=== PATIENT | male | born 1950 | race Hispanic/Latino ===

== ENCOUNTER 2018-06-27 09:03 | Emergency (ER) | payer MEDICARE ==
[~2018-06-27 09:03] MED LIST: AMLO10TA6 PO; ASPI-1005 PO; BUDE10.2 IH; BUSP15TA3 PO; GABA-531 PO; LISI-613 PO; SERT100T12 PO; ZOLP10TA6 PO
[2018-06-27] MEDS ORDERED: LISINOPRIL 5 MG TABLET ONE (09:33)
[2018-06-27] MEDS ORDERED: IPRATROPIUM/ALBUTEROL SULFATE 3 ML SOLUTION IH ONE (09:42)
[2018-06-27] MEDS ORDERED: ACETAMINOPHEN 325 MG TAB ONE (09:58)
== END 2018-06-27 11:41 | disposition home or self-care (01) ==
LOC: EDH 09:03
DX: J40 Bronchitis, not specified as acute or chronic (principal); R07.89 Other chest pain; I10 Essential (primary) hypertension; Z72.0 Tobacco use
CPT/HCPCS: 71045; 93005; 94640

== ENCOUNTER → 2018-09-14 | Outpatient (CLI) | payer MEDICARE ==
[~2018-09-14] MED LIST changes: -AMLO10TA6 PO; +AMLO10TA7 PO
[2018-09-14 13:25] VITALS: BP 162/76
== END | disposition home or self-care (01) ==
LOC: WHH 08:50
PROVIDERS: ATTEND Podiatrist Foot & Ankle Surgery
DX: I70.243 Atherosclerosis of native arteries of left leg with ulceration of ankle (principal); L97.321 Non-pressure chronic ulcer of left ankle limited to breakdown of skin; I70.245 Atherosclerosis of native arteries of left leg with ulceration of other part of foot; L97.521 Non-pressure chronic ulcer of other part of left foot limited to breakdown of skin; I10 Essential (primary) hypertension; I25.10 Atherosclerotic heart disease of native coronary artery without angina pectoris; J44.9 Chronic obstructive pulmonary disease, unspecified; I87.8 Other specified disorders of veins; F41.9 Anxiety disorder, unspecified; F17.200 Nicotine dependence, unspecified, uncomplicated
CPT/HCPCS: A4450; G0463

== ENCOUNTER 2018-09-27 02:27 | Emergency (ER) | payer MEDICARE ==
[2018-09-27 03:18] LABS: CREATININE 0.5 mg/dL (0.5-1.5); POTASSIUM 3.9 mmol/L (3.5-5.1)
[2018-09-27] MEDS ORDERED: CEFTRIAXONE SODIUM 2 GM VIAL IVP ONE (03:21)
[2018-09-27 03:22] LABS: ALBUMIN 3.5 g/dL (3.5-5.0); BILIRUBIN,TOTAL 0.4 mg/dL (0.2-1.0); TOTAL PROTEIN, SERUM 7.1 g/dL (6.0-8.3)
[2018-09-27 03:23] LABS: BASOPHILS % (AUTO) 0.9 % (0.0-5.0); EOSINOPHILS % (AUTO) 5.8 % (0.0-8.0); HEMATOCRIT 44.6 % (42-54); LYMPHOCYTES % (AUTO) 17.9 % (21.0-51.0); MEAN CORPUSCULAR HEMOGLOBIN 33.8 pg (27.0-33.0); MEAN CORPUSCULAR HGB CONC 34.1 g/dL (32.0-36.0); MEAN CORPUSCULAR VOLUME 99.2 fL (79-99); MONOCYTES % (AUTO) 11.9 % (3.0-13.0); NEUTROPHILS % (AUTO) 63.5 % (40.0-77.0); PLATELET COUNT (AUTO) 220 K/uL (130-400); RED BLOOD CELL COUNT(AUTO) 4.49 MIL/uL (4.50-6.20); RED CELL DISTRIBUTION WIDTH 13.6 % (11.0-15.5); WHITE BLOOD COUNT (AUTO) 5.7 K/uL (4.8-10.8)
== END 2018-09-27 06:24 | disposition home or self-care (01) ==
LOC: EDH 02:27
DX: L03.116 Cellulitis of left lower limb (principal); L03.115 Cellulitis of right lower limb; I10 Essential (primary) hypertension; Z98.890 Other specified postprocedural states; Z72.0 Tobacco use
CPT/HCPCS: 36415; 80053; 82550; 85025; 87040 ×2; 93005; 93970; 96374; 99284; J0696

== ENCOUNTER → 2018-09-28 | Outpatient (CLI) | payer MEDICARE ==
[2018-09-28 13:27] VITALS: BP 151/93
== END | disposition home or self-care (01) ==
LOC: WHH 09:00
PROVIDERS: ATTEND Podiatrist Foot & Ankle Surgery
DX: I70.243 Atherosclerosis of native arteries of left leg with ulceration of ankle (principal); I70.245 Atherosclerosis of native arteries of left leg with ulceration of other part of foot; L97.521 Non-pressure chronic ulcer of other part of left foot limited to breakdown of skin; L97.321 Non-pressure chronic ulcer of left ankle limited to breakdown of skin; I10 Essential (primary) hypertension; I25.10 Atherosclerotic heart disease of native coronary artery without angina pectoris; J44.9 Chronic obstructive pulmonary disease, unspecified; F41.9 Anxiety disorder, unspecified; F17.200 Nicotine dependence, unspecified, uncomplicated; I87.8 Other specified disorders of veins
CPT/HCPCS: G0463

== ENCOUNTER → 2018-10-12 | Outpatient (CLI) | payer MEDICARE ==
[2018-10-12 12:51] VITALS: BP 160/70
== END | disposition home or self-care (01) ==
LOC: WHH 09:30
PROVIDERS: ATTEND Podiatrist Foot & Ankle Surgery
DX: I70.243 Atherosclerosis of native arteries of left leg with ulceration of ankle (principal); L97.321 Non-pressure chronic ulcer of left ankle limited to breakdown of skin; I70.245 Atherosclerosis of native arteries of left leg with ulceration of other part of foot; L97.521 Non-pressure chronic ulcer of other part of left foot limited to breakdown of skin; I10 Essential (primary) hypertension; I87.8 Other specified disorders of veins; I25.10 Atherosclerotic heart disease of native coronary artery without angina pectoris; J44.9 Chronic obstructive pulmonary disease, unspecified; F41.9 Anxiety disorder, unspecified; F17.200 Nicotine dependence, unspecified, uncomplicated; Z98.890 Other specified postprocedural states
CPT/HCPCS: G0463

== ENCOUNTER → 2018-10-26 | Outpatient (CLI) | payer MEDICARE ==
[2018-10-26 14:05] VITALS: BP 176/82
== END | disposition home or self-care (01) ==
LOC: WHH 08:45
PROVIDERS: ATTEND Podiatrist Foot & Ankle Surgery
DX: I70.243 Atherosclerosis of native arteries of left leg with ulceration of ankle (principal); L97.321 Non-pressure chronic ulcer of left ankle limited to breakdown of skin; I70.245 Atherosclerosis of native arteries of left leg with ulceration of other part of foot; L97.521 Non-pressure chronic ulcer of other part of left foot limited to breakdown of skin; I10 Essential (primary) hypertension; I25.10 Atherosclerotic heart disease of native coronary artery without angina pectoris; I87.8 Other specified disorders of veins; I42.9 Cardiomyopathy, unspecified; J44.9 Chronic obstructive pulmonary disease, unspecified; M79.89 Other specified soft tissue disorders; F17.200 Nicotine dependence, unspecified, uncomplicated; F41.9 Anxiety disorder, unspecified
CPT/HCPCS: G0463

== ENCOUNTER → 2018-11-09 | Outpatient (CLI) | payer MEDICARE ==
[2018-11-09 14:19] VITALS: BP 146/75
== END | disposition home or self-care (01) ==
LOC: WHH 09:30
PROVIDERS: ATTEND Podiatrist Foot & Ankle Surgery
DX: I70.243 Atherosclerosis of native arteries of left leg with ulceration of ankle (principal); L97.321 Non-pressure chronic ulcer of left ankle limited to breakdown of skin; I70.245 Atherosclerosis of native arteries of left leg with ulceration of other part of foot; L97.521 Non-pressure chronic ulcer of other part of left foot limited to breakdown of skin; I25.10 Atherosclerotic heart disease of native coronary artery without angina pectoris; I10 Essential (primary) hypertension; I87.8 Other specified disorders of veins; J44.9 Chronic obstructive pulmonary disease, unspecified; M79.89 Other specified soft tissue disorders; Z98.890 Other specified postprocedural states; F17.200 Nicotine dependence, unspecified, uncomplicated
CPT/HCPCS: G0463

== ENCOUNTER → 2018-11-23 | Outpatient (CLI) | payer MEDICARE ==
[2018-11-23 14:26] VITALS: BP 160/86
== END | disposition home or self-care (01) ==
LOC: WHH 09:00
PROVIDERS: ATTEND Podiatrist Foot & Ankle Surgery
DX: I70.245 Atherosclerosis of native arteries of left leg with ulceration of other part of foot (principal); L97.521 Non-pressure chronic ulcer of other part of left foot limited to breakdown of skin; J44.9 Chronic obstructive pulmonary disease, unspecified; I10 Essential (primary) hypertension; I25.10 Atherosclerotic heart disease of native coronary artery without angina pectoris; I87.8 Other specified disorders of veins; I42.9 Cardiomyopathy, unspecified; F17.200 Nicotine dependence, unspecified, uncomplicated; F41.9 Anxiety disorder, unspecified; M79.89 Other specified soft tissue disorders
CPT/HCPCS: G0463

== ENCOUNTER 2018-12-02 19:15 | Emergency (ER) | payer MEDICARE ==
[2018-12-02 19:54] LABS: BASOPHILS % (AUTO) 0.2 % (0.0-5.0); EOSINOPHILS % (AUTO) 0.1 % (0.0-8.0); HEMATOCRIT 42.9 % (42-54); LYMPHOCYTES % (AUTO) 2.5 % (21.0-51.0); MEAN CORPUSCULAR HEMOGLOBIN 34.7 pg (27.0-33.0); MEAN CORPUSCULAR HGB CONC 35.2 g/dL (32.0-36.0); MEAN CORPUSCULAR VOLUME 98.4 fL (79-99); MONOCYTES % (AUTO) 5.1 % (3.0-13.0); NEUTROPHILS % (AUTO) 92.1 % (40.0-77.0); PLATELET COUNT (AUTO) 161 K/uL (130-400); RED BLOOD CELL COUNT(AUTO) 4.36 MIL/uL (4.50-6.20); RED CELL DISTRIBUTION WIDTH 13.4 % (11.0-15.5); WHITE BLOOD COUNT (AUTO) 15.1 K/uL (4.8-10.8)
[2018-12-02 20:14] LABS: CREATININE 0.6 mg/dL (0.5-1.5); POTASSIUM 4.6 mmol/L (3.5-5.1)
[2018-12-02 20:16] LABS: INR 1.02 (0.85-1.15); PARTIAL THROMBOPLASTIN TIME 29.1 SEC (26.3-35.5); PROTHROMBIN TIME 10.7 SEC (9.6-11.6)
[2018-12-02 20:17] LABS: ALBUMIN 3.5 g/dL (3.5-5.0); BILIRUBIN,TOTAL 0.9 mg/dL (0.2-1.0); TOTAL PROTEIN, SERUM 7.2 g/dL (6.0-8.3)
== END 2018-12-02 22:36 | disposition home or self-care (01) ==
LOC: EDH 19:15
DX: K91.840 Postprocedural hemorrhage of a digestive system organ or structure following a digestive system procedure (principal); J44.9 Chronic obstructive pulmonary disease, unspecified; I10 Essential (primary) hypertension; Z86.73 Personal history of transient ischemic attack (TIA), and cerebral infarction without residual deficits; Z98.890 Other specified postprocedural states; Z72.0 Tobacco use
CPT/HCPCS: 36415; 80053; 85025; 85610; 85730

== ENCOUNTER → 2018-12-07 | Outpatient (CLI) | payer MEDICARE ==
[2018-12-07 13:39] VITALS: BP 144/70
== END | disposition home or self-care (01) ==
LOC: WHH 09:30
PROVIDERS: ATTEND Podiatrist Foot & Ankle Surgery
DX: I70.245 Atherosclerosis of native arteries of left leg with ulceration of other part of foot (principal); L97.521 Non-pressure chronic ulcer of other part of left foot limited to breakdown of skin; J44.9 Chronic obstructive pulmonary disease, unspecified; I10 Essential (primary) hypertension; I25.10 Atherosclerotic heart disease of native coronary artery without angina pectoris; I87.8 Other specified disorders of veins; I42.9 Cardiomyopathy, unspecified; F17.200 Nicotine dependence, unspecified, uncomplicated; M79.89 Other specified soft tissue disorders; F41.9 Anxiety disorder, unspecified
CPT/HCPCS: G0463

== ENCOUNTER → 2018-12-21 | Outpatient (CLI) | payer MEDICARE ==
[~2018-12-21] MED LIST changes: +LIDOCAINE HCL 2% JELLY 5 ML TP ONE
[2018-12-21 13:42] VITALS: BP 124/79
== END | disposition home or self-care (01) ==
LOC: WHH 08:55
PROVIDERS: ATTEND Podiatrist Foot & Ankle Surgery
DX: I70.245 Atherosclerosis of native arteries of left leg with ulceration of other part of foot (principal); L97.521 Non-pressure chronic ulcer of other part of left foot limited to breakdown of skin; J44.9 Chronic obstructive pulmonary disease, unspecified; I10 Essential (primary) hypertension; I25.10 Atherosclerotic heart disease of native coronary artery without angina pectoris; I87.8 Other specified disorders of veins; I42.9 Cardiomyopathy, unspecified; F17.200 Nicotine dependence, unspecified, uncomplicated; M79.89 Other specified soft tissue disorders; F41.9 Anxiety disorder, unspecified
CPT/HCPCS: A6209; G0463

== ENCOUNTER → 2019-01-04 | Outpatient (CLI) | payer MEDICARE ==
[~2019-01-04] MED LIST changes: -LIDOCAINE HCL 2% JELLY 5 ML TP ONE
[2019-01-04 14:20] VITALS: BP 150/78
== END | disposition home or self-care (01) ==
LOC: WHH 10:00
PROVIDERS: ATTEND Podiatrist Foot & Ankle Surgery
DX: I70.245 Atherosclerosis of native arteries of left leg with ulceration of other part of foot (principal); L97.521 Non-pressure chronic ulcer of other part of left foot limited to breakdown of skin; B35.1 Tinea unguium; I10 Essential (primary) hypertension; I25.10 Atherosclerotic heart disease of native coronary artery without angina pectoris; I87.8 Other specified disorders of veins; I42.9 Cardiomyopathy, unspecified; J44.9 Chronic obstructive pulmonary disease, unspecified; F17.200 Nicotine dependence, unspecified, uncomplicated; F41.9 Anxiety disorder, unspecified; M79.89 Other specified soft tissue disorders; Z86.73 Personal history of transient ischemic attack (TIA), and cerebral infarction without residual deficits
CPT/HCPCS: 11720; 11721

== ENCOUNTER 2019-01-18 08:00 | Outpatient (CLI) | payer MEDICARE ==
[2019-01-18 12:27] VITALS: BP 117/71
== END 2019-01-18 15:14 | disposition home or self-care (01) ==
LOC: WHH 08:00
PROVIDERS: ATTEND Podiatrist Foot & Ankle Surgery
DX: I70.245 Atherosclerosis of native arteries of left leg with ulceration of other part of foot (principal); L97.528 Non-pressure chronic ulcer of other part of left foot with other specified severity; B35.1 Tinea unguium; I10 Essential (primary) hypertension; I25.10 Atherosclerotic heart disease of native coronary artery without angina pectoris; I87.8 Other specified disorders of veins; I42.9 Cardiomyopathy, unspecified; M79.89 Other specified soft tissue disorders; J44.9 Chronic obstructive pulmonary disease, unspecified; F17.200 Nicotine dependence, unspecified, uncomplicated; F41.9 Anxiety disorder, unspecified; Z86.73 Personal history of transient ischemic attack (TIA), and cerebral infarction without residual deficits
CPT/HCPCS: G0463

== ENCOUNTER → 2019-07-25 | Outpatient (CLI) | payer MEDICARE ==
[~2019-07-25] MED LIST changes: -AMLO10TA7 PO; +ATOR40TA71 PO; -BUDE10.2 IH; +CLOP75TA14 PO; +CYAN-35 PO; +FURO20TA4 PO; -LISI-613 PO; +LOSA25TA41 PO; +METO25 PO; -ZOLP10TA6 PO
== END | disposition home or self-care (01) ==
LOC: SHCH 12:46
PROVIDERS: ATTEND Internal Medicine Cardiovascular Disease
DX: I70.202 Unspecified atherosclerosis of native arteries of extremities, left leg (principal); I77.9 Disorder of arteries and arterioles, unspecified
CPT/HCPCS: 93925

== ENCOUNTER → 2019-08-07 | Outpatient (CLI) | payer MEDICARE ==
[~2019-08-07] MED LIST changes: +BUDE10.2 IH
== END | disposition home or self-care (01) ==
LOC: RAH 14:51
PROVIDERS: ATTEND Internal Medicine Cardiovascular Disease
DX: I70.203 Unspecified atherosclerosis of native arteries of extremities, bilateral legs (principal)
CPT/HCPCS: 93925

== ENCOUNTER → 2019-11-15 | Outpatient (CLI) | payer MEDICARE ==
[~2019-11-15] MED LIST changes: +ALBU90AE IH; +FOLI1TAB85 PO; +FURO40TA5 PO; +TAMS-1 PO
== END | disposition home or self-care (01) ==
LOC: SHCH 09:12
PROVIDERS: ATTEND Internal Medicine Cardiovascular Disease
DX: I87.2 Venous insufficiency (chronic) (peripheral) (principal)
CPT/HCPCS: 93970

== ENCOUNTER → 2019-11-27 | Outpatient (CLI) | payer MEDICARE ==
[~2019-11-27] MED LIST changes: -ALBU90AE IH; -FOLI1TAB85 PO; -FURO40TA5 PO; -TAMS-1 PO
== END | disposition home or self-care (01) ==
LOC: RAH 09:53
PROVIDERS: ATTEND Internal Medicine Cardiovascular Disease
DX: I73.9 Peripheral vascular disease, unspecified (principal); M71.21 Synovial cyst of popliteal space [Baker], right knee
CPT/HCPCS: 93970

== ENCOUNTER 2019-12-06 05:43 | Day surgery (SDC) | payer MEDICARE ==
[~2019-12-06] VITALS: Ht 170.2 cm; Wt 67.6 kg
[~2019-12-06 05:43] MED LIST changes: +ALBU90AE IH; -BUDE10.2 IH; +FOLI1TAB85 PO; -FURO20TA4 PO; +FURO40TA5 PO; -LOSA25TA41 PO; +TAMS-1 PO
[2019-12-06] MEDS ORDERED: SODIUM CHLORIDE 0.9% 1000ML 1,000 ML IV ONE (06:28)
[2019-12-06 06:30] VITALS: BP 171/74
--- NOTE | 2019-12-06 06:30 | NUR ---
PREOP PT ARRIVED VIA W/C. PT VERY FRAIL LOOKING AND SOB WITH WHEEZING WITH MINIMAL EXERTION. PT HAS BRUISING TO TRUNK AND ARMS. PT HAS DRESSING KERLIX TO BILAT FEET. WITH YELLOWISH DRAINAGE NOTED. PT HAS ULCERS TO RT FOOT AND LOWER LEG AND ULCERS TO LEFT FOOT. WILL WAIT FOR LABS AND CXR TO CALL AND REPORT PT CONDITION TO .
[2019-12-06 06:32] LABS: BASOPHILS % (AUTO) 1.2 % (0.0-5.0); EOSINOPHILS % (AUTO) 15.7 % (0.0-8.0); HEMATOCRIT 34.1 % (42-54); LYMPHOCYTES % (AUTO) 13.8 % (21.0-51.0); MEAN CORPUSCULAR HEMOGLOBIN 28.5 pg (27.0-33.0); MEAN CORPUSCULAR HGB CONC 33.4 g/dL (32.0-36.0); MEAN CORPUSCULAR VOLUME 85.3 fL (79-99); MONOCYTES % (AUTO) 13.6 % (3.0-13.0); NEUTROPHILS % (AUTO) 55.4 % (40.0-77.0); PLATELET COUNT (AUTO) 324 K/uL (130-400); RED CELL DISTRIBUTION WIDTH 15.8 % (11.0-15.5); WHITE BLOOD COUNT (AUTO) 7.4 K/uL (4.8-10.8)
[2019-12-06 06:40] LABS: CREATININE 0.7 mg/dL (0.5-1.5); POTASSIUM 4.8 mmol/L (3.5-5.1)
[2019-12-06 06:41] LABS: APPEARANCE,URINE CLEAR (CLEAR); BILIRUBIN,URINE NEGATIVE (NEGATIVE); COLOR,URINE YELLOW (YELLOW); GLUCOSE, URINE (UA) NEGATIVE (NEGATIVE); KETONES,URINE NEGATIVE (NEGATIVE); LEUKOCYTE ESTERASE ,URINE NEGATIVE (NEGATIVE); NITRATE,URINE NEGATIVE (NEGATIVE); OCCULT BLOOD,URINE NEGATIVE (NEGATIVE); PH,URINE 5.5 (5.0-8.0); PROTEIN,URINE NEGATIVE (NEGATIVE); UROBILINOGEN,URINE 0.2 mg/dL (0.2-1.0)
[2019-12-06 06:44] LABS: INR 0.99 (0.85-1.15); PARTIAL THROMBOPLASTIN TIME 33.1 SEC (26.3-35.5); PROTHROMBIN TIME 10.7 SEC (9.6-11.6)
[2019-12-06] MEDS ORDERED: NITROGLYCERIN 2 MG/VIAL VIAL IV ONE (07:18)
[2019-12-06] MEDS ORDERED: HEPARIN SODIUM 1000UNIT/ML 10ML VIAL ONE (07:18)
[2019-12-06] MEDS ORDERED: IODIXANOL 320 MG/ML 100 ML VIAL ONE (07:18)
[2019-12-06] MEDS ORDERED: MIDAZOLAM HCL 1 MG/ML 2ML VIAL ONE (07:19)
[2019-12-06] MEDS ORDERED: LIDOCAINE HCL 2% 20ML ONE (07:19)
[2019-12-06] MEDS ORDERED: FENTANYL CITRATE PF 50 MCG/1 ML 2ML VIAL ONE (07:19)
--- NOTE | 2019-12-06 07:20 | NUR ---
REPORT MAKEDA HERE FOR PT FOR ABDOMINAL AORTOGRAM. CALLED DR LOWE AND REPORTED ON PT STATUS AND LABS. MD WILL BE OVER TO ASSESS PT.
--- NOTE | 2019-12-06 07:50 | NUR ---
MD DR LOWE HERE TO SEE PT. LUNGS ASSESSED AND NEW ORDRS GIVEN. WILL ADM MDI ONCE AVAILABLE. PT SOB WITH WHEEZING WITH MINIMAL EXCERTION.
[2019-12-06] MEDS ORDERED: ALBUTEROL SULFATE/IPRATROPIUM 103/18 MCG/PUFF 14.7 GM INHR IH SCH (08:00)
[2019-12-06] MEDS: ALBUTEROL INHALER 90MCG/INH IH SCH ×2 (08:36→09:32)
[2019-12-06 09:22] VITALS: BP 138/72
--- NOTE | 2019-12-06 09:22 | NUR ---
MD DR LOWE IN TO SEE PT AND LISTENED TO LUNGS. RECEIVED NEW ORDERS TO ADM 2 MORE PUFFS OF INHALER. PT LOOK A LITTLE BETTER BUT STILL SOB AND WHEEZING WITH MINIMAL
[2019-12-06] MEDS ORDERED: ALBUTEROL INHALER 90MCG/INH IH SCH (09:57)
--- NOTE | 2019-12-06 10:42 | NUR ---
MD DR LOWE BACK TO SEE PT. PROCEDURE CANCELLED DUE TO PT WILL NOT BE ABLE TO LAY FLAT FOR HOURS. PT TO FOLLOW UP WITH PCP AND DR LOWE FOR REEVALUATION.
[2019-12-06 11:45] VITALS: BP 149/65
--- NOTE | 2019-12-06 11:45 | NUR ---
DISCHARGE INSTRUCTIONS GIVEN TO DAUGHTER CHANDRIKA HORAN AND UNDERSTANDING VOICED. PT TAKEN OUT VIA W/C WITH MINIMAL EXERTION NOTED AT THIS TIME.
== END 2019-12-06 11:45 | disposition home or self-care (01) ==
LOC: DAH 05:43 → CLH 05:43
PROVIDERS: ATTEND Internal Medicine Cardiovascular Disease
DX: I70.25 Atherosclerosis of native arteries of other extremities with ulceration (principal); I25.10 Atherosclerotic heart disease of native coronary artery without angina pectoris; I10 Essential (primary) hypertension; E78.5 Hyperlipidemia, unspecified; F17.210 Nicotine dependence, cigarettes, uncomplicated; Z79.82 Long term (current) use of aspirin; Z79.899 Other long term (current) drug therapy; Z79.01 Long term (current) use of anticoagulants; Z83.3 Family history of diabetes mellitus; Z82.49 Family history of ischemic heart disease and other diseases of the circulatory system; Z53.8 Procedure and treatment not carried out for other reasons
CPT/HCPCS: 36415; 71045; 80048; 81003; 85025; 85610; 85730; 93005; A4215; A4216; A4221; A4222; A4223 ×3; A4606; A4663; J1644; J7030 ×2; J2250; J3010; J3490; Q9967

== ENCOUNTER 2019-12-13 23:16 | Inpatient (IN) | payer MEDICARE ==
[~2019-12-13] VITALS: Ht 172.7 cm; Wt 76.2 kg
[2019-12-13] MEDS ORDERED: IPRATROPIUM/ALBUTEROL SULFATE 3 ML SOLUTION IH ONE (23:27)
[2019-12-13 23:53] LABS: BASOPHILS % (AUTO) 1.1 % (0.0-5.0); EOSINOPHILS % (AUTO) 7.6 % (0.0-8.0); LYMPHOCYTES % (AUTO) 9.8 % (21.0-51.0); MEAN CORPUSCULAR HEMOGLOBIN 28.3 pg (27.0-33.0); MEAN CORPUSCULAR HGB CONC 34.8 g/dL (32.0-36.0); MEAN CORPUSCULAR VOLUME 81.4 fL (79-99); MONOCYTES % (AUTO) 11.4 % (3.0-13.0); NEUTROPHILS % (AUTO) 69.7 % (40.0-77.0); PLATELET COUNT (AUTO) 366 K/uL (130-400); RED BLOOD CELL COUNT(AUTO) 3.81 MIL/uL (4.50-6.20); RED CELL DISTRIBUTION WIDTH 14.9 % (11.0-15.5); WHITE BLOOD COUNT (AUTO) 8.4 K/uL (4.8-10.8)
[2019-12-13 23:56] LABS: ABG BASE EXCESS 1.3 mmol/L (-2.0-3.0); ABG HCO3 23.9 mmol/L (21.0-28.0); ABG OXYGEN SATURATION 99.5 % (95.0-99.0); ABG PCO2 32 mmHg (35-48)
[2019-12-13] MEDS ORDERED: CLINDAMYCIN 900 MG/D5% WATER 50 ML IV ONE (23:57)
[2019-12-13] MEDS ORDERED: METHYLPREDNISOLONE SOD SUCC 125MG/2ML VIAL ONE (23:58)
[2019-12-14] MEDS ORDERED: ALBUTEROL SULFATE 0.083% 2.5 MG/3 ML INH IH ONE (00:02)
[2019-12-14 00:12] LABS: B-TYPE NATRIURETIC PEPTIDE 94 pg/mL (0-100)
[2019-12-14 00:15] LABS: ALANINE AMINOTRANSFERASE 39 U/L (12-78); ASPARTATE AMINOTRANSFERASE 79 U/L (10-37); BILIRUBIN,TOTAL 0.5 mg/dL (0.2-1.0); CARBON DIOXIDE 26 mmol/L (21-32); CREATININE 0.6 mg/dL (0.5-1.5); GLOMERULAR FILTR. RATE CALC 142 mL/min (>60); GLUCOSE,RANDOM 101 mg/dL (70-105); MYOGLOBIN 188 ng/mL (10-92); POTASSIUM 3.7 mmol/L (3.5-5.1); SODIUM SERUM 125 mmol/L (136-145); TOTAL PROTEIN, SERUM 6.7 g/dL (6.0-8.3); TROPONIN I < 0.04 ng/mL (0.00-0.06); UREA NITROGEN, BLOOD 3 mg/dL (7-18)
[2019-12-14 00:17] LABS: ALCOHOL, BLOOD < 3 mg/dL (0-10); CHLORIDE 88 mmol/L (101-111); CREATINE KINASE, TOTAL 659 U/L (21-232)
[2019-12-14 00:21] LABS: APPEARANCE,URINE Clear (CLEAR); BILIRUBIN,URINE Negative (NEGATIVE); COLOR,URINE Yellow (YELLOW); GLUCOSE, URINE (UA) Negative (NEGATIVE); KETONES,URINE Trace mg/dL (NEGATIVE); LEUKOCYTE ESTERASE ,URINE Negative (NEGATIVE); NITRATE,URINE Negative (NEGATIVE); OCCULT BLOOD,URINE Negative (NEGATIVE); PROTEIN,URINE Negative (NEGATIVE)
[2019-12-14 00:30] LABS: INR 1.01 (0.85-1.15); PROTHROMBIN TIME 10.9 SEC (9.6-11.6)
[2019-12-14] MEDS ORDERED: IOHEXOL 350 MG/ML 100ML INFUS..BTL IV ONE (01:06)
[2019-12-14] MEDS ORDERED: LEVOFLOXACIN 500 MG/D5W 100 ML 100 ML IV SCH (05:00)
[2019-12-14] MEDS ORDERED: LEVOFLOXACIN 500 MG/D5W 100 ML 100 ML ONE (05:34)
[2019-12-14] MEDS ORDERED: MAGNESIUM 2GM PREMIX 50ML 50 ML IV ONE (05:34)
[2019-12-14] MEDS ORDERED: IPRATROPIUM/ALBUTEROL SULFATE 3 ML SOLUTION IH ONE ×2 (06:52→15:40)
[2019-12-14] MEDS: IPRATROPIUM/ALBUTEROL SULFATE 3 ML SOLUTION IH PRN ×4 (06:55→23:21)
--- NOTE | 2019-12-14 06:57 | NUR ---
Pt exhibits upper airway wheezing upon exhalation. Addendum: 12/14/19 at 0658 by JASMIN ROUSSEAU Amended: Links added.
[2019-12-14] MEDS ORDERED: HYDROMORPHONE 1 MG/1 ML AMP ONE (08:49)
[2019-12-14] MEDS ORDERED: ENOXAPARIN SODIUM 40 MG/0.4 ML SYRINGE SQ SCH (09:30)
[2019-12-14] MEDS: LEVOFLOXACIN 500 MG/D5W 100 ML 100 ML IV SCH (09:30)
[2019-12-14] MEDS ORDERED: SODIUM CHLORIDE 0.9% 1000ML 1,000 ML IV SCH (09:30)
--- NOTE | 2019-12-14 12:55 | NUR ---
CHART REVIEWED., CALL TO FAMILY DAUGHTER CHANDRIKA HORAN, INITIAL ASSESSMENT DONE, LIVES WITH SPOUSE, HAS ELECTRIC SCOOTER, , [place], PROVIDER SERVICES BY DAUGHTER CHANDRIKA WHO DOES NOT KNOW HOW MANY HOURS TOTAL BETWEEN PT AND MOTHER [facility] PATIENT HAS HAD RECENT DECLINE IN MOBILITY- AND LOTS OF PAIN . FELL RECENTLY, [facility] HAS [facility] COMING TO ASSESS HIS LEG WOUNDS FREQUENTLY- 3 X WK, AND DAUGHTER APPLIES MEDIHONEY ON DAYS WHEN HH DOES NOT COME. [facility] HAD PATIENT AT DR. CHAU YESTERDAY WHO TOLD PT AND FAMILY THAT THE WOUNDS 'WOULD NOT IMPROVE UNTIL THE BALOON WAS DONE AND THE CIRCULATION IS BETTER" , APPT NEXT WITH DR. LOWE FOR POSSIBLE ANGIOPLASTY. CALL TO ER TO PASS THIS INFO ON TO TRISTAN GRAYSON TO ASK DR. GARCIA IF CONSULT FOR CARDIO NEEDED ON THIS ADMIT Addendum: 12/14/19 at 1314 by JAMILA PARNELL RN Amended: Links added.
--- NOTE | 2019-12-14 16:25 | NUR ---
[facility] CONSULT PATIENT ASSESSED REQUESTED: [facility] RECOMMENDATIONS SUBMITTED; REPORT GIVEN TO PATIENT'S NURSE JOSE. Addendum: 12/14/19 at 1627 by ERIC LOOMIS LVN LVN W Amended: Links added.
[2019-12-14] MEDS: SODIUM CHLORIDE 0.9% 1000ML 1,000 ML IV SCH (19:56)
[2019-12-14 20:00] VITALS: BP 142/57
[2019-12-14] MEDS: HYDROMORPHONE HCL 0.5 MG/0.5 ML ML IVP PRN (23:04)
[2019-12-15] VITALS (7 sets, daily range): BP systolic 117–148; BP diastolic 56–89
[2019-12-15 06:07] LABS: HEMATOCRIT 27.9 % (42-54); MEAN CORPUSCULAR HEMOGLOBIN 27.7 pg (27.0-33.0); MEAN CORPUSCULAR HGB CONC 33.7 g/dL (32.0-36.0); MEAN CORPUSCULAR VOLUME 82.3 fL (79-99); PLATELET COUNT (AUTO) 351 K/uL (130-400); RED BLOOD CELL COUNT(AUTO) 3.39 MIL/uL (4.50-6.20); RED CELL DISTRIBUTION WIDTH 15.5 % (11.0-15.5); WHITE BLOOD COUNT (AUTO) 8.1 K/uL (4.8-10.8)
[2019-12-15 06:24] LABS: CREATININE 0.6 mg/dL (0.5-1.5); POTASSIUM 3.4 mmol/L (3.5-5.1)
[2019-12-15] MEDS: IPRATROPIUM/ALBUTEROL SULFATE 3 ML SOLUTION IH PRN ×3 (06:26→23:36)
[2019-12-15 06:46] LABS: % IRON SATURATION 7.1 % (30-44)
[2019-12-15 07:22] LABS: LYMPHOCYTES % (MANUAL) 20 % (22-44); MAN.DIFF COMMENT-IMPRESSION MANUAL DIFFERENTIAL; MONOCYTES % (MANUAL) 4 % (2-9); PLATELET MORPHOLOGY COMMENT ADEQUATE; SEGMENTED NEUTROPHILS % 76 % (40-70)
[2019-12-15] MEDS ORDERED: COMPOUND IV MISC 1 EACH IVSOLN MISC PRN (08:30)
[2019-12-15] MEDS: LEVOFLOXACIN 500 MG/D5W 100 ML 100 ML IV SCH (08:51)
[2019-12-15] MEDS: ENOXAPARIN SODIUM 40 MG/0.4 ML SYRINGE SQ SCH (08:51)
[2019-12-15] MEDS: POTASSIUM CHLORIDE 20 MEQ ERTAB PO SCH ×2 (08:52→20:13)
[2019-12-15] MEDS: IRON SUCROSE COMPLEX 100 MG in SODIUM CHLORIDE 0.9% 50 ML IV SCH (09:02)
[2019-12-15] MEDS: SODIUM CHLORIDE 0.9% 1000ML 1,000 ML IV SCH ×2 (10:55→22:19)
[2019-12-15] MEDS: HYDROMORPHONE HCL 0.5 MG/0.5 ML ML IVP PRN ×2 (11:23→22:53)
--- NOTE | 2019-12-15 12:00 | NUR ---
PAIN PT IS SCREAMING AND MOANING OF PAIN TO THE RIGHT LEG. MED WILL BE GIVEN FOR PAIN
[2019-12-15] MEDS: ASPIRIN 81MG TAB.CHEW PO SCH (14:56)
[2019-12-15] MEDS: ATORVASTATIN CALCIUM 40 MG TABLET PO SCH (14:57)
[2019-12-15] MEDS: LOSARTAN 50 MG TABLET PO SCH (14:57)
[2019-12-15] MEDS: CLOPIDOGREL BISULFATE 75 MG TAB PO SCH (14:57)
[2019-12-15] MEDS: METOPROLOL TARTRATE 25 MG TAB PO SCH ×2 (14:58→22:18)
--- NOTE | 2019-12-15 15:32 | NUR ---
RD NOTIFICATION - BLE SWELLING RD unable to assess nutrition needs d/t Pt Height or Weight not provided. Pt admitted with Cellulitis. NPO at time of screen. RLE 2+ non-pitting edema, as per EMR. R-Leg ulcer. Recommend record Pt height and weight Recommend Nehemiah BID for wound healing support Recommend 500mg Ascorbic acid, 200mg ZnSO4 Recommend Heart Healthy Diet Order with 1500mL fluid restriction, as medically feasible. RD to continue to monitor. Please notify RD as additional nutrition concerns arise. Thank you. Addendum: 12/15/19 at [address] Amended: Links added.
[2019-12-15 16:59] LABS: ALBUMIN 2.5 g/dL (3.5-5.0); BILIRUBIN,DIRECT 0.1 mg/dL (0.0-0.3); BILIRUBIN,TOTAL 0.2 mg/dL (0.2-1.0); THYROID STIMULATING HORMONE 3.13 uIU/mL (0.36-3.74); TOTAL PROTEIN, SERUM 5.8 g/dL (6.0-8.3); URIC ACID 3.4 mg/dL (2.6-7.2)
[2019-12-16 04:00] VITALS: BP 148/53
[2019-12-16 05:13] LABS: BASOPHILS % (AUTO) 1.2 % (0.0-5.0); EOSINOPHILS % (AUTO) 4.5 % (0.0-8.0); HEMATOCRIT 28.1 % (42-54); LYMPHOCYTES % (AUTO) 14.7 % (21.0-51.0); MEAN CORPUSCULAR HGB CONC 33.5 g/dL (32.0-36.0); MEAN CORPUSCULAR VOLUME 83.6 fL (79-99); MONOCYTES % (AUTO) 12.7 % (3.0-13.0); NEUTROPHILS % (AUTO) 66.4 % (40.0-77.0); PLATELET COUNT (AUTO) 368 K/uL (130-400); RED BLOOD CELL COUNT(AUTO) 3.36 MIL/uL (4.50-6.20); RED CELL DISTRIBUTION WIDTH 15.7 % (11.0-15.5); WHITE BLOOD COUNT (AUTO) 6.6 K/uL (4.8-10.8)
[2019-12-16 05:28] LABS: CREATININE 0.6 mg/dL (0.5-1.5); PHOSPHORUS 2.8 mg/dL (2.5-4.9); POTASSIUM 3.7 mmol/L (3.5-5.1)
[2019-12-16] MEDS: SODIUM CHLORIDE 0.9% 1000ML 1,000 ML IV SCH ×3 (06:08→19:40)
[2019-12-16] MEDS: HYDROMORPHONE HCL 0.5 MG/0.5 ML ML IVP PRN ×3 (06:29→23:34)
[2019-12-16] MEDS: IPRATROPIUM/ALBUTEROL SULFATE 3 ML SOLUTION IH PRN (07:04)
[2019-12-16 07:41] VITALS: BP 138/63
--- NOTE | 2019-12-16 08:10 | NUR ---
IV PT CONFUSED THIS MORNING SITTING AT THE SIDE OF THE BED AND PULLED OUT IV FROM RT. WRIST AREA. WHO IS IN THE ROOM WAS ASLEEP AND UNAWARE THAT HE TRIED TO GET UP TO GO TO THE RESTROOM.
--- NOTE | 2019-12-16 08:30 | NUR ---
IV NEW IV PLACED TO THE RT. UPPER ARM 20 GA, PT IN BED WITH A BED ALARM, RESTING IN BED, WILL CONTINUE TO MONITOR.
[2019-12-16] MEDS: LEVOFLOXACIN 500 MG/D5W 100 ML 100 ML IV SCH (08:38)
[2019-12-16] MEDS: ENOXAPARIN SODIUM 40 MG/0.4 ML SYRINGE SQ SCH (08:39)
[2019-12-16] MEDS: ATORVASTATIN CALCIUM 40 MG TABLET PO SCH (08:39)
[2019-12-16] MEDS: ASPIRIN 81MG TAB.CHEW PO SCH (08:40)
[2019-12-16] MEDS: CLOPIDOGREL BISULFATE 75 MG TAB PO SCH (08:40)
[2019-12-16] MEDS: LOSARTAN 50 MG TABLET PO SCH (08:41)
[2019-12-16] MEDS: METOPROLOL TARTRATE 25 MG TAB PO SCH ×2 (08:41→20:05)
[2019-12-16] MEDS: IRON SUCROSE COMPLEX 100 MG in SODIUM CHLORIDE 0.9% 50 ML IV SCH (09:00)
--- NOTE | 2019-12-16 11:22 | NUR ---
PT. C/O THAT ITS HOT AND TAKING OFF HIS GOWN. TEMP IN ROOM LOWERED TO MAKE HIM MORE COMFORTABLE, WILL CONTINUE TO MONITOR.
[2019-12-16 11:28] VITALS: BP 122/62
[2019-12-16] MEDS ORDERED: IPRATROPIUM/ALBUTEROL SULFATE 3 ML SOLUTION IH PRN (12:00)
[2019-12-16 16:42] VITALS: BP 160/82
[2019-12-16] MEDS: POTASSIUM CHLORIDE 20 MEQ ERTAB PO SCH (19:39)
[2019-12-16 19:56] VITALS: BP 126/52
[2019-12-16 23:32] VITALS: BP 153/69
--- NOTE | 2019-12-17 03:00 | NUR ---
PAIN C/O PAIN LEVEL 7 BLE EXTREMITIES,NO PAIN ALLOWED TO BE GIVEN AT THIS TIME, DR. GARCIA CALLED WITH ORDERS, DILAUDID 0.5 MG IVP X1 NOW EXTRA DOSE
[2019-12-17] MEDS ORDERED: HYDROMORPHONE HCL 0.5 MG/0.5 ML ML IVP ONE (03:15)
[2019-12-17 04:00] VITALS: BP 163/80
[2019-12-17 05:14] LABS: BASOPHILS % (AUTO) 1.3 % (0.0-5.0); HEMATOCRIT 29.5 % (42-54); MEAN CORPUSCULAR HEMOGLOBIN 28.1 pg (27.0-33.0); MEAN CORPUSCULAR HGB CONC 33.2 g/dL (32.0-36.0); MEAN CORPUSCULAR VOLUME 84.5 fL (79-99); MONOCYTES % (AUTO) 11.5 % (3.0-13.0); NEUTROPHILS % (AUTO) 67.8 % (40.0-77.0); PLATELET COUNT (AUTO) 405 K/uL (130-400); RED BLOOD CELL COUNT(AUTO) 3.49 MIL/uL (4.50-6.20); RED CELL DISTRIBUTION WIDTH 15.8 % (11.0-15.5); WHITE BLOOD COUNT (AUTO) 6.9 K/uL (4.8-10.8)
[2019-12-17 05:24] LABS: CREATININE 0.6 mg/dL (0.5-1.5)
[2019-12-17] MEDS: IPRATROPIUM/ALBUTEROL SULFATE 3 ML SOLUTION IH SCH ×5 (06:17→21:50)
[2019-12-17] MEDS: HYDROMORPHONE HCL 0.5 MG/0.5 ML ML IVP PRN (06:41)
[2019-12-17 07:48] VITALS: BP 152/67
[2019-12-17] MEDS: ENOXAPARIN SODIUM 40 MG/0.4 ML SYRINGE SQ SCH (08:26)
[2019-12-17] MEDS: ASPIRIN 81MG TAB.CHEW PO SCH (08:27)
[2019-12-17] MEDS: CLOPIDOGREL BISULFATE 75 MG TAB PO SCH (08:27)
[2019-12-17] MEDS: LOSARTAN 50 MG TABLET PO SCH (08:28)
[2019-12-17] MEDS: ATORVASTATIN CALCIUM 40 MG TABLET PO SCH (08:28)
[2019-12-17] MEDS: METOPROLOL TARTRATE 25 MG TAB PO SCH ×2 (08:28→20:01)
[2019-12-17] MEDS: FUROSEMIDE 10 MG/ML 2ML VIAL IV SCH (08:29)
[2019-12-17] MEDS: LEVOFLOXACIN 500 MG/D5W 100 ML 100 ML IV SCH (08:29)
[2019-12-17] MEDS: IRON SUCROSE COMPLEX 100 MG in SODIUM CHLORIDE 0.9% 50 ML IV SCH (08:30)
[2019-12-17 11:25] VITALS: BP 124/58
[2019-12-17] MEDS ORDERED: HYDROMORPHONE HCL 0.5 MG/0.5 ML ML IVP PRN (13:00)
--- NOTE | 2019-12-17 13:01 | NUR ---
PAIN DR. GARCIA CHANGED PAIN FROM Q6HR TO Q4HRS. CASS
[2019-12-17] MEDS ORDERED: HYDROMORPHONE HCL 0.5 MG/0.5 ML ML ONE (13:04)
[2019-12-17 16:15] VITALS: BP 125/59
[2019-12-17 20:00] VITALS: BP 140/64
[2019-12-17] MEDS: HYDROMORPHONE HCL 2 MG/ML VIAL IVP PRN (23:01)
[2019-12-17 23:37] VITALS: BP 157/70
[2019-12-18] MEDS: HYDROMORPHONE HCL 2 MG/ML VIAL IVP PRN ×3 (01:58→11:33)
[2019-12-18] MEDS: IPRATROPIUM/ALBUTEROL SULFATE 3 ML SOLUTION IH SCH ×6 (02:39→22:32)
[2019-12-18 04:00] VITALS: BP 162/88
[2019-12-18 05:27] LABS: BASOPHILS % (AUTO) 1.1 % (0.0-5.0); EOSINOPHILS % (AUTO) 9.9 % (0.0-8.0); LYMPHOCYTES % (AUTO) 9.2 % (21.0-51.0); MEAN CORPUSCULAR HEMOGLOBIN 28.3 pg (27.0-33.0); MEAN CORPUSCULAR HGB CONC 33.1 g/dL (32.0-36.0); MEAN CORPUSCULAR VOLUME 85.5 fL (79-99); MONOCYTES % (AUTO) 11.9 % (3.0-13.0); NEUTROPHILS % (AUTO) 67.6 % (40.0-77.0); PLATELET COUNT (AUTO) 360 K/uL (130-400); RED BLOOD CELL COUNT(AUTO) 3.04 MIL/uL (4.50-6.20); RED CELL DISTRIBUTION WIDTH 15.9 % (11.0-15.5); WHITE BLOOD COUNT (AUTO) 7.1 K/uL (4.8-10.8)
[2019-12-18 05:40] LABS: CREATININE 0.6 mg/dL (0.5-1.5); POTASSIUM 3.6 mmol/L (3.5-5.1)
[2019-12-18 07:30] VITALS: BP 121/72
[2019-12-18] MEDS: POTASSIUM CHLORIDE 20 MEQ ERTAB PO SCH (08:15)
[2019-12-18 08:21] LABS: PARTIAL THROMBOPLASTIN TIME 33.5 SEC (26.3-35.5); PROTHROMBIN TIME 10.8 SEC (9.6-11.6)
[2019-12-18] MEDS: LOSARTAN 50 MG TABLET PO SCH (10:51)
[2019-12-18] MEDS: FUROSEMIDE 10 MG/ML 2ML VIAL IV SCH (10:51)
[2019-12-18] MEDS: CLOPIDOGREL BISULFATE 75 MG TAB PO SCH (10:52)
[2019-12-18] MEDS: ATORVASTATIN CALCIUM 40 MG TABLET PO SCH (10:52)
[2019-12-18] MEDS: METOPROLOL TARTRATE 25 MG TAB PO SCH ×2 (10:52→21:12)
[2019-12-18] MEDS: IRON SUCROSE COMPLEX 100 MG in SODIUM CHLORIDE 0.9% 50 ML IV SCH (10:53)
[2019-12-18] MEDS: ASPIRIN 81MG TAB.CHEW PO SCH (10:53)
[2019-12-18] MEDS: LEVOFLOXACIN 500 MG/D5W 100 ML 100 ML IV SCH (10:53)
[2019-12-18 11:00] VITALS: BP 134/78
[2019-12-18] MEDS: ENOXAPARIN SODIUM 40 MG/0.4 ML SYRINGE SQ SCH (11:09)
[2019-12-18 16:00] VITALS: BP 103/41
--- NOTE | 2019-12-18 16:00 | NUR ---
CM NOTE/DCP MEET WITH PATIENT AND IN ROOM, INFORMED OF REFERRAL FOR SNF. PER , INTERESTED IN [facility] BUT WANTS TO DISCUSS WITH FAMILY BEFORE MAKE DECISION. CM TO FOLLOW UP.
[2019-12-18 20:32] VITALS: BP 154/58
[2019-12-18] MEDS: SODIUM CHLORIDE 0.9% 1000ML 1,000 ML IV SCH (21:13)
[2019-12-18] MEDS: HYDROMORPHONE HCL 0.5 MG/0.5 ML ML IVP PRN (22:23)
[2019-12-19] VITALS (11 sets, daily range): BP systolic 124–154; BP diastolic 50–76
[2019-12-19] MEDS: IPRATROPIUM/ALBUTEROL SULFATE 3 ML SOLUTION IH SCH ×6 (01:14→22:30)
[2019-12-19] MEDS: HYDROMORPHONE HCL 0.5 MG/0.5 ML ML IVP PRN ×4 (02:29→20:12)
[2019-12-19] MEDS: SODIUM CHLORIDE 0.9% 1000ML 1,000 ML IV SCH ×3 (03:24→23:10)
[2019-12-19 04:39] LABS: BASOPHILS % (AUTO) 0.8 % (0.0-5.0); HEMATOCRIT 25.7 % (42-54); LYMPHOCYTES % (AUTO) 12.6 % (21.0-51.0); MEAN CORPUSCULAR HEMOGLOBIN 27.3 pg (27.0-33.0); MEAN CORPUSCULAR HGB CONC 32.7 g/dL (32.0-36.0); MEAN CORPUSCULAR VOLUME 83.4 fL (79-99); MONOCYTES % (AUTO) 12.7 % (3.0-13.0); NEUTROPHILS % (AUTO) 63.5 % (40.0-77.0); PLATELET COUNT (AUTO) 361 K/uL (130-400); RED BLOOD CELL COUNT(AUTO) 3.08 MIL/uL (4.50-6.20); RED CELL DISTRIBUTION WIDTH 16.4 % (11.0-15.5); WHITE BLOOD COUNT (AUTO) 7.4 K/uL (4.8-10.8)
[2019-12-19 04:52] LABS: CREATININE 0.6 mg/dL (0.5-1.5); POTASSIUM 3.7 mmol/L (3.5-5.1)
[2019-12-19] MEDS: POTASSIUM CHLORIDE 20 MEQ ERTAB PO SCH (07:30)
[2019-12-19] MEDS: ENOXAPARIN SODIUM 40 MG/0.4 ML SYRINGE SQ SCH (07:46)
--- NOTE | 2019-12-19 07:47 | NUR ---
PATIENT WITH DRESSINGS IN PLACE TO BELTRAN FOOT, EXTREMITIES WARM ,DENIES ANY NUMBNESS , REDDISH TO PINK DISCOLORATION TO SURROUNDING AREAS .
[2019-12-19] MEDS: ATORVASTATIN CALCIUM 40 MG TABLET PO SCH (08:17)
[2019-12-19] MEDS: ASPIRIN 81MG TAB.CHEW PO SCH (08:17)
[2019-12-19] MEDS: LOSARTAN 50 MG TABLET PO SCH (08:18)
[2019-12-19] MEDS: METOPROLOL TARTRATE 25 MG TAB PO SCH ×2 (08:18→20:08)
[2019-12-19] MEDS: CLOPIDOGREL BISULFATE 75 MG TAB PO SCH (08:18)
[2019-12-19] MEDS: IRON SUCROSE COMPLEX 100 MG in SODIUM CHLORIDE 0.9% 50 ML IV SCH (08:19)
[2019-12-19] MEDS: FUROSEMIDE 10 MG/ML 2ML VIAL IV SCH (08:19)
[2019-12-19] MEDS: LEVOFLOXACIN 500 MG/D5W 100 ML 100 ML IV SCH (08:20)
[2019-12-19] MEDS ORDERED: HEPARIN SODIUM 1000UNIT/ML 10ML VIAL ONE (08:42)
[2019-12-19] MEDS ORDERED: NITROGLYCERIN 2 MG/VIAL VIAL IV ONE (08:42)
[2019-12-19] MEDS ORDERED: MIDAZOLAM HCL 1 MG/ML 2ML VIAL ONE (08:42)
[2019-12-19] MEDS ORDERED: IODIXANOL 320 MG/ML 100 ML VIAL ONE ×2 (08:42→10:48)
[2019-12-19] MEDS ORDERED: FENTANYL CITRATE PF 50 MCG/1 ML 2ML VIAL ONE (08:42)
[2019-12-19] MEDS ORDERED: LIDOCAINE HCL 2% 20ML ONE (08:43)
[2019-12-19] MEDS ORDERED: SODIUM CHLORIDE 0.9% 1000ML 1,000 ML IV SCH (11:11)
--- NOTE | 2019-12-19 12:00 | NUR ---
ARRIVAL TO FLOOR ROOM 403. PT IS AWAKE AND ALERT. SPOUSE IS AT BEDSIDE. PT ARRIVED WITH 6FR SHEATH TO RIGHT GROIN, SUTURED IN PLACE. NO OOZING NO HEMATOMA NOTED. BEDREST IN PROGRESS. I EXPLAINED TO PATIENT HE MUST KEEP HIS RIGHT LEG STRAIGHT THROUGHOUT HIS BEDREST, MADE AWARE WELL. NO VISIBLE SIGNS OF DISTRESS NOTED. CALL LIGHT WITHIN REACH.
--- NOTE | 2019-12-19 14:22 | NUR ---
RD FOLLOW UP Pt tolerating General Heart Healthy Diet order with no report of GI distress, Good PO intake at 100%. Pt with RLE/LLE non pitting edema. Lasix in place. Foot and concepcion ulcer, as per EMR. Pending Heart study, as per EMR, to be NPO after MN. Recommend resume diet order post procedure Recommend nutrition wound healing protocol post procedure: Nehemiah BID, 500mg Vit C (QD), 220mg ZnSO4 (QD). RD to continue to monitor. Please notify as additional nutrition concerns arise. Thank you. Addendum: 12/19/19 at [address] Amended: Links added.
--- NOTE | 2019-12-19 15:00 | NUR ---
PT CARE At 1435, right femoral 6fr sheath removed per routine. D-stat drsg, 20min manual pressure utilized. Hemostasis obtained. No evidence of bleeding/oozing or hematoma. Pt aware of ongoing bedrest/limb restrictions - acknowledged understanding. Family member at bedside. Call light placed with pt's reach. Instructed to call for assistance as needed.
--- NOTE | 2019-12-19 16:25 | NUR ---
CM NOTE/SNF REFERRAL MEET WITH PATIENT AND AGAIN AT BEDSIDE REGARDING SNF REFERRAL. PER , WANTS TO EXPLORE INPATIENT REHAB FOR FEAR OF "GETTING COVID" AT THE RETIREMENT. SNF VS INPATIENT REHAB CRITERIA EXPLAINED, VERBALIZED UNDERSTANDING. 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 STILL HAD OPTION LIST OF SNF WITH HER, OPTIONS REREVIEWED. PER , HAS 6 CHILDREN AND NEEDS TO HAVE FAMILY MEETING ABOUT INPATIENT REHAB NOT BEING AN OPTIONS. DAUGHTER, CHANDRIKA HORAN, CALLED IN ROOM, PLACED ON SPEAKER. SAME INFORMATION GIVEN TO PATIENT AND , GIVEN TO DAUGHTER. PER DAUGHTER CHANDRIKA, WILL TALK WITH HER 5 BROTHERS/SISTERS AND DECIDE IF OK WITH SNF AND OPTIONS. CM TO FOLLOW UP.
[2019-12-20] VITALS (7 sets, daily range): BP systolic 99–149; BP diastolic 53–76
[2019-12-20] MEDS: IPRATROPIUM/ALBUTEROL SULFATE 3 ML SOLUTION IH SCH ×6 (01:57→22:16)
[2019-12-20] MEDS: HYDROMORPHONE HCL 0.5 MG/0.5 ML ML IVP PRN ×5 (02:17→20:46)
[2019-12-20] MEDS: POTASSIUM CHLORIDE 20 MEQ ERTAB PO SCH (08:04)
[2019-12-20] MEDS: LEVOFLOXACIN 500 MG/D5W 100 ML 100 ML IV SCH (08:13)
[2019-12-20] MEDS: ATORVASTATIN CALCIUM 40 MG TABLET PO SCH (08:14)
[2019-12-20] MEDS: CLOPIDOGREL BISULFATE 75 MG TAB PO SCH (08:14)
[2019-12-20] MEDS: FUROSEMIDE 20 MG TABLET PO SCH (08:14)
[2019-12-20] MEDS: ASPIRIN 81MG TAB.CHEW PO SCH (08:14)
[2019-12-20] MEDS: METOPROLOL TARTRATE 25 MG TAB PO SCH ×2 (08:14→20:43)
[2019-12-20] MEDS: LOSARTAN 50 MG TABLET PO SCH (08:15)
[2019-12-20] MEDS: ENOXAPARIN SODIUM 40 MG/0.4 ML SYRINGE SQ SCH (08:17)
[2019-12-20] MEDS: IRON SUCROSE COMPLEX 100 MG in SODIUM CHLORIDE 0.9% 50 ML IV SCH (09:51)
[2019-12-20] MEDS: SODIUM CHLORIDE 0.9% 1000ML 1,000 ML IV SCH ×2 (09:51→20:54)
[2019-12-20] MEDS ORDERED: VANCOMYCIN PROTOCOL PER PHARMACY IV SCH (15:15)
--- NOTE | 2019-12-20 15:28 | NUR ---
CULTURES FROM RIGHT ANKLE AND LEFT 4TH TOE COLLECTED AND SENT TO LAB. PICTURES OF WOUNDS TAKEN AT THIS TIME. DRESSING WITH BETADINE DONE AT THIS TIME..MEDIHONEY NOT YET AVAILABLE AT THIS TIME. REPORTED OFF TO RENUKA MOONEY.
[2019-12-20] MEDS ORDERED: VANCOMYCIN 1.75 GM in SODIUM CHLORIDE 0.9% 250 ML IV ONE (16:00)
[2019-12-20] MEDS ORDERED: COMPOUND IV REFRIGERATED 1 EACH IVSOLN MISC PRN (16:30)
--- NOTE | 2019-12-20 17:09 | NUR ---
CM NOTE/[facility] REFERRAL MEET WITH PATIENT AND AT BEDSIDE, JAIME FILLED FOR [facility]. CLINICALS AND [facility] FAXED AND CONFIRMED RECEIVED. PENDING APPROVAL, CM TO FOLLOW UP.
[2019-12-21] MEDS: HYDROMORPHONE HCL 0.5 MG/0.5 ML ML IVP PRN ×6 (00:45→23:55)
[2019-12-21] MEDS: IPRATROPIUM/ALBUTEROL SULFATE 3 ML SOLUTION IH SCH ×6 (02:53→22:14)
[2019-12-21 03:55] VITALS: BP 136/79
[2019-12-21 04:02] LABS: HEMATOCRIT 25.9 % (42-54); MEAN CORPUSCULAR HEMOGLOBIN 28.5 pg (27.0-33.0); MEAN CORPUSCULAR HGB CONC 33.2 g/dL (32.0-36.0); MEAN CORPUSCULAR VOLUME 85.8 fL (79-99); PLATELET COUNT (AUTO) 351 K/uL (130-400); RED BLOOD CELL COUNT(AUTO) 3.02 MIL/uL (4.50-6.20); RED CELL DISTRIBUTION WIDTH 17.2 % (11.0-15.5); WHITE BLOOD COUNT (AUTO) 7.5 K/uL (4.8-10.8)
[2019-12-21 04:05] LABS: CREATININE 0.6 mg/dL (0.5-1.5); POTASSIUM 3.4 mmol/L (3.5-5.1)
[2019-12-21] MEDS: VANCOMYCIN 1GM+NS 250ML 250 ML IV SCH ×2 (04:36→17:44)
[2019-12-21 05:38] LABS: BAND NEUTROPHILS % (MANUAL) 1 % (0-2); BASOPHILS % (MANUAL) 1 % (0-2); EOSINOPHILS % (MANUAL) 8 % (1-6); LYMPHOCYTES % (MANUAL) 5 % (22-44); MONOCYTES % (MANUAL) 9 % (2-9); REACTIVE LYMPHOCYTES 1 % (0-0); SEGMENTED NEUTROPHILS % 75 % (40-70)
[2019-12-21 05:39] LABS: MAN.DIFF COMMENT-IMPRESSION MANUAL DIFFERENTIAL; PLATELET MORPHOLOGY COMMENT ADEQUATE
[2019-12-21 07:37] VITALS: BP 142/67
[2019-12-21] MEDS: POTASSIUM CHLORIDE 20 MEQ ERTAB PO SCH (07:59)
[2019-12-21] MEDS: IRON SUCROSE COMPLEX 100 MG in SODIUM CHLORIDE 0.9% 50 ML IV SCH (08:50)
[2019-12-21] MEDS: CLOPIDOGREL BISULFATE 75 MG TAB PO SCH (08:57)
[2019-12-21] MEDS: METOPROLOL TARTRATE 25 MG TAB PO SCH ×2 (08:58→21:54)
[2019-12-21] MEDS: ATORVASTATIN CALCIUM 40 MG TABLET PO SCH (08:59)
[2019-12-21] MEDS: FUROSEMIDE 20 MG TABLET PO SCH (08:59)
[2019-12-21] MEDS: LOSARTAN 50 MG TABLET PO SCH (08:59)
[2019-12-21] MEDS: SODIUM CHLORIDE 0.9% 1000ML 1,000 ML IV SCH ×2 (09:00→15:24)
[2019-12-21] MEDS: ASPIRIN 81MG TAB.CHEW PO SCH (09:00)
[2019-12-21] MEDS: ENOXAPARIN SODIUM 40 MG/0.4 ML SYRINGE SQ SCH (09:01)
[2019-12-21] MEDS: LEVOFLOXACIN 500 MG/D5W 100 ML 100 ML IV SCH (09:01)
[2019-12-21] MEDS: HONEY 1 APPL/ML TUBE TP SCH ×2 (09:01→09:14)
[2019-12-21 10:56] VITALS: BP 111/56
--- NOTE | 2019-12-21 11:17 | NUR ---
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 PT WITH PHYSICAL THERAPY DANGLING AT BEDSIDE. PT SMILING AND TALKING WITH THERAPIST. DENIES ANY SOB/DIFFICULTY BREATHING, CHEST PAIN/DISCOMFORT, DIZZINESS; PT ASYMPTOMATIC. PT WAS ASSISTED BACK INTO BED. WILL CONTINUE TO FOLLOW.
[2019-12-21] MEDS ORDERED: SODIUM CHLORIDE 0.9% 1000ML 1,000 ML IV SCH (14:04)
[2019-12-21 14:41] LABS: HEMATOCRIT 26.1 % (42-54); MEAN CORPUSCULAR HEMOGLOBIN 28.3 pg (27.0-33.0); MEAN CORPUSCULAR HGB CONC 32.6 g/dL (32.0-36.0); RED CELL DISTRIBUTION WIDTH 17.4 % (11.0-15.5); WHITE BLOOD COUNT (AUTO) 7.6 K/uL (4.8-10.8)
[2019-12-21 14:56] LABS: CREATININE 0.6 mg/dL (0.5-1.5); POTASSIUM 3.4 mmol/L (3.5-5.1)
[2019-12-21 16:00] VITALS: BP 123/57
--- NOTE | 2019-12-21 16:25 | NUR ---
CM NOTE/DCP CHANGED CALL FROM [facility] TO INFORM THAT THEY WILL NOT BE ABLE TO ACCEPT PATIENT D/T COVID-19 POSITIVES IN THEIR FACILITY. PATIENT AND AT BEDSIDE MADE AWARE, DAUGHTER PLACED ON SPEAKER AND MADE AWARE WELL. OTHER SNF OPTIONS GIVEN TO PATIENT AND . PER AND DAUGHTER, WILL TALK TO THEIR FAMILY AND GIVEN SNF DECISION IN AM. CM TO FOLLOW UP ACCORDINGLY.
[2019-12-21 19:18] VITALS: BP 140/61
[2019-12-21 23:06] VITALS: BP 159/74
[2019-12-22] VITALS (9 sets, daily range): BP systolic 144–172; BP diastolic 67–91
[2019-12-22] MEDS: IPRATROPIUM/ALBUTEROL SULFATE 3 ML SOLUTION IH SCH ×6 (02:05→22:04)
[2019-12-22 04:47] LABS: BASOPHILS % (AUTO) 0.8 % (0.0-5.0); EOSINOPHILS % (AUTO) 10.7 % (0.0-8.0); HEMATOCRIT 26.8 % (42-54); LYMPHOCYTES % (AUTO) 10.1 % (21.0-51.0); MEAN CORPUSCULAR HEMOGLOBIN 28.1 pg (27.0-33.0); MEAN CORPUSCULAR HGB CONC 32.8 g/dL (32.0-36.0); MEAN CORPUSCULAR VOLUME 85.6 fL (79-99); MONOCYTES % (AUTO) 10.1 % (3.0-13.0); PLATELET COUNT (AUTO) 350 K/uL (130-400); RED BLOOD CELL COUNT(AUTO) 3.13 MIL/uL (4.50-6.20); RED CELL DISTRIBUTION WIDTH 17.5 % (11.0-15.5)
[2019-12-22] MEDS: HYDROMORPHONE HCL 0.5 MG/0.5 ML ML IVP PRN ×2 (04:47→19:27)
[2019-12-22 05:08] LABS: CREATININE 0.6 mg/dL (0.5-1.5); POTASSIUM 3.5 mmol/L (3.5-5.1)
[2019-12-22] MEDS: VANCOMYCIN 1GM+NS 250ML 250 ML IV SCH ×2 (05:20→18:37)
[2019-12-22] MEDS: SODIUM CHLORIDE 0.9% 1000ML 1,000 ML IV SCH (05:20)
[2019-12-22] MEDS ORDERED: NICARDIPINE HCL 25 MG/10 ML ML IV ONE (07:21)
[2019-12-22] MEDS ORDERED: HEPARIN SODIUM 1000UNIT/ML 10ML VIAL ONE (07:21)
[2019-12-22] MEDS ORDERED: NITROGLYCERIN 2 MG/VIAL VIAL IV ONE (07:22)
[2019-12-22] MEDS ORDERED: FENTANYL CITRATE PF 50 MCG/1 ML 2ML VIAL ONE (07:22)
[2019-12-22] MEDS ORDERED: MIDAZOLAM HCL 1 MG/ML 2ML VIAL ONE (07:22)
[2019-12-22] MEDS ORDERED: IODIXANOL 320 MG/ML 100 ML VIAL ONE (07:22)
[2019-12-22] MEDS ORDERED: LIDOCAINE HCL 2% 20ML ONE (07:22)
--- NOTE | 2019-12-22 09:35 | NUR ---
CM NOTE/[facility] REFERRAL MEET WITH IN ROOM, PATIENT IN PROCEDURE. DAUGHTER, ABHAY, PLACED ON SPEAKER BY . PER DAUGHTER AND , OK FOR [facility]. [facility] COMPLETED FOR [facility]. JULIÁN FROM [facility] CALLED [phone] IN REGARDS TO REFERRAL, NO ANSWER, VM LEFT. CM TO FOLLOW UP ACCORDINGLY. WILL FAXED REFERRAL TO LISTED FAX NUMBER [phone].
[2019-12-22] MEDS ORDERED: SODIUM CHLORIDE 0.9% 1000ML 1,000 ML IV SCH (09:51)
[2019-12-22] MEDS: ATORVASTATIN CALCIUM 40 MG TABLET PO SCH (11:16)
[2019-12-22] MEDS: CLOPIDOGREL BISULFATE 75 MG TAB PO SCH (11:16)
[2019-12-22] MEDS: METOPROLOL TARTRATE 25 MG TAB PO SCH ×2 (11:17→20:03)
[2019-12-22] MEDS: ASPIRIN 81MG TAB.CHEW PO SCH (11:17)
[2019-12-22] MEDS: LOSARTAN 50 MG TABLET PO SCH (11:18)
[2019-12-22] MEDS: IRON SUCROSE COMPLEX 100 MG in SODIUM CHLORIDE 0.9% 50 ML IV SCH (11:21)
[2019-12-22] MEDS: LEVOFLOXACIN 500 MG/D5W 100 ML 100 ML IV SCH (11:21)
[2019-12-22] MEDS: HONEY 1 APPL/ML TUBE TP SCH (11:21)
[2019-12-22] MEDS: FUROSEMIDE 20 MG TABLET PO SCH (11:23)
[2019-12-22] MEDS: ENOXAPARIN SODIUM 40 MG/0.4 ML SYRINGE SQ SCH (11:24)
[2019-12-22] MEDS: POTASSIUM CHLORIDE 20 MEQ ERTAB PO SCH ×2 (13:53→20:03)
--- NOTE | 2019-12-22 18:12 | NUR ---
notified dr. munroe of the consult. ordered was given refer to the orders section.
--- NOTE | 2019-12-22 19:50 | NUR ---
NOTIFIED DR. GARCIA ABOUT PT HAVING FLUID OVERLOAD. HAD CRACKLES. WHEEZING. SOB. S/P STENTS. NEW ORDER FOR CXR. LASIX 40MG X1 NOW AND 20MG X1 AT 0700. DC IV FLUIDS. BMP IN THE AM. MONITOR PT.
[2019-12-22] MEDS ORDERED: FUROSEMIDE 10 MG/ML 4ML VIAL IV SCH (21:00)
[2019-12-23] MEDS: IPRATROPIUM/ALBUTEROL SULFATE 3 ML SOLUTION IH SCH ×5 (01:44→21:52)
[2019-12-23] MEDS: HYDROMORPHONE HCL 0.5 MG/0.5 ML ML IVP PRN ×3 (02:48→20:40)
[2019-12-23 04:00] VITALS: BP 147/71
[2019-12-23 05:05] LABS: BASOPHILS % (AUTO) 0.5 % (0.0-5.0); EOSINOPHILS % (AUTO) 4.6 % (0.0-8.0); HEMATOCRIT 26.2 % (42-54); LYMPHOCYTES % (AUTO) 8.2 % (21.0-51.0); MEAN CORPUSCULAR HEMOGLOBIN 28.6 pg (27.0-33.0); MEAN CORPUSCULAR HGB CONC 32.8 g/dL (32.0-36.0); MONOCYTES % (AUTO) 9.6 % (3.0-13.0); NEUTROPHILS % (AUTO) 76.7 % (40.0-77.0); PLATELET COUNT (AUTO) 337 K/uL (130-400); RED BLOOD CELL COUNT(AUTO) 3.01 MIL/uL (4.50-6.20); RED CELL DISTRIBUTION WIDTH 17.7 % (11.0-15.5); WHITE BLOOD COUNT (AUTO) 7.8 K/uL (4.8-10.8)
[2019-12-23 05:13] LABS: CREATININE 0.6 mg/dL (0.5-1.5); POTASSIUM 3.9 mmol/L (3.5-5.1)
[2019-12-23 05:46] LABS: B-TYPE NATRIURETIC PEPTIDE 333 pg/mL (0-100)
[2019-12-23] MEDS: VANCOMYCIN 1GM+NS 250ML 250 ML IV SCH ×2 (06:14→18:28)
--- NOTE | 2019-12-23 06:30 | NUR ---
PT STATED HE FELT MUCH BETTER. MINIMAL CRACKLES AT THIS TIME. NO WHEEZING. ABLE TO SPEAK WITHOUT AGITATION. NO DISTRESS NOTED. LAST DOSE OF LASIX GIVEN.
[2019-12-23] MEDS ORDERED: FUROSEMIDE 10 MG/ML 2ML VIAL IV SCH (07:00)
[2019-12-23 08:21] VITALS: BP 141/57
[2019-12-23] MEDS: LEVOFLOXACIN 500 MG/D5W 100 ML 100 ML IV SCH (09:08)
[2019-12-23] MEDS: FUROSEMIDE 20 MG TABLET PO SCH (09:08)
[2019-12-23] MEDS: LOSARTAN 50 MG TABLET PO SCH (09:08)
[2019-12-23] MEDS: ATORVASTATIN CALCIUM 40 MG TABLET PO SCH (09:09)
[2019-12-23] MEDS: METOPROLOL TARTRATE 25 MG TAB PO SCH ×2 (09:09→22:06)
[2019-12-23] MEDS: ASPIRIN 81MG TAB.CHEW PO SCH (09:09)
[2019-12-23] MEDS: CLOPIDOGREL BISULFATE 75 MG TAB PO SCH (09:09)
[2019-12-23] MEDS: ENOXAPARIN SODIUM 40 MG/0.4 ML SYRINGE SQ SCH (09:12)
[2019-12-23] MEDS: HONEY 1 APPL/ML TUBE TP SCH (09:12)
[2019-12-23] MEDS: IRON SUCROSE COMPLEX 100 MG in SODIUM CHLORIDE 0.9% 50 ML IV SCH (10:44)
[2019-12-23] MEDS ORDERED: COMPOUND IV REFRIGERATED 1 EACH IVSOLN MISC PRN (11:00)
[2019-12-23] MEDS ORDERED: VANCOMYCIN 1.25 GM in SODIUM CHLORIDE 0.9% 250 ML IV SCH (12:00)
[2019-12-23 12:07] VITALS: BP 107/58
[2019-12-23 16:37] VITALS: BP 145/75
[2019-12-23 20:28] VITALS: BP 156/74
[2019-12-23 23:46] VITALS: BP 144/76
[2019-12-24 03:44] VITALS: BP 134/53
[2019-12-24] MEDS: VANCOMYCIN 1GM+NS 250ML 250 ML IV SCH ×2 (04:40→18:02)
[2019-12-24] MEDS: HYDROMORPHONE HCL 0.5 MG/0.5 ML ML IVP PRN ×3 (04:40→22:24)
[2019-12-24] MEDS: MAGNESIUM 2GM PREMIX 50ML 50 ML IV SCH ×2 (05:24→20:16)
[2019-12-24] MEDS: IPRATROPIUM/ALBUTEROL SULFATE 3 ML SOLUTION IH SCH ×4 (06:54→22:00)
[2019-12-24 08:03] VITALS: BP 127/66
[2019-12-24] MEDS: ATORVASTATIN CALCIUM 40 MG TABLET PO SCH (10:55)
[2019-12-24] MEDS: POTASSIUM CHLORIDE 20 MEQ ERTAB PO SCH (10:59)
[2019-12-24] MEDS: CLOPIDOGREL BISULFATE 75 MG TAB PO SCH (11:01)
[2019-12-24] MEDS: ASPIRIN 81MG TAB.CHEW PO SCH (11:02)
[2019-12-24] MEDS: METOPROLOL TARTRATE 25 MG TAB PO SCH ×2 (11:02→20:16)
[2019-12-24] MEDS: LOSARTAN 50 MG TABLET PO SCH (11:03)
[2019-12-24] MEDS: FUROSEMIDE 20 MG TABLET PO SCH (11:03)
[2019-12-24] MEDS: ENOXAPARIN SODIUM 40 MG/0.4 ML SYRINGE SQ SCH (11:04)
[2019-12-24] MEDS: IRON SUCROSE COMPLEX 100 MG in SODIUM CHLORIDE 0.9% 50 ML IV SCH (11:05)
[2019-12-24] MEDS: HONEY 1 APPL/ML TUBE TP SCH (11:06)
[2019-12-24 11:41] VITALS: BP 126/67
[2019-12-24 15:37] VITALS: BP 121/59
[2019-12-24 19:43] VITALS: BP 134/55
--- NOTE | 2019-12-24 23:00 | NUR ---
PT CONTINUES WITH BILATERAL LE PAIN DUE TO CELLULITIS. PT RECEIVED DILAUDID PRN. NO DISTRESS NOTED OTHERWISE. HAS IMPROVED IN RESPIRATORY STATUS.
[2019-12-24 23:24] VITALS: BP 128/68
[2019-12-25] MEDS: HYDROMORPHONE HCL 0.5 MG/0.5 ML ML IVP PRN ×2 (02:33→10:22)
[2019-12-25 03:50] VITALS: BP 139/65
[2019-12-25 05:45] LABS: CREATININE 0.6 mg/dL (0.5-1.5); PHOSPHORUS 3.2 mg/dL (2.5-4.9); POTASSIUM 3.6 mmol/L (3.5-5.1)
[2019-12-25 05:50] LABS: HEMATOCRIT 27.4 % (42-54); MEAN CORPUSCULAR HEMOGLOBIN 28.5 pg (27.0-33.0); MEAN CORPUSCULAR HGB CONC 32.1 g/dL (32.0-36.0); MEAN CORPUSCULAR VOLUME 88.7 fL (79-99); PLATELET COUNT (AUTO) 327 K/uL (130-400); RED BLOOD CELL COUNT(AUTO) 3.09 MIL/uL (4.50-6.20); RED CELL DISTRIBUTION WIDTH 18.4 % (11.0-15.5); WHITE BLOOD COUNT (AUTO) 7.3 K/uL (4.8-10.8)
[2019-12-25] MEDS: VANCOMYCIN 1GM+NS 250ML 250 ML IV SCH ×2 (06:00→18:00)
[2019-12-25] MEDS: IPRATROPIUM/ALBUTEROL SULFATE 3 ML SOLUTION IH SCH ×3 (06:18→21:07)
[2019-12-25 06:45] LABS: BASOPHILS % (MANUAL) 1 % (0-2); EOSINOPHILS % (MANUAL) 10 % (1-6); LYMPHOCYTES % (MANUAL) 10 % (22-44); MAN.DIFF COMMENT-IMPRESSION MANUAL DIFFERENTIAL; PLATELET MORPHOLOGY COMMENT ADEQUATE; SEGMENTED NEUTROPHILS % 79 % (40-70)
[2019-12-25 07:38] VITALS: BP 148/68
--- NOTE | 2019-12-25 08:00 | NUR ---
ASSESSMENT ENCOUNTERED PT A&OX3, CALM COOPERATIVE AND DOES NOT APPEAR TO BE IN ANY DISTRESS. 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 PT IS ABLE TO TOLERATE FOODS, FLUIDS AND MEDICATION WITH NO THROAT CLEARING OR COUGH. DRESSINGS TO LOWER EXTERMITIES DRY AND INTACT. PT IS PENDING APPROVAL FOR [facility]. CALL LIGHT WITHIN REACH, FAMILY AT BEDSIDE.
[2019-12-25] MEDS: POTASSIUM CHLORIDE 20 MEQ ERTAB PO SCH (08:15)
[2019-12-25] MEDS: HONEY 1 APPL/ML TUBE TP SCH (09:00)
[2019-12-25] MEDS: IRON SUCROSE COMPLEX 100 MG in SODIUM CHLORIDE 0.9% 50 ML IV SCH (10:15)
[2019-12-25] MEDS: CLOPIDOGREL BISULFATE 75 MG TAB PO SCH (10:18)
[2019-12-25] MEDS: ASPIRIN 81MG TAB.CHEW PO SCH (10:18)
[2019-12-25] MEDS: FUROSEMIDE 20 MG TABLET PO SCH (10:18)
[2019-12-25] MEDS: METOPROLOL TARTRATE 25 MG TAB PO SCH ×2 (10:18→20:11)
[2019-12-25] MEDS: ATORVASTATIN CALCIUM 40 MG TABLET PO SCH (10:19)
[2019-12-25] MEDS: ENOXAPARIN SODIUM 40 MG/0.4 ML SYRINGE SQ SCH (10:19)
[2019-12-25] MEDS: LOSARTAN 50 MG TABLET PO SCH (10:19)
[2019-12-25 11:30] VITALS: BP 138/67
--- NOTE | 2019-12-25 12:41 | NUR ---
RD FOLLOW UP Pt tolerating Heart Healthy Diet Order with no report of GI distress, 100% PO intake. LBM 12/24/19. Pt with 2+BLE pitting edema. Multiple ulcers (R-Leg, L-Foot, R-Foot). Recommend Nehemiah BID, 500mg Vit C (BIAD), 220mg ZnSO4 (QD) for wound healing support. RD to continue to monitor. Please notify as additional nutrition concerns arise. Thank you. Addendum: 12/25/19 at [address] Amended: Links added.
--- NOTE | 2019-12-25 12:49 | NUR ---
CM NOTE/[facility] ACCEPTED PER JULIÁN AT [facility], PATIENT ACCEPTED TO FACILITY, PENDING THEIR COVID TEST RESULT BUT IF PATIENT READY FOR TRANSFER TODAY, PATIENT MAY BE TRANSFERRED AND WILL BE PLACED IN ISOLATION AT SNF UNTIL COVID TESTING RESULTED. MED REC FOR DR. LAND TO SIGN IN CHART, EMS FAXED AND READY FOR TRANSFER, CHRISTI GRAYSON, PRIMARY NURSE MADE AWARE. PENDING DR. LAND DC ORDERS.
[2019-12-25] MEDS ORDERED: PHARMACY COMMUNICATION MISC SCH (14:15)
[2019-12-25] MEDS ORDERED: IRON SUCROSE COMPLEX 200 MG in SODIUM CHLORIDE 0.9% 100 ML IVP ONE (16:00)
--- NOTE | 2019-12-25 16:03 | NUR ---
[facility] CONSULT FOLLOW UP WOUND ASSESSEMENT: PATIENT DOES NOT PRESENT WITH ANY NEW WOUNDS AT PRESENT TIME. Addendum: 12/25/19 at 1604 by ROSMERY DORSEY LVN Amended: Links added.
[2019-12-25 16:18] VITALS: BP 152/69
[2019-12-25] MEDS ORDERED: IRON SUCROSE COMPLEX 200 MG in SODIUM CHLORIDE 0.9% 250 ML IVP SCH (16:30)
--- NOTE | 2019-12-25 18:00 | NUR ---
WOUNDS BILATERAL LE DRESSINGS REMOVED, LEFT FOOD WOUND TO LATERAL ANKLE AND TOE TIPS RINSED WITH NORMAL SALINE AND DRESSED WITH MEDIHONEY, RT ANTERIOR ANKLE DRESSING REMOVED, RINSED WITH NS AND MEDIHONEY APPLIED AND REDRESSED WITH KERLEX. PT TOLERATED WELL, CALL LIGHT WITHIN REACH, FAMILY AT BEDSIDE.
--- NOTE | 2019-12-25 20:34 | NUR ---
REPORT CALLED TO [facility] SPOKE TO FELIX BOTELLO,
--- NOTE | 2019-12-25 22:27 | NUR ---
SPOKE WITH JOSE BOTELLO AT [facility], STATING THEY CAN NOT RECEIVE PATIENTS AFTER 2200 D/T UNABLE TO VERIFY ORDERS. I CALLED DR. LAND VIA ANSWERING SERVICE TO UPDATE WILL AWAIT CALL BACK. Carlee GRAYSON, STEEL TIER MADE AWARE. STATES SHE WILL ATTEMPT TO CONTACT MD WELL.
[2019-12-25 23:00] VITALS: BP 153/82
--- NOTE | 2019-12-26 | NUR ---
IMANI. PARTITION MAKING MACHINE OPERATOR OBTAINED ORDER TO HAVE DISCHARGE HELD AT THIS TIME. [facility]. PATIENT MADE AWARE.
[2019-12-26] MEDS: HYDROMORPHONE HCL 0.5 MG/0.5 ML ML IVP PRN (02:16)
[2019-12-26 03:00] VITALS: BP 158/86
[2019-12-26] MEDS: VANCOMYCIN 1GM+NS 250ML 250 ML IV SCH (06:00)
--- NOTE | 2019-12-26 06:30 | NUR ---
EMS CALLED FOR TRANSPORT AT THIS TIME. I NOTIFIED JOSE BOTELLO OF PLAN.
[2019-12-26] MEDS: IPRATROPIUM/ALBUTEROL SULFATE 3 ML SOLUTION IH SCH (06:31)
[2019-12-26] MEDS: POTASSIUM CHLORIDE 20 MEQ ERTAB PO SCH (07:42)
== END 2019-12-26 08:22 | DRG 252 ==
LOC: EDH 23:16 → EDHIP 12-14 03:20 → 3AH 12-14 18:51 → 4AH 12-19 11:06
PROVIDERS: ADMIT Internal Medicine Nephrology; ATTEND Internal Medicine Nephrology
PROC: B41D1ZZ Fluoroscopy of Aorta and Bilateral Lower Extremity Arteries using Low Osmolar Contrast (ICD-10-PCS; principal; 2019-12-19)
PROC: 047U3ZZ Dilation of Left Peroneal Artery, Percutaneous Approach (ICD-10-PCS; 2019-12-19)
PROC: 047L3EZ Dilation of Left Femoral Artery with Two Intraluminal Devices, Percutaneous Approach (ICD-10-PCS; 2019-12-19)
PROC: 047L34Z Dilation of Left Femoral Artery with Drug-eluting Intraluminal Device, Percutaneous Approach (ICD-10-PCS; 2019-12-19)
PROC: 047K36Z Dilation of Right Femoral Artery with Three Drug-eluting Intraluminal Devices, Percutaneous Approach (ICD-10-PCS; 2019-12-22)
PROC: 047M3ZZ Dilation of Right Popliteal Artery, Percutaneous Approach (ICD-10-PCS; 2019-12-22)
DX: E11.52 Type 2 diabetes mellitus with diabetic peripheral angiopathy with gangrene (principal); A48.0 Gas gangrene; I50.33 Acute on chronic diastolic (congestive) heart failure; M72.6 Necrotizing fasciitis; I48.92 Unspecified atrial flutter; I69.354 Hemiplegia and hemiparesis following cerebral infarction affecting left non-dominant side; E87.1 Hypo-osmolality and hyponatremia; J44.1 Chronic obstructive pulmonary disease with (acute) exacerbation; L03.115 Cellulitis of right lower limb; M86.9 Osteomyelitis, unspecified; L03.116 Cellulitis of left lower limb; N17.9 Acute kidney failure, unspecified; E11.621 Type 2 diabetes mellitus with foot ulcer; E11.69 Type 2 diabetes mellitus with other specified complication; Z79.01 Long term (current) use of anticoagulants; Z91.14 Patient's other noncompliance with medication regimen; D64.9 Anemia, unspecified; E78.5 Hyperlipidemia, unspecified; E83.42 Hypomagnesemia; E86.9 Volume depletion, unspecified; F10.10 Alcohol abuse, uncomplicated; F17.210 Nicotine dependence, cigarettes, uncomplicated; F41.9 Anxiety disorder, unspecified; I11.0 Hypertensive heart disease with heart failure; I25.10 Atherosclerotic heart disease of native coronary artery without angina pectoris; N40.0 Benign prostatic hyperplasia without lower urinary tract symptoms; R29.6 Repeated falls; L97.529 Non-pressure chronic ulcer of other part of left foot with unspecified severity; I25.2 Old myocardial infarction; L97.519 Non-pressure chronic ulcer of other part of right foot with unspecified severity; R53.81 Other malaise; Z79.02 Long term (current) use of antithrombotics/antiplatelets; Z79.82 Long term (current) use of aspirin; Z79.899 Other long term (current) drug therapy; Z82.49 Family history of ischemic heart disease and other diseases of the circulatory system; Z95.5 Presence of coronary angioplasty implant and graft; Z99.3 Dependence on wheelchair; Z82.3 Family history of stroke; Z83.3 Family history of diabetes mellitus
CPT/HCPCS: 36415; 37226; 37228; 70450; 71045; 71260; 72125; 73600; 73620; 73721; 74177; 75630; 75710; 75774; 80048; 80053; 80076; 80202; 81003; 82550; 82803; 82948; 83540; 83550; 83605; 83735; 83874; 83880; 84100; 84145; 84443; 84484; 84550; 85025; 85027; 85347; 85610; 85730; 87040; 87070; 87076; 87088; 93005; 93925; 93970; 94640; 94664; 97039; 99156; 99157; C1769; C1876; C1893; C1894; G0378; G0480; J1170; J1644; J1650; J1756; J1940; J1956; J2250; J2930; J3010; J3370; J3475; J3490; J7030; J7050; Q9967

== ENCOUNTER → 2020-09-10 | Outpatient (CLI) | payer MEDICARE ==
[~2020-09-10] MED LIST changes: +SERT-440 PO; -SERT100T12 PO
== END | disposition home or self-care (01) ==
LOC: SHCH 14:16
PROVIDERS: ATTEND Internal Medicine Cardiovascular Disease
DX: I87.2 Venous insufficiency (chronic) (peripheral) (principal); I73.9 Peripheral vascular disease, unspecified
CPT/HCPCS: 93925; 93970

== ENCOUNTER → 2020-10-09 | Outpatient (CLI) | payer MEDICARE ==
[~2020-10-09] MED LIST changes: +IOHEXOL 350 MG/ML 100ML INFUS..BTL IV ONE; +IOHEXOL-350 50ML VIAL IV ONE
== END | disposition home or self-care (01) ==
LOC: RAH 07:35
PROVIDERS: ATTEND Internal Medicine Cardiovascular Disease
DX: I70.203 Unspecified atherosclerosis of native arteries of extremities, bilateral legs (principal); I70.0 Atherosclerosis of aorta
CPT/HCPCS: 75635; Q9967 ×2

== ENCOUNTER → 2021-12-01 | Outpatient (CLI) | payer MEDICARE ==
[~2021-12-01] MED LIST changes: -IOHEXOL 350 MG/ML 100ML INFUS..BTL IV ONE; -IOHEXOL-350 50ML VIAL IV ONE
[2021-12-01 12:35] LABS: BASOPHILS % (AUTO) 1.8 % (0.0-5.0); EOSINOPHILS % (AUTO) 15.2 % (0.0-8.0); HEMATOCRIT 35.2 % (42-54); LYMPHOCYTES % (AUTO) 25.4 % (21.0-51.0); MEAN CORPUSCULAR HEMOGLOBIN 30.3 pg (27.0-33.0); MEAN CORPUSCULAR HGB CONC 33.5 g/dL (32.0-36.0); MEAN CORPUSCULAR VOLUME 90.3 fL (79-99); MONOCYTES % (AUTO) 11.3 % (3.0-13.0); NEUTROPHILS % (AUTO) 46.1 % (40.0-77.0); PLATELET COUNT (AUTO) 260 K/uL (130-400); WHITE BLOOD COUNT (AUTO) 6.3 K/uL (4.8-10.8)
[2021-12-01 12:55] LABS: CREATININE 0.6 mg/dL (0.5-1.5); POTASSIUM 4.2 mmol/L (3.5-5.1); THYROID STIMULATING HORMONE 3.39 uIU/mL (0.36-3.74)
== END | disposition home or self-care (01) ==
LOC: LAB 10:50
PROVIDERS: ATTEND Internal Medicine Cardiovascular Disease
DX: I10 Essential (primary) hypertension (principal)
CPT/HCPCS: 36415; 80048; 84443; 85025

== ENCOUNTER → 2022-01-09 | Outpatient (CLI) | payer MEDICARE | END | disposition home or self-care (01) | LOC: SHCH 14:13 | PROVIDERS: ATTEND Internal Medicine Cardiovascular Disease | DX: I08.2 Rheumatic disorders of both aortic and tricuspid valves (principal); I11.9 Hypertensive heart disease without heart failure; I25.10 Atherosclerotic heart disease of native coronary artery without angina pectoris; I48.92 Unspecified atrial flutter; I25.2 Old myocardial infarction; I73.9 Peripheral vascular disease, unspecified; E78.5 Hyperlipidemia, unspecified; J44.9 Chronic obstructive pulmonary disease, unspecified; Z98.890 Other specified postprocedural states | CPT/HCPCS: 93306 ==

== ENCOUNTER → 2022-06-08 | Outpatient (CLI) | payer MEDICARE ==
[~2022-06-08] MED LIST changes: -BUSP15TA3 PO; -CLOP75TA14 PO; -FOLI1TAB85 PO; -GABA-531 PO; +HYDR-3421 PO; +IRON1CAP32 PO; -METO25 PO; -SERT-440 PO
[2022-06-08 12:56] LABS: CREATININE 0.7 mg/dL (0.5-1.5)
[2022-06-08 13:17] LABS: POTASSIUM 3.9 mmol/L (3.5-5.1)
== END | disposition home or self-care (01) ==
LOC: LAB 11:18
PROVIDERS: ATTEND Internal Medicine Cardiovascular Disease
DX: I10 Essential (primary) hypertension (principal); E78.5 Hyperlipidemia, unspecified
CPT/HCPCS: 36415; 80048; 80061

== ENCOUNTER → 2022-09-12 | Outpatient (CLI) | payer MEDICARE | END | disposition home or self-care (01) | LOC: SHCH 07:53 | PROVIDERS: ATTEND Internal Medicine Cardiovascular Disease | DX: I70.203 Unspecified atherosclerosis of native arteries of extremities, bilateral legs (principal); I87.2 Venous insufficiency (chronic) (peripheral) | CPT/HCPCS: 93925; 93970 ==

== ENCOUNTER → 2022-10-27 | Outpatient (CLI) | payer MEDICARE ==
[2022-10-27 16:20] LABS: BASOPHILS % (AUTO) 1.4 % (0.0-5.0); EOSINOPHILS % (AUTO) 9.2 % (0.0-8.0); HEMATOCRIT 42.5 % (42-54); LYMPHOCYTES % (AUTO) 28.6 % (21.0-51.0); MEAN CORPUSCULAR HEMOGLOBIN 32.4 pg (27.0-33.0); MEAN CORPUSCULAR HGB CONC 34.4 g/dL (32.0-36.0); MEAN CORPUSCULAR VOLUME 94.2 fL (79-99); MONOCYTES % (AUTO) 9.5 % (3.0-13.0); NEUTROPHILS % (AUTO) 51.1 % (40.0-77.0); PLATELET COUNT (AUTO) 260 K/uL (130-400); RED BLOOD CELL COUNT(AUTO) 4.51 MIL/uL (4.50-6.20); RED CELL DISTRIBUTION WIDTH 12.8 % (11.0-15.5); WHITE BLOOD COUNT (AUTO) 5.8 K/uL (4.8-10.8)
[2022-10-27 16:25] LABS: CREATININE 0.7 mg/dL (0.5-1.5); POTASSIUM 4.5 mmol/L (3.5-5.1)
[2022-10-27 16:30] LABS: PROTHROMBIN TIME 10.9 SEC (9.6-11.6)
[2022-10-27 16:32] LABS: PARTIAL THROMBOPLASTIN TIME 33.9 SEC (26.3-35.5)
== END | disposition home or self-care (01) ==
LOC: LAB 11:54
PROVIDERS: ATTEND Internal Medicine Cardiovascular Disease
DX: I73.9 Peripheral vascular disease, unspecified (principal); I10 Essential (primary) hypertension; Z79.01 Long term (current) use of anticoagulants
CPT/HCPCS: 36415; 80048; 85025; 85610; 85730

== ENCOUNTER → 2022-11-04 | Outpatient (CLI) | payer MEDICARE ==
[2022-11-04 12:30] LABS: CREATININE 0.7 mg/dL (0.5-1.5)
== END | disposition home or self-care (01) ==
LOC: LAB 09:51
PROVIDERS: ATTEND Internal Medicine Cardiovascular Disease
DX: I25.10 Atherosclerotic heart disease of native coronary artery without angina pectoris (principal); I10 Essential (primary) hypertension
CPT/HCPCS: 36415; 80048

== ENCOUNTER → 2022-11-16 | Outpatient (CLI) | payer MEDICARE ==
[2022-11-16 12:06] LABS: BASOPHILS % (AUTO) 1.6 % (0.0-5.0); EOSINOPHILS % (AUTO) 7.5 % (0.0-8.0); HEMATOCRIT 42.8 % (42-54); LYMPHOCYTES % (AUTO) 24.1 % (21.0-51.0); MEAN CORPUSCULAR HEMOGLOBIN 31.9 pg (27.0-33.0); MEAN CORPUSCULAR HGB CONC 34.8 g/dL (32.0-36.0); MEAN CORPUSCULAR VOLUME 91.6 fL (79-99); MONOCYTES % (AUTO) 8.8 % (3.0-13.0); NEUTROPHILS % (AUTO) 57.6 % (40.0-77.0); PLATELET COUNT (AUTO) 243 K/uL (130-400); RED BLOOD CELL COUNT(AUTO) 4.67 MIL/uL (4.50-6.20); RED CELL DISTRIBUTION WIDTH 12.4 % (11.0-15.5); WHITE BLOOD COUNT (AUTO) 5.6 K/uL (4.8-10.8)
[2022-11-16 12:26] LABS: CREATININE 0.6 mg/dL (0.5-1.5); POTASSIUM 4.4 mmol/L (3.5-5.1)
[2022-11-16 12:56] LABS: B-TYPE NATRIURETIC PEPTIDE 119 pg/mL (0-100)
== END | disposition home or self-care (01) ==
LOC: LAB 10:33
PROVIDERS: ATTEND Internal Medicine Cardiovascular Disease
DX: D64.9 Anemia, unspecified (principal); E87.1 Hypo-osmolality and hyponatremia
CPT/HCPCS: 36415; 80048; 83880; 85025

== ENCOUNTER → 2022-11-20 | Outpatient (CLI) | payer MEDICARE ==
[2022-11-20 12:42] LABS: CHOLESTEROL 80 mg/dL (<200); HDL CHOLESTEROL 57 mg/dL (29-71); LDL DIRECT 24 mg/dL (0-99); TRIGLYCERIDES 24 mg/dL (30-200)
== END | disposition home or self-care (01) ==
LOC: LAB 10:28
PROVIDERS: ATTEND Internal Medicine Cardiovascular Disease
DX: I10 Essential (primary) hypertension (principal)
CPT/HCPCS: 36415; 80061

== ENCOUNTER 2023-01-03 00:40 | Observation (INO) | payer MEDICARE ==
[~2023-01-03] VITALS: Ht 172.7 cm; Wt 69.4 kg
[2023-01-03 01:14] LABS: HEMATOCRIT 41.8 % (42-54); LYMPHOCYTES % (AUTO) 23.5 % (21.0-51.0); MEAN CORPUSCULAR HEMOGLOBIN 31.6 pg (27.0-33.0); MEAN CORPUSCULAR HGB CONC 34.4 g/dL (32.0-36.0); MEAN CORPUSCULAR VOLUME 91.7 fL (79-99); MONOCYTES % (AUTO) 10.9 % (3.0-13.0); NEUTROPHILS % (AUTO) 57.3 % (40.0-77.0); PLATELET COUNT (AUTO) 201 K/uL (130-400); RED BLOOD CELL COUNT(AUTO) 4.56 MIL/uL (4.50-6.20); RED CELL DISTRIBUTION WIDTH 12.5 % (11.0-15.5); WHITE BLOOD COUNT (AUTO) 6.8 K/uL (4.8-10.8)
[2023-01-03 01:24] LABS: CREATININE 0.7 mg/dL (0.5-1.5); POTASSIUM 4.1 mmol/L (3.5-5.1)
[2023-01-03 01:29] LABS: ALBUMIN 3.6 g/dL (3.5-5.0); TOTAL PROTEIN, SERUM 6.6 g/dL (6.0-8.3)
[2023-01-03] MEDS ORDERED: RIVA2.5T PO (03:21)
[2023-01-03] MEDS ORDERED: FOLI1TAB85 PO (03:21)
[2023-01-03] MEDS ORDERED: NITR0.4T50 SL (03:21)
[2023-01-03] MEDS ORDERED: ATOR40TA71 PO (03:21)
[2023-01-03] MEDS ORDERED: KCL 20 MEQ ERTAB PO PRN (03:30)
[2023-01-03] MEDS ORDERED: ASPIRIN 81MG CHEW TAB PO ONE (03:30)
[2023-01-03] MEDS ORDERED: ACETAMINOPHEN 325 MG TAB PO PRN ×2 (03:30)
[2023-01-03] MEDS ORDERED: MORPHINE 4 MG SYG IV PRN (03:30)
[2023-01-03] MEDS ORDERED: MORPHINE 2 MG SYG IV PRN (03:30)
[2023-01-03] MEDS ORDERED: POTASSIUM CHLORIDE 20MEQ/100ML 100 ML IV PRN (03:30)
[2023-01-03] MEDS ORDERED: NITROGLYCERIN 1GM OINT 1 INCH/1GM TD SCH (03:30)
[2023-01-03] MEDS ORDERED: MAGNESIUM 2GM PREMIX 50ML 50 ML IV PRN (03:30)
[2023-01-03] MEDS ORDERED: ONDANSETRON 4MG INJ IV PRN (03:30)
[2023-01-03] MEDS ORDERED: POTASSIUM CHLORIDE 10% ELIXIR 20 MEQ/15 ML UDCUP PO PRN (03:30)
[2023-01-03] MEDS: SOLU-MEDROL 125MG VIAL IVP SCH ×3 (04:22→20:24)
[2023-01-03] MEDS ORDERED: HYDRALAZINE 20MG/ML VIAL IV PRN (04:30)
[2023-01-03] MEDS ORDERED: IPRATROPIUM/ALBUTEROL SULFATE 3 ML SOLUTION IH SCH (04:30)
[2023-01-03] MEDS ORDERED: LACTULOSE 20 GM/30 ML UDCUP PO PRN (04:30)
[2023-01-03] MEDS ORDERED: SOLU-MEDROL 125MG VIAL IVP ONE (04:30)
[2023-01-03] MEDS ORDERED: CLONIDINE HCL 0.1 MG TABLET PO PRN (04:30)
[2023-01-03] MEDS ORDERED: LABETALOL 20MG SYG IV PRN (04:30)
[2023-01-03] MEDS ORDERED: NITROGLYCERIN 0.4 MG SL TAB SL SCH (04:30)
[2023-01-03] MEDS ORDERED: ACETAMINOPHEN 650 MG SUPPOSITORY RC PRN (04:30)
[2023-01-03] MEDS ORDERED: ONDANSETRON 4MG INJ IVP PRN (04:30)
[2023-01-03] MEDS: ALBUTEROL 0.083% 2.5 MG/3 ML INH IH SCH ×4 (05:40→23:06)
[2023-01-03] MEDS ORDERED: FUROSEMIDE 40MG VIAL ONE (05:59)
[2023-01-03 06:00] VITALS: BP 151/76
[2023-01-03] MEDS ORDERED: FUROSEMIDE 40MG VIAL IV ONE (06:30)
[2023-01-03] MEDS: INSULIN HUMULIN R 100 UNIT/ML 3ML SQ SCH ×4 (06:53→20:23)
[2023-01-03] MEDS ORDERED: ALBUTEROL SULFATE IH PRN (07:00)
[2023-01-03 07:14] VITALS: BP 148/71
[2023-01-03] MEDS ORDERED: ENOXAPARIN SODIUM 30 MG/0.3 ML SQ SCH (09:00)
[2023-01-03] MEDS: BIOTIN PO SCH (09:00)
[2023-01-03] MEDS ORDERED: NON-FORMULARY MEDICATION 1 EACH (Cyanocobalamin (Vitamin B-12) (Vitamin B-12) 1,000 MCG) PO SCH (09:00)
[2023-01-03] MEDS ORDERED: ENOXAPARIN SODIUM 40 MG/0.4 ML SYRINGE SQ SCH (09:00)
[2023-01-03] MEDS: [UNRECOGNIZED DRUG - OTHER] PO SCH (09:00)
[2023-01-03] MEDS ORDERED: RIVAROXABAN 2.5 MG TABLET PO SCH (09:00)
[2023-01-03] MEDS: VIT B CMPLX PO SCH (09:00)
[2023-01-03] MEDS ORDERED: FAMOTIDINE 20MG TAB PO SCH (09:00)
[2023-01-03] MEDS ORDERED: ASPIRIN 81MG CHEW TAB PO SCH (09:00)
[2023-01-03] MEDS: FUROSEMIDE 40 MG TABLET PO SCH (09:32)
[2023-01-03] MEDS: CYANOCOBALAMIN (VITAMIN B-12) 1,000 MCG TABLET PO SCH (09:32)
[2023-01-03] MEDS: ASPIRIN 81MG CHEW TAB PO SCH (09:32)
[2023-01-03 11:14] VITALS: BP 158/66
[2023-01-03] MEDS: AMLODIPINE 5 MG TAB PO SCH (13:23)
[2023-01-03] MEDS ORDERED: ALPRAZOLAM 0.5 MG TABLET PO PRN (13:30)
[2023-01-03] MEDS ORDERED: LIDOCAINE HCL 2% VISCOUS 30 ML, MAG/ALUM/SIMETH 30ML 30 ML, DICYCLOMINE HCL 20 MG PO SCH ×3 (14:00)
[2023-01-03] MEDS: DOCUSATE SODIUM 100 MG CAP PO SCH (14:33)
[2023-01-03] MEDS: LACTULOSE 20 GM/30 ML UDCUP PO SCH ×2 (14:33→20:22)
[2023-01-03] MEDS: ACETAMINOPHEN 325 MG TAB PO PRN (14:35)
[2023-01-03] MEDS ORDERED: COMPOUND PO MISCELLANEOUS 1 EACH MISC MISC PRN (15:30)
[2023-01-03 16:12] VITALS: BP 127/60
[2023-01-03 19:11] VITALS: BP 136/54
[2023-01-03] MEDS: RIVAROXABAN 2.5 MG TABLET PO SCH (20:23)
[2023-01-03] MEDS ORDERED: SIMVASTATIN 20 MG TABLET PO SCH (21:00)
[2023-01-03] MEDS ORDERED: TAMSULOSIN HCL 0.4 MG CAP.ER.24H PO SCH (21:00)
[2023-01-03] MEDS: LIDOCAINE HCL 2% VISCOUS 30 ML, MAG/ALUM/SIMETH 30ML 30 ML, DICYCLOMINE HCL 20 MG PO SCH ×3 (22:15)
[2023-01-03 23:10] VITALS: BP 124/64
[2023-01-04 03:29] LABS: HEMATOCRIT 39.8 % (42-54); MEAN CORPUSCULAR HGB CONC 34.7 g/dL (32.0-36.0); MEAN CORPUSCULAR VOLUME 92.3 fL (79-99); RED BLOOD CELL COUNT(AUTO) 4.31 MIL/uL (4.50-6.20); RED CELL DISTRIBUTION WIDTH 12.5 % (11.0-15.5); WHITE BLOOD COUNT (AUTO) 8.6 K/uL (4.8-10.8)
[2023-01-04 03:43] VITALS: BP 137/61
[2023-01-04 03:52] LABS: MAGNESIUM 1.5 mg/dL (1.80-2.40); PHOSPHORUS 2.6 mg/dL (2.5-4.9); POTASSIUM 3.8 mmol/L (3.5-5.1); THYROID STIMULATING HORMONE 0.3 uIU/mL (0.36-3.74)
[2023-01-04] MEDS: SOLU-MEDROL 125MG VIAL IVP SCH ×2 (04:20→12:11)
[2023-01-04] MEDS: ACETAMINOPHEN 325 MG TAB PO PRN ×2 (04:21→09:11)
[2023-01-04] MEDS ORDERED: MAGNESIUM 2GM PREMIX 50ML 50 ML IV PRN (05:00)
[2023-01-04] MEDS ORDERED: KCL 20 MEQ ERTAB PO PRN (05:00)
[2023-01-04] MEDS ORDERED: POTASSIUM CHLORIDE 20MEQ/100ML 100 ML IV PRN (05:00)
[2023-01-04] MEDS: POTASSIUM CHLORIDE 10% ELIXIR 20 MEQ/15 ML UDCUP PO PRN ×2 (05:35→09:16)
[2023-01-04] MEDS: INSULIN HUMULIN R 100 UNIT/ML 3ML SQ SCH ×3 (06:44→16:34)
[2023-01-04] MEDS: ALBUTEROL 0.083% 2.5 MG/3 ML INH IH SCH ×2 (06:55→11:59)
[2023-01-04 08:12] VITALS: BP 146/55
[2023-01-04] MEDS ORDERED: POLYETHYLENE GLYCOL 3350 17 GM POWD.PACK PO SCH (09:00)
[2023-01-04] MEDS: [UNRECOGNIZED DRUG - OTHER] PO SCH (09:00)
[2023-01-04] MEDS: VIT B CMPLX PO SCH (09:00)
[2023-01-04] MEDS: BIOTIN PO SCH (09:00)
[2023-01-04] MEDS: LACTULOSE 20 GM/30 ML UDCUP PO SCH (09:10)
[2023-01-04] MEDS: CYANOCOBALAMIN (VITAMIN B-12) 1,000 MCG TABLET PO SCH (09:10)
[2023-01-04] MEDS: ASPIRIN 81MG CHEW TAB PO SCH (09:10)
[2023-01-04] MEDS: FUROSEMIDE 40 MG TABLET PO SCH (09:11)
[2023-01-04] MEDS: RIVAROXABAN 2.5 MG TABLET PO SCH (09:11)
[2023-01-04] MEDS: AMLODIPINE 5 MG TAB PO SCH (09:12)
[2023-01-04] MEDS: LIDOCAINE HCL 2% VISCOUS 30 ML, MAG/ALUM/SIMETH 30ML 30 ML, DICYCLOMINE HCL 20 MG PO SCH ×6 (09:13→13:58)
[2023-01-04 11:50] VITALS: BP 149/50
[2023-01-04] MEDS: DOCUSATE SODIUM 100 MG CAP PO SCH (13:58)
[2023-01-04 15:58] VITALS: BP 157/55
[2023-01-04] MEDS ORDERED: POLY17PO4 PO (16:03)
[2023-01-04] MEDS ORDERED: AMLO5TAB4 PO (16:03)
[2023-01-04] MEDS ORDERED: PRED20TA3 PO (16:03)
== END 2023-01-04 17:33 | disposition home or self-care (01) ==
LOC: EDH 00:40 → INTOOBSV 04:01 → EDHIP 04:01 → 2DH 05:29
PROVIDERS: ADMIT Internal Medicine Critical Care Medicine; ATTEND Internal Medicine Critical Care Medicine
DX: A41.9 Sepsis, unspecified organism (principal); Z20.822 Contact with and (suspected) exposure to COVID-19; G92.8 Other toxic encephalopathy; T50.905A Adverse effect of unspecified drugs, medicaments and biological substances, initial encounter; J96.20 Acute and chronic respiratory failure, unspecified whether with hypoxia or hypercapnia; I16.1 Hypertensive emergency; I12.9 Hypertensive chronic kidney disease with stage 1 through stage 4 chronic kidney disease, or unspecified chronic kidney disease; N18.9 Chronic kidney disease, unspecified; J44.1 Chronic obstructive pulmonary disease with (acute) exacerbation; I48.20 Chronic atrial fibrillation, unspecified; K21.9 Gastro-esophageal reflux disease without esophagitis; K59.00 Constipation, unspecified; R07.89 Other chest pain; R51.9 Headache, unspecified; E78.00 Pure hypercholesterolemia, unspecified; Z86.73 Personal history of transient ischemic attack (TIA), and cerebral infarction without residual deficits; Z79.01 Long term (current) use of anticoagulants; Z79.899 Other long term (current) drug therapy; Z98.890 Other specified postprocedural states; Z95.810 Presence of automatic (implantable) cardiac defibrillator; Z79.82 Long term (current) use of aspirin
CPT/HCPCS: 94640 ×6; 96376 ×2; 96372; 96375; 99285; 82550 ×3; 83874 ×3; 84484 ×4; 80053; 82140; 83690; 85025; 87040 ×2; 87804 ×2; 82948 ×6; 83605; 36415 ×2; 87635; 71045; 74150; 93306; 93356; 93005; 94664; 96365; 96366; 84443; 83735; 84100; 80061; 80048; 83880; 85027; J1815 ×2; C9803; J2930 ×5; J0360; J1650; J1940 ×2; G0378 ×6; J3475

== ENCOUNTER 2023-03-05 15:32 | Emergency (ER) | payer MEDICARE ==
[~2023-03-05] VITALS: Ht 172.7 cm; Wt 65.8 kg
[~2023-03-05 15:32] MED LIST changes: +AMLO5TAB4 PO; +FOLI1TAB85 PO; +NITR0.4T50 SL; +POLY17PO4 PO; +PRED20TA3 PO; +RIVA2.5T PO
[2023-03-05 16:13] LABS: BASOPHILS # (AUTO) 0.09 K/uL (0.00-0.20); BASOPHILS % (AUTO) 1.1 % (0.0-5.0); EOSINOPHILS # (AUTO) 0.15 K/uL (0.00-0.70); EOSINOPHILS % (AUTO) 1.9 % (0.0-8.0); HEMATOCRIT 37.8 % (42-54); IMMATURE GRANULOCYTE ABSOLUTE 0.03 K/uL (0-1); LYMPHOCYTES % (AUTO) 12.5 % (21.0-51.0); MEAN CORPUSCULAR HEMOGLOBIN 32.8 pg (27.0-33.0); MEAN CORPUSCULAR HGB CONC 35.4 g/dL (32.0-36.0); MEAN CORPUSCULAR VOLUME 92.4 fL (79-99); MONOCYTES # (AUTO) 0.7 K/uL (0.1-1.0); MONOCYTES % (AUTO) 9.3 % (3.0-13.0); NEUTROPHILS % (AUTO) 74.8 % (40.0-77.0); PLATELET COUNT (AUTO) 223 K/uL (130-400); RED BLOOD CELL COUNT(AUTO) 4.09 MIL/uL (4.50-6.20); RED CELL DISTRIBUTION WIDTH 12.9 % (11.0-15.5)
[2023-03-05] MEDS ORDERED: FAMOTIDINE 20MG VIAL IV ONE (16:30)
[2023-03-05] MEDS ORDERED: KETOROLAC 30MG VIAL (30MG/ML) IVP ONE (16:30)
[2023-03-05] MEDS ORDERED: METOCLOPRAMIDE 10 MG/2 ML VIAL IVP ONE (16:30)
[2023-03-05 16:32] LABS: B-TYPE NATRIURETIC PEPTIDE 91 pg/mL (0-100)
[2023-03-05 16:33] LABS: SARS-CoV-2, RNA, NAAT NEGATIVE SARS CoV-2 (NEGATIVE)
[2023-03-05 16:36] LABS: INFLUENZA TYPE A Negative For Type A (NEGATIVE); INFLUENZA TYPE B Negative For Type B (NEGATIVE)
[2023-03-05 17:27] LABS: CREATININE 0.7 mg/dL (0.5-1.5); POTASSIUM 4.1 mmol/L (3.5-5.1)
[2023-03-05 17:37] LABS: ALBUMIN 3.7 g/dL (3.5-5.0); BILIRUBIN,TOTAL 0.5 mg/dL (0.2-1.0); TOTAL PROTEIN, SERUM 6.7 g/dL (6.0-8.3)
[2023-03-05] MEDS ORDERED: METO-296 PO (17:53)
[2023-03-05 18:11] VITALS: BP 164/90; PULSE 88; RESP 20; O2SAT 98
== END 2023-03-05 18:15 | disposition home or self-care (01) ==
LOC: EDH 15:32
DX: G44.209 Tension-type headache, unspecified, not intractable (principal); J44.9 Chronic obstructive pulmonary disease, unspecified; E78.00 Pure hypercholesterolemia, unspecified; I10 Essential (primary) hypertension; F17.200 Nicotine dependence, unspecified, uncomplicated; Z79.01 Long term (current) use of anticoagulants; Z79.52 Long term (current) use of systemic steroids; Z79.82 Long term (current) use of aspirin; Z79.899 Other long term (current) drug therapy; Z86.73 Personal history of transient ischemic attack (TIA), and cerebral infarction without residual deficits; Z95.810 Presence of automatic (implantable) cardiac defibrillator; Z20.822 Contact with and (suspected) exposure to COVID-19
CPT/HCPCS: 99285; 96374; 70450; 71045; 96375; 87635; 82550; 83874; 84484; 80053; 83880; 85025; 87040 ×2; 87804 ×2; 83605; 36415; 93005; C9803; J3490; J1885; J2765

== ENCOUNTER 2023-12-28 18:18 | Emergency (ER) | payer OTHER, MEDICARE ==
[~2023-12-28] VITALS: Ht 167.6 cm; Wt 68.0 kg
[~2023-12-28 18:18] MED LIST changes: -AMLO5TAB4 PO; +BUSP5TAB3 PO; -CYAN-35 PO; +ESCI20TA38 PO; -FOLI1TAB85 PO; -IRON1CAP32 PO; +METO-296 PO; +PRED20B PO; -TAMS-1 PO
[2023-12-28] MEDS: SOLU-MEDROL 125MG VIAL IVP STA (20:12)
[2023-12-28] MEDS: DiphenhydrAMINE HCL 25 MG/10 ML ELIXIR UDCUP PO STA (20:12)
[2023-12-28 20:26] LABS: BASOPHILS % (AUTO) 1.4 % (0.0-5.0); EOSINOPHILS # (AUTO) 0.71 K/uL (0.00-0.70); EOSINOPHILS % (AUTO) 10.2 % (0.0-8.0); IMMATURE GRANULOCYTE ABSOLUTE 0.04 K/uL (0-1); LYMPHOCYTES # (AUTO) 1.4 K/uL (1.0-4.8); LYMPHOCYTES % (AUTO) 19.5 % (21.0-51.0); MEAN CORPUSCULAR HEMOGLOBIN 29.7 pg (27.0-33.0); MEAN CORPUSCULAR HGB CONC 33.8 g/dL (32.0-36.0); MEAN CORPUSCULAR VOLUME 87.9 fL (79-99); MONOCYTES # (AUTO) 0.7 K/uL (0.1-1.0); MONOCYTES % (AUTO) 10.4 % (3.0-13.0); NEUTROPHILS % (AUTO) 57.9 % (40.0-77.0); PLATELET COUNT (AUTO) 256 K/uL (130-400); RED BLOOD CELL COUNT(AUTO) 4.21 MIL/uL (4.50-6.20); WHITE BLOOD COUNT (AUTO) 6.9 K/uL (4.8-10.8)
[2023-12-28 20:35] LABS: CREATININE 0.8 mg/dL (0.5-1.3); POTASSIUM 3.9 mmol/L (3.5-5.1)
[2023-12-28 20:38] LABS: INR 0.95 (0.85-1.15); PROTHROMBIN TIME 11.3 SEC (9.6-11.6)
[2023-12-28 20:39] LABS: PARTIAL THROMBOPLASTIN TIME 33.6 SEC (26.3-35.5)
[2023-12-28 20:40] LABS: ALBUMIN 3.6 g/dL (3.5-5.0); BILIRUBIN,TOTAL 0.4 mg/dL (0.2-1.0); TOTAL PROTEIN, SERUM 7.1 g/dL (6.0-8.3)
[2023-12-28 21:30] VITALS: BP 128/62; PULSE 62; RESP 16; O2SAT 97
== END 2023-12-28 21:36 | disposition home or self-care (01) ==
LOC: EDH 18:18
DX: R21 Rash and other nonspecific skin eruption (principal); R07.9 Chest pain, unspecified; I10 Essential (primary) hypertension; J44.9 Chronic obstructive pulmonary disease, unspecified; F17.200 Nicotine dependence, unspecified, uncomplicated; Z79.82 Long term (current) use of aspirin; Z79.84 Long term (current) use of oral hypoglycemic drugs; Z79.899 Other long term (current) drug therapy; Z98.890 Other specified postprocedural states
CPT/HCPCS: 99283; 96374; 80053; 85025; 85610; 85730; 36415; J2919

== ENCOUNTER 2024-01-10 04:44 | Emergency (ER) | payer OTHER, MEDICARE ==
[~2024-01-10] VITALS: Ht 172.7 cm; Wt 67.6 kg
[2024-01-10] MEDS: IPRATROPIUM/ALBUTEROL SULFATE 3 ML SOLUTION IH ONE ×2 (05:07→06:23)
[2024-01-10 05:08] VITALS: PULSE 72; RESP 22
[2024-01-10 06:24] VITALS: PULSE 68; RESP 20
[2024-01-10] MEDS: SOLU-MEDROL 125MG VIAL IM ONE (07:57)
[2024-01-10] MEDS ORDERED: ALBU1.252 IH (08:23)
[2024-01-10 08:40] VITALS: BP 149/68; PULSE 78; RESP 18; O2SAT 96
== END 2024-01-10 08:39 | disposition home or self-care (01) ==
LOC: EDH 04:44
DX: J44.89 Other specified chronic obstructive pulmonary disease (principal); I10 Essential (primary) hypertension; Z79.899 Other long term (current) drug therapy; Z95.0 Presence of cardiac pacemaker
CPT/HCPCS: 99284; 96372; 94640; J2919

== ENCOUNTER → 2024-04-17 | Outpatient (CLI) | payer OTHER, MEDICARE ==
[~2024-04-17] MED LIST changes: +ALBU1.252 IH
[2024-04-17 12:05] LABS: BASOPHILS # (AUTO) 0.06 K/uL (0.00-0.20); BASOPHILS % (AUTO) 1.3 % (0.0-5.0); EOSINOPHILS # (AUTO) 0.26 K/uL (0.00-0.70); EOSINOPHILS % (AUTO) 5.5 % (0.0-8.0); HEMATOCRIT 36.2 % (42-54); IMMATURE GRANULOCYTE ABSOLUTE 0.01 K/uL (0-1); LYMPHOCYTES # (AUTO) 0.6 K/uL (1.0-4.8); LYMPHOCYTES % (AUTO) 12.3 % (21.0-51.0); MEAN CORPUSCULAR HGB CONC 32.6 g/dL (32.0-36.0); MEAN CORPUSCULAR VOLUME 98.1 fL (79-99); MONOCYTES # (AUTO) 0.5 K/uL (0.1-1.0); MONOCYTES % (AUTO) 11.3 % (3.0-13.0); NEUTROPHILS # (AUTO) 3.3 K/uL (1.8-7.7); NEUTROPHILS % (AUTO) 69.4 % (40.0-77.0); PLATELET COUNT (AUTO) 229 K/uL (130-400); RED BLOOD CELL COUNT(AUTO) 3.69 MIL/uL (4.50-6.20); RED CELL DISTRIBUTION WIDTH 13.5 % (11.0-15.5); WHITE BLOOD COUNT (AUTO) 4.7 K/uL (4.8-10.8)
[2024-04-17 12:19] LABS: ALBUMIN 3.5 g/dL (3.5-5.0); BILIRUBIN,TOTAL 0.3 mg/dL (0.2-1.0); CREATININE 0.9 mg/dL (0.5-1.3); POTASSIUM 5.5 mmol/L (3.5-5.1); TOTAL PROTEIN, SERUM 6.9 g/dL (6.0-8.3)
[2024-04-17 12:39] LABS: INR 0.99 (0.85-1.15); PROTHROMBIN TIME 10.7 SEC (9.6-11.6)
[2024-04-17 12:41] LABS: PARTIAL THROMBOPLASTIN TIME 29.9 SEC (26.3-35.5)
== END | disposition home or self-care (01) ==
LOC: LAB 11:14
PROVIDERS: ATTEND Internal Medicine Cardiovascular Disease
DX: I87.2 Venous insufficiency (chronic) (peripheral) (principal); I89.0 Lymphedema, not elsewhere classified; I73.9 Peripheral vascular disease, unspecified; M79.662 Pain in left lower leg
CPT/HCPCS: 36415; 80053; 85025; 85610; 85730

== ENCOUNTER → 2024-06-01 | Outpatient (CLI) | payer OTHER, MEDICARE ==
[2024-06-01 12:17] LABS: BASOPHILS # (AUTO) 0.04 K/uL (0.00-0.20); BASOPHILS % (AUTO) 0.6 % (0.0-5.0); EOSINOPHILS # (AUTO) 0.13 K/uL (0.00-0.70); EOSINOPHILS % (AUTO) 1.8 % (0.0-8.0); HEMATOCRIT 29.9 % (42-54); IMMATURE GRANULOCYTE ABSOLUTE 0.08 K/uL (0-1); LYMPHOCYTES # (AUTO) 0.8 K/uL (1.0-4.8); LYMPHOCYTES % (AUTO) 11.4 % (21.0-51.0); MEAN CORPUSCULAR HEMOGLOBIN 29.8 pg (27.0-33.0); MEAN CORPUSCULAR HGB CONC 31.4 g/dL (32.0-36.0); MEAN CORPUSCULAR VOLUME 94.9 fL (79-99); MONOCYTES # (AUTO) 0.9 K/uL (0.1-1.0); MONOCYTES % (AUTO) 12.1 % (3.0-13.0); NEUTROPHILS # (AUTO) 5.3 K/uL (1.8-7.7); PLATELET COUNT (AUTO) 345 K/uL (130-400); RED BLOOD CELL COUNT(AUTO) 3.15 MIL/uL (4.50-6.20); RED CELL DISTRIBUTION WIDTH 15.2 % (11.0-15.5); WHITE BLOOD COUNT (AUTO) 7.3 K/uL (4.8-10.8)
[2024-06-01 12:27] LABS: CREATININE 0.9 mg/dL (0.5-1.3); POTASSIUM 3.6 mmol/L (3.5-5.1)
== END | disposition home or self-care (01) ==
LOC: LAB 10:48
PROVIDERS: ATTEND Internal Medicine Cardiovascular Disease
DX: I10 Essential (primary) hypertension (principal)
CPT/HCPCS: 36415; 80048; 85025

== ENCOUNTER 2024-06-03 12:45 | Inpatient (IN) | payer OTHER, MEDICARE ==
[~2024-06-03] VITALS: Ht 172.7 cm; Wt 73.9 kg
--- NOTE | 2024-06-03 13:13 | ERN ---
ED Note History of Present Illness Stated Complaint: EMS SHORTNESS OF BREATH Chief Complaint: Shortness of Breath Time Seen by MD: 12:48 Dictation: PATIENT IS A 73-YEAR-OLD MALE COMING IN TODAY WITH COMPLAINTS OF GENERALIZED BODY WEAKNESS AND SHORTNESS A BREATH ONSET TWO DAYS PRIOR TO ARRIVAL. HE DENIES FEVER CHILLS NAUSEA VOMITING. STATES HE HAS A HISTORY OF CHF CAD IS ON LASIX.. NO CHEST PAIN OR PRESSURE AT THIS TIME. ALCOHOL ABUSE AND COPD. Allergies: Coded Allergies: No Known Drug Allergies (Verified Allergy, Unknown, 08/04/19) Home Meds Active Scripts Albuterol Sulfate (Albuterol Sulfate) 1.25 Mg/3 Ml Vial.neb, 1.25 MG IH BID for sob for 7 Days, #30 INH Prov:CHIDI RIZZO MD 01/10/24 Prednisone (Deltasone/Orasone [Bulk]) 20 Mg Tab, 40 MG PO BID, #10 TAB Take 40 mg p.o. twice daily x2 days Then continue 40 mg p.o. 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 06/07/23 Metoclopramide HCl (Reglan) 10 Mg Tablet, 10 MG PO QIDP PRN for HEADACHE, #30 TAB 2 Refills Prov:CARISA PARDO Sr., MD 03/05/23 Prednisone (Prednisone) 20 Mg Tablet, 40 MG PO DAILY, #5 TAB 0 Refills Prov:[facility] 01/04/23 Polyethylene Glycol 3350 (Miralax) 17 Gm Powd.pack, 17 GM PO DAILY, #1 BOTTLE 0 Refills Prov:[facility]LOCK [facility] 01/04/23 Aspirin (ASPIRIN 81MG CHEW TAB) 81 Mg Tab.chew, 81 MG PO DAILY, #100 TAB.CHEW 3 Refills Prov:HOLLIE MCALLISTER MD 07/04/19 Reported Medications Escitalopram Oxalate (Escitalopram Oxalate) 20 Mg Tablet, 20 MG PO DAILY, TAB 06/06/23 Buspirone HCl (Buspirone HCl) 5 Mg Tablet, 5 MG PO BID, TAB 06/06/23 Nitroglycerin (Nitroglycerin) 0.4 Mg Tab.subl, 0.4 MG SL AD, TAB.SL 01/03/23 Rivaroxaban (Xarelto) 2.5 Mg Tablet, 2.5 MG PO BID, TAB 01/03/23 Atorvastatin Calcium (Atorvastatin Calcium) 40 Mg Tablet, 40 MG PO DAILY, TAB 01/03/23 Hydroxyzine HCl (Hydroxyzine HCl) 25 Mg Tablet, 25 MG PO BID, TAB 03/19/22 Albuterol Sulfate (Proair Respiclick) 90 Mcg Aer.pow.ba, 1 PUFF IH Q4H PRN for SHORTNESS OF BREATH 12/05/19 Furosemide (Furosemide) 40 Mg Tablet, 40 MG PO DAILY, TAB 12/05/19 Atorvastatin Calcium (Atorvastatin Calcium) 40 Mg Tablet, 0.5 TAB PO DAILY, TAB 07/02/19 Past Medical History Past Medical History: COPD, Diabetes-Type II, High Cholesterol, Heart Disease, Hypertension Surgical History: Unknown PSYCH History: no pertinent psych hx Family History: HTN Social History: Smokers, Lives with family RN Note Reviewed/Agreed w/PFSH: Yes Review of System Dictation CONSTITUTIONAL: NEGATIVE EXCEPT FOR HPI WEAKNESS HEAD/FACE: NEGATIVE EXCEPT FOR HPI EENT: NEGATIVE EXCEPT FOR HPI RESPIRATORY: NEGATIVE EXCEPT FOR HPI SOB ON EXERTION GASTROINTESTINAL/ABDOMINAL: NEGATIVE EXCEPT FOR HPI GENITOURINARY: NEGATIVE EXCEPT FOR HPI MUSCULOSKELETAL: NEGATIVE EXCEPT FOR HPI INTEGUMENTARY: NEGATIVE EXCEPT FOR HPI NEUROLOGICAL/PSYCH: NEGATIVE EXCEPT FOR HPI HEMATOLOGIC/LYMPHATIC: NEGATIVE EXCEPT FOR HPI ALL SYSTEMS NEGATIVE, EXCEPT NOTED ABOVE. 13 POINT REVIEW OF SYSTEMS ASSESSED AND ALL NEGATIVE EXCEPT FOR ABOVE. Initial Vital Sign VS Vital Signs Date Time Temp Pulse Resp B/P (MAP) Pulse Ox O2 Delivery O2 Flow Rate FiO2 06/03/24 12:49 98.8 78 20 126/70 97 Room Air 0 06/03/24 13:02 21 Physical Exam Dictation VITAL SIGNS REVIEWED GENERAL APPEARANCE: ALERT, ORIENTED X 3, WEAK AND DEBILITATED, MILD SOB WITH SITTING. HEAD AND FACE: NON-TRAUMATIC. EYES: PERRL, PINK CONJUNCTIVAS, EYELID NO TRAUMA, ANTERIOR CHAMBER WITH ARCUS SENILIS. EARS: PINNAS INTACT AND NO SIGNS OF TRAUMA OR ERYTHEMA EAR CANALS CLEAR AND NO DISCHARGE TM NO ERYTHEMA NOSE: NO DISCHARGE, NO BLEEDING. OROPHARYNX: MOUTH NORMAL, TONGUE PINK, PHARYNX CLEAR,NO ERYTHEMA, TONSILS NO EXUDATES, NO ABSCESSES NOTED, MUCOUS MEMBRANE MOIST NECK: SUPPLE, NON-TENDER, NO THYROMEGALY, NO MASSES, NO JVD, NO BRUITS BREAST:DEFERRED CHEST:NO TENDERNESS, NO CREPITUS, NO PARADOXICAL MOVEMENT, NO RETRACTIONS LUNGS:CLEAR, WELL-VENTILATED, SYMMETRIC, NO RALES, NO WHEEZING, NO RHONCHI, NO RETRACTIONS OR HOWEVER MILDLY TACHYPNEIC WITH DIMINISHED BREATH SOUNDS THROUGHOUT. HEART: REGULAR RATE, REGULAR RHYTHM, NO MURMUR, NO GALLOPS VASCULAR: 2+ PERIPHERAL EDEMA, ABDOMEN: SOFT, POSITIVE BOWEL SOUNDS, NONDISTENDED, NO GUARDING, NONTENDER, NO REBOUND, NO MASSES NO HEPATOMEGALY, NO SPLENOMEGALY, NO MOORE'S SIGN, NO HERNIAS. RECTAL: DEFERRED GENITAL: DEFERRED NEUROLOGICAL: NORMAL SPEECH, MOTOR FUNCTION INTACT, SENSORY FUNCTION INTACT MUSCULOSKELETAL: NECK NONTENDER, FULL RANGE OF MOTION, BACK NONTENDER, FULL RANGE OF MOTION, EXTREMITIES: NONTENDER, FULL RANGE OF MOTION SKIN: COLOR PINK, DRY, NO TURGOR, NO RASH, NO LACERATIONS, NO ABRASIONS, NO CONTUSIONS. LYMPHATIC: DEFERRED Results (Laboratory/Radiology) Laboratory/Radiology Laboratory Tests Test 06/03/24 13:00 06/03/24 13:40 06/03/24 17:40 White Blood Count 5.6 K/uL (4.8-10.8) Red Blood Count 3.22 MIL/uL (4.50-6.20) L Hemoglobin 9.7 g/dL (14.0-18.0) L Hematocrit 30.6 % (42-54) L Mean Corpuscular Volume 95.0 fL (79-99) Mean Corpuscular Hemoglobin 30.1 pg (27.0-33.0) Mean Corpuscular Hemoglobin Concent 31.7 g/dL (32.0-36.0) L Red Cell Distribution Width 14.8 % (11.0-15.5) Platelet Count 304 K/uL (130-400) Mean Platelet Volume 9.0 fL (7.5-10.5) Immature Granulocyte % (Auto) 1.1 % (0-1) H Neutrophils (%) (Auto) 72.3 % (40.0-77.0) Lymphocytes (%) (Auto) 12.9 % (21.0-51.0) L Monocytes (%) (Auto) 11.4 % (3.0-13.0) Eosinophils (%) (Auto) 1.4 % (0.0-8.0) Basophils (%) (Auto) 0.9 % (0.0-5.0) Neutrophils # (Auto) 4.1 K/uL (1.8-7.7) Lymphocytes # (Auto) 0.7 K/uL (1.0-4.8) L Monocytes # (Auto) 0.6 K/uL (0.1-1.0) Eosinophils # (Auto) 0.08 K/uL (0.00-0.70) Basophils # (Auto) 0.05 K/uL (0.00-0.20) Absolute Immature Granulocyte (auto 0.06 K/uL (0-1) Nucleated Red Blood Cells 0.0 % (0.0-0.19) Sodium Level 138 mmol/L (136-145) Potassium Level 3.3 mmol/L (3.5-5.1) L Chloride Level 100 mmol/L (101-111) L Carbon Dioxide Level 31 mmol/L (21-32) Blood Urea Nitrogen 6 mg/dL (7-18) L Creatinine 0.9 mg/dL (0.5-1.3) Glomerular Filtration Rate Calc 90 mL/min (>90) Random Glucose 134 mg/dL (70-105) H Total Calcium 8.5 mg/dL (8.5-10.1) Magnesium Level 1.30 mg/dL (1.80-2.40) L Troponin I High Sensitivity 13 ng/L (4-75) B-Type Natriuretic Peptide 109 pg/mL (0-100) H Influenza Type A Antigen Negative For Type A Influenza Type B Antigen Negative For Type B SARS-CoV-2 Antigen (Rapid) PRESUMPTIVE NEGATIVE Lactic Acid Level 2.1 mmol/L (0.8-2.5) Thyroid Stimulating Hormone (TSH) 2.14 uIU/mL (0.36-3.74) # ORTABLE CHEST RADIOGRAPH INDICATION: SHORTNESS A BREATH COMPARISON: 08/06/2023 FINDINGS: Left sided dual chamber pacer and continuous leads remain in customary position. Heart size is normal. Mild calcific plaque is present along the aortic arch scott. The pulmonary vascularity and eugene appear normal. Linear opacities at the left lung base and left hemidiaphragm is slightly elevated. No evidence for consolidation. No significant pleural effusion noted. No pneumothorax detected. IMPRESSION: Nominal left lung base scarring and/or atelectasis. Labs Reviewed?: Yes EKG Comment: EKG IS SINUS RHYTHM/HEART RATE 74/MO INTERVAL 294/0 CHANGES ED Course ED Course Orders Procedure Category Date Status Time Covid19 (Sars Antigen LAB 06/03/24 Complete Rapid) 13:09 Oxygen By Nc/Pulse Ox CPOE 06/03/24 Transmitted 13:09 Cbc With Differential LAB 06/03/24 Complete 13:09 B-Type Natriuretic LAB 06/03/24 Complete Peptide 13:09 Chest 1vw RAD 06/03/24 Resulted 13:09 12 Lead Ekg Tracing- EKG 06/03/24 Complete Technical 13:09 Magnesium LAB 06/03/24 Complete 13:09 Troponin I High LAB 06/03/24 Complete Sensitivity 13:09 Basic Metabolic Panel LAB 06/03/24 Complete 13:09 Ipratropium/Albuterol PHA 06/03/24 Complete Neb (Duoneb) 13:30 Methylprednisolone PHA 06/03/24 Complete Succ 125mg (Solu-Medr 13:30 Influenza Type A & B, LAB 06/03/24 Complete Rapid 13:41 Levofloxacin 500 PHA 06/03/24 In Process Mg/D5w 100 Ml 15:00 Potassium Bicarb/Cit PHA 06/03/24 In Process Ac 25meq (K-Lyte Ta 15:30 Magnesium 2gm Premix PHA 06/03/24 In Process 50ml (Magnesium 2gm 15:30 Admit Orders ADM 06/03/24 Transmitted 15:48 Edm Admit Bridge Order ADM 06/03/24 Transmitted 15:48 Vital Signs(Adult CPOE 06/03/24 Transmitted Hospitalist) 17:20 Famotidine 20mg Tab PHA 06/03/24 In Process (Pepcid 20mg Tab) 21:00 Diphenhydramine Hcl PHA 06/03/24 In Process (Benadryl Cap) 17:30 Diphenhydramine Hcl PHA 06/03/24 In Process (Benadryl Inj) 17:30 Acetaminophen 325 Tab PHA 06/03/24 In Process (Tylenol 325mg Tab 17:30 Acetaminophen 325 Tab PHA 06/03/24 In Process (Tylenol 325mg Tab 17:30 Ondansetron 4mg Inj PHA 06/03/24 In Process (Zofran 4mg Inj) 17:30 Mag/Alum/Simeth 30ml PHA 06/03/24 In Process (Maalox Plus 30ml) 17:30 Lactulose 20 Gm/30 Ml PHA 06/03/24 In Process Udcup (Constulose 17:30 Nitroglycerin 0.4mg PHA 06/03/24 In Process Sl Tab (Nitrostat) 17:30 Guaifenesin-Dm PHA 06/03/24 In Process 200/20mg 10ml 17:30 Albuterol 0.083% PHA 06/03/24 In Process 2.5mg/3ml (Proventil 18:00 Pt Eval And Treat PT 06/03/24 Transmitted 17:20 Guaifenesin Sug-Andrew PHA 06/03/24 In Process 100 Mg/5ml (Robituss 17:30 Docusate Sodium 100 PHA 06/03/24 In Process Mg Cap (Colace 100mg 17:30 Polyethylene Glycol PHA 06/03/24 In Process 3350 (Miralax 3350 1 17:30 Lidocaine Hcl 2% PHA 06/03/24 In Process Viscous (Lidocaine Hcl 17:30 Natural Tears 15ml PHA 06/03/24 In Process (Artificial Tears) 17:30 Benzocaine/Menth/Cetylpyrd PHA 06/03/24 In Process Cl (Cepacol S 17:30 Admit Orders ADM 06/03/24 Transmitted 17:20 Activity: Ad Gila CPOE 06/03/24 Transmitted 17:20 Erythrocyte LAB 06/03/24 In Process Sedimentation Rate 17:20 Thyroid Stimulating LAB 06/03/24 Complete Hormone 17:20 RSV LAB 06/03/24 Logged 17:20 Lactic Acid LAB 06/03/24 Complete 17:20 Respiratory Cult KYLER 06/03/24 Logged W/Gram Stain 17:20 Initiate TJ 06/03/24 In Process Hyperglycemia Protoco 17:20 Insulin Lispro 100 PHA 06/03/24 In Process Unit/Ml 3ml (Humalog 21:00 Ceftriaxone 1g Vial PHA 06/03/24 In Process (Rocephine 1g Inj) 17:30 Sodium Chloride 3% PHA 06/03/24 Complete Inh (Sodium Chloride 17:51 Current Medications Medications (Trade) Dose Ordered Sig/Sherman Route PRN Reason Start Time Stop Time Status Last Admin Dose Admin Albuterol (DUOneb) 1 udvial ONCE ONCE IH 06/03/24 13:30 06/03/24 13:31 DC 06/03/24 13:40 Levofloxacin/ Dextrose 100 ml @ 100 mls/hr Q24H IV 06/03/24 15:00 06/13/24 14:59 06/03/24 15:44 Magnesium Sulfate 50 ml @ 0 mls/hr PROTOCOL IV 06/03/24 15:30 07/03/24 15:29 06/03/24 16:50 Methylprednisolone Sodium Succinate (Solu-medROL 125MG) 125 mg ONCE ONCE IVP 06/03/24 13:30 06/03/24 13:31 DC 06/03/24 13:31 Potassium Bicarbonate (K-Lyte Tablet Eff 25 Meq Tablet.eff) 25 meq ONCE PO 06/03/24 15:30 06/03/24 21:30 06/03/24 15:44 Vital Signs Date Time Temp Pulse Resp B/P (MAP) Pulse Ox O2 Delivery O2 Flow Rate FiO2 06/03/24 16:20 98.2 60 16 145/56 96 Room Air* 0 06/03/24 13:42 72 20 06/03/24 13:02 97.5 70 20 138/61 97 Room Air* 0 06/03/24 12:49 98.8 78 20 126/70 97 Room Air 0 1545, SPOKE WITH ANNI LENZ HOSPITALIST AND REVIEWED CHEST X-RAY EKG LABS AND INTERVENTIONS FOR ACUTE COPD EXACERBATION. HE IS AWARE THAT PATIENT IS ON SUPPLEMENTAL O2 AND HE AGREED TO ADMIT PATIENT. HEART Score Response (Comments) Value EKG: Repolarization changes 1 Risk Factors: 1-2 risk factors (+1) 1 Initial Troponin: Normal limit (0) 0 Total 2 Medical Decision Making MDM MDM: DIFFERENTIAL DIAGNOSIS: ACS/AMI/BRONCHITIS/PNEUMONIA/COPD EXACERBATION/ELECTROLYTE IMBALANCE/ANXIETY RATIONALE: TESTS CONSIDERED AND ORDERED SECONDARY TO SHARED DECISION MAKING INCLUDE: LABS, ECG AND RADIOLOGY PREVIOUS OUTSIDE RECORDS REVIEWED: OLD ER VISITS. REVIEWED RISK OF COMPLICATION AND/OR MORBIDITY OR MORTALITY OF PATIENT MANAGEMENT: MODERATE MEDICATIONS-PER MEDICATION RECONCILIATION SEE NURSE'S NOTES NEED FOR HOSPITALIZATION: PATIENT DOES MEET CRITERIA FOR HOSPITALIZATION. CONTINUED RESPIRATORY TREATMENT FOR COPD EXACERBATION NEED FOR EMERGENCY MAJOR/MINOR SURGERY: NO THERE ARE NO SOCIAL CONCERNS WITH THIS PATIENT. TOBACCO ABUSER/HISTORY OF COPD PRESCRIPTION DRUG MANAGEMENT PRESCRIPTIONS WILL INCLUDE SYMPTOMATIC CARE PATIENT'S PRIOR EXTERNAL MEDICAL RECORDS FROM OTHER ER VISITS WERE REVIEWED BY ME INDICATED. PRIOR TESTING AND RESULTS FROM PREVIOUS VISITS WERE REVIEWED. PRIOR TESTS WERE TAKEN INTO ACCOUNT WITH MEDICAL DECISION MAKING AND RESOURCE UTILIZATION, INDEPENDENT HISTORIAN/HISTORIANS WERE USED TO OBTAIN COMPLETE MEDICAL HISTORY. I INDEPENDENTLY INTERPRETED THE TEST THAT WERE PERFORMED, RESULTS WERE REVIEWED BY ME AND CONSIDERED FINDINGS ON RADIOLOGY IF ORDERED. MEDICAL MANAGEMENT AND EXAMINATION INTERPRETATION DISCUSSIONS WERE HAD BY ME WITH OTHER QUALIFIED HEALTHCARE PROFESSIONALS INDICATED FOR THE PATIENT'S CARE. DX & DISP Disposition: Inpatient Decision to Admit Time: 15:35 Departure Impression: Primary Impression: Acute exacerbation of chronic obstructive pulmonary disease (COPD) Additional Impressions: Dyspnea, Hypokalemia, Hypomagnesemia, Tobacco abuse, Dehydration Condition: Stable Referrals: KRISTIN COSTA MD (PCP) Time of Disposition: 15:35 I have reviewed the case, and I agree with, Diagnosis and Plan ATTESTATION BY PHYSICIAN I PERFORMED THE SUBSTANTIVE PORTION OF THE VISIT. I HAVE REVIEWED AND PERSONALLY MADE AND APPROVED THE MANAGEMENT PLAN THAT IS DOCUMENTED IN THE NOTE BY MYSELF FOR THE A PP. I ACKNOWLEDGED FOR RESPONSIBILITY FOR THE PATIENT'S MANAGEMENT PLAN. CRIS HILLIARD NP Jun 03, 2024 13:13 CHIDI RIZZO MD Jun 03, 2024 18:18
[2024-06-03 13:31] LABS: BASOPHILS # (AUTO) 0.05 K/uL (0.00-0.20); BASOPHILS % (AUTO) 0.9 % (0.0-5.0); EOSINOPHILS # (AUTO) 0.08 K/uL (0.00-0.70); EOSINOPHILS % (AUTO) 1.4 % (0.0-8.0); HEMATOCRIT 30.6 % (42-54); IMMATURE GRANULOCYTE ABSOLUTE 0.06 K/uL (0-1); LYMPHOCYTES # (AUTO) 0.7 K/uL (1.0-4.8); LYMPHOCYTES % (AUTO) 12.9 % (21.0-51.0); MEAN CORPUSCULAR HEMOGLOBIN 30.1 pg (27.0-33.0); MEAN CORPUSCULAR HGB CONC 31.7 g/dL (32.0-36.0); MONOCYTES # (AUTO) 0.6 K/uL (0.1-1.0); MONOCYTES % (AUTO) 11.4 % (3.0-13.0); NEUTROPHILS # (AUTO) 4.1 K/uL (1.8-7.7); NEUTROPHILS % (AUTO) 72.3 % (40.0-77.0); PLATELET COUNT (AUTO) 304 K/uL (130-400); RED BLOOD CELL COUNT(AUTO) 3.22 MIL/uL (4.50-6.20); RED CELL DISTRIBUTION WIDTH 14.8 % (11.0-15.5); WHITE BLOOD COUNT (AUTO) 5.6 K/uL (4.8-10.8)
[2024-06-03] MEDS: Solu-medROL 125MG VIAL IVP ONE (13:31)
[2024-06-03] MEDS: IpraTROPium/alBUTERol SULFATE 3 ML SOLUTION IH ONE (13:40)
[2024-06-03 13:42] VITALS: PULSE 72; RESP 20
--- NOTE | 2024-06-03 13:50 | HMCIMG ---
PORTABLE CHEST RADIOGRAPH INDICATION: SHORTNESS A BREATH COMPARISON: 08/06/2023 FINDINGS: Left sided dual chamber pacer and continuous leads remain in customary position. Heart size is normal. Mild calcific plaque is present along the aortic arch scott. The pulmonary vascularity and eugene appear normal. Linear opacities at the left lung base and left hemidiaphragm is slightly elevated. No evidence for consolidation. No significant pleural effusion noted. No pneumothorax detected. IMPRESSION: Nominal left lung base scarring and/or atelectasis.
[2024-06-03 13:52] LABS: CREATININE 0.9 mg/dL (0.5-1.3); MAGNESIUM 1.3 mg/dL (1.80-2.40); POTASSIUM 3.3 mmol/L (3.5-5.1)
[2024-06-03 14:01] LABS: B-TYPE NATRIURETIC PEPTIDE 109 pg/mL (0-100)
[2024-06-03 14:17] LABS: INFLUENZA TYPE A Negative For Type A (NEGATIVE); INFLUENZA TYPE B Negative For Type B (NEGATIVE)
[2024-06-03] MEDS: PoTASSium BIcarbonate/CIT AC 25 MEQ TABLET.EFF PO SCH (15:44)
[2024-06-03] MEDS: levoFLOXacin 500 MG/D5W 100 ML 100 ML IV SCH (15:44)
--- NOTE | 2024-06-03 16:25 | NUR ---
PATIENT PRESENTS BILATERAL LOWER EXT EDEMA EXTREME DRYNESS TO SKIN NAND 2 SMALL WOUNDS TO LEFT FOOT 3RD AND 4TH DIGIT
[2024-06-03] MEDS: MAGNESIUM 2GM PREMIX 50ML 50 ML IV SCH (16:50)
[2024-06-03] MEDS ORDERED: NITROGLYCERIN 0.4 MG SL TAB SL PRN (17:30)
[2024-06-03] MEDS ORDERED: BENZOCAINE/MENTH/CETYLPYRD CL 1 EACH LOZENGE MM PRN (17:30)
[2024-06-03] MEDS ORDERED: ondanSETRON 4MG INJ IV PRN (17:30)
[2024-06-03] MEDS ORDERED: DiphenhydrAMINE HCL 50 MG/ML VIAL IV PRN (17:30)
[2024-06-03] MEDS ORDERED: doCUSate SODIUM 100 MG CAP PO PRN (17:30)
[2024-06-03] MEDS ORDERED: ARTIFICAL TEARS SOL 15 ML OP PRN (17:30)
[2024-06-03] MEDS ORDERED: LACTULOSE 20 GM/30 ML UDCUP PO PRN (17:30)
[2024-06-03] MEDS ORDERED: guaiFENesin SUGAR-FREE 100 MG/5 ML UDCUP PO PRN (17:30)
[2024-06-03] MEDS ORDERED: MAG/ALUM/SIMETH 30 ML UDCUP PO PRN (17:30)
[2024-06-03] MEDS ORDERED: LIDOCAINE HCL 2% VISCOUS 30 ML, MAG/ALUM/SIMETH 30ML 30 ML, DICYCLOMINE HCL 20 MG PO PRN (17:30)
[2024-06-03] MEDS ORDERED: polyETHYLene GLYCol 3350 17 GM POWD.PACK PO PRN (17:30)
[2024-06-03] MEDS ORDERED: DiphenhydrAMINE HCL 25 MG CAPSULE PO PRN (17:30)
--- NOTE | 2024-06-03 17:53 | EKG ---
[facility] Test Date: 2024-06-03 Test Time: 13:14:32 Pat Name: VENKAT PETERSEN Department: [facility] Room: 305 Gender: M Data Entry Email Processor: [id number] : 1950 Requested By: CRIS HILLIARD Order Number: [id number] Reading MD: Leonard Tipton Measurements Intervals [place] Rate: 75 P: 21 DC: 294 QRS: 32 QRSD: 91 T: 56 QT: 389 QTc: 436 Interpretive Statements Sinus rhythm Supraventricular bigeminy Prolonged DC interval Consider anteroseptal infarct Compared to ECG 07/23/2023 14:32:37 Myocardial infarct finding now present Early repolarization no longer present Possible ischemia no longer present Electronically Signed On 06-05-2024 19:57:31 [employer] by Leonard Tipton Please click the below link to view image of tracing.
[2024-06-03 18:08] LABS: THYROID STIMULATING HORMONE 2.14 uIU/mL (0.36-3.74)
[2024-06-03] MEDS: SODIUM CHLORIDE 3% FOR INHALATION 4 ML/AMP VIAL.NEB IH ONE (18:33)
[2024-06-03] MEDS: ALBUTEROL 0.083% 2.5 MG/3 ML INH IH SCH (18:33)
[2024-06-03 18:34] VITALS: PULSE 75; RESP 20
[2024-06-03 18:36] VITALS: PULSE 73; RESP 22; O2SAT 96
[2024-06-03] MEDS: cefTRIAXone 1G VIAL IVPB SCH (18:36)
[2024-06-03] MEDS ORDERED: GABA-529 PO (18:59)
[2024-06-03] MEDS ORDERED: FURO20TA6 PO (19:01)
[2024-06-03] MEDS ORDERED: NIFE-78 PO (19:03)
[2024-06-03] MEDS ORDERED: LORA2DIS5 SQ (19:05)
[2024-06-03] MEDS ORDERED: LORA2ORA5 PO (19:05)
[2024-06-03] MEDS ORDERED: METO25TA6 PO (19:06)
[2024-06-03] MEDS ORDERED: CLOP75TA32 PO (19:09)
[2024-06-03] MEDS ORDERED: MONT-39 PO (19:11)
[2024-06-03] MEDS ORDERED: OMEP20TA20 PO (19:12)
[2024-06-03] MEDS ORDERED: LOSA50TA64 PO (19:14)
[2024-06-03] MEDS ORDERED: SULF500T49 PO (19:15)
[2024-06-03] MEDS ORDERED: TAMS-1 PO (19:17)
[2024-06-03] MEDS ORDERED: FERS325 PO (19:19)
--- NOTE | 2024-06-03 20:16 | HP ---
[facility] HISTORY & PHYSICAL Date Patient Seen: Jun 03, 2024 Time of Visit: 20:16 Supervising Physician: Dr. Benton Lange Primary Care Physician: Susan Cancino Outpatient Specialists: Inpatient Consults: PROBLEM LIST: Acute exacerbation of chronic obstructive pulmonary disease Acute hypoxemic respiratory failure Electrolyte derangement (hypokalemia, hypomagnesemia) No medial left lung base scarring and/or atelectasis, per chest x-ray 06/03/2024 Dehydration Tobacco and alcohol abuse Chronic problem list: Left lower extremity cellulitis with swelling with underlying severe PAD s/p incomplete LE angio on 07/30/[address] Rivera PAD with history of angioplasty prior bilateral iliac stents in October 2020 and stenting of Left SFA on Xarelto Acute on chronic diastolic CHF with preserved EF 55-60% per Echo on 07/24/2023 CAD hx of stenting of RCA in 2019 Primary hypertension Hyperlipidemia BPH Conduction System Disease Pacemaker in situ History of stroke with slurred speech residual Chronic anxiety Current tobacco abuse Medical noncompliance HX: Herpes Zoster of Right Thorax on 07/23/2023 HPI: Mr. Cruz is a 73-year-old male with a history of CHF, CAD, COPD, DM type 2, hypercholesteremia, heart disease, hypertension, tobacco abuse and alcohol abuse who presented to [facility] ED for evaluation of general body weakness, shortness of breath, chest tightness onset 06/01/2024. The patient denied any fevers, chills, nausea, vomiting, any other pain, problem or concern. Chest x-ray: Nominal left lung bases scarring and/atelectasis. ED physician request patient be admitted with the diagnosis of acute exacerbation of chronic obstructive pulmonary disease, dyspnea, hypokalemia, hypomagnesemia, tobacco use, and dehydration. The patient was seen and assessed by me in ER room 5. Patient appeared chronically ill but comfortable and in no distress. Breathing was even and unla bored. Patient reports improvement of symptoms. I informed the patient of labs, diagnostics, plan of care. Patient verbalized understanding and is in agreement with the plan. Plan and assessment are listed below. PAST MEDICAL HX: see above PAST SURGICAL HX: see above SOCIAL HISTORY: No tobacco, ETOH, or illicit drug use Coded Allergies: No Known Drug Allergies (Verified Allergy, Unknown, 08/04/19) REVIEW OF SYSTEMS: 12 point ROS reviewed with patient. Pertinent positives mentioned above. Otherwise negative. PHYSICAL EXAM: GENERAL: alert, weak, awake oriented x 3, appeared chronically ill. HEENT: EOMI, Sclera non icteric, moist mucosa NECK: Supple, no JVD, trachea midline LUNGS: Clear breath sounds bilaterally. No wheezes HEART: Regular rate and rhythm. Normal S1 and S2, without murmurs ABD: Abdomen soft, nontender. Bowel sounds present EXT: No clubbing cyanosis or edema. Wound to left lower extremity/foot. NEURO: Alert and oriented to person, follows commands Vital Signs (last 8hr) Date Time Temp Pulse Resp B/P (MAP) Pulse Ox O2 Delivery O2 Flow Rate FiO2 06/03/24 19:25 98.2 84 20 139/61 100 Nasal Cannula* 3 32 06/03/24 18:36 73 22 N/Cannula Low lpm 2.0 28 06/03/24 18:34 75 20 06/03/24 16:20 98.2 60 16 145/56 96 Room Air* 0 21 06/03/24 13:42 72 20 06/03/24 13:02 97.5 70 20 138/61 97 Room Air* 0 21 06/03/24 12:49 98.8 78 20 126/70 97 Room Air 0 LABS: Hematology Labs: Test 06/03/24 17:40 06/03/24 13:00 Range/Units Erythrocyte Sedimentation Rate 48 H 0-20 MM/HR White Blood Count 5.6 4.8-10.8 K/uL Red Blood Count 3.22 L 4.50-6.20 MIL/uL Hemoglobin 9.7 L 14.0-18.0 g/dL Hematocrit 30.6 L 42-54 % Mean Corpuscular Volume 95.0 79-99 fL Mean Corpuscular Hemoglobin 30.1 27.0-33.0 pg Mean Corpuscular Hemoglobin Concent 31.7 L 32.0-36.0 g/dL Red Cell Distribution Width 14.8 11.0-15.5 % Platelet Count 304 130-400 K/uL Mean Platelet Volume 9.0 7.5-10.5 fL Immature Granulocyte % (Auto) 1.1 H 0-1 % Neutrophils (%) (Auto) 72.3 40.0-77.0 % Lymphocytes (%) (Auto) 12.9 L 21.0-51.0 % Monocytes (%) (Auto) 11.4 3.0-13.0 % Eosinophils (%) (Auto) 1.4 0.0-8.0 % Basophils (%) (Auto) 0.9 0.0-5.0 % Neutrophils # (Auto) 4.1 1.8-7.7 K/uL Lymphocytes # (Auto) 0.7 L 1.0-4.8 K/uL Monocytes # (Auto) 0.6 0.1-1.0 K/uL Eosinophils # (Auto) 0.08 0.00-0.70 K/uL Basophils # (Auto) 0.05 0.00-0.20 K/uL Absolute Immature Granulocyte (auto 0.06 0-1 K/uL Nucleated Red Blood Cells 0.0 0.0-0.19 % Chemistry Labs: Test 06/03/24 17:40 06/03/24 13:00 Range/Units Lactic Acid Level 2.1 0.8-2.5 mmol/L Thyroid Stimulating Hormone (TSH) 2.14 # 0.36-3.74 uIU/mL Sodium Level 138 136-145 mmol/L Potassium Level 3.3 L 3.5-5.1 mmol/L Chloride Level 100 L 101-111 mmol/L Carbon Dioxide Level 31 21-32 mmol/L Blood Urea Nitrogen 6 L 7-18 mg/dL Creatinine 0.9 0.5-1.3 mg/dL Glomerular Filtration Rate Calc 90 >90 mL/min Random Glucose 134 H 70-105 mg/dL Total Calcium 8.5 8.5-10.1 mg/dL Magnesium Level 1.30 L 1.80-2.40 mg/dL Troponin I High Sensitivity 13 4-75 ng/L B-Type Natriuretic Peptide 109 H 0-100 pg/mL DIAGNOSTICS / RADIOLOGY RESULTS: [ ] PLAN Admit to medical floor with telemetry monitoring. Trend troponins and EKGs. 2D echo in a.m.. P.r.n. medications for pain management, nausea, vomiting, constipation, hypertension. Oxygen supplementations as needed to maintain oxygen levels equal to or greater than 92%. Nitroglycerin sublingually as needed for chest pain. Aspirin 81 mg p.o. daily Atorvastatin 40 mg p.o. daily. Continue antibiotics Blood pressure checks every4 hours and p.r.n.. Reconciled home medications to address chronic hx Glucometer checks before and after meals and at bedtime with insulin regular sliding scale per protocol. Monitor renal and liver function. Monitor electrolytes and treat accordingly. A.m. labs CBC, BNP, Mag, phos, TSH, A1c. DVT and GI prophylaxis Consult wound care for left foot/extremity wound. NEURO: Minimize central acting medications as possible. Maintain fall precautions, adequate lighting during the day PULMONARY: Supplemental 02 as needed. Maintain aspiration precautions at all times CARDIOVASCULAR: Follow hemodynamics. Vital signs per facility protocol GI & NUTRITION: Continue with nutritional support. Continue stool softeners and laxatives as needed. KIDNEYS & ELECTROLYTES: Strict monitoring of intake, output and overall fluid balance. Avoid nephrotoxic medications to the extent possible. Medications to be dosed according to renal function. Monitor electrolytes and replace as needed ENDOCRINE: Maintain blood glucose between 100-180 at all times. Hypoglycemia protocol in place INFECTIOUS DISEASE: Trend temperature, WBC and procalcitonin level Follow cultures, deescalate antibiotics as soon as possible. Panculture if new onset fever ONCOLOGY/HEMATOLOGY/COAGULATION: Monitor for s/s of bleeding Monitor hemoglobin, coagulation studies as needed SKIN: Pressure ulcer prevention per facility protocol Specialty mattress ORTHO/REHAB: Continue PT/OT Prophylaxis: Continue GI and DVT prophylaxis Code Status: Full Resuscitation Disposition: ELAYNE CHEN Jun 03, 2024 20:16
[2024-06-03 20:42] VITALS: BP 161/65; PULSE 79; RESP 20; TEMP 98.2
[2024-06-03] MEDS: FAMOTIDINE 20MG TAB PO SCH (21:35)
[2024-06-03] MEDS: INSULIN LISpro 100 UNIT/ML 3ML SQ SCH (21:36)
[2024-06-03 21:41] LABS: ABG BASE EXCESS 2.1 mmol/L (-2.0-3.0); ABG HCO3 25.4 mmol/L (21.0-28.0); ABG OXYGEN SATURATION 97.6 % (94.0-98.0); ABG PCO2 35 mmHg (35-48); ABG PH 7.482 (7.350-7.450); CARBON MONOXIDE 0.2 % (0.5-1.5); DEVICE COMMENT LR RN AMANDA; HHb 2.4; PO2, ARTERIAL BG 98.6 mmHg (83.0-108.0); VENT MODE, BG NC (ROOM AIR)
--- NOTE | 2024-06-03 21:50 | NUR ---
CRITICAL LAB LACTIC OF 3.5 ELAYNE GREEN NP, NOTIFIED. ORDER TO GIVE 500ML NS BOLUS X1
[2024-06-03] MEDS: acetaMINOPHEN 325 MG TAB PO PRN (22:40)
[2024-06-03] MEDS: 0.9% NACL 500ML IV.SOLN 500 ML IV ONE (23:15)
[2024-06-03 23:47] VITALS: BP 147/63; PULSE 68; RESP 18; TEMP 98.3
[2024-06-04] VITALS (13 sets, daily range): BP systolic 108–152; BP diastolic 44–64; PULSE 60–74; RESP 17–22; TEMP 97.5–98.6; O2SAT 96–99
[2024-06-04] MEDS: IpraTROPium/alBUTERol SULFATE 3 ML SOLUTION IH SCH (00:03)
[2024-06-04] MEDS: SODIUM CHLORIDE 3% FOR INHALATION 4 ML/AMP VIAL.NEB IH ONE ×2 (06:33→10:56)
[2024-06-04 07:15] LABS: MAGNESIUM 1.5 mg/dL (1.80-2.40); POTASSIUM 3.8 mmol/L (3.5-5.1)
[2024-06-04] MEDS: acetaMINOPHEN 325 MG TAB PO PRN (10:14)
--- NOTE | 2024-06-04 10:36 | PN ---
[facility] PROGRESS NOTE Date Patient Seen: Jun 04, 2024 Time of Visit: 10:13 Supervising Physician: [Dr. Lange] Primary Care Physician: Susan Cancino Outpatient Specialists: Inpatient Consults: PROBLEM LIST: Acute exacerbation of chronic obstructive pulmonary disease, POA Acute hypoxemic respiratory failure, 2LNC on admission Acute dehydration Electrolyte derangement (hypokalemia, hypomagnesemia) Nominal left lung base scarring and/or atelectasis, per chest x-ray 06/03/2024 Dehydration Left lower extremity cellulitis with swelling with underlying severe PAD s/p incomplete LE angio on 07/30/[address] 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 Has a history of Coronary Artery Disease, severe PAD and CHF. He has a known history of alcohol tobacco abuse, but states has recently quit smoking. 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 Kauffman of P days ago and was given a follow-up appointment in six months. He does take notable amount of medications as noted per his medication bag. Labs on admission were unremarkable with WBC of 5, hemoglobin 9.7, platelets 304, sodium one three, potassium 3.3, BUN six and creatinine 0.9. His troponin was 13, BNP was 109, COVID and flu negative. TSH is 2.1. His CXR on admission was unremarkable, EKG read sinus rhythm with the heart rate is 74, no ST changes. Lactic acid initially was 2.1 bili increased at 3.5, did receive a 500 mL bolus overnight with improvement down to 1.5. He did appear dehydrated on exam. He has denied any current chest pain, nausea, vomiting or abdominal pain. He is currently on room air without use 93%. He does have more respiratory distress as noted per use of accessory muscles.] REVIEW OF SYSTEMS: 12 point ROS reviewed with patient. Pertinent positives mentioned above. Otherwise negative. PHYSICAL EXAM: GENERAL: alert, weak, awake oriented x 3, appeared chronically ill, on room air HEENT: EOMI, Sclera non icteric, moist mucosa NECK: Supple, no JVD, trachea midline LUNGS: Clear breath sounds bilaterally. No wheezes, mild inspiratory rhonchi, use of accessory muscles on exam HEART: Regular rate and rhythm. Normal S1 and S2, without murmurs ABD: Abdomen soft, nontender. Bowel sounds present EXT: No clubbing cyanosis or edema. Wound to left lower extremity/foot. NEURO: Alert and oriented to person, follows commands Vital Signs (last 8hr) Date Time Temp Pulse Resp B/P (MAP) Pulse Ox O2 Delivery O2 Flow Rate FiO2 06/04/24 07:56 97.7 71 20 133/54 93 Room Air 21 06/04/24 06:35 60 20 06/04/24 04:00 97.5 72 18 152/61 99 Nasal Cannula 3.0 06/04/24 03:02 72 20 LABS: Hematology Labs: Test 06/03/24 17:40 06/03/24 13:00 Range/Units Erythrocyte Sedimentation Rate 48 H 0-20 MM/HR White Blood Count 5.6 4.8-10.8 K/uL Red Blood Count 3.22 L 4.50-6.20 MIL/uL Hemoglobin 9.7 L 14.0-18.0 g/dL Hematocrit 30.6 L 42-54 % Mean Corpuscular Volume 95.0 79-99 fL Mean Corpuscular Hemoglobin 30.1 27.0-33.0 pg Mean Corpuscular Hemoglobin Concent 31.7 L 32.0-36.0 g/dL Red Cell Distribution Width 14.8 11.0-15.5 % Platelet Count 304 130-400 K/uL Mean Platelet Volume 9.0 7.5-10.5 fL Immature Granulocyte % (Auto) 1.1 H 0-1 % Neutrophils (%) (Auto) 72.3 40.0-77.0 % Lymphocytes (%) (Auto) 12.9 L 21.0-51.0 % Monocytes (%) (Auto) 11.4 3.0-13.0 % Eosinophils (%) (Auto) 1.4 0.0-8.0 % Basophils (%) (Auto) 0.9 0.0-5.0 % Neutrophils # (Auto) 4.1 1.8-7.7 K/uL Lymphocytes # (Auto) 0.7 L 1.0-4.8 K/uL Monocytes # (Auto) 0.6 0.1-1.0 K/uL Eosinophils # (Auto) 0.08 0.00-0.70 K/uL Basophils # (Auto) 0.05 0.00-0.20 K/uL Absolute Immature Granulocyte (auto 0.06 0-1 K/uL Nucleated Red Blood Cells 0.0 0.0-0.19 % Chemistry Labs: Test 06/04/24 06:54 06/04/24 05:27 06/03/24 17:40 06/03/24 13:00 Range/Units Potassium Level 3.8 3.5-5.1 mmol/L Lactic Acid Level 1.5 0.8-2.5 mmol/L Magnesium Level 1.50 L 1.80-2.40 mg/dL Whole Blood Glucose 126 H 70-110 MG/DL Thyroid Stimulating Hormone (TSH) 2.14 # 0.36-3.74 uIU/mL Sodium Level 138 136-145 mmol/L Chloride Level 100 L 101-111 mmol/L Carbon Dioxide Level 31 21-32 mmol/L Blood Urea Nitrogen 6 L 7-18 mg/dL Creatinine 0.9 0.5-1.3 mg/dL Glomerular Filtration Rate Calc 90 >90 mL/min Random Glucose 134 H 70-105 mg/dL Total Calcium 8.5 8.5-10.1 mg/dL Troponin I High Sensitivity 13 4-75 ng/L B-Type Natriuretic Peptide 109 H 0-100 pg/mL DIAGNOSTICS / RADIOLOGY RESULTS: [PORTABLE CHEST RADIOGRAPH INDICATION: SHORTNESS A BREATH COMPARISON: 08/06/2023 FINDINGS: Left sided dual chamber pacer and continuous leads remain in customary position. Heart size is normal. Mild calcific plaque is present along the aortic arch scott. The pulmonary vascularity and eugene appear normal. Linear opacities at the left lung base and left hemidiaphragm is slightly elevated. No evidence for consolidation. No significant pleural effusion noted. No pneumothorax detected. IMPRESSION: Nominal left lung base scarring and/or atelectasis.] PLAN Admit to medical floor with telemetry monitoring. Trend troponins and EKGs. 2D echo in a.m.. P.r.n. medications for pain management, nausea, vomiting, constipation, hyp ertension. Oxygen supplementations as needed to maintain oxygen levels equal to or greater than 92%. Nitroglycerin sublingually as needed for chest pain. Aspirin 81 mg p.o. daily Atorvastatin 40 mg p.o. daily. Blood pressure checks every4 hours and p.r.n.. Reconcile home medications once available. Glucometer checks before and after meals and at bedtime with insulin regular sliding scale per protocol. Monitor renal and liver function. Monitor electrolytes and treat accordingly. A.m. labs CBC, BNP, Mag, phos, TSH, A1c. DVT and GI prophylaxis Consult wound care for left foot/extremity wound. NEURO: Minimize central acting medications as possible. Maintain fall precautions, adequate lighting during the day PULMONARY: Supplemental 02 as needed. Maintain aspiration precautions at all times CARDIOVASCULAR: Follow hemodynamics. Vital signs per facility protocol GI & NUTRITION: Continue with nutritional support. Continue stool softeners and laxatives as needed. KIDNEYS & ELECTROLYTES: Strict monitoring of intake, output and overall fluid balance. Avoid nephrotoxic medications to the extent possible. Medications to be dosed according to renal function. Monitor electrolytes and replace as needed ENDOCRINE: Maintain blood glucose between 100-180 at all times. Hypoglycemia protocol in place INFECTIOUS DISEASE: Trend temperature, WBC and procalcitonin level Follow cultures, deescalate antibiotics as soon as possible. Panculture if new onset fever ONCOLOGY/HEMATOLOGY/COAGULATION: Monitor for s/s of bleeding Monitor hemoglobin, coagulation studies as needed SKIN: Pressure ulcer prevention per facility protocol Specialty mattress ORTHO/REHAB: Continue PT/OT Prophylaxis: Continue GI and DVT prophylaxis Code Status: Full Resuscitation Disposition: TBD ANNI MURO Jun 04, 2024 10:36
[2024-06-04] MEDS: 0.9% NACL 500ML IV.SOLN 500 ML IV ONE (11:30)
--- NOTE | 2024-06-04 13:49 | NUR ---
Nurse THERON assesment Nurse spoke to pt at bedside. Difficult to understand due to slurred speech. Pt stated he lives with spouse, daughter and son. He feels safe in his home environment. He needs assistance for all ADL'S and has provider services at his hometown of [place] but does not recall the java sybase developer service agency at this time. He uses wheelchair for mobility. His son is his transportation support to his appointments[facility]-home Addendum: 06/04/24 at 1401 by ADAM SALGADO RN CM Amended: Links added.
[2024-06-04] MEDS: Solu-medROL 40MG VIAL IVP SCH ×2 (15:22→23:39)
[2024-06-04] MEDS ORDERED: LORA0.5T83 PO (16:04)
[2024-06-04] MEDS: LORazepam 0.5 MG TABLET PO SCH (17:07)
[2024-06-04] MEDS ORDERED: 0.9% NACL 500ML IV.SOLN 500 ML IV SCH (17:30)
[2024-06-04] MEDS: nifeDIPine ER 30 MG TAB PO SCH (20:28)
[2024-06-04] MEDS: GABApentin 100 MG CAPSULE PO SCH (20:28)
[2024-06-04] MEDS: RIVAROXABAN 2.5 MG TABLET PO SCH (20:28)
[2024-06-04] MEDS: furoSEMIDE 20 MG TABLET PO SCH (20:29)
[2024-06-04 20:49] LABS: APPEARANCE,URINE CLEAR (CLEAR); BILIRUBIN,URINE NEGATIVE (NEGATIVE); COLOR,URINE YELLOW (YELLOW); GLUCOSE, URINE (UA) NEGATIVE (NEGATIVE); KETONES,URINE NEGATIVE (NEGATIVE); LEUKOCYTE ESTERASE ,URINE NEGATIVE Leu/uL (NEGATIVE); NITRATE,URINE NEGATIVE (NEGATIVE); OCCULT BLOOD,URINE NEGATIVE (NEGATIVE); PROTEIN,URINE 20 mg/dL (NEGATIVE); UROBILINOGEN,URINE 0.2 mg/dL (0.2-1.0)
[2024-06-04] MEDS ORDERED: LORazepam 0.5 MG TABLET PO SCH (21:00)
[2024-06-04 21:19] LABS: ADD UA MICROSCOPIC YES
[2024-06-04 21:21] LABS: MUCUS,URINE RARE LPF (None Seen); SQUAMOUS EPITHELIAL CELL,UR RARE /HPF (0-2); WBC,URINE 0-1 /HPF (0-1)
[2024-06-05] VITALS (15 sets, daily range): BP systolic 99–156; BP diastolic 46–65; PULSE 62–75; RESP 17–20; TEMP 97.5–98.7; O2SAT 98–100
[2024-06-05 03:12] LABS: ABG BASE EXCESS 3.5 mmol/L (-2.0-3.0); ABG HCO3 27.2 mmol/L (21.0-28.0); ABG OXYGEN SATURATION 95.9 % (94.0-98.0); ABG PCO2 38 mmHg (35-48); ABG PH 7.471 (7.350-7.450); DEVICE COMMENT LB ELIZABETH; PO2, ARTERIAL BG 75.1 mmHg (83.0-108.0); VENT MODE, BG RA (ROOM AIR)
[2024-06-05] MEDS: ASPIRIN 325MG TAB PO ONE (03:24)
[2024-06-05] MEDS: morPHINE 2 MG SYG IVP ONE (03:24)
[2024-06-05 03:30] LABS: BASOPHILS # (AUTO) 0.04 K/uL (0.00-0.20); BASOPHILS % (AUTO) 0.6 % (0.0-5.0); HEMATOCRIT 29.1 % (42-54); IMMATURE GRANULOCYTE ABSOLUTE 0.05 K/uL (0-1); LYMPHOCYTES # (AUTO) 0.4 K/uL (1.0-4.8); MEAN CORPUSCULAR HEMOGLOBIN 30.7 pg (27.0-33.0); MONOCYTES # (AUTO) 0.4 K/uL (0.1-1.0); MONOCYTES % (AUTO) 5.1 % (3.0-13.0); NEUTROPHILS # (AUTO) 6.2 K/uL (1.8-7.7); NEUTROPHILS % (AUTO) 87.6 % (40.0-77.0); PLATELET COUNT (AUTO) 274 K/uL (130-400); RED BLOOD CELL COUNT(AUTO) 3.03 MIL/uL (4.50-6.20); RED CELL DISTRIBUTION WIDTH 14.9 % (11.0-15.5)
[2024-06-05 03:41] LABS: CREATININE 0.8 mg/dL (0.5-1.3); MAGNESIUM 1.8 mg/dL (1.80-2.40)
--- NOTE | 2024-06-05 07:28 | HMCIMG ---
CHEST 1VW HISTORY: Chest pain COMPARISON: 06/03/2024 FINDINGS: A frontal projection of the chest was obtained. Prominent interstitial markings are seen with possible superimposed infiltrates. The heart is borderline enlarged. Pacemaker is seen entering from the left. Aortic calcifications are seen. IMPRESSION: 1. Prominent interstitial markings are seen with possible superimposed infiltrates.
[2024-06-05] MEDS: cloPIDOgrel 75MG TAB PO SCH (08:27)
[2024-06-05] MEDS: atorVAStatin 40 MG TABLET PO SCH (08:28)
[2024-06-05] MEDS: tamSULOsin HCL 0.4 MG CAP.ER.24H PO SCH (08:29)
[2024-06-05] MEDS: FERROUS SULFATE 325 MG TABLET.DR PO SCH (08:29)
[2024-06-05] MEDS: monteLUKAST sodIUM 10 MG TAB PO SCH (08:31)
[2024-06-05] MEDS: Escitalopram Oxalate 20 MG PO SCH (08:31)
[2024-06-05] MEDS: metoPROLOL tartRATE 25 MG TAB PO SCH (08:35)
[2024-06-05] MEDS: LoSARTan 50 MG TABLET PO SCH (08:36)
--- NOTE | 2024-06-05 08:43 | PN ---
[facility] PROGRESS NOTE Date Patient Seen: Jun 05, 2024 Time of Visit: 08:38 Supervising Physician: [Dr. Lange] Primary Care Physician: Susan Cancino Outpatient Specialists: Inpatient Consults: PROBLEM LIST: Acute exacerbation of chronic obstructive pulmonary disease, POA Acute on chronic hypoxemic respiratory failure, baseline home O2-2L Acute dehydration, improved Moderate aortic valve stenosis, per echo 06/05/24 Electrolyte derangement (hypokalemia, hypomagnesemia) Nominal left lung base scarring and/or atelectasis, per chest x-ray 06/03/2024 Left lower extremity cellulitis with swelling with underlying severe PAD s/p incomplete LE angio on 07/30/[address] 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 Has a history of Coronary Artery Disease, severe PAD and CHF. He has a known history of alcohol tobacco abuse, but states has recently quit smoking. 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 Kauffman of [facility] days ago and was given a follow-up appointment in six months. He does take notable amount of medications as noted per his medication bag. Labs on admission were unremarkable with WBC of 5, hemoglobin 9.7, platelets 304, sodium one three, potassium 3.3, BUN six and creatinine 0.9. His troponin was 13, BNP was 109, COVID and flu negative. TSH is 2.1. His CXR on admission was unremarkable, EKG read sinus rhythm with the heart rate is 74, no ST changes. Lactic acid initially was 2.1 bili increased at 3.5, did receive a 500 mL bolus overnight with improvement down to 1.5. He did appear dehydrated on exam. He has denied any current chest pain, nausea, vomiting or abdominal pain. He is currently on room air without use 93%. He does have more respiratory distress as noted per use of accessory muscles.] 06/05 patient evaluated at bedside. He is currently on 2 L NC which he states is baseline home O2 use. He has 500 mL of urine output overnight. He still has a audible wheezing on auscultation, continues on Solu-Medrol 20mg q8H and nebulizer. His ABG was within normal limits. CBC and BNP are unremarkable. His lactic acid improved from 3.5-1.5 today. UA is negative for infection. CXR today is consistent with pulmonary venous congestion. Patient is expressing his desire to go home, but advised he would benefit from staying until he is improved. REVIEW OF SYSTEMS: 12 point ROS reviewed with patient. Pertinent positives mentioned above. Otherwise negative. PHYSICAL EXAM: GENERAL: alert, weak, awake oriented x 3, appeared chronically ill, on 2LNC HEENT: EOMI, Sclera non icteric, moist mucosa NECK: Supple, no JVD, trachea midline LUNGS: Clear breath sounds bilaterally. No wheezes, mild inspiratory rhonchi bilaterally, with use of accessory muscles on exam HEART: Regular rate and rhythm. Normal S1 and S2, without murmurs ABD: Abdomen soft, nontender. Bowel sounds present EXT: No clubbing cyanosis or edema. Wound to left lower extremity/foot. NEURO: Alert and oriented to person, follows commands Vital Signs (last 8hr) Date Time Temp Pulse Resp B/P (MAP) Pulse Ox O2 Delivery O2 Flow Rate FiO2 06/05/24 06:46 63 17 06/05/24 06:45 63 18 N/Cannula Low lpm 28 06/05/24 03:57 98.6 70 18 142/61 94 06/05/24 01:20 98.4 70 18 141/49 98 Room Air 06/05/24 01:11 73 17 LABS: Hematology Labs: Test 06/05/24 03:09 06/03/24 17:40 Range/Units White Blood Count 7.0 4.8-10.8 K/uL Red Blood Count 3.03 L 4.50-6.20 MIL/uL Hemoglobin 9.3 L 14.0-18.0 g/dL Hematocrit 29.1 L 42-54 % Mean Corpuscular Volume 96.0 79-99 fL Mean Corpuscular Hemoglobin 30.7 27.0-33.0 pg Mean Corpuscular Hemoglobin Concent 32.0 32.0-36.0 g/dL Red Cell Distribution Width 14.9 11.0-15.5 % Platelet Count 274 130-400 K/uL Mean Platelet Volume 9.2 7.5-10.5 fL Immature Granulocyte % (Auto) 0.7 0-1 % Neutrophils (%) (Auto) 87.6 H 40.0-77.0 % Lymphocytes (%) (Auto) 6.0 L 21.0-51.0 % Monocytes (%) (Auto) 5.1 3.0-13.0 % Eosinophils (%) (Auto) 0.0 0.0-8.0 % Basophils (%) (Auto) 0.6 0.0-5.0 % Neutrophils # (Auto) 6.2 1.8-7.7 K/uL Lymphocytes # (Auto) 0.4 L 1.0-4.8 K/uL Monocytes # (Auto) 0.4 0.1-1.0 K/uL Eosinophils # (Auto) 0.00 0.00-0.70 K/uL Basophils # (Auto) 0.04 0.00-0.20 K/uL Absolute Immature Granulocyte (auto 0.05 0-1 K/uL Nucleated Red Blood Cells 0.0 0.0-0.19 % White Cell Morphology Comment See comments Erythrocyte Sedimentation Rate 48 H 0-20 MM/HR Chemistry Labs: Test 06/05/24 05:39 06/05/24 03:09 06/04/24 06:54 06/03/24 17:40 Range/Units Whole Blood Glucose 161 H 70-110 MG/DL Sodium Level 140 136-145 mmol/L Potassium Level 4.0 3.5-5.1 mmol/L Chloride Level 104 101-111 mmol/L Carbon Dioxide Level 31 21-32 mmol/L Blood Urea Nitrogen 9 7-18 mg/dL Creatinine 0.8 0.5-1.3 mg/dL Glomerular Filtration Rate Calc 93 >90 mL/min Random Glucose 137 H 70-105 mg/dL Total Calcium 8.1 L 8.5-10.1 mg/dL Magnesium Level 1.80 1.80-2.40 mg/dL Troponin I High Sensitivity 14 4-75 ng/L B-Type Natriuretic Peptide 317 H 0-100 pg/mL Lactic Acid Level 1.5 0.8-2.5 mmol/L Thyroid Stimulating Hormone (TSH) 2.14 # 0.36-3.74 uIU/mL DIAGNOSTICS / RADIOLOGY RESULTS: ECHOCARDIOGRAM Conclusion LVEF is 60-65%. Stage I diastolic dysfunction. There is normal LV segmental wall motion. The aortic valve is calcified and displays decreased opening. There is moderate valvular aortic stenosis. Highest mean aortic valve gradient is 22mmHg. Peak aortic valve gradient is 41mmHg. PLAN Admit to medical floor with telemetry monitoring. Trend troponins and EKGs. 2D echo in a.m.. P.r.n. medications for pain management, nausea, vomiting, constipation, hypertension. Oxygen supplementations as needed to maintain oxygen levels equal to or greater than 92%. Nitroglycerin sublingually as needed for chest pain. Aspirin 81 mg p.o. daily Atorvastatin 40 mg p.o. daily. Continue antibiotics Blood pressure checks every4 hours and p.r.n.. Reconciled home medications to address chronic hx Glucometer checks before and after meals and at bedtime with insulin regular sliding scale per protocol. Monitor renal and liver function. Monitor electrolytes and treat accordingly. A.m. labs CBC, BNP, Mag, phos, TSH, A1c. DVT and GI prophylaxis Consult wound care for left foot/extremity wound. NEURO: Minimize central acting medications as possible. Maintain fall precautions, adequate lighting during the day PULMONARY: Supplemental 02 as needed. Maintain aspiration precautions at all times CARDIOVASCULAR: Follow hemodynamics. Vital signs per facility protocol GI & NUTRITION: Continue with nutritional support. Continue stool softeners and laxatives as needed. KIDNEYS & ELECTROLYTES: Strict monitoring of intake, output and overall fluid balance. Avoid nephrotoxic medications to the extent possible. Medications to be dosed according to renal function. Monitor electrolytes and replace as needed ENDOCRINE: Maintain blood glucose between 100-180 at all times. Hypoglycemia protocol in place INFECTIOUS DISEASE: Trend temperature, WBC and procalcitonin level Follow cultures, deescalate antibiotics as soon as possible. Panculture if new onset fever ONCOLOGY/HEMATOLOGY/COAGULATION: Monitor for s/s of bleeding Monitor hemoglobin, coagulation studies as needed SKIN: Pressure ulcer prevention per facility protocol Specialty mattress ORTHO/REHAB: Continue PT/OT Prophylaxis: Continue GI and DVT prophylaxis Code Status: Full Resuscitation Disposition: TBD ANNI MURO Jun 05, 2024 08:43
--- NOTE | 2024-06-05 10:33 | EKG ---
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: [id number] : 1950 Requested By: ELAYNE GREEN Order Number: [id number] Reading MD: Leonard Tipton Measurements Intervals [place] Rate: 76 P: 51 MI: 157 QRS: 19 QRSD: 94 T: 0 QT: 399 QTc: 451 Interpretive Statements Sinus rhythm Probable left atrial enlargement Anteroseptal infarct, age indeterminate Compared to ECG 06/03/2024 13:14:32 Atrial premature complex(es) no longer present First degree AV block no longer present Myocardial infarct finding still present Electronically Signed On 06-05-2024 20:02:45 INSPECTOR OF WEIGHTS AND MEASURES by Leonard Tipton Please click the below link to view image of tracing.
[2024-06-05] MEDS: predniSONE 20 MG TABLET PO SCH (16:07)
--- NOTE | 2024-06-05 16:22 | NUR ---
[facility] Consult: Patient assessed by wound healing team. See wound assessment. Assessment and recommendations provided to primary nurse. Education provided. Addendum: 06/06/24 at 1553 by MONA TORREZ RN RN/ Amended: Links added.
--- NOTE | 2024-06-05 16:27 | NUR ---
[facility] Consult: Patient assessed by wound healing team. See wound assessment. Assessment and recommendations provided to primary nurse. Education provided. Addendum: 06/06/24 at 1553 by MONA TORREZ RN RN/ Amended: Links added.
--- NOTE | 2024-06-05 19:22 | HMCSR ---
APPROVED REPORT EXAM: Two-dimensional and M-mode echocardiogram with Doppler and color Doppler. Study Details: HX: COPD, stroke, AR INDICATION ICD: Chest Pain RISK FACTORS Smoking 2D Dimensions RVDd4.5 cmLVEF(%)45.9 (>50%)LVED Vol(simp.)89.0 mL IVSd0.7 (0.7-1.1cm)FS(%)23 %LVES Vol(simp.)32.0 mL LVDd4.0 (3.8-5.6cm)LA (2D)3.3 (1.6-4.0cm)LVEF(%, simp.)64 % PWd1.0 (0.7-1.1cm)Ao Root(2D)2.7 (2.0-3.7cm)LA ESV INDEX (4CH)20.50 mL/m2 IVSs1.2 cmLVOT diam2.2 (1.8-2.4cm)LA ESV INDEX (2CH)23.80 mL/m2 LVDs3.1 (2.5-4.0cm)IVC diam2.0 cmLA ESV INDEX (BP)22.50 mL/m2 PWs1.5 cm M-Mode Dimensions LA (MM)3.1 (1.6-4.0cm) Ao Root(MM)3.1 (2.0-3.7cm) Aortic Valve AoV VTI0.5 mAo Mean GR22.0 mmHgLVOT VTI0.27 m ANU (VMAX)2.0 cm2Al P1/2T371 msAVA (VTI) 2.0 cm2 Mitral Valve MV E Vmax69.6 cm/sDECEL Bieh353 ms MV A Vmax99.7 cm/sP 1/2 T85 ms E/A ratio0.7MVA (PHT)2.6 cm2 TDI E/E' Qpszcl17.0E/E' Lateral7.5 Medial E' Peak V6.30 cm/sLateral E' Peak V9.30 cm/s Pulmonary Valve PV Vmax2.1 m/s PV Peak GR17.0 mmHg Left Ventricle The left ventricle is normal size. There is normal LV segmental wall motion. There is normal left ean tricular wall thickness. LVEF is 60-65%. Stage I diastolic dysfunction. Right Ventricle The right ventricle is mildly dilated. The right ventricular systolic function is normal. Atria The left atrium size is normal. The right atrium is mildly dilated. Aortic Valve The aortic valve is calcified and displays decreased opening. Mild aortic regurgitation via color sandor w Doppler. There is moderate valvular aortic stenosis. Highest mean aortic valve gradient is 22mmHg. Peak aortic valve gradient is 41mmHg. Mitral Valve The mitral valve is normal in structure. There is no evidence of significant mitral regurgitation. Th ere is no mitral valve stenosis. Tricuspid Valve The tricuspid valve is normal in structure. There is no tricuspid valve regurgitation noted. Pulmonic Valve The pulmonary valve is normal in structure. There is no pulmonic valvular regurgitation. Great Vessels The aortic root is normal in size. The IVC is normal in size and collapses >50% with inspiration. Pericardium There is no pericardial effusion. Other Information Technically limited study due to body habitus, smoking and COPD. Conclusion LVEF is 60-65%. Stage I diastolic dysfunction. There is normal LV segmental wall motion. The aortic valve is calcified and displays decreased opening. There is moderate valvular aortic stenosis. Highest mean aortic valve gradient is 22mmHg. Peak aortic valve gradient is 41mmHg.
--- NOTE | 2024-06-05 20:33 | CONS ---
CONSULTATION NOTE Date of Service: Jun 05, 2024 Reason for Consultation: This 73 years old male was seen for evaluation of ulcerations to the 5th toe 4th toe right foot and 2nd toe left f oot Requesting Physician: Dr. Rowley. HISTORY OF PRESENT ILLNESS: Patient presented with ulceration to the 5th toe and 4th toe this was noted to be chronic at the level of the epidermis and dermis no subcutaneous tissue involvement also the patient presented with the same ulceration dry scab over the dorsal aspect of the 2nd toe of the foot patient otherwise stable at this moment fail been admitted for exacerbation of COPD. REVIEW OF SYSTEMS CONSTITUTIONAL: Denies fever, chills, or fatigue. HEAD/FACE: No signs of trauma. EENT: Denies eye pain, blurred vision, double vision, or light sensitivity. RESPIRATORY: Shortness of breath wheezing secondary to exacerbation of COPD CARDIOVASCULAR: Underlying peripheral vascular disease. GASTROINTESTINAL/ABDOMINAL: Denies abdominal pain, constipation, diarrhea, nausea or vomiting GENITOURINARY: Denies dysuria or hematuria. MUSCULOSKELETAL: Denies joint pain, tenderness, or trauma. INTEGUMENTARY: Ulceration to 4th toe 5th toe right foot and 2nd toe left foot this to be at the level of epidermis dry scab. NEUROLOGICAL/PSYCH: Denies anxiety, depression, heat or cold intolerance. PAST MEDICAL HISTORY: Acute exacerbation of chronic obstructive pulmonary disease Acute hypoxemic respiratory failure Electrolyte derangement (hypokalemia, hypomagnesemia) No medial left lung base scarring and/or atelectasis, per chest x-ray 06/03/2024 Dehydration Tobacco and alcohol abuse Chronic problem list: Left lower extremity cellulitis with swelling with underlying severe PAD s/p incomplete LE angio on 07/30/[address] Nicole VILLEGAS with history of angioplasty prior bilateral iliac stents in October 2020 and stenting of Left SFA on Xarelto Acute on chronic diastolic CHF with preserved EF 55-60% per Echo on 07/24/2023 CAD hx of stenting of RCA in 2019 Primary hypertension Hyperlipidemia BPH Conduction System Disease Pacemaker in situ History of stroke with slurred speech residual Chronic anxiety Current tobacco abuse Medical noncompliance HX: Herpes Zoster of Right Thorax on 07/23/2023 Coded Allergies: No Known Drug Allergies (Verified Allergy, Unknown, 08/04/19) PHYSICAL EXAM EYES: Anicteric. Pupils equal and reactive. HENT: No oral thrush seen, moist Oral mucosa NECK: Supple, no JVD or thyromegaly. LUNGS: Patient on nasal cannula respiratory support due to COPD exacerbation shortness of breath. CARDIOVASCULAR: COPD exacerbation ABDOMEN: Soft, non tender, bowel sounds present, no organomegaly CENTRAL NERVOUS SYSTEM: Awake, alert, oriented x 3. No focal deficits. SKIN: Ulcers on toes. LYMPHATICS: Edema on bilateral lower extremities MUSCULOSKELETAL: No joint swelling, erythema or tenderness. EXTREMITIES: Superficial ulcerations on toes none infected at the level of epidermis and dermis 4th and 5th toe right foot and 2nd toe left foot. BACK: No deformity, no pressure ulcer. GENITOURINARY: No dysuria or hematuria Vital Sign (Last 24 Hours) 06/05/24 06/05/24 06/05/24 08:10 16:00 18:34 Temp 97.5 Pulse 64 Resp 18 B/P (MAP) 149/48 Pulse Ox 92 O2 Delivery N/Cannula Low lpm O2 Flow Rate 2 FiO2 28 Intake & Output (last 24hrs) 06/04/24 06/04/24 06/05/24 15:00 23:00 07:00 Intake Total 500 ml Balance 500 ml LABS: Laboratory: Test 06/05/24 20:10 06/05/24 03:10 06/05/24 03:09 06/04/24 20:38 Range/Units Whole Blood Glucose 132 H 70-110 MG/DL Blood Gas Specimen Type Arterial Arterial Blood pH 7.471 H 7.350-7.450 Arterial Blood Partial Pressure CO2 38 35-48 mmHg Arterial Blood Partial Pressure O2 75.1 L 83.0-108.0 mmHg Arterial Blood HCO3 27.2 21.0-28.0 mmol/L Arterial Blood Oxygen Saturation 95.9 94.0-98.0 % Arterial Blood Base Excess 3.5 H -2.0-3.0 mmol/L Blood Gas Temperature 37.0 35.5-37.0 CELSIUS Blood Gas Vent Mode RA ROOM AIR FiO2 21.0 % Blood Gas Specimen Comment [facility] White Blood Count 7.0 4.8-10.8 K/uL Red Blood Count 3.03 L 4.50-6.20 MIL/uL Hemoglobin 9.3 L 14.0-18.0 g/dL Hematocrit 29.1 L 42-54 % Mean Corpuscular Volume 96.0 79-99 fL Mean Corpuscular Hemoglobin 30.7 27.0-33.0 pg Mean Corpuscular Hemoglobin Concent 32.0 32.0-36.0 g/dL Red Cell Distribution Width 14.9 11.0-15.5 % Platelet Count 274 130-400 K/uL Mean Platelet Volume 9.2 7.5-10.5 fL Immature Granulocyte % (Auto) 0.7 0-1 % Neutrophils (%) (Auto) 87.6 H 40.0-77.0 % Lymphocytes (%) (Auto) 6.0 L 21.0-51.0 % Monocytes (%) (Auto) 5.1 3.0-13.0 % Eosinophils (%) (Auto) 0.0 0.0-8.0 % Basophils (%) (Auto) 0.6 0.0-5.0 % Neutrophils # (Auto) 6.2 1.8-7.7 K/uL Lymphocytes # (Auto) 0.4 L 1.0-4.8 K/uL Monocytes # (Auto) 0.4 0.1-1.0 K/uL Eosinophils # (Auto) 0.00 0.00-0.70 K/uL Basophils # (Auto) 0.04 0.00-0.20 K/uL Absolute Immature Granulocyte (auto 0.05 0-1 K/uL Nucleated Red Blood Cells 0.0 0.0-0.19 % White Cell Morphology Comment See comments Sodium Level 140 136-145 mmol/L Potassium Level 4.0 3.5-5.1 mmol/L Chloride Level 104 101-111 mmol/L Carbon Dioxide Level 31 21-32 mmol/L Blood Urea Nitrogen 9 7-18 mg/dL Creatinine 0.8 0.5-1.3 mg/dL Glomerular Filtration Rate Calc 93 >90 mL/min Random Glucose 137 H 70-105 mg/dL Total Calcium 8.1 L 8.5-10.1 mg/dL Magnesium Level 1.80 1.80-2.40 mg/dL Troponin I High Sensitivity 14 4-75 ng/L B-Type Natriuretic Peptide 317 H 0-100 pg/mL Urine Color YELLOW YELLOW Urine Appearance CLEAR CLEAR Urine pH 6.0 5.0-8.0 Urine Specific [place] 1.028 1.001-1.031 Urine Protein 20 H NEGATIVE mg/dL Urine Glucose (UA) NEGATIVE NEGATIVE mg/dL Urine Ketones NEGATIVE NEGATIVE mg/dL Urine Occult Blood NEGATIVE NEGATIVE Urine Nitrate NEGATIVE NEGATIVE Urine Bilirubin NEGATIVE NEGATIVE mg/dL Urine Urobilinogen 0.2 0.2-1.0 mg/dL Urine Leukocyte Esterase NEGATIVE NEGATIVE Fam/uL Urine RBC 2-5 H 0-1 /HPF Urine WBC 0-1 0-1 /HPF Urine Squamous Epithelial Cells RARE 0-2 /HPF Urine Bacteria None None Seen /HPF Test 06/04/24 06:54 06/03/24 21:39 Range/Units Lactic Acid Level 1.5 0.8-2.5 mmol/L Hemoglobin (Blood Gas) 10.9 L 13.5-17.5 g/dL Sodium (Blood Gas) 136 136-145 MMOL/L Bedside Potassium (Blood Gas) 4.0 3.4-4.5 MMOL/L Bedside Chloride (Blood Gas) 99 98-107 MMOL/L Bedside Glucose (Blood Gas) 141 H 65-95 MG/DL Bedside Ionized Calcium (Blood Gas) 1.16 1.15-1.33 MMOL/L Bedside Lactic Acid (Blood Gas) 2.84 H 0.36-0.75 MMOL/L Blood Gas Flow-by 3.00 0.00-15.00 L/min DIAGNOSTICS / RADIOLOGY: [ ] ASSESSMENT: Ulcerations on toes for the 5th right superficial level of epidermis and dermis. Underlying peripheral Vascular disease Ulceration of the 2nd toe left foot superficial level of the epidermis dry scab at this time. PLAN: Local wound care application of Betadine bupropion for dry prevent any infecti ons at this time we will monitor closely during stay in the hospital. TREMAYNE FLOWER DPM Jun 05, 2024 20:33
--- NOTE | 2024-06-05 20:40 | NUR ---
MEDS SHIFT ASSESSMENT DONE, PLEASE REFER TO CHART. DUE PO MEDS CRUSHED AND GIVEN WITH APPLE SAUCE, TOLERATED WELL. MG REPLACEMENT IV HUNG PER PROTOCOL. KEPT RESTED AND COMFORTABLE IN BED. CALL LIGHT WITHIN REACH. BED ALARM KEPT ACTIVATED.
[2024-06-05] MEDS: guaiFENesin-DM 200/20MG 10ML PO PRN (22:13)
[2024-06-06] VITALS (13 sets, daily range): BP systolic 101–141; BP diastolic 50–64; PULSE 65–86; RESP 18–22; TEMP 97.4–98; O2SAT 96–100
--- NOTE | 2024-06-06 06:14 | NUR ---
MEDS PT SLEPT AT INTERVALS DURING THE SHIFT. STILL HAVING SOB EVEN AT REST. BREATHING TREATMENT DONE BY RT. KEPT PT ON O2 AT 2LPM VIA NC. KEPT COMFORTABLE IN BED WITH HOB ELEVATED. DUE INSULIN DOSE ADMINISTERED, TOLERATED WELL. FOR MORE CARE.
--- NOTE | 2024-06-06 14:40 | PN ---
Note entered in error, patient is being discharged home. LATA RUFF Jun 06, 2024 14:40
--- NOTE | 2024-06-06 14:43 | DS ---
[facility] DISCHARGE SUMMARY Date Patient Seen: Jun 06, 2024 Time of Visit: 14:43 Supervising Physician: Dr. Nito Christian Primary Care Physician: Susan Cancino Outpatient Specialists: Inpatient Consults: HOSPITAL COURSE: HPI (per admitting provider) Mr. Cruz is a 73-year-old male with a history of CHF, CAD, COPD, DM type 2, hypercholesteremia, heart disease, hypertension, tobacco abuse and alcohol abuse who [place] [facility] [place] evaluation of general body weakness, shortness of breath, chest tightness onset 06/01/2024. The patient denied any fevers, chills, nausea, vomiting, any other pain, problem or concern. The patient was treated for the following problems: ACTIVE PROBLEM LIST FOR THE HOSPITALIZATION: Acute exacerbation of chronic obstructive pulmonary disease, POA, resolved Acute on chronic hypoxemic respiratory failure, baseline home O2-2L, resolved Acute dehydration, improved Moderate aortic valve stenosis, per echo 06/05/24 Electrolyte derangement (hypokalemia, hypomagnesemia) Nominal left lung base scarring and/or atelectasis, per chest x-ray 06/03/2024 Left lower extremity cellulitis with swelling with underlying severe PAD s/p incomplete LE angio on 07/30/[address] Nicole VILLEGAS with history of angioplasty prior bilateral iliac stents in October 2020 and stenting of Left SFA on Xarelto Acute on chronic diastolic CHF with preserved EF 60-65% per Echo on 06/05/2024 CHRONIC PROBLEMS: continue previous management per PCP unless otherwise indicated Recent acute Herpes Zoster of Right Thorax on 07/23/2023 admission and dx on 08/06/2023, s/p treatment Hyperglycemia without history of diabetes CAD hx of stenting of RCA in 2019 Primary hypertension Hyperlipidemia BPH Conduction System Disease Pacemaker in situ History of stroke with slurred speech residual Chronic anxiety Tobacco and alcohol abuse Medical noncompliance 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 PCP notified of patients admission, hospital course and discharge. PHYSICAL EXAM: GENERAL: alert, weak, awake oriented x 3, appeared chronically ill, on 2LNC HEENT: EOMI, Sclera non icteric, moist mucosa NECK: Supple, no JVD, trachea midline LUNGS: Clear breath sounds bilaterally. No wheezes, mild inspiratory rhonchi bilaterally, with use of accessory muscles on exam HEART: Regular rate and rhythm. Normal S1 and S2, without murmurs ABD: Abdomen soft, nontender. Bowel sounds present EXT: No clubbing cyanosis or edema. Wound to left lower extremity/foot. NEURO: Alert and oriented to person, follows commands FOLLOW-UP: Follow-up with PCP in 2-3 days RECOMMENDATIONS: See Discharge Instructions This case was seen and discussed with my supervising physician. More than 30 minutes spent on discharge process, including evaluation of the patient, discussion with nursing staff, medication reconciliation and follow-up appointments LATA RUFF Jun 06, 2024 14:43
--- NOTE | 2024-06-06 18:20 | NUR ---
DISCHARGE PT PIV DC'D PT AND FAMILY VERBALIZED UNDERSTANDING OF DISCHARGE INSTRUCTIONS AND FOLLOW UP APPOINTMENTS PT AND FAMILY GATHERED AND TOOK ALL BELONGINGS PT AND FAMILY NO FURTHER QUESTIONS AT TIME OF DISCHARGE
== END 2024-06-06 18:30 | disposition home or self-care (01) | DRG 291 ==
LOC: EDH 12:45 → OBSVTOIN 15:48 → EDHIP 15:48 → INTOOBSV 15:48 → 3BH 20:40
PROVIDERS: ADMIT Internal Medicine Critical Care Medicine; ATTEND Internal Medicine Critical Care Medicine
DX: I11.0 Hypertensive heart disease with heart failure (principal); I50.33 Acute on chronic diastolic (congestive) heart failure; J96.21 Acute and chronic respiratory failure with hypoxia; J44.1 Chronic obstructive pulmonary disease with (acute) exacerbation; J98.11 Atelectasis; L03.116 Cellulitis of left lower limb; L97.528 Non-pressure chronic ulcer of other part of left foot with other specified severity; E87.6 Hypokalemia; E83.42 Hypomagnesemia; E86.0 Dehydration; F10.10 Alcohol abuse, uncomplicated; I25.10 Atherosclerotic heart disease of native coronary artery without angina pectoris; N40.0 Benign prostatic hyperplasia without lower urinary tract symptoms; I45.9 Conduction disorder, unspecified; Z20.822 Contact with and (suspected) exposure to COVID-19; F41.9 Anxiety disorder, unspecified; K59.00 Constipation, unspecified; L97.522 Non-pressure chronic ulcer of other part of left foot with fat layer exposed; E11.65 Type 2 diabetes mellitus with hyperglycemia; I35.0 Nonrheumatic aortic (valve) stenosis; E78.00 Pure hypercholesterolemia, unspecified; E11.621 Type 2 diabetes mellitus with foot ulcer; E11.51 Type 2 diabetes mellitus with diabetic peripheral angiopathy without gangrene; Z72.0 Tobacco use; Z91.199 Patient's noncompliance with other medical treatment and regimen due to unspecified reason; Z95.5 Presence of coronary angioplasty implant and graft; Z95.0 Presence of cardiac pacemaker; Z86.73 Personal history of transient ischemic attack (TIA), and cerebral infarction without residual deficits; Z82.49 Family history of ischemic heart disease and other diseases of the circulatory system; Z79.899 Other long term (current) drug therapy; Z79.82 Long term (current) use of aspirin
CPT/HCPCS: 36415; 36600; 71045; 80048; 81001; 82435; 82803; 82947; 82948; 83605; 83735; 83880; 84132; 84295; 84443; 84484; 85018; 85025; 85651; 87420; 87426; 87804; 93005; 93306; 94640; 94664; 96374; 99285; G0378; J0696; J1956; J2270; J2919; J3475; J7040

== ENCOUNTER → 2024-07-06 | Outpatient (CLI) | payer OTHER, MEDICARE ==
[~2024-07-06] MED LIST changes: -ALBU90AE IH; -ASPI-1005 PO; +CLOP75TA32 PO; +FERS325 PO; +FURO20TA6 PO; -FURO40TA5 PO; +GABA-529 PO; -HYDR-3421 PO; +LORA0.5T83 PO; +LOSA50TA64 PO; +METO25TA6 PO; +MONT-39 PO; +NIFE-78 PO; +OMEP20TA20 PO; -POLY17PO4 PO; +SULF500T49 PO; +TAMS-1 PO
[2024-07-06 16:17] LABS: BASOPHILS # (AUTO) 0.05 K/uL (0.00-0.20); BASOPHILS % (AUTO) 0.8 % (0.0-5.0); EOSINOPHILS # (AUTO) 0.26 K/uL (0.00-0.70); HEMATOCRIT 36.3 % (42-54); IMMATURE GRANULOCYTE ABSOLUTE 0.04 K/uL (0-1); LYMPHOCYTES # (AUTO) 0.9 K/uL (1.0-4.8); LYMPHOCYTES % (AUTO) 13.7 % (21.0-51.0); MEAN CORPUSCULAR HEMOGLOBIN 30.2 pg (27.0-33.0); MEAN CORPUSCULAR HGB CONC 33.1 g/dL (32.0-36.0); MEAN CORPUSCULAR VOLUME 91.4 fL (79-99); MONOCYTES # (AUTO) 0.7 K/uL (0.1-1.0); MONOCYTES % (AUTO) 10.9 % (3.0-13.0); NEUTROPHILS # (AUTO) 4.6 K/uL (1.8-7.7); PLATELET COUNT (AUTO) 258 K/uL (130-400); RED BLOOD CELL COUNT(AUTO) 3.97 MIL/uL (4.50-6.20); RED CELL DISTRIBUTION WIDTH 14.1 % (11.0-15.5); WHITE BLOOD COUNT (AUTO) 6.5 K/uL (4.8-10.8)
[2024-07-06 16:30] LABS: POTASSIUM 4.2 mmol/L (3.5-5.1)
== END | disposition home or self-care (01) ==
LOC: LAB 15:05
PROVIDERS: ATTEND Internal Medicine Cardiovascular Disease
DX: I10 Essential (primary) hypertension (principal)
CPT/HCPCS: 36415; 80048; 85025

== ENCOUNTER 2024-07-11 22:03 | Inpatient (IN) | payer OTHER, MEDICARE ==
[~2024-07-11] VITALS: Ht 172.7 cm; Wt 69.3 kg
[~2024-07-11 22:03] MED LIST changes: +ALBU18HF7 IH; +AMMO120C2 TP; +ASPI-1005 PO; +ASPI-556 PO; +ATOR40TA69 PO; +BUSP15 PO; +BUSP15TA3 PO; +CETI10TA87 PO; +CLOP-31 PO; +DOXY100C5 PO; +FERR-72 PO; +FLUT110HFA IH; +FURO40TA5 PO; +GABA300S3 PO; +HYDR-3421 PO; +IPRA3AMP24 IH; +LEVO-70 PO; +LOSA-418 PO; +LOSA25TA41 PO; +METO25TA3 PO; +METR-172 PO; +MONT-46 PO; +OMEP20CA12 PO; +SERT-440 PO; +SULF500T3 PO; +VIT B12
[2024-07-11 22:23] LABS: BASOPHILS # (AUTO) 0.06 K/uL (0.00-0.20); BASOPHILS % (AUTO) 1.2 % (0.0-5.0); EOSINOPHILS # (AUTO) 0.19 K/uL (0.00-0.70); EOSINOPHILS % (AUTO) 3.9 % (0.0-8.0); HEMATOCRIT 36.8 % (42-54); IMMATURE GRANULOCYTE ABSOLUTE 0.03 K/uL (0-1); LYMPHOCYTES # (AUTO) 0.8 K/uL (1.0-4.8); LYMPHOCYTES % (AUTO) 16.5 % (21.0-51.0); MEAN CORPUSCULAR HEMOGLOBIN 30.3 pg (27.0-33.0); MEAN CORPUSCULAR HGB CONC 34.5 g/dL (32.0-36.0); MEAN CORPUSCULAR VOLUME 87.8 fL (79-99); MONOCYTES # (AUTO) 0.8 K/uL (0.1-1.0); MONOCYTES % (AUTO) 16.5 % (3.0-13.0); NEUTROPHILS % (AUTO) 61.3 % (40.0-77.0); PLATELET COUNT (AUTO) 271 K/uL (130-400); RED BLOOD CELL COUNT(AUTO) 4.19 MIL/uL (4.50-6.20); RED CELL DISTRIBUTION WIDTH 13.7 % (11.0-15.5); WHITE BLOOD COUNT (AUTO) 4.9 K/uL (4.8-10.8)
[2024-07-11] MEDS: Solu-medROL 125MG VIAL IVP ONE (22:24)
[2024-07-11] MEDS: cefTRIAXone 1G VIAL IVPB ONE (22:24)
[2024-07-11] MEDS: AZITHROMYCIN 500MG+NS 250ML 250 ML IVPB SCH (22:24)
[2024-07-11 22:27] LABS: BASE EXCESS,VENOUS BLOOD GAS 4.6 (-2.0-3.0); DEVICE COMMENT VENOUS; HCO3,VENOUS BLOOD GAS 31.3 (22.0-29.0); PCO2,VENOUS BLOOD GAS 55 (38-54); PO2,VENOUS BLOOD GAS 39.4 mmHg (23.0-48.0); VENT MODE, BG VENTI (ROOM AIR)
[2024-07-11] MEDS: IpraTROPium/alBUTERol SULFATE 3 ML SOLUTION IH ONE (22:29)
[2024-07-11 22:30] VITALS: PULSE 77; RESP 22
[2024-07-11 22:55] LABS: POTASSIUM 3.7 mmol/L (3.5-5.1)
[2024-07-11 22:56] LABS: CREATININE 0.7 mg/dL (0.5-1.3)
[2024-07-11 23:06] LABS: B-TYPE NATRIURETIC PEPTIDE 69 pg/mL (0-100)
[2024-07-11 23:07] LABS: WBC MORPHOLOGY CONSISTENT W/DIFF
[2024-07-11] MEDS: Solu-medROL 125MG VIAL ONE (23:19)
[2024-07-12] VITALS (16 sets, daily range): BP systolic 119–162; BP diastolic 51–69; PULSE 61–70; RESP 17–24; TEMP 97.3–98.6; O2SAT 97–100
--- NOTE | 2024-07-12 00:35 | NUR ---
Daughter iMrtha Frost, phone number [phone]. Please call with update or if patient needs a ride home
[2024-07-12] MEDS: NACL IV ONE (00:51)
--- NOTE | 2024-07-12 01:08 | HP ---
[facility] HISTORY & PHYSICAL Date Patient Seen: Jul 12, 2024 Time of Visit: 01:08 Supervising Physician: Dr. Donna Fernández Primary Care Physician: KRISTIN COSTA MD (PCP) and Dr. Stanley from [facility] Outpatient Specialists: Inpatient Consults: PROBLEM LIST: Acute exacerbation of chronic obstructive pulmonary disease, POA -Tobacco dependence and hx of alcohol abuse Acute on chronic hypoxemic respiratory failure, baseline home O2-2L Acute dehydration Anemia of chronic disease Electrolyte derangement (Hyponatremia, hypochloremia, hypocalcemia) Dehydration Diabetes mellitus with hyperglycemia Peripheral vascular disease, bilateral lower extremity edema (BNP WNL at 69) Moderate aortic valve stenosis, per echo 06/05/24 Nominal left lung base scarring and/or atelectasis, per chest x-ray 06/03/2024 Left lower extremity cellulitis with swelling with underlying severe PAD s/p incomplete LE angio on 07/30/[address] 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 Cruz is a 73-year-old male with a history of COPD, CHF, DM type 2, hypercholesteremia, heart disease, hypertension, dependent tobacco smoker who [place] [facility] [place] for evaluation of acute hypoxemic respiratory failure and wheezing onset today. EMS reported that they found the patient hypoxic oxygen levels in the 70s%, and they gave a nebulizer treatment prior to transfer [place] [facility]. The patient arrived to the ED with a blood pressure of 212/81, respirations 38bpm, heart rate 70 bpm, 100% on non-rebreather at 15 L. In ED patient was administered NS 1,368 mL, Rocephin1 g, [id number] mg IV, DuoNeb nebulizer treatment. BNP WNL at 69 and troponin WNL at 15. Influenza and COVID are negative. EKG SR, HR 76 bpm. ED physician request patient be admitted with the diagnosis of acute exacerbation of chronic COPD and acute hypoxemic respiratory failure. Per chart review patient had a recent admission on 06/03/2024 for the same complaint of today. The patient was discharged 06/06/2024. I went to assess patient in ER 13. The patient was tachypneic, abdominal breathing, and wheezing. Unable to obtain much information from patient due to patient is in distress. He does report that he is a smoker. I informed him of plan of care and arterial blood gases. The patient verbalized understanding and is agreement with the plan. Plan and assessment are listed below. PAST MEDICAL HX: see above PAST SURGICAL HX: see above SOCIAL HISTORY: No tobacco, ETOH, or illicit drug use Coded Allergies: No Known Drug Allergies (Verified Allergy, Unknown, 08/04/19) REVIEW OF SYSTEMS: Unable to obtain ROS from patient due to patient in respiratory distress. PHYSICAL EXAM: GENERAL: Alert, weak, awake oriented x 3 HEENT: EOMI, Sclera non icteric, moist mucosa NECK: Supple, no JVD, trachea midline LUNGS: Tachypneic, abdominal breathing, Wheezing breath sounds bilaterally. HEART: Regular rate and rhythm. Normal S1 and S2, without murmurs ABD: Abdomen soft, nontender. Bowel sounds present EXT: No clubbing cyanosis. +2 edema NEURO: Alert and oriented to person, follows commands Vital Signs (last 8hr) Date Time Temp Pulse Resp B/P (MAP) Pulse Ox O2 Delivery O2 Flow Rate FiO2 07/12/24 00:58 77 16 158/66 98 Venti Mask+ 35 07/11/24 23:29 85 16 159/68 100 Venti Mask+ 35 07/11/24 22:30 77 22 07/11/24 22:08 80 24 172/86 100 Nonrebreathing Mask 15.0 07/11/24 22:05 98.1 70 38 212/81 100 Non-Rebreather+ 15 100 LABS: Hematology Labs: Test 07/11/24 22:15 Range/Units White Blood Count 4.9 4.8-10.8 K/uL Red Blood Count 4.19 L 4.50-6.20 MIL/uL Hemoglobin 12.7 L 14.0-18.0 g/dL Hematocrit 36.8 L 42-54 % Mean Corpuscular Volume 87.8 79-99 fL Mean Corpuscular Hemoglobin 30.3 27.0-33.0 pg Mean Corpuscular Hemoglobin Concent 34.5 32.0-36.0 g/dL Red Cell Distribution Width 13.7 11.0-15.5 % Platelet Count 271 130-400 K/uL Mean Platelet Volume 9.2 7.5-10.5 fL Immature Granulocyte % (Auto) 0.6 0-1 % Neutrophils (%) (Auto) 61.3 40.0-77.0 % Lymphocytes (%) (Auto) 16.5 L 21.0-51.0 % Monocytes (%) (Auto) 16.5 H 3.0-13.0 % Eosinophils (%) (Auto) 3.9 0.0-8.0 % Basophils (%) (Auto) 1.2 0.0-5.0 % Neutrophils # (Auto) 3.0 1.8-7.7 K/uL Lymphocytes # (Auto) 0.8 L 1.0-4.8 K/uL Monocytes # (Auto) 0.8 0.1-1.0 K/uL Eosinophils # (Auto) 0.19 0.00-0.70 K/uL Basophils # (Auto) 0.06 0.00-0.20 K/uL Absolute Immature Granulocyte (auto 0.03 0-1 K/uL Nucleated Red Blood Cells 0.0 0.0-0.19 % White Cell Morphology Comment CONSISTENT W/DIFF Chemistry Labs: Test 07/11/24 22:15 Range/Units Sodium Level 124 L 136-145 mmol/L Potassium Level 3.7 3.5-5.1 mmol/L Chloride Level 86 *L 101-111 mmol/L Carbon Dioxide Level 34 H 21-32 mmol/L Blood Urea Nitrogen 5 L 7-18 mg/dL Creatinine 0.7 0.5-1.3 mg/dL Glomerular Filtration Rate Calc 97 >90 mL/min Random Glucose 130 H 70-105 mg/dL Total Calcium 8.2 L 8.5-10.1 mg/dL Troponin I High Sensitivity 15 4-75 ng/L B-Type Natriuretic Peptide 69 0-100 pg/mL DIAGNOSTICS / RADIOLOGY RESULTS: [ ] PLAN Admit to PCCU with continuous telemetry monitoring. Monitor respiratory status closely. Continue Ventimask titrate oxygen to keep SpO2 equal to 92%. Continue albuterol and Atrovent q.4 hours scheduled. Continue Solu-Medrol IV michelle 60 mg IV Q6. Start nicotine patch. Oral placed for BiPAP as needed for shortness of breath unresponsive to nebulizer treatments and steroids. Education on smoking cessation. Once less hypoxemic RT to provide IS and education on use. Robitussin DM as needed for cough. Continue antibiotic therapy: Zithromax IV and Rocephin IV. P.r.n. medications for: Pain management, fever, nausea, vomiting, constipation, hypertension. Glucose checks a.c. and HS with insulin regular sliding scale per protocol. Blood pressure checks every4 hours and as needed. Reconcile home medications once available. Monitor renal and liver function. Monitor electrolytes treat accordingly. A.m. labs: CBC, BNP, Mag, phos. DVT and GI prophylaxis. NEURO: Minimize central acting medications as possible. Maintain fall precautions, adequate lighting during the day PULMONARY: Supplemental 02 as needed. Maintain aspiration precautions at all times CARDIOVASCULAR: Follow hemodynamics. Vital signs per facility protocol GI & NUTRITION: Continue with nutritional support. Continue stool softeners and laxatives as needed. KIDNEYS & ELECTROLYTES: Strict monitoring of intake, output and overall fluid balance. Avoid nephrotoxic medications to the extent possible. Medications to be dosed according to renal function. Monitor electrolytes and replace as needed ENDOCRINE: Maintain blood glucose between 100-180 at all times. Hypoglycemia protocol in place INFECTIOUS DISEASE: Trend temperature, WBC and procalcitonin level Follow cultures, deescalate antibiotics as soon as possible. Panculture if new onset fever ONCOLOGY/HEMATOLOGY/COAGULATION: Monitor for s/s of bleeding Monitor hemoglobin, coagulation studies as needed SKIN: Pressure ulcer prevention per facility protocol Specialty mattress ORTHO/REHAB: Continue PT/OT Prophylaxis: Continue GI and DVT prophylaxis Code Status: Full Resuscitation Disposition: ELAYNE CHEN Jul 12, 2024 01:08
--- NOTE | 2024-07-12 01:17 | ERN ---
ED Note History of Present Illness Stated Complaint: SHORTNESS OF BREATH Chief Complaint: Shortness of Breath Time Seen by MD: 22:09 Allergies: Coded Allergies: No Known Drug Allergies (Verified Allergy, Unknown, 08/04/19) Home Meds Active Scripts Albuterol Sulfate (Albuterol Sulfate) 1.25 Mg/3 Ml Vial.neb, 1.25 MG IH BID for sob for 7 Days, #30 INH Prov:CHIDI RIZZO MD 01/10/24 Prednisone (Deltasone/Orasone [Bulk]) 20 Mg Tab, 40 MG PO BID, #10 TAB Take 40 mg p.o. twice daily x2 days Then continue 40 mg p.o. daily x2 days Then continue 20 mg (half pill) daily x4 days Prov:DEBRA CHAMBERS VEHICLE BODY MAKER 06/07/23 Metoclopramide HCl (Reglan) 10 Mg Tablet, 10 MG PO QIDP PRN for HEADACHE, #30 TAB 2 Refills Prov:CARISA PARDO Sr., MD 03/05/23 Prednisone (Prednisone) 20 Mg Tablet, 40 MG PO DAILY, #5 TAB 0 Refills Prov:TAPAN WHITLOCK CNP 01/04/23 Reported Medications Lorazepam (Ativan) 0.5 Mg Tablet, 0.5 MG PO BID, TAB 06/04/24 Ferrous Sulfate (Ferrous Sulfate) 325 Mg (65 Mg Iron) Ectab, 1 TAB PO DAILY for 30 Days, #30 TAB 0 Refills 06/03/24 Tamsulosin HCl (Flomax) 0.4 Mg Cap.er.24h, 0.4 MG PO DAILY, CAPSULE. 06/03/24 Sulfasalazine (Sulfasalazine Dr) 500 Mg Tablet.dr, 1000 MG PO QID, TAB 06/03/24 Losartan Potassium (Losartan Potassium) 50 Mg Tablet, 50 MG PO DAILY, TAB 06/03/24 Omeprazole (Omeprazole) 20 Mg Tablet.dr, 20 MG PO TID, TAB 06/03/24 Montelukast Sodium (Montelukast Sodium) 10 Mg Tablet, 1 TAB PO DAILY for 30 Days, #30 TAB 0 Refills 06/03/24 Clopidogrel Bisulfate (Clopidogrel) 75 Mg Tablet, 1 TAB PO DAILY for 30 Days, #30 TAB 0 Refills 06/03/24 Metoprolol Tartrate (Metoprolol Tartrate) 25 Mg Tablet, 12.5 MG PO DAILY, TAB 06/03/24 Nifedipine (Nifedipine ER) 30 Mg Tablet.er, 30 MG PO BID, TAB 06/03/24 Furosemide (Lasix 20Mg Tab) 20 Mg Tablet, 20 MG PO BID, TAB EVERY OTHER DAY 06/03/24 Gabapentin (Gabapentin) 100 Mg Capsule, 100 MG PO BID, CAP 06/03/24 Escitalopram Oxalate (Escitalopram Oxalate) 20 Mg Tablet, 20 MG PO DAILY, TAB 06/06/23 Buspirone HCl (Buspirone HCl) 5 Mg Tablet, 5 MG PO BID, TAB 06/06/23 Nitroglycerin (Nitroglycerin) 0.4 Mg Tab.subl, 0.4 MG SL AD, TAB.SL 01/03/23 Rivaroxaban (Xarelto) 2.5 Mg Tablet, 2.5 MG PO BID, TAB 01/03/23 Atorvastatin Calcium (Atorvastatin Calcium) 40 Mg Tablet, 40 MG PO DAILY, TAB 01/03/23 Past Medical History Dictation 73-year-old male with past medical history of COPD, CHF presents via EMS with acute hypoxic respiratory failure and expiratory wheezing. EMS states that the patient was hypoxic in the 70s upon arrival on the gave him breathing treatment and she was brought in the emergency department for further evaluation. Patient can not attribute intermittent adjusting med condition Past Medical History: COPD, Diabetes-Type II, High Cholesterol, Heart Disease, Hypertension Surgical History: Unknown Family History: HTN Social History: Smokers, Lives with family Review of System Dictation See HPI Initial Vital Sign VS Vital Signs Date Time Temp Pulse Resp B/P (MAP) Pulse Ox O2 Delivery O2 Flow Rate FiO2 07/11/24 22:05 98.1 70 38 212/81 100 Non-Rebreather+ 15 100 Physical Exam Dictation PE: General: Acutely well-appearing, KUB of hearing Lungs, expiratory wheezing, respiratory distress, hypoxic Results (Laboratory/Radiology) Laboratory/Radiology Laboratory Tests Test 07/11/24 22:15 07/11/24 22:25 White Blood Count 4.9 K/uL (4.8-10.8) Red Blood Count 4.19 MIL/uL (4.50-6.20) L Hemoglobin 12.7 g/dL (14.0-18.0) L Hematocrit 36.8 % (42-54) L Mean Corpuscular Volume 87.8 fL (79-99) Mean Corpuscular Hemoglobin 30.3 pg (27.0-33.0) Mean Corpuscular Hemoglobin Concent 34.5 g/dL (32.0-36.0) Red Cell Distribution Width 13.7 % (11.0-15.5) Platelet Count 271 K/uL (130-400) Mean Platelet Volume 9.2 fL (7.5-10.5) Immature Granulocyte % (Auto) 0.6 % (0-1) Neutrophils (%) (Auto) 61.3 % (40.0-77.0) Lymphocytes (%) (Auto) 16.5 % (21.0-51.0) L Monocytes (%) (Auto) 16.5 % (3.0-13.0) H Eosinophils (%) (Auto) 3.9 % (0.0-8.0) Basophils (%) (Auto) 1.2 % (0.0-5.0) Neutrophils # (Auto) 3.0 K/uL (1.8-7.7) Lymphocytes # (Auto) 0.8 K/uL (1.0-4.8) L Monocytes # (Auto) 0.8 K/uL (0.1-1.0) Eosinophils # (Auto) 0.19 K/uL (0.00-0.70) Basophils # (Auto) 0.06 K/uL (0.00-0.20) Absolute Immature Granulocyte (auto 0.03 K/uL (0-1) Nucleated Red Blood Cells 0.0 % (0.0-0.19) White Cell Morphology Comment CONSISTENT W/DIFF Sodium Level 124 mmol/L (136-145) L Potassium Level 3.7 mmol/L (3.5-5.1) Chloride Level 86 mmol/L (101-111) *L Carbon Dioxide Level 34 mmol/L (21-32) H Blood Urea Nitrogen 5 mg/dL (7-18) L Creatinine 0.7 mg/dL (0.5-1.3) Glomerular Filtration Rate Calc 97 mL/min (>90) Random Glucose 130 mg/dL (70-105) H Total Calcium 8.2 mg/dL (8.5-10.1) L Troponin I High Sensitivity 15 ng/L (4-75) B-Type Natriuretic Peptide 69 pg/mL (0-100) Blood Gas Specimen Type Venous Arterial Blood Oxygen Saturation 69.0 % (94.0-98.0) L Venous Blood pH 7.370 (7.320-7.430) Venous Blood pCO2 at Patient Temp 55 (38-54) H Venous Blood pO2 at Patient Temp 39.4 mmHg (23.0-48.0) Venous Blood HCO3 31.3 (22.0-29.0) H Venous Blood Base Excess 4.6 (-2.0-3.0) H Venous Blood Total Hemoglobin 13.4 (13.5-17.5) L Sodium (Blood Gas) 120 MMOL/L (136-145) *L Bedside Potassium (Blood Gas) 3.7 MMOL/L (3.4-4.5) Bedside Chloride (Blood Gas) 83 MMOL/L (98-107) *L Bedside Glucose (Blood Gas) 127 MG/DL (65-95) H Bedside Ionized Calcium (Blood Gas) 1.01 MMOL/L (1.15-1.33) L Bedside Lactic Acid (Blood Gas) 1.80 MMOL/L (0.36-0.75) H Blood Gas Temperature 37.0 CELSIUS (35.5-37.0) Blood Gas Vent Mode VENTI (ROOM AIR) FiO2 35.0 % Blood Gas Specimen Comment VENOUS ED Course ED Course Orders Procedure Category Date Status Time O2 Nc Keep Sats CPOE 07/11/24 Transmitted Greater 92% 22:10 Cbc With Differential LAB 07/11/24 Complete 22:10 B-Type Natriuretic LAB 07/11/24 Complete Peptide 22:10 Chest 1vw RAD 07/11/24 Taken 22:10 12 Lead Ekg Tracing- EKG 07/11/24 Logged Technical 22:10 Ipratropium/Albuterol PHA 07/11/24 Complete Neb (Duoneb) 22:30 Methylprednisolone PHA 07/11/24 Complete Succ 125mg (Solu-Medr 22:30 Basic Metabolic Panel LAB 07/11/24 Complete 22:10 Venous Blood Gas RT 07/11/24 Transmitted 22:10 Ceftriaxone 1g Vial PHA 07/11/24 Complete (Rocephine 1g Inj) 22:30 Azithromycin 500mg+Ns PHA 07/11/24 In Process 250ml (Azithromyci 22:30 Troponin I High LAB 07/11/24 Complete Sensitivity 22:13 Methylprednisolone PHA 07/11/24 Complete Succ 125mg (Solu-Medr 22:12 Venous Blood Gas Plus LAB 07/11/24 Complete 22:25 0.9% Nacl 500ml PHA 07/12/24 In Process Iv.Soln (Ns 500ml 00:30 Admit Orders ADM 07/12/24 Verified 01:09 Current Medications Medications (Trade) Dose Ordered Sig/Sherman Route PRN Reason Start Time Stop Time Status Last Admin Dose Admin Albuterol (DUOneb) 3 udvial ONCE ONCE IH 07/11/24 22:30 07/11/24 22:31 DC 07/11/24 22:29 Azithromycin 250 ml @ 250 mls/hr Q24H IVPB 07/11/24 22:30 07/14/24 22:29 07/11/24 22:24 Ceftriaxone Sodium (ROCEphine 1G INJ) 1 gm ONCE ONCE IVPB 07/11/24 22:30 07/11/24 22:31 DC 07/11/24 22:24 Methylprednisolone Sodium Succinate (Solu-medROL 125MG) 125 mg ONCE ONCE IVP 07/11/24 22:30 07/11/24 22:31 DC 07/11/24 22:24 Methylprednisolone Sodium Succinate (Solu-medROL 125MG) 125 mg STK-MED ONCE .ROUTE 07/11/24 22:12 07/11/24 22:18 DC Sodium Chloride 1,368 ml @ 456 mls/hr ONCE ONCE IV 07/12/24 00:30 07/12/24 03:29 07/12/24 00:51 Vital Signs Date Time Temp Pulse Resp B/P (MAP) Pulse Ox O2 Delivery O2 Flow Rate FiO2 07/12/24 00:58 77 16 158/66 98 Venti Mask+ 35 07/11/24 23:29 85 16 159/68 100 Venti Mask+ 35 07/11/24 22:30 77 22 07/11/24 22:08 80 24 172/86 100 Nonrebreathing Mask 15.0 07/11/24 22:05 98.1 70 38 212/81 100 Non-Rebreather+ 15 100 Medical Decision Making [facility] DD DX: STEMI versus NSTEMI versus COPD exacerbation CHF exacerbation All imaging and diagnostics conservatively family unless otherwise stated EK07/11/2024; 09/07/2020 Normal sinus rhythm 76 beats per minute, normal axis, normal intervals, nonspecific ST-T changes Interpretation and discussion: ECG shows no ischemic changes. Troponin within normal limits. Av STEMI per done NSTEMI. Hurt was within normal limits without electrolyte derangement. White blood cell count within normal limits per Ruben Espinal. Chest x-ray shows no evidence of pneumonia. CHF prerenal monitor. Patient respiratory distress has improved but with expiratory wheezing. Patient had multiple trazodone nebs, IV steroids, IV antibiotics. Breathing improved Re-evaluation: Patient remains acutely ill-appearing and non-rebreather. Discussed the workup with hospitalist. Hospitalist accepts admission. Updated patient on resting status. Patient agreeable to proceed with admission. DX & DISP Disposition: Inpatient Departure Impression: Primary Impression: Acute exacerbation of chronic obstructive pulmonary disease (COPD) Additional Impression: Acute hypoxic respiratory failure Critical Time: 30 minutes Condition: Stable Referrals: KRISTIN COSTA MD (PCP) ZOË CHUN DO Jul 12, 2024 01:17
[2024-07-12] MEDS ORDERED: TEMAZepam 15 MG CAPSULE PO PRN (01:30)
[2024-07-12] MEDS ORDERED: doCUSate SODIUM 100 MG CAP PO PRN (01:30)
[2024-07-12] MEDS ORDERED: LACTULOSE 20 GM/30 ML UDCUP PO PRN (01:30)
[2024-07-12] MEDS ORDERED: acetaMINOPHEN 650 MG SUPPOSITORY RC PRN (01:30)
[2024-07-12] MEDS ORDERED: ondanSETRON 4MG INJ IVP PRN (01:30)
[2024-07-12] MEDS ORDERED: hydrALAZine 20MG/ML VIAL IV PRN (01:30)
[2024-07-12 01:41] LABS: ABG BASE EXCESS 2.9 mmol/L (-2.0-3.0); ABG HCO3 28.4 mmol/L (21.0-28.0); ABG OXYGEN SATURATION 95.7 % (94.0-98.0); ABG PCO2 48 mmHg (35-48); ABG PH 7.394 (7.350-7.450); CARBON MONOXIDE 1.4 % (0.5-1.5); DEVICE COMMENT RT BRACH; HHb 4.2; PO2, ARTERIAL BG 83.3 mmHg (83.0-108.0); VENT MODE, BG VENTI (ROOM AIR)
[2024-07-12 02:34] LABS: INFLUENZA TYPE A Negative For Type A (NEGATIVE); INFLUENZA TYPE B Negative For Type B (NEGATIVE)
[2024-07-12] MEDS ORDERED: VITA-348 PO (02:40)
[2024-07-12] MEDS ORDERED: ACET-2079 PO (02:40)
[2024-07-12] MEDS ORDERED: HYDR50TA37 PO (02:40)
[2024-07-12] MEDS ORDERED: FURO20TA4 PO (02:40)
[2024-07-12 02:42] LABS: SARS-CoV-2, RNA, NAAT NEGATIVE SARS CoV-2 (NEGATIVE)
--- NOTE | 2024-07-12 02:45 | NUR ---
NORMA MOTEL KEEPER AT BEDSIDE AT THIS TIME
--- NOTE | 2024-07-12 02:55 | NUR ---
REPORT GIVEN TO NURSE MISHRA
--- NOTE | 2024-07-12 03:12 | NUR ---
ADMISSION: PT RECEIVED FROM ER VIA STRETCHER, NO FAMILY AT BEDSIDE. PT STATES SOB AND HE HAS NOT BEEN EATING WELL FOR THE PAST DAYS DUE TO ABDOMINAL PAIN. PT ON A VENTIMASK AT 9L/MIN, SPO2-99% AUDIBLE WHEEZING AND SOB NOTED UPON EXERTION. TELE# 36 PLACED TO CHEST WALL, VOICES NO CHEST PAIN/DISCOMFORTS AT THE TIME. IV .SL TO RIGHT FOREARM, NO REDNESS, NO SWELLING, NO TENDERNESS NOTED. 18G TO LEFT FOREARM, SALINE LOCK. HOME MEDICATIONS AT BEDSIDE. ORIENTED TO ROOM, SURROUNDINGS AND CALL LIGHT. ENCOURAGED TO USE CALL LIGHT FOR ASSISTANCE, CALL JOHNSON WITHIN REACH. S/R UP X 3, BED ALARM IN PLACE.
[2024-07-12] MEDS: Solu-medROL 125MG VIAL IVP SCH (04:55)
--- NOTE | 2024-07-12 05:30 | EKG ---
[facility] Test Date: 2024-07-11 Test Time: 22:21:53 Pat Name: VENKAT PETERSEN Department: [facility] Room: 419 1 Gender: M Piper Helper: [phone] : 1950 Requested By: ZOË CHUN Order Number: [id number] Reading MD: Lorena Cottrell Measurements Intervals [place] Rate: 76 P: 0 MO: 260 QRS: 43 QRSD: 125 T: 60 QT: 411 QTc: 463 Interpretive Statements Sinus rhythm Prolonged MO interval Nonspecific intraventricular conduction delay Anterolateral infarct, age indeterminate Compared to ECG 06/05/2024 10:23:54 First degree AV block now present Intraventricular conduction delay now present Myocardial infarct finding still present Electronically Signed On 07-12-2024 11:27:58 [employer] by Lorena Cottrell Please click the below link to view image of tracing.
[2024-07-12] MEDS: INSULIN humuLIN R 100 UNIT/ML 3ML SQ SCH (05:36)
[2024-07-12] MEDS: IpraTROPium 0.5 MG/2.5 ML INH IH SCH ×2 (06:20→10:34)
[2024-07-12] MEDS: ALBUTEROL 0.083% 2.5 MG/3 ML INH IH SCH ×2 (06:20→10:34)
[2024-07-12] MEDS: FAMOTIDINE 20MG TAB PO SCH (08:31)
[2024-07-12] MEDS: ENOXAPARIN SODIUM 40 MG/0.4 ML SYRINGE SQ SCH (08:32)
[2024-07-12] MEDS: acetaMINOPHEN 325 MG TAB PO PRN (08:33)
[2024-07-12] MEDS: NICOTINE 14 MG/ 24 HR PATCH TD SCH (08:33)
--- NOTE | 2024-07-12 09:22 | HMCIMG ---
Exam Type: CHEST 1VW Clinical Information: Dyspnea/SOB Comparison: None Findings: Left cardiac pacemaker is noted with leads in place. The lungs are clear of infiltrates. The heart is normal in size. The bony and soft tissue structures of the chest are unremarkable. Impression: Clear lungs.
--- NOTE | 2024-07-12 11:26 | PN ---
[facility] PROGRESS NOTE Date Patient Seen: Jul 12, 2024 Time of Visit: 11:22 Supervising Physician: [Dr. Fernández] Primary Care Physician: KRISTIN COSTA MD (PCP) and Dr. Stanley from [facility] Outpatient Specialists: Inpatient Consults: PROBLEM LIST: Acute exacerbation of chronic obstructive pulmonary disease, POA -Tobacco dependence and hx of alcohol abuse Acute on chronic hypoxemic respiratory failure, baseline home O2-2L Acute dehydration Anemia of chronic disease Electrolyte derangement (Hyponatremia, hypochloremia, hypocalcemia) Dehydration Diabetes mellitus with hyperglycemia Peripheral vascular disease, bilateral lower extremity edema (BNP WNL at 69) Moderate aortic valve stenosis, per echo 06/05/24 Nominal left lung base scarring and/or atelectasis, per chest x-ray 06/03/2024 Left lower extremity cellulitis with swelling with underlying severe PAD s/p incomplete LE angio on 07/30/[address] 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 Continue Ventimask titrate oxygen to keep SpO2 equal to 92%. Continue albuterol and Atrovent q.4 hours scheduled. Continue Solu-Medrol IV michelle 60 mg IV Q6. Start nicotine patch. BiPAP as needed for shortness of breath unresponsive to nebulizer treatments and steroids. Education on smoking cessation. Once less hypoxemic RT to provide IS and education on use. Robitussin DM as needed for cough. Continue antibiotic therapy: Zithromax IV and Rocephin IV. P.r.n. medications for: Pain management, fever, nausea, vomiting, constipation, hypertension. Glucose checks a.c. and HS with insulin regular sliding scale per protocol. Blood pressure checks every4 hours and as needed. Reconcile home medications once available. Monitor renal and liver function. Monitor electrolytes treat accordingly. A.m. labs: CBC, BNP, Mag, phos. DVT and GI prophylaxis. INTERVAL HISTORY: [Patient was admitted for shortness of breath secondary to COPD exacerbation. His blood pressure is 119/65 with a heart rate of 65, no fever overnight. Patient continues on nasal cannula at 9 L. his ABG today is within normal limits with a pH of 7.39, pCO2 of 48, PO2 of 83 and bicarb of 28. His COVID and flu swabs were negative, troponin 15 and BNP is 69. Labs including CBC and BNP were unremarkable except for hyponatremia at 124. His CXR shows minimal bilateral lower lobe infiltrates. His EKG was within normal limits per report. Patient continues on azithromycin and Rocephin. Nurse informed me that patient had been complaining of abdominal pain prior to admission. There was no mention of this per ED or EMS report. Patient states no abdominal pain at rest but does have pain when he eats. Has had decreased appetite d/t the same for the last few days. Patient is a very poor historian and unable to provide any other details including quality of pain, radiation, last meal or last BM. No other information provided from patient.] REVIEW OF SYSTEMS: 12 point ROS reviewed with patient. Pertinent positives mentioned above. Otherwise negative. PHYSICAL EXAM: GENERAL: Alert, weak, awake oriented x 3 HEENT: EOMI, Sclera non icteric, moist mucosa NECK: Supple, no JVD, trachea midline LUNGS: Tachypneic, abdominal breathing, end expiratory wheezing breath sounds bilaterally, rales bilaterally to mid lobes and below HEART: Regular rate and rhythm. Normal S1 and S2, without murmurs ABD: Abdomen soft, nontender. Bowel sounds present EXT: No clubbing cyanosis. +2 edema NEURO: Alert and oriented to person, follows commands Vital Signs (last 8hr) Date Time Temp Pulse Resp B/P (MAP) Pulse Ox O2 Delivery O2 Flow Rate FiO2 07/12/24 10:34 61 24 07/12/24 08:00 97.3 65 20 119/65 100 Nasal Cannula 9.0 07/12/24 06:23 61 24 Venti Mask 10.0 35 07/12/24 06:20 61 24 LABS: Hematology Labs: Test 07/11/24 22:15 Range/Units White Blood Count 4.9 4.8-10.8 K/uL Red Blood Count 4.19 L 4.50-6.20 MIL/uL Hemoglobin 12.7 L 14.0-18.0 g/dL Hematocrit 36.8 L 42-54 % Mean Corpuscular Volume 87.8 79-99 fL Mean Corpuscular Hemoglobin 30.3 27.0-33.0 pg Mean Corpuscular Hemoglobin Concent 34.5 32.0-36.0 g/dL Red Cell Distribution Width 13.7 11.0-15.5 % Platelet Count 271 130-400 K/uL Mean Platelet Volume 9.2 7.5-10.5 fL Immature Granulocyte % (Auto) 0.6 0-1 % Neutrophils (%) (Auto) 61.3 40.0-77.0 % Lymphocytes (%) (Auto) 16.5 L 21.0-51.0 % Monocytes (%) (Auto) 16.5 H 3.0-13.0 % Eosinophils (%) (Auto) 3.9 0.0-8.0 % Basophils (%) (Auto) 1.2 0.0-5.0 % Neutrophils # (Auto) 3.0 1.8-7.7 K/uL Lymphocytes # (Auto) 0.8 L 1.0-4.8 K/uL Monocytes # (Auto) 0.8 0.1-1.0 K/uL Eosinophils # (Auto) 0.19 0.00-0.70 K/uL Basophils # (Auto) 0.06 0.00-0.20 K/uL Absolute Immature Granulocyte (auto 0.03 0-1 K/uL Nucleated Red Blood Cells 0.0 0.0-0.19 % White Cell Morphology Comment CONSISTENT W/DIFF Chemistry Labs: Test 07/11/24 22:15 Range/Units Sodium Level 124 L 136-145 mmol/L Potassium Level 3.7 3.5-5.1 mmol/L Chloride Level 86 *L 101-111 mmol/L Carbon Dioxide Level 34 H 21-32 mmol/L Blood Urea Nitrogen 5 L 7-18 mg/dL Creatinine 0.7 0.5-1.3 mg/dL Glomerular Filtration Rate Calc 97 >90 mL/min Random Glucose 130 H 70-105 mg/dL Total Calcium 8.2 L 8.5-10.1 mg/dL Troponin I High Sensitivity 15 4-75 ng/L B-Type Natriuretic Peptide 69 0-100 pg/mL DIAGNOSTICS / RADIOLOGY RESULTS: Exam Type: CHEST 1VW Clinical Information: Dyspnea/SOB Comparison: None Findings: Left cardiac pacemaker is noted with leads in place. The lungs are clear of infiltrates. The heart is normal in size. The bony and soft tissue structures of the chest are unremarkable. Impression: Clear lungs. PLAN NEURO: Minimize central acting medications as possible. Maintain fall precautions, adequate lighting during the day PULMONARY: Supplemental 02 as needed. Maintain aspiration precautions at all times CARDIOVASCULAR: Follow hemodynamics. Vital signs per facility protocol GI & NUTRITION: Continue with nutritional support. Continue stool softeners and laxatives as needed. KIDNEYS & ELECTROLYTES: Strict monitoring of intake, output and overall fluid balance. Avoid nephrotoxic medications to the extent possible. Medications to be dosed according to renal function. Monitor electrolytes and replace as needed ENDOCRINE: Maintain blood glucose between 100-180 at all times. Hypoglycemia protocol in place INFECTIOUS DISEASE: Trend temperature, WBC and procalcitonin level Follow cultures, deescalate antibiotics as soon as possible. Panculture if new onset fever ONCOLOGY/HEMATOLOGY/COAGULATION: Monitor for s/s of bleeding Monitor hemoglobin, coagulation studies as needed SKIN: Pressure ulcer prevention per facility protocol Specialty mattress ORTHO/REHAB: Continue PT/OT Prophylaxis: Continue GI and DVT prophylaxis Code Status: Full Resuscitation Disposition: TBD Total time spent on care of patient including reviewing chart, discussing with nursing staff, and with patient was greater than 46 minutes ANNI MURO Jul 12, 2024 11:26
[2024-07-12] MEDS: Solu-medROL 40MG VIAL IVP SCH (11:46)
[2024-07-12] MEDS ORDERED: PHARMACY COMMUNICATION 1 EACH EACH MISC SCH (14:30)
[2024-07-12 14:49] LABS: ALBUMIN 2.7 g/dL (3.5-5.0); BILIRUBIN,TOTAL 0.2 mg/dL (0.2-1.0); CREATININE 0.7 mg/dL (0.5-1.3); POTASSIUM 3.8 mmol/L (3.5-5.1); TOTAL PROTEIN, SERUM 6.4 g/dL (6.0-8.3)
--- NOTE | 2024-07-12 15:12 | HMCIMG ---
CT ABDOMEN W/O CONTRAST HISTORY: abdominal pain TECHNIQUE: CT ABDOMEN W/O CONTRAST . Oral contrast was not given. Sagittal and coronal reformats were obtained. CT was performed with one or more of the following dose reduction techniques: Automated exposure control, adjustment of the mA and/or kV according to the patient's size, or use of the iterative reconstruction technique. Comparison: 07/24/2023 FINDINGS: Mild atelectatic changes are seen in the lung bases. Mild bilateral lower lobe bronchiectasis seen. Liver and gallbladder are within normal limits. The spleen, pancreas, and adrenal glands are within normal limits. There is no hydronephrosis. 4 mm cortical calcifications in the midpole of the left kidney. There is a 2.3 cm right renal cyst. No bowel obstruction identified. Appendix is normal in caliber. Atherosclerotic changes of the aorta with calcified plaques. Degenerative changes of the spine are seen. IMPRESSION: No acute CT findings.
--- NOTE | 2024-07-12 16:15 | HMCIMG ---
Exam Type: US VENOUS DOPPLER BILATERAL Clinical Information: swelling Comparison: None Findings: The examination shows normal deep venous system. There is normal compressibility at all levels. There is no intraluminal clot. There is no occlusion. Adequate response is obtained on augmentation. Impression: No evidence of DVT.
[2024-07-12] MEDS: sulfaSALAzine 500MG tab DR 500 MG/TAB TABLET.DR PO SCH (16:55)
[2024-07-12] MEDS: 0.9%NACL 1000ML 1,000 ML IV SCH (16:55)
[2024-07-12] MEDS ORDERED: IOHEXOL-350 75 ML VIAL IV ONE (17:38)
--- NOTE | 2024-07-12 17:58 | HMCIMG ---
CT angiogram chest CLINICAL INDICATION: r/o PE COMPARISON: None. CT Dose Index (CTDI): 113.50 mGy Dose Length Product (DLP): 1408.10 total mGy PROTOCOL: Contrast: 100 cc of Isovue-370, injected IV, no complications Examination is done at 2.5 millimeter volumetric acquisition after contrast administration. Photography is done at 5 millimeter thick intervals for the thorax. FINDINGS: There is no evidence of pulmonary embolism. The airway is intact. The trachea and major bronchi are unremarkable. No pulmonary infiltrates or mass lesions are seen. No pleural effusions are identified. The exam of the eugene and mediastinum is unremarkable. No evidence of hilar enlargement is seen. The aorta shows no aneurysmal dilatation or significant atheromatous calcification. There is no thoracic aortic dissection. No significant brachiocephalic vascular abnormalities are seen. The heart is unremarkable. It is not enlarged. No significant coronary arterial calcifications are seen. There is no pericardial effusion. The rib cage appears unremarkable. The soft tissues of the chest wall are unremarkable. The dorsal spine shows no significant abnormalities. Limited evaluation of the upper abdomen demonstrates no gross abnormalities. IMPRESSION: No evidence of pulmonary embolism. This study was performed using dose reduction techniques to include automated exposure control and/or adjustment of the mA and/or kV according to patient size.
[2024-07-12] MEDS: cefTRIAXone 1G VIAL IVPB SCH (20:13)
[2024-07-12] MEDS: GABApentin 100 MG CAPSULE PO SCH (20:14)
[2024-07-12] MEDS: busPIRone HCL 5 MG TABLET PO SCH (20:14)
[2024-07-13] VITALS (16 sets, daily range): BP systolic 110–159; BP diastolic 50–65; PULSE 60–78; RESP 16–20; TEMP 97.4–98.2; O2SAT 94–100
[2024-07-13 04:13] LABS: HEMATOCRIT 32.3 % (42-54); MEAN CORPUSCULAR HEMOGLOBIN 29.9 pg (27.0-33.0); MEAN CORPUSCULAR HGB CONC 34.7 g/dL (32.0-36.0); MEAN CORPUSCULAR VOLUME 86.4 fL (79-99); RED BLOOD CELL COUNT(AUTO) 3.74 MIL/uL (4.50-6.20); RED CELL DISTRIBUTION WIDTH 13.4 % (11.0-15.5); WHITE BLOOD COUNT (AUTO) 4.6 K/uL (4.8-10.8)
[2024-07-13 04:24] LABS: CREATININE 0.7 mg/dL (0.5-1.3); MAGNESIUM 1.2 mg/dL (1.80-2.40); POTASSIUM 3.6 mmol/L (3.5-5.1)
[2024-07-13] MEDS: cloPIDOgrel 75MG TAB PO SCH (08:43)
[2024-07-13] MEDS: FERROUS SULFATE 325 MG TABLET.DR PO SCH (08:43)
[2024-07-13] MEDS: tamSULOsin HCL 0.4 MG CAP.ER.24H PO SCH (08:44)
[2024-07-13] MEDS: RIVAROXABAN 2.5 MG TABLET PO SCH (08:44)
[2024-07-13] MEDS: atorVAStatin 40 MG TABLET PO SCH (08:44)
[2024-07-13] MEDS: citaLOPram 20 MG TABLET PO SCH (08:44)
[2024-07-13] MEDS: LoSARTan 50 MG TABLET PO SCH (09:00)
[2024-07-13] MEDS ORDERED: furoSEMIDE 40MG VIAL IV SCH (09:00)
[2024-07-13] MEDS: PoTASSium chl 10% ELIXIR 20MEQ 20 MEQ/15 ML UDCUP PO PRN (09:00)
[2024-07-13] MEDS: MAGNESIUM 2GM PREMIX 50ML 50 ML IV PRN (09:00)
[2024-07-13] MEDS ORDERED: PoTASSium chloRIDE 20MEQ/100ML 100 ML IV PRN (09:00)
[2024-07-13] MEDS ORDERED: PoTASSium chloRIDE 20MEQ ER 20 MEQ ERTAB PO PRN (09:00)
[2024-07-13] MEDS: metoPROLOL tartRATE 25 MG TAB PO SCH (09:00)
--- NOTE | 2024-07-13 12:43 | PN ---
[facility] PROGRESS NOTE Date Patient Seen: Jul 13, 2024 Time of Visit: 12:43 Supervising Physician: [Dr. Fernández] Primary Care Physician: KRISTIN COSTA MD (PCP) and Dr. Stanley from [facility] Outpatient Specialists: Inpatient Consults: PROBLEM LIST: Acute exacerbation of chronic obstructive pulmonary disease, POA -Tobacco dependence and hx of alcohol abuse Acute on chronic hypoxemic respiratory failure, baseline home O2-2L Acute dehydration Autoimmune disease, unspecified, on sulfasalazine at home Anemia of chronic disease Electrolyte derangement (Hyponatremia, hypochloremia, hypocalcemia) Dehydration Diabetes mellitus with hyperglycemia Peripheral vascular disease, bilateral lower extremity edema (BNP WNL at 69) Moderate aortic valve stenosis, per echo 06/05/24 Nominal left lung base scarring and/or atelectasis, per chest x-ray 06/03/2024 Left lower extremity cellulitis with swelling with underlying severe PAD s/p incomplete LE angio on 07/30/[address] 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 Continue supplemental oxygen as needed titrate oxygen to keep SpO2 equal to 92%. Continue albuterol and Atrovent q.4 hours scheduled. Continue Solu-Medrol IV michelle 60 mg IV Q6. Start nicotine patch. BiPAP as needed for shortness of breath unresponsive to nebulizer treatments and steroids. Education on smoking cessation. Once less hypoxemic RT to provide IS and education on use. Robitussin DM as needed for cough. Continue antibiotic therapy: Zithromax IV and Rocephin IV. P.r.n. medications for: Pain management, fever, nausea, vomiting, constipation, hypertension. Glucose checks a.c. and HS with insulin regular sliding scale per protocol. Blood pressure checks every4 hours and as needed. Reconcile home medications once available. Monitor renal and liver function. Monitor electrolytes treat accordingly. A.m. labs: CBC, BNP, Mag, phos. DVT and GI prophylaxis. INTERVAL HISTORY: [Patient was admitted for shortness of breath secondary to COPD exacerbation. His blood pressure is 119/65 with a heart rate of 65, no fever overnight. Patient continues on nasal cannula at 9 L. his ABG today is within normal limits with a pH of 7.39, pCO2 of 48, PO2 of 83 and bicarb of 28. His COVID and flu swabs were negative, troponin 15 and BNP is 69. Labs including CBC and BNP were unremarkable except for hyponatremia at 124. His CXR shows minimal bilateral lower lobe infiltrates. His EKG was within normal limits per report. Patient continues on azithromycin and Rocephin. Nurse informed me that patient had been complaining of abdominal pain prior to admission. There was no mention of this per ED or EMS report. Patient states no abdominal pain at rest but does have pain when he eats. Has had decreased appetite d/t the same for the last few days. Patient is a very poor historian and unable to provide any other details including quality of pain, radiation, last meal or last BM. No other information provided from patient.] 07/13 Patient continues with significant end-expiratory wheezing. CTA was negative for PE. Venous doppler was negative for DVT. CMP reveals normal LFT's with a bilirubin of 0.2. His abdominal pain is improved, states is able to tolerate liquid diet without nausea or vomiting. He is tender to touch with deep palpation to RUQ but mostly to epigastric area. Still has significant end expiratory wheezing despite high dose steroids.pulmic REVIEW OF SYSTEMS: 12 point ROS reviewed with patient. Pertinent positives mentioned above. Otherwise negative. PHYSICAL EXAM: GENERAL: Alert, weak, awake oriented x 3 HEENT: EOMI, Sclera non icteric, moist mucosa NECK: Supple, no JVD, trachea midline LUNGS: Tachypneic, abdominal breathing, end expiratory wheezing breath sounds bilaterally, rales bilaterally to mid lobes and below HEART: Regular rate and rhythm. Normal S1 and S2, without murmurs ABD: Abdomen soft, nontender. Bowel sounds present EXT: No clubbing cyanosis. +2 edema NEURO: Alert and oriented to person, follows commands Vital Signs (last 8hr) Date Time Temp Pulse Resp B/P (MAP) Pulse Ox O2 Delivery O2 Flow Rate FiO2 07/13/24 10:55 98.1 60 18 136/50 97 Room Air 07/13/24 10:53 61 20 N/Cannula Low lpm 2.0 28 07/13/24 10:51 61 18 07/13/24 08:45 100 Nasal Cannula* 2 28 07/13/24 08:09 98.1 78 19 110/56 98 Room Air 07/13/24 06:51 63 20 N/A Room Air 21 07/13/24 06:33 60 20 Venti Mask 10.0 35 07/13/24 06:30 60 18 LABS: Hematology Labs: Test 07/13/24 03:43 07/11/24 22:15 Range/Units White Blood Count 4.6 L 4.8-10.8 K/uL Red Blood Count 3.74 L 4.50-6.20 MIL/uL Hemoglobin 11.2 L 14.0-18.0 g/dL Hematocrit 32.3 L 42-54 % Mean Corpuscular Volume 86.4 79-99 fL Mean Corpuscular Hemoglobin 29.9 27.0-33.0 pg Mean Corpuscular Hemoglobin Concent 34.7 32.0-36.0 g/dL Red Cell Distribution Width 13.4 11.0-15.5 % Platelet Count 255 130-400 K/uL Mean Platelet Volume 9.5 7.5-10.5 fL Nucleated Red Blood Cells 0.0 0.0-0.19 % Immature Granulocyte % (Auto) 0.6 0-1 % Neutrophils (%) (Auto) 61.3 40.0-77.0 % Lymphocytes (%) (Auto) 16.5 L 21.0-51.0 % Monocytes (%) (Auto) 16.5 H 3.0-13.0 % Eosinophils (%) (Auto) 3.9 0.0-8.0 % Basophils (%) (Auto) 1.2 0.0-5.0 % Neutrophils # (Auto) 3.0 1.8-7.7 K/uL Lymphocytes # (Auto) 0.8 L 1.0-4.8 K/uL Monocytes # (Auto) 0.8 0.1-1.0 K/uL Eosinophils # (Auto) 0.19 0.00-0.70 K/uL Basophils # (Auto) 0.06 0.00-0.20 K/uL Absolute Immature Granulocyte (auto 0.03 0-1 K/uL White Cell Morphology Comment CONSISTENT W/DIFF Chemistry Labs: Test 07/13/24 10:27 07/13/24 03:43 07/12/24 14:08 07/11/24 22:15 Range/Units Whole Blood Glucose 189 H 70-110 MG/DL Sodium Level 129 L 136-145 mmol/L Potassium Level 3.6 3.5-5.1 mmol/L Chloride Level 92 L 101-111 mmol/L Carbon Dioxide Level 30 21-32 mmol/L Blood Urea Nitrogen 7 7-18 mg/dL Creatinine 0.7 0.5-1.3 mg/dL Glomerular Filtration Rate Calc 97 >90 mL/min Random Glucose 145 H 70-105 mg/dL Total Calcium 8.4 L 8.5-10.1 mg/dL Magnesium Level 1.20 L 1.80-2.40 mg/dL Total Bilirubin 0.2 0.2-1.0 mg/dL Aspartate Amino Transf (AST/SGOT) 26 10-37 U/L Alanine Aminotransferase (ALT/SGPT) 13 12-78 U/L Alkaline Phosphatase 67 50-136 U/L Total Protein 6.4 6.0-8.3 g/dL Albumin 2.7 L 3.5-5.0 g/dL Procalcitonin < 0.05 L 0.05-0.5 ng/mL Troponin I High Sensitivity 15 4-75 ng/L B-Type Natriuretic Peptide 69 0-100 pg/mL Coagulation Labs: Test 07/12/24 14:08 Range/Units D-Dimer Quantitative (PE/DVT) 1649 *H 0-500 ng/mL DIAGNOSTICS / RADIOLOGY RESULTS: FINDINGS: There is no evidence of pulmonary embolism. The airway is intact. The trachea and major bronchi are unremarkable. No pulmonary infiltrates or mass lesions are seen. No pleural effusions are identified. The exam of the eugene and mediastinum is unremarkable. No evidence of hilar enlargement is seen. The aorta shows no aneurysmal dilatation or significant atheromatous calcification. There is no thoracic aortic dissection. No significant brachiocephalic vascular abnormalities are seen. The heart is unremarkable. It is not enlarged. No significant coronary arterial calcifications are seen. There is no pericardial effusion. The rib cage appears unremarkable. The soft tissues of the chest wall are unremarkable. The dorsal spine shows no significant abnormalities. Limited evaluation of the upper abdomen demonstrates no gross abnormalities. IMPRESSION: No evidence of pulmonary embolism. Exam Type: US VENOUS DOPPLER BILATERAL Clinical Information: swelling Comparison: None Findings: The examination shows normal deep venous system. There is normal compressibility at all levels. There is no intraluminal clot. There is no occlusion. Adequate response is obtained on augmentation. Impression: No evidence of DVT. PLAN NEURO: Minimize central acting medications as possible. Maintain fall precautions, adequate lighting during the day PULMONARY: Supplemental 02 as needed. Maintain aspiration precautions at all times CARDIOVASCULAR: Follow hemodynamics. Vital signs per facility protocol GI & NUTRITION: Continue with nutritional support. Continue stool softeners and laxatives as needed. KIDNEYS & ELECTROLYTES: Strict monitoring of intake, output and overall fluid balance. Avoid nephrotoxic medications to the extent possible. Medications to be dosed according to renal function. Monitor electrolytes and replace as needed ENDOCRINE: Maintain blood glucose between 100-180 at all times. Hypoglycemia protocol in place INFECTIOUS DISEASE: Trend temperature, WBC and procalcitonin level Follow cultures, deescalate antibiotics as soon as possible. Panculture if new onset fever ONCOLOGY/HEMATOLOGY/COAGULATION: Monitor for s/s of bleeding Monitor hemoglobin, coagulation studies as needed SKIN: Pressure ulcer prevention per facility protocol Specialty mattress ORTHO/REHAB: Continue PT/OT Prophylaxis: Continue GI and DVT prophylaxis Code Status: Full Resuscitation Disposition: TBD Total time spent on care of patient including reviewing chart, discussing with nursing staff, and with patient was greater than 46 minutes ANNI MURO Jul 13, 2024 12:43
--- NOTE | 2024-07-13 15:51 | NUR ---
[facility] CM MET WITH PT THIS MORNING, ASSESSMENT DONE. PATIENT IS SEMI-INDEPENDENT PRIOR TO ADMISSION, LIVES AT HOME WITH SPOUSE, DAUGHTER LIVES CLOSE BY. PATIENT HAS O2 PORTABLE AND CONCENTRATOR UNABLE TO RECALL O2 COMPANY NAME, ELECTRIC WHEELCHAIR, SHOWER CHAIR, CANE, WALKER, CPAP, PROVIDER DAILY. PT VERBALIZED [facility] HAS A NURSE THAT CHECKS ON PATIENT FOR [facility] NEEDED. DENIES ANY OTHER EQUIPMENT/SERVICES. FEELS SAFE TO GO BACK HOME, DOESN'T DRIVE, SPOUSE AND DAUGHTER ABLE TO ASSIST WITH TRANSPORTATION AND NEEDS NECESSARY. DCP HOME ONCE STABLE. CM TO CONTINUE TO FOLLOW UP. Addendum: 07/13/24 at 1553 by ARABELLA HONG LVN CM Amended: Links added.
--- NOTE | 2024-07-13 23:38 | CONS ---
GASTROENTEROLOGY CONSULTATION NOTE Date of Consultation: Jul 13, 2024 Time of Consultation: 23:38 History of Present Illness: This is a 73-year-old male with past medical history of COPD, CHF, diabetes, hyperlipidemia, heart disease, hypertension, tobacco use who presented due to hypoxemic respiratory failure and wheezing. We were consulted due to epigastric pain. CT revealing no acute findings. Hemoglobin 11.2 with a platelet count of 255. LFTs normal. Review of Systems: CONSTITUTIONAL: No malaise or change in sensation of wellbeing. ENMT: No rhinorrhea, otorrhea, sinus pain, ear ache. CARDIOVASCULAR: No angina, palpitations, orthopnea or paroxysmal dyspnea. RESPIRATORY: No SOB. GASTROINTESTINAL: No abdominal pain, nausea, vomiting, diarrhea, hematemesis, melena or change in the patient's habitual bowel movements consistency/number. GENITOURINARY: No dysuria, hematuria or change in bladder continence. MUSCULOSKELETAL: No new muscle pain or decrease in muscular strength. No new joint swelling, redness or tenderness. SKIN: No new rash. Past Medical History: [ ] Past Surgical History: [ ] Past Social History: [ ] Family History: [ ] Coded Allergies: No Known Drug Allergies (Verified Allergy, Unknown, 08/04/19) Physical Exam: GEN: Awake, alert, oriented in person, time and place, and in no acute distress. HEENT: No sinus tenderness. Tympanic membranes were not examined. No rhinorrhea. Oral pharyngeal mucosa is pink, moist and within normal limits. Neck is supple with no cervical lymphadenopathy, thyromegaly or JVD. CHEST: Inspection, palpation and percussion of the chest were unremarkable. Lung auscultation revealed normal breath sounds bilaterally. CARDIAC: PMI is within normal limits. Heart sounds are regular. Normal S1, S2. No gallop or murmur. ABD: Soft, non-tender and not distended. No peritoneal signs on palpation. No organomegaly. Normal bowel sounds. EXT: No cyanosis or clubbing. No edema. SKIN: Intact. No rashes. JOINTS: No evidence of synovitis or acute arthritis. NEURO: Alert and oriented to name, place and person. Cranial nerve examination is unremarkable. No focal motor deficits. Normal speech. Gait is normal. Strength is normal. Vital Sign (Last 24 Hours) 07/13/24 07/13/24 20:00 21:11 Temp 97.3 Pulse 73 Resp 18 B/P (MAP) 159/60 Pulse Ox 97 O2 Delivery Nasal Cannula O2 Flow Rate 2.0 FiO2 28 Intake & Output (last 24hrs) 07/12/24 07/12/24 07/13/24 15:00 23:00 07:00 Output Total 250 ml 600 ml 400 ml Balance -250 ml -600 ml -400 ml Laboratory: [ ] Laboratory: Test 07/13/24 10:27 07/13/24 03:43 07/12/24 14:08 07/12/24 02:09 Range/Units Whole Blood Glucose 189 H 70-110 MG/DL White Blood Count 4.6 L 4.8-10.8 K/uL Red Blood Count 3.74 L 4.50-6.20 MIL/uL Hemoglobin 11.2 L 14.0-18.0 g/dL Hematocrit 32.3 L 42-54 % Mean Corpuscular Volume 86.4 79-99 fL Mean Corpuscular Hemoglobin 29.9 27.0-33.0 pg Mean Corpuscular Hemoglobin Concent 34.7 32.0-36.0 g/dL Red Cell Distribution Width 13.4 11.0-15.5 % Platelet Count 255 130-400 K/uL Mean Platelet Volume 9.5 7.5-10.5 fL Nucleated Red Blood Cells 0.0 0.0-0.19 % Sodium Level 129 L 136-145 mmol/L Potassium Level 3.6 3.5-5.1 mmol/L Chloride Level 92 L 101-111 mmol/L Carbon Dioxide Level 30 21-32 mmol/L Blood Urea Nitrogen 7 7-18 mg/dL Creatinine 0.7 0.5-1.3 mg/dL Glomerular Filtration Rate Calc 97 >90 mL/min Random Glucose 145 H 70-105 mg/dL Total Calcium 8.4 L 8.5-10.1 mg/dL Magnesium Level 1.20 L 1.80-2.40 mg/dL D-Dimer Quantitative (PE/DVT) 1649 *H 0-500 ng/mL Total Bilirubin 0.2 0.2-1.0 mg/dL Aspartate Amino Transf (AST/SGOT) 26 10-37 U/L Alanine Aminotransferase (ALT/SGPT) 13 12-78 U/L Alkaline Phosphatase 67 50-136 U/L Total Protein 6.4 6.0-8.3 g/dL Albumin 2.7 L 3.5-5.0 g/dL Procalcitonin < 0.05 L 0.05-0.5 ng/mL Influenza Type A Antigen Negative For Type A NEGATIVE Influenza Type B Antigen Negative For Type B NEGATIVE SARS-CoV-2, RNA, NAAT NEGATIVE SARS CoV-2 NEGATIVE Test 07/12/24 01:40 Range/Units Blood Gas Specimen Type Arterial Arterial Blood pH 7.394 7.350-7.450 Arterial Blood Partial Pressure CO2 48 35-48 mmHg Arterial Blood Partial Pressure O2 83.3 83.0-108.0 mmHg Arterial Blood HCO3 28.4 H 21.0-28.0 mmol/L Arterial Blood Oxygen Saturation 95.7 94.0-98.0 % Arterial Blood Base Excess 2.9 -2.0-3.0 mmol/L Hemoglobin (Blood Gas) 11.8 L 13.5-17.5 g/dL Sodium (Blood Gas) 120 *L 136-145 MMOL/L Bedside Potassium (Blood Gas) 3.1 L 3.4-4.5 MMOL/L Bedside Chloride (Blood Gas) 85 *L 98-107 MMOL/L Bedside Glucose (Blood Gas) 136 H 65-95 MG/DL Bedside Ionized Calcium (Blood Gas) 1.01 L 1.15-1.33 MMOL/L Bedside Lactic Acid (Blood Gas) 1.47 H 0.36-0.75 MMOL/L Blood Gas Temperature 37.0 35.5-37.0 CELSIUS Blood Gas Flow-by 9.00 0.00-15.00 L/min Blood Gas Vent Mode VENTI ROOM AIR FiO2 35.0 % Blood Gas Specimen Comment RT BRACH Current Medications Medications (Trade) Dose Ordered Sig/Sherman Route PRN Reason Start Time Stop Time Status Last Admin Dose Admin Acetaminophen (TYLenol 325MG TAB) 650 mg Q6H PRN PO FEVER/MILD PAIN LEVEL 1-3 07/12/24 01:30 08/11/24 01:29 07/13/24 16:56 650 MG Acetaminophen (TYLenol 650MG SUPPOSITORY) 650 mg Q6H PRN RC FEVER / MILD PAIN 1-3 IF NPO 07/12/24 01:30 08/11/24 01:29 Albuterol Sulfate (Proventil 0.083% 2.5mg/3ml) 2.5 mg [id number] IH 07/12/24 10:00 08/11/24 05:59 07/13/24 21:11 2.5 MG Albuterol Sulfate (Proventil 0.083% 2.5mg/3ml) 2.5 mg [id number] IH 07/12/24 06:00 07/12/24 06:46 DC 07/12/24 06:20 2.5 MG Atorvastatin Calcium (LIPItor 40MG) 40 mg DAILY PO 07/13/24 09:00 08/12/24 08:59 07/13/24 08:44 40 MG Azithromycin 250 ml @ 250 mls/hr Q24H IVPB 07/11/24 22:30 07/14/24 22:29 07/13/24 22:43 250 MLS/HR Budesonide (Pulmicort 0.5 Mg/2ml) 0.5 mg BIDRESP 07/14/24 06:00 08/13/24 05:59 Buspirone HCl (BUspar) 5 mg BID PO 07/12/24 21:00 08/11/24 20:59 07/13/24 20:52 5 MG Ceftriaxone Sodium (ROCEphine 1G INJ) 1 gm DAILY20 IVPB 07/12/24 20:00 07/22/24 19:59 07/13/24 20:52 1 GM Citalopram Hydrobromide (CeleXA 20MG TAB) 20 mg DAILY PO 07/13/24 09:00 08/12/24 08:59 07/13/24 08:44 20 MG Clopidogrel Bisulfate (plaVIX 75MG) 75 mg DAILY PO 07/13/24 09:00 08/12/24 08:59 07/13/24 08:43 75 MG Docusate Sodium (COLace 100MG CAP) 100 mg BID PRN PO c 07/12/24 01:30 08/11/24 01:29 Enoxaparin Sodium (Lovenox) 40 mg DAILY SQ 07/12/24 09:00 07/12/24 14:05 DC 07/12/24 08:32 40 MG Famotidine (Pepcid 20mg Tab) 20 mg BID PO 07/12/24 09:00 08/11/24 08:59 07/13/24 20:52 20 MG Ferrous Sulfate (Ferrous Sulfate) 325 mg DAILY PO 07/13/24 09:00 08/12/24 08:59 07/13/24 08:43 325 MG Furosemide (LASix 40MG VIAL) 40 mg DAILY IV 07/13/24 09:00 07/12/24 15:56 DC Gabapentin (NEURontin 100 mg CAP) 100 mg BID PO 07/12/24 21:00 08/11/24 20:59 07/13/24 20:52 100 MG Hydralazine HCl (APRESOLine 20MG INJ) 10 mg Q2H PRN IV SBP GREATER THAN 160 07/12/24 01:30 07/12/24 13:16 DC Insulin Human Regular (humuLIN R 100 UNIT/ML 3ML) INSULIN SLIDING SCAL... ACHS SQ 07/12/24 07:30 08/11/24 07:29 07/13/24 11:51 4 UNIT Ipratropium Dell[place] (AtrovENT UD) 0.5 mg [id number] IH 07/12/24 10:00 08/11/24 05:59 07/13/24 21:11 0.5 MG Ipratropium [place] (AtrovENT UD) 0.5 mg [id number] 07/12/24 06:00 07/12/24 06:46 DC 07/12/24 06:20 0.5 MG Lactulose (Constulose 20gm/ 30ml Udcup) 20 gm Q6H PRN PO CONSTIPATION 07/12/24 01:30 08/11/24 01:29 Losartan Potassium (CozAAR 50 mg TAB) 50 mg DAILY PO 07/13/24 09:00 08/12/24 08:59 Magnesium Sulfate 50 ml @ 0 mls/hr PROTOCOL PRN IV MAGNESIUM PROTOCOL 07/13/24 09:00 08/12/24 08:59 07/13/24 09:00 25 MLS/HR Methylprednisolone Sodium Succinate (Solu-medROL 40MG) 60 mg Q6H IVP 07/12/24 11:00 08/11/24 04:59 07/13/24 22:54 60 MG Methylprednisolone Sodium Succinate (Solu-medROL 125MG) 60 mg Q6H IVP 07/12/24 05:00 07/12/24 07:29 DC 07/12/24 04:55 60 MG Metoprolol Tartrate (loprESSOR) 12.5 mg DAILY PO 07/13/24 09:00 08/12/24 08:59 Nicotine (Nicoderm) 14 mg DAILY TD 07/12/24 09:00 08/11/24 08:59 07/13/24 08:45 14 MG Ondansetron HCl (zoFRAN 4MG INJ) 4 mg Q6H PRN IVP NAUSEA/VOMITING 07/12/24 01:30 08/11/24 01:29 Pharmacy Profile Note (Lace Assessment) LACE ASSESSMENT: CONS... AD MISC 07/12/24 14:30 07/19/24 14:29 Potassium Chloride 100 ml @ 100 mls/hr AD PRN IV POTASSIUM PROTOCOL 07/13/24 09:00 08/12/24 08:59 Potassium Chloride (K-Dur/Klor-Con 20meq) 20 meq AD PRN PO POTASSIUM PROTOCOL 07/13/24 09:00 08/12/24 08:59 Potassium Chloride (KCl 10% Elixir 20meq/15ml) 20 meq AD PRN PO POTASSIUM PROTOCOL 07/13/24 09:00 08/12/24 08:59 07/13/24 09:00 20 MEQ Rivaroxaban (Xarelto) 2.5 mg BID PO 07/13/24 09:00 07/13/24 21:43 DC 07/13/24 20:52 2.5 MG Sodium Chloride 1,000 ml @ 100 mls/hr Q10H IV 07/12/24 17:00 08/11/24 16:59 07/13/24 22:54 100 MLS/HR Sulfasalazine (AZULfidine 500MG tab DR) 1,000 mg QID PO 07/12/24 17:00 07/22/24 16:59 07/13/24 20:52 1,000 MG Tamsulosin HCl (FloMAX) 0.4 mg DAILY PO 07/13/24 09:00 08/12/24 08:59 07/13/24 08:44 0.4 MG Temazepam (restORIL 15 MG CAP) 15 mg HS PRN PO INSOMNIA/SLEEP 07/12/24 01:30 08/11/24 01:29 Diagnostics / Radiology: [COPY/PASTE HERE IF NO REPORTS PLEASE DELETE SECTION] Assessment: Epigastric pain Plan: [ ] [employer] REPA[employer] Jul 13, 2024 23:38
[2024-07-14] VITALS (14 sets, daily range): BP systolic 132–166; BP diastolic 50–73; PULSE 56–79; RESP 18–20; TEMP 97.4–98.3; O2SAT 96–100
[2024-07-14] MEDS: BUDESONIDE 0.5 MG/2 ML INH IH SCH (06:48)
--- NOTE | 2024-07-14 15:33 | PN ---
GASTROENTEROLOGY PROGRESS NOTE Date of Visit: Jul 14, 2024 Time of Visit: 15:33 Events / Notes: [ ] Review of Systems: CONSTITUTIONAL: No malaise or change in sensation of wellbeing. ENMT: No rhinorrhea, otorrhea, sinus pain, ear ache. CARDIOVASCULAR: No angina, palpitations, orthopnea or paroxysmal dyspnea. RESPIRATORY: No SOB. GASTROINTESTINAL: No abdominal pain, nausea, vomiting, diarrhea, hematemesis, melena or change in the patient's habitual bowel movements consistency/number. GENITOURINARY: No dysuria, hematuria or change in bladder continence. MUSCULOSKELETAL: No new muscle pain or decrease in muscular strength. No new joint swelling, redness or tenderness. SKIN: No new rash. Physical Exam: GEN: Awake, alert, oriented in person, time and place, and in no acute distress. HEENT: No sinus tenderness. Tympanic membranes were not examined. No rhinorrhea. Oral pharyngeal mucosa is pink, moist and within normal limits. Neck is supple with no cervical lymphadenopathy, thyromegaly or JVD. CHEST: Inspection, palpation and percussion of the chest were unremarkable. Lung auscultation revealed normal breath sounds bilaterally. CARDIAC: PMI is within normal limits. Heart sounds are regular. Normal S1, S2. No gallop or murmur. ABD: Soft, non-tender and not distended. No peritoneal signs on palpation. No organomegaly. Normal bowel sounds. EXT: No cyanosis or clubbing. No edema. SKIN: Intact. No rashes. JOINTS: No evidence of synovitis or acute arthritis. NEURO: Alert and oriented to name, place and person. Cranial nerve examination is unremarkable. No focal motor deficits. Normal speech. Gait is normal. Strength is normal. Vital Signs (last 8hr) Date Time Temp Pulse Resp B/P (MAP) Pulse Ox O2 Delivery O2 Flow Rate FiO2 07/14/24 14:37 60 18 07/14/24 12:00 98.2 60 18 147/56 99 Room Air 07/14/24 10:49 62 18 07/14/24 08:30 68 20 N/Cannula Low lpm 2.0 28 07/14/24 08:00 98.1 68 18 166/73 97 Room Air Laboratory: [ ] Laboratory: Test 07/14/24 05:23 07/13/24 10:27 07/13/24 03:43 Range/Units Thyroid Stimulating Hormone (TSH) 0.28 #L 0.36-3.74 uIU/mL Whole Blood Glucose 189 H 70-110 MG/DL White Blood Count 4.6 L 4.8-10.8 K/uL Red Blood Count 3.74 L 4.50-6.20 MIL/uL Hemoglobin 11.2 L 14.0-18.0 g/dL Hematocrit 32.3 L 42-54 % Mean Corpuscular Volume 86.4 79-99 fL Mean Corpuscular Hemoglobin 29.9 27.0-33.0 pg Mean Corpuscular Hemoglobin Concent 34.7 32.0-36.0 g/dL Red Cell Distribution Width 13.4 11.0-15.5 % Platelet Count 255 130-400 K/uL Mean Platelet Volume 9.5 7.5-10.5 fL Nucleated Red Blood Cells 0.0 0.0-0.19 % Sodium Level 129 L 136-145 mmol/L Potassium Level 3.6 3.5-5.1 mmol/L Chloride Level 92 L 101-111 mmol/L Carbon Dioxide Level 30 21-32 mmol/L Blood Urea Nitrogen 7 7-18 mg/dL Creatinine 0.7 0.5-1.3 mg/dL Glomerular Filtration Rate Calc 97 >90 mL/min Random Glucose 145 H 70-105 mg/dL Total Calcium 8.4 L 8.5-10.1 mg/dL Magnesium Level 1.20 L 1.80-2.40 mg/dL Helicobacter pylori IgG Antibody POSITIVE H NEG Current Medications Medications (Trade) Dose Ordered Sig/Sherman Route PRN Reason Start Time Stop Time Status Last Admin Dose Admin Acetaminophen (TYLenol 325MG TAB) 650 mg Q6H PRN PO FEVER/MILD PAIN LEVEL 1-3 07/12/24 01:30 08/11/24 01:29 07/14/24 12:41 650 MG Acetaminophen (TYLenol 650MG SUPPOSITORY) 650 mg Q6H PRN RC FEVER / MILD PAIN 1-3 IF NPO 07/12/24 01:30 08/11/24 01:29 Albuterol Sulfate (Proventil 0.083% 2.5mg/3ml) 2.5 mg [id number] IH 07/12/24 10:00 08/11/24 05:59 07/14/24 14:37 2.5 MG Albuterol Sulfate (Proventil 0.083% 2.5mg/3ml) 2.5 mg [id number] IH 07/12/24 06:00 07/12/24 06:46 DC 07/12/24 06:20 2.5 MG Atorvastatin Calcium (LIPItor 40MG) 40 mg DAILY PO 07/13/24 09:00 08/12/24 08:59 07/14/24 09:49 40 MG Azithromycin 250 ml @ 250 mls/hr Q24H IVPB 07/11/24 22:30 07/14/24 22:29 07/13/24 22:43 250 MLS/HR Budesonide (Pulmicort 0.5 Mg/2ml) 0.5 mg BIDRESP 07/14/24 06:00 08/13/24 05:59 07/14/24 06:48 0.5 MG Buspirone HCl (BUspar) 5 mg BID PO 07/12/24 21:00 08/11/24 20:59 07/14/24 09:49 5 MG Ceftriaxone Sodium (ROCEphine 1G INJ) 1 gm DAILY20 IVPB 07/12/24 20:00 07/22/24 19:59 07/13/24 20:52 1 GM Citalopram Hydrobromide (CeleXA 20MG TAB) 20 mg DAILY PO 07/13/24 09:00 08/12/24 08:59 07/14/24 09:49 20 MG Clopidogrel Bisulfate (plaVIX 75MG) 75 mg DAILY PO 07/13/24 09:00 08/12/24 08:59 07/14/24 09:49 75 MG Docusate Sodium (COLace 100MG CAP) 100 mg BID PRN PO c 07/12/24 01:30 08/11/24 01:29 Enoxaparin Sodium (Lovenox) 40 mg DAILY SQ 07/12/24 09:00 07/12/24 14:05 DC 07/12/24 08:32 40 MG Famotidine (Pepcid 20mg Tab) 20 mg BID PO 07/12/24 09:00 08/11/24 08:59 07/14/24 09:49 20 MG Ferrous Sulfate (Ferrous Sulfate) 325 mg DAILY PO 07/13/24 09:00 08/12/24 08:59 07/14/24 09:49 325 MG Furosemide (LASix 40MG VIAL) 40 mg DAILY IV 07/13/24 09:00 07/12/24 15:56 DC Gabapentin (NEURontin 100 mg CAP) 100 mg BID PO 07/12/24 21:00 08/11/24 20:59 07/14/24 09:49 100 MG Hydralazine HCl (APRESOLine 20MG INJ) 10 mg Q2H PRN IV SBP GREATER THAN 160 07/12/24 01:30 07/12/24 13:16 DC Insulin Human Regular (humuLIN R 100 UNIT/ML 3ML) INSULIN SLIDING SCAL... ACHS SQ 07/12/24 07:30 08/11/24 07:29 07/13/24 11:51 4 UNIT Ipratropium [place] (AtrovENT UD) 0.5 mg [id number] 07/12/24 10:00 08/11/24 05:59 07/14/24 14:37 0.5 MG Ipratropium [place] (AtrovENT UD) 0.5 mg [id number] 07/12/24 06:00 07/12/24 06:46 DC 07/12/24 06:20 0.5 MG Lactulose (Constulose 20gm/ 30ml Udcup) 20 gm Q6H PRN PO CONSTIPATION 07/12/24 01:30 08/11/24 01:29 Losartan Potassium (CozAAR 50 mg TAB) 50 mg DAILY PO 07/13/24 09:00 08/12/24 08:59 07/14/24 09:49 50 MG Magnesium Sulfate 50 ml @ 0 mls/hr PROTOCOL PRN IV MAGNESIUM PROTOCOL 07/13/24 09:00 08/12/24 08:59 07/13/24 09:00 25 MLS/HR Methylprednisolone Sodium Succinate (Solu-medROL 40MG) 40 mg Q8H5 IVP 07/14/24 21:00 08/11/24 04:59 Methylprednisolone Sodium Succinate (Solu-medROL 40MG) 60 mg Q6H IVP 07/12/24 11:00 07/14/24 15:05 DC 07/14/24 12:40 60 MG Methylprednisolone Sodium Succinate (Solu-medROL 125MG) 60 mg Q6H IVP 07/12/24 05:00 07/12/24 07:29 DC 07/12/24 04:55 60 MG Metoprolol Tartrate (loprESSOR) 12.5 mg DAILY PO 07/13/24 09:00 08/12/24 08:59 07/14/24 09:48 12.5 MG Nicotine (Nicoderm) 14 mg DAILY TD 07/12/24 09:00 08/11/24 08:59 07/14/24 09:50 14 MG Ondansetron HCl (zoFRAN 4MG INJ) 4 mg Q6H PRN IVP NAUSEA/VOMITING 07/12/24 01:30 08/11/24 01:29 Pharmacy Profile Note (Lace Assessment) LACE ASSESSMENT: CONS... AD MISC 07/12/24 14:30 07/14/24 09:48 DC Potassium Chloride 100 ml @ 100 mls/hr AD PRN IV POTASSIUM PROTOCOL 07/13/24 09:00 08/12/24 08:59 Potassium Chloride (K-Dur/Klor-Con 20meq) 20 meq AD PRN PO POTASSIUM PROTOCOL 07/13/24 09:00 08/12/24 08:59 Potassium Chloride (KCl 10% Elixir 20meq/15ml) 20 meq AD PRN PO POTASSIUM PROTOCOL 07/13/24 09:00 08/12/24 08:59 07/13/24 09:00 20 MEQ Rivaroxaban (Xarelto) 2.5 mg BID PO 07/13/24 09:00 07/13/24 21:43 DC 07/13/24 20:52 2.5 MG Sodium Chloride 1,000 ml @ 100 mls/hr Q10H IV 07/12/24 17:00 08/11/24 16:59 07/14/24 09:50 100 MLS/HR Sulfasalazine (AZULfidine 500MG tab DR) 1,000 mg QID PO 07/12/24 17:00 07/22/24 16:59 07/14/24 12:41 1,000 MG Tamsulosin HCl (FloMAX) 0.4 mg DAILY PO 07/13/24 09:00 08/12/24 08:59 07/14/24 09:49 0.4 MG Temazepam (restORIL 15 MG CAP) 15 mg HS PRN PO INSOMNIA/SLEEP 07/12/24 01:30 08/11/24 01:29 Diagnostics / Radiology: [COPY/PASTE HERE IF NO REPORTS PLEASE DELETE SECTION] Assessment: Epigastric pain Plan: Plan for outpatient GOOD Walker DIRECTOR DIGITAL Jul 14, 2024 15:33
--- NOTE | 2024-07-14 15:59 | PN ---
[facility] PROGRESS NOTE Date Patient Seen: Jul 14, 2024 Time of Visit: 15:47 Supervising Physician: [Dr. Cruz] Primary Care Physician: KRISTIN COSTA MD (PCP) and Dr. Stanley from [facility] Outpatient Specialists: Inpatient Consults: GI PROBLEM LIST: Acute exacerbation of chronic obstructive pulmonary disease, POA -Tobacco dependence and hx of alcohol abuse Acute on chronic hypoxemic respiratory failure, baseline home O2-2L Acute dehydration Autoimmune disease, unspecified, on sulfasalazine at home Anemia of chronic disease Electrolyte derangement (Hyponatremia, hypochloremia, hypocalcemia) Dehydration Diabetes mellitus with hyperglycemia Peripheral vascular disease, bilateral lower extremity edema (BNP WNL at 69) Moderate aortic valve stenosis, per echo 06/05/24 Nominal left lung base scarring and/or atelectasis, per chest x-ray 06/03/2024 Left lower extremity cellulitis with swelling with underlying severe PAD s/p incomplete LE angio on 07/30/[address] 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 Continue supplemental oxygen as needed titrate oxygen to keep SpO2 equal to 92%. Continue albuterol and Atrovent q.4 hours scheduled. Decrease Solu-Medrol to 40mg IV Q8H Continue nicotine patch. BiPAP as needed for shortness of breath unresponsive to nebulizer treatments and steroids. Education on smoking cessation. Once less hypoxemic RT to provide IS and education on use. Robitussin DM as needed for cough. Continue antibiotic therapy: Zithromax IV and Rocephin IV. P.r.n. medications for: Pain management, fever, nausea, vomiting, constipation, hypertension. Glucose checks a.c. and HS with insulin regular sliding scale per protocol. Blood pressure checks every4 hours and as needed. Reconcile home medications once available. Monitor renal and liver function. Monitor electrolytes treat accordingly. A.m. labs: CBC, BNP, Mag, phos. DVT and GI prophylaxis. INTERVAL HISTORY: [Patient was admitted for shortness of breath secondary to COPD exacerbation. His blood pressure is 119/65 with a heart rate of 65, no fever overnight. Patient continues on nasal cannula at 9 L. his ABG today is within normal limits with a pH of 7.39, pCO2 of 48, PO2 of 83 and bicarb of 28. His COVID and flu swabs were negative, troponin 15 and BNP is 69. Labs including CBC and BNP were unremarkable except for hyponatremia at 124. His CXR shows minimal bilateral lower lobe infiltrates. His EKG was within normal limits per report. Patient continues on azithromycin and Rocephin. Nurse informed me that patient had been complaining of abdominal pain prior to admission. There was no mention of this per ED or EMS report. Patient states no abdominal pain at rest but does have pain when he eats. Has had decreased appetite d/t the same for the last few days. Patient is a very poor historian and unable to provide any other details including quality of pain, radiation, last meal or last BM. No other information provided from patient.] 07/13 Patient continues with significant end-expiratory wheezing. CTA was negative for PE. Venous doppler was negative for DVT. CMP reveals normal LFT's with a bilirubin of 0.2. His abdominal pain is improved, states is able to tolerate liquid diet without nausea or vomiting. He is tender to touch with deep palpation to RUQ but mostly to epigastric area. Still has significant end expiratory wheezing despite high dose steroids. 07/14 blood pressure 147/56 with a heart rate of 60, afebrile on intermittent 2LNC and room air. He is currently receiving high-dose steroids Solu-Medrol 60 mg Q6H PRN. Continues with significant in the expiratory wheezing and [id number] respiratory distress. He is currently using nebulizer treatment. States his abdominal pain is resolved, has been tolerating his diet without nausea vomiting or abdominal pain. He continues on IVF with NS. Sodium level is improved but still decreased at 129, magnesium also decreased, currently being replaced. His TSH is significantly low, we will evaluate with T3 and T4. H-pylori is positive for IgG. REVIEW OF SYSTEMS: 12 point ROS reviewed with patient. Pertinent positives mentioned above. Otherwise negative. PHYSICAL EXAM: GENERAL: Alert, weak, awake oriented x 3 HEENT: EOMI, Sclera non icteric, moist mucosa NECK: Supple, no JVD, trachea midline LUNGS: Tachypneic, abdominal breathing, end expiratory wheezing breath sounds bilaterally, rales bilaterally to mid lobes and below HEART: Regular rate and rhythm. Normal S1 and S2, without murmurs ABD: Abdomen soft, nontender. Bowel sounds present EXT: No clubbing cyanosis. +2 edema NEURO: Alert and oriented to person, follows commands Vital Signs (last 8hr) Date Time Temp Pulse Resp B/P (MAP) Pulse Ox O2 Delivery O2 Flow Rate FiO2 07/14/24 14:37 60 18 07/14/24 12:00 98.2 60 18 147/56 99 Room Air 07/14/24 10:49 62 18 07/14/24 08:30 68 20 N/Cannula Low lpm 2.0 28 07/14/24 08:00 98.1 68 18 166/73 97 Room Air LABS: Hematology Labs: Test 07/13/24 03:43 Range/Units White Blood Count 4.6 L 4.8-10.8 K/uL Red Blood Count 3.74 L 4.50-6.20 MIL/uL Hemoglobin 11.2 L 14.0-18.0 g/dL Hematocrit 32.3 L 42-54 % Mean Corpuscular Volume 86.4 79-99 fL Mean Corpuscular Hemoglobin 29.9 27.0-33.0 pg Mean Corpuscular Hemoglobin Concent 34.7 32.0-36.0 g/dL Red Cell Distribution Width 13.4 11.0-15.5 % Platelet Count 255 130-400 K/uL Mean Platelet Volume 9.5 7.5-10.5 fL Nucleated Red Blood Cells 0.0 0.0-0.19 % Chemistry Labs: Test 07/14/24 05:23 07/13/24 10:27 07/13/24 03:43 Range/Units Thyroid Stimulating Hormone (TSH) 0.28 #L 0.36-3.74 uIU/mL Whole Blood Glucose 189 H 70-110 MG/DL Sodium Level 129 L 136-145 mmol/L Potassium Level 3.6 3.5-5.1 mmol/L Chloride Level 92 L 101-111 mmol/L Carbon Dioxide Level 30 21-32 mmol/L Blood Urea Nitrogen 7 7-18 mg/dL Creatinine 0.7 0.5-1.3 mg/dL Glomerular Filtration Rate Calc 97 >90 mL/min Random Glucose 145 H 70-105 mg/dL Total Calcium 8.4 L 8.5-10.1 mg/dL Magnesium Level 1.20 L 1.80-2.40 mg/dL DIAGNOSTICS / RADIOLOGY RESULTS: [Pending repeat studies] PLAN NEURO: Minimize central acting medications as possible. Maintain fall precautions, adequate lighting during the day PULMONARY: Supplemental 02 as needed. Maintain aspiration precautions at all times CARDIOVASCULAR: Follow hemodynamics. Vital signs per facility protocol GI & NUTRITION: Continue with nutritional support. Continue stool softeners and laxatives as needed. KIDNEYS & ELECTROLYTES: Strict monitoring of intake, output and overall fluid balance. Avoid nephrotoxic medications to the extent possible. Medications to be dosed according to renal function. Monitor electrolytes and replace as needed ENDOCRINE: Maintain blood glucose between 100-180 at all times. Hypoglycemia protocol in place INFECTIOUS DISEASE: Trend temperature, WBC and procalcitonin level Follow cultures, deescalate antibiotics as soon as possible. Panculture if new onset fever ONCOLOGY/HEMATOLOGY/COAGULATION: Monitor for s/s of bleeding Monitor hemoglobin, coagulation studies as needed SKIN: Pressure ulcer prevention per facility protocol Specialty mattress ORTHO/REHAB: Continue PT/OT Prophylaxis: Continue GI and DVT prophylaxis Code Status: Full Resuscitation Disposition: TBD Total time spent on care of patient including reviewing chart, discussing with nursing staff, and with patient was greater than 35 minutes ANNI MURO Jul 14, 2024 15:59
[2024-07-14 16:35] LABS: ABG BASE EXCESS 4.4 mmol/L (-2.0-3.0); ABG HCO3 27.4 mmol/L (21.0-28.0); ABG OXYGEN SATURATION 97.1 % (94.0-98.0); ABG PCO2 36 mmHg (35-48); ABG PH 7.504 (7.350-7.450); PO2, ARTERIAL BG 83.4 mmHg (83.0-108.0); VENT MODE, BG NC 2L (ROOM AIR)
--- NOTE | 2024-07-14 17:05 | HMCIMG ---
Exam Type: CHEST 1VW Clinical Information: sob Comparison: None Findings: The lungs are clear of infiltrates. The heart is enlarged in size. The bony and soft tissue structures of the chest are unremarkable. Left cardiac pacemaker is noted with leads in place. Impression: Clear lungs.
[2024-07-14] MEDS: Solu-medROL 40MG VIAL IVP SCH (19:42)
[2024-07-15] VITALS (10 sets, daily range): BP systolic 125–163; BP diastolic 54–65; PULSE 60–95; RESP 16–20; TEMP 97.8–98; O2SAT 92–100
[2024-07-15 05:52] LABS: CREATININE 0.7 mg/dL (0.5-1.3); POTASSIUM 3.5 mmol/L (3.5-5.1)
[2024-07-15] MEDS ORDERED: METH4TAB3 PO (18:04)
--- NOTE | 2024-07-15 18:05 | DS ---
[facility] DISCHARGE SUMMARY Date Patient Seen: Jul 15, 2024 Time of Visit: 18:05 Supervising Physician: [Dr. Cruz] Primary Care Physician: KRISTIN COSTA MD (PCP) and Dr. Stanley from [facility] Outpatient Specialists: Inpatient Consults: GI PROBLEM LIST: Acute exacerbation of chronic obstructive pulmonary disease, POA -Tobacco dependence and hx of alcohol abuse Acute on chronic hypoxemic respiratory failure, baseline home O2-2L Acute dehydration Autoimmune disease, unspecified, on sulfasalazine at home Anemia of chronic disease Electrolyte derangement (Hyponatremia, hypochloremia, hypocalcemia) Dehydration Diabetes mellitus with hyperglycemia Peripheral vascular disease, bilateral lower extremity edema (BNP WNL at 69) Moderate aortic valve stenosis, per echo 06/05/24 Nominal left lung base scarring and/or atelectasis, per chest x-ray 06/03/2024 Left lower extremity cellulitis with swelling with underlying severe PAD s/p inc omplete LE angio on 07/30/[address] 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 Cruz is a 73-year-old male with a history of COPD, CHF, DM type 2, hypercholesteremia, heart disease, hypertension, dependent tobacco smoker who presented to [facility] via EMS for evaluation of acute hypoxemic respiratory failure and wheezing onset today. EMS reported that they found the patient hypoxic oxygen levels in the 70s%, and they gave a nebulizer treatment prior to transfer to [facility]. The patient arrived to the ED with a blood pressure of 212/81, respirations 38bpm, heart rate 70 bpm, 100% on non-rebreather at 15 L. In ED patient was admi nistered NS 1,368 mL, Rocephin1 g, [id number] mg IV, DuoNeb nebulizer treatment. BNP WNL at 69 and troponin WNL at 15. Influenza and COVID are negative. EKG SR, HR 76 bpm. ED physician request patient be admitted with the diagnosis of acute exacerbation of chronic COPD and acute hypoxemic respiratory failure. Per chart review patient had a recent admission on 06/03/2024 for the same complaint of today. The patient was discharged 06/06/2024. HOSPITAL COURSE: Patient was admitted for shortness of breath secondary to COPD exacerbation. His blood pressure is 119/65 with a heart rate of 65, no fever overnight. Patient continues on nasal cannula at 9 L. his ABG today is within normal limits with a pH of 7.39, pCO2 of 48, PO2 of 83 and bicarb of 28. His COVID and flu swabs were negative, troponin 15 and BNP is 69. Labs including CBC and BNP were unremarkable except for hyponatremia at 124. His CXR shows minimal bilateral lower lobe infiltrates. His EKG was within normal limits per report. Patient continues on azithromycin and Rocephin. Nurse informed me that patient had been complaining of abdominal pain prior to admission. There was no mention of this per ED or EMS report. Patient states no abdominal pain at rest but does have pain when he eats. Has had decreased appetite d/t the same for the last few days. Patient is a very poor historian and unable to provide any other details including quality of pain, radiation, last meal or last BM. No other information provided from patient. CTA was negative for PE. Venous doppler was negative for DVT. CMP reveals normal LFT's with a bilirubin of 0.2. His abdominal pain is improved, states is able to tolerate liquid diet without nausea or vomiting. He is tender to touch with deep palpation to RUQ but mostly to epigastric area. Still had significant end expiratory wheezing the following day despite high dose steroids with solumedrol 60mg Q6H. States his abdominal pain is resolved, has been tolerating his diet without nausea vomiting or abdominal pain. He continues on IVF with NS. Sodium level is improved but still decreased at 129, magnesium also decreased, currently being replaced. His TSH is significantly low, with elevated T4. H-pylori is positive for IgG. Patient felt improved after treatment with high dose IV steroids and nebulizer treatments. He was wanting to leave since the day after admission but continued with treatment. Prior to discharge he was advised that he still had significant wheezing and was not recommended for him to leave but stated he was ready to leave. Patient frequently visits the ED for the same complaint. After discussion with supervising MD, patient was discharged in grossly stable condition to follow up with PCP for reevaluation. CHRONIC PROBLEMS: continue previous management per PCP unless otherwise in dicated DISCHARGE MEDICATIONS: As listed below Pt hemodynamically stable and afebrile at time of discharge. PCP notified of patients admission, hospital course and discharge. New Medications: Methylprednisolone (Medrol) 4 Mg Tab.ds.pk 1 TAB PO AD for 6 Days, #21 TAB 0 Refills 6 on day 1 then reduce by one tablet daily until gone Continued Medications: Atorvastatin Calcium (Atorvastatin Calcium) 40 Mg Tablet 40 MG PO DAILY, TAB Buspirone HCl (Buspirone HCl) 5 Mg Tablet 5 MG PO BID, TAB Clopidogrel Bisulfate (Clopidogrel) 75 Mg Tablet 1 TAB PO DAILY for 30 Days, #30 TAB 0 Refills Escitalopram Oxalate (Escitalopram Oxalate) 20 Mg Tablet 20 MG PO DAILY, TAB Ferrous Sulfate (Ferrous Sulfate) 325 Mg (65 Mg Iron) Ectab 1 TAB PO DAILY for 30 Days, #30 TAB 0 Refills Gabapentin (Gabapentin) 100 Mg Capsule 100 MG PO BID, CAP Hydralazine HCl (Hydralazine HCl) 50 Mg Tablet 1 TAB PO BID for 30 Days, #60 TAB 0 Refills Losartan Potassium (Losartan Potassium) 50 Mg Tablet 50 MG PO DAILY, TAB Metoprolol Tartrate (Metoprolol Tartrate) 25 Mg Tablet 12.5 MG PO DAILY, TAB Omeprazole (Omeprazole) 20 Mg Tablet.dr 20 MG PO TID, TAB Rivaroxaban (Xarelto) 2.5 Mg Tablet 2.5 MG PO BID, TAB Sulfasalazine (Sulfasalazine Dr) 500 Mg Tablet.dr 1000 MG PO QID, TAB Tamsulosin HCl (Flomax) 0.4 Mg Cap.er.24h 0.4 MG PO DAILY, CAPSULE. Vitamin E Mixed (Vitamin E) 400 Unit Capsule 1 CAP PO DAILY for 30 Days, #60 CAP 0 Refills PHYSICAL EXAM: GENERAL: Alert, weak, awake oriented x 3 HEENT: EOMI, Sclera non icteric, moist mucosa NECK: Supple, no JVD, trachea midline LUNGS: Tachypneic, abdominal breathing, end expiratory wheezing breath sounds bilaterally, rales bilaterally to mid lobes and below HEART: Regular rate and rhythm. Normal S1 and S2, without murmurs ABD: Abdomen soft, nontender. Bowel sounds present EXT: No clubbing cyanosis. +2 edema NEURO: Alert and oriented to person, follows commands FOLLOW-UP: F/U with PCP in 2-3 days for reevaluation. F/U with pulmonology outpatient. Continue medrol dose pack upon DC. RECOMMENDATIONS: See Discharge Instructions This case was seen and discussed with my supervising physician. More than 30 minutes spent on discharge process, including evaluation of the patient, discussion with nursing staff, medication reconciliation and follow-up appointments ANNI MURO Jul 15, 2024 18:05
== END 2024-07-15 19:54 | disposition home or self-care (01) | DRG 189 ==
LOC: EDH 22:03 → EDHIP 07-12 01:09 → OBSVTOIN 07-12 01:09 → 4CH 07-12 02:17
PROVIDERS: ADMIT Internal Medicine Critical Care Medicine; ATTEND Internal Medicine Critical Care Medicine
DX: J96.21 Acute and chronic respiratory failure with hypoxia (principal); I50.33 Acute on chronic diastolic (congestive) heart failure; J44.1 Chronic obstructive pulmonary disease with (acute) exacerbation; F17.200 Nicotine dependence, unspecified, uncomplicated; E86.0 Dehydration; D63.8 Anemia in other chronic diseases classified elsewhere; E83.51 Hypocalcemia; E87.8 Other disorders of electrolyte and fluid balance, not elsewhere classified; E11.65 Type 2 diabetes mellitus with hyperglycemia; I11.0 Hypertensive heart disease with heart failure; Z91.199 Patient's noncompliance with other medical treatment and regimen due to unspecified reason; F41.9 Anxiety disorder, unspecified; I45.9 Conduction disorder, unspecified; N40.0 Benign prostatic hyperplasia without lower urinary tract symptoms; I35.0 Nonrheumatic aortic (valve) stenosis; K59.00 Constipation, unspecified; Z20.822 Contact with and (suspected) exposure to COVID-19; I25.10 Atherosclerotic heart disease of native coronary artery without angina pectoris; G47.00 Insomnia, unspecified; E78.00 Pure hypercholesterolemia, unspecified; Z95.5 Presence of coronary angioplasty implant and graft; Z86.73 Personal history of transient ischemic attack (TIA), and cerebral infarction without residual deficits; Z95.0 Presence of cardiac pacemaker; Z82.49 Family history of ischemic heart disease and other diseases of the circulatory system; Z79.899 Other long term (current) drug therapy; Z79.01 Long term (current) use of anticoagulants
CPT/HCPCS: 36415; 36600; 71045; 71270; 74150; 80048; 80053; 82435; 82803; 82947; 82948; 83605; 83735; 83880; 84132; 84145; 84295; 84439; 84443; 84481; 84484; 85018; 85025; 85027; 85378; 86677; 87635; 87804; 93005; 93970; 94640; 94664; 96365; 96375; 96376; 99285; G0378; J0456; J0696; J1650; J1815; J2919; J3475; J7030; Q9967

== ENCOUNTER 2024-08-29 22:36 | Inpatient (IN) | payer OTHER, MEDICARE ==
[~2024-08-29] VITALS: Ht 172.7 cm; Wt 65.5 kg
[~2024-08-29 22:36] MED LIST changes: -ALBU1.252 IH; +HYDR50TA37 PO; -LORA0.5T83 PO; +METH4TAB3 PO; -METO-296 PO; -NIFE-78 PO; -PRED20B PO; +VITA-348 PO
[2024-08-29 23:52] LABS: BASOPHILS # (AUTO) 0.05 K/uL (0.00-0.20); BASOPHILS % (AUTO) 0.7 % (0.0-5.0); EOSINOPHILS # (AUTO) 0.07 K/uL (0.00-0.70); HEMATOCRIT 32.4 % (42-54); IMMATURE GRANULOCYTE ABSOLUTE 0.02 K/uL (0-1); LYMPHOCYTES # (AUTO) 0.7 K/uL (1.0-4.8); LYMPHOCYTES % (AUTO) 9.7 % (21.0-51.0); MEAN CORPUSCULAR HEMOGLOBIN 29.1 pg (27.0-33.0); MEAN CORPUSCULAR HGB CONC 33.3 g/dL (32.0-36.0); MEAN CORPUSCULAR VOLUME 87.3 fL (79-99); MONOCYTES # (AUTO) 1.2 K/uL (0.1-1.0); MONOCYTES % (AUTO) 16.5 % (3.0-13.0); NEUTROPHILS # (AUTO) 5.1 K/uL (1.8-7.7); NEUTROPHILS % (AUTO) 71.8 % (40.0-77.0); PLATELET COUNT (AUTO) 285 K/uL (130-400); RED BLOOD CELL COUNT(AUTO) 3.71 MIL/uL (4.50-6.20); RED CELL DISTRIBUTION WIDTH 14.2 % (11.0-15.5)
--- NOTE | 2024-08-29 23:58 | ERN ---
General Chief Complaint: Weakness Stated Complaint: GBW Time Seen by MD: 22:39 Source: patient History of Present Illness Initial Comments Patient is a 73-year-old male coming in to be evaluated for generalized body weakness and cough. Patient has been having a cough for a couple of days and was concerned because cough was productive. No fever or chills currently present. Allergies: Coded Allergies: Pork/Porcine Containing Products (Verified Allergy, Intermediate, ) No Known Allergies (Unverified Allergy, Unknown, 07/17/24) No Known Drug Allergies (Verified Allergy, Unknown, 08/04/19) Home Meds Active Scripts Methylprednisolone (Medrol) 4 Mg Tab.ds.pk, 1 TAB PO AD for 6 Days, #21 TAB 0 Refills 6 on day 1 then reduce by one tablet daily until gone Prov:ANNI MURO 07/15/24 Sulfasalazine (Azulfidine) 500 Mg Tablet.dr, 1000 MG PO QID for 30 Days, #120 TAB 1 Refill Prov:GERMÁN ABEBE MD 05/27/24 Furosemide (Lasix 20Mg Tab) 20 Mg Tablet, 20 MG PO DAILY for 30 Days, #30 TAB 1 Refill Prov:GERMÁN ABEBE MD 05/27/24 Metronidazole (Metronidazole) 500 Mg Tablet, 500 MG PO TID for 10 Days, #30 TAB 0 Refills Prov:GERMÁN ABEBE MD 05/27/24 Levofloxacin (Levofloxacin) 500 Mg Tablet, 500 MG PO DAILY for 10 Days, #10 TAB 0 Refills Prov:GERMÁN ABEBE MD 05/27/24 Metoprolol Succinate (Toprol Xl) 25 Mg Tab.er.24h, 12.5 MG PO DAILY for 30 Days, #30 TAB 1 Refill Prov:GERMÁN ABEBE MD 05/27/24 Losartan Potassium (Cozaar) 50 Mg Tablet, 50 MG PO DAILY for 30 Days, #30 TAB 1 Refill Prov:GERMÁN ABEBE MD 05/27/24 Clopidogrel Bisulfate (Plavix) 75 Mg Tablet, 75 MG PO DAILY for 30 Days, #30 TAB 2 Refills Prov:GERMÁN ABEBE MD 05/27/24 Aspirin (ASPIRIN 81MG CHEW TAB) 81 Mg Tab.chew, 81 MG PO DAILY for 30 Days, #30 TAB.CHEW 2 Refills Prov:GERMÁN ABEBE MD 05/27/24 Doxycycline Hyclate (Doxycycline Hyclate) 100 Mg Capsule, 100 MG PO BID for 7 Days, #14 CAP 0 Refills Prov:[facility] WHITLOCK [facility] 05/03/24 Montelukast Sodium (Singulair 10Mg) 10 Mg Tab, 10 MG PO DAILY, #30 TAB 3 Refills Prov:[facility]AN WHITLOCK [facility] 05/03/24 Ipratropium/Albuterol Sulfate (Iprat-Albut 0.5-3(2.5) mg/3 ml) 0.5 Mg-3 Mg (2.5 Mg Base)/3 Ml Ampul.neb, 1 UDVIAL IH [id number] PRN for SHORTNESS OF BREATH, #30 UNIT 3 Refills Prov:[facility] WHITLOCK [facility] 05/03/24 Prednisone (Prednisone) 20 Mg Tablet, 20 MG PO DAILY for 7 Days, #7 TAB 0 Refills Prov:JULIO CESAR GARCIA MD 01/12/21 Reported Medications Vitamin E Mixed (Vitamin E) 400 Unit Capsule, 1 CAP PO DAILY for 30 Days, #60 CAP 0 Refills 07/12/24 Hydralazine HCl (Hydralazine HCl) 50 Mg Tablet, 1 TAB PO BID for 30 Days, #60 TAB 0 Refills 07/12/24 Ferrous Sulfate (Ferrous Sulfate) 325 Mg (65 Mg Iron) Ectab, 1 TAB PO DAILY for 30 Days, #30 TAB 0 Refills 06/03/24 Tamsulosin HCl (Flomax) 0.4 Mg Cap.er.24h, 0.4 MG PO DAILY, CAPSULE. 06/03/24 Sulfasalazine (Sulfasalazine Dr) 500 Mg Tablet.dr, 1000 MG PO QID, TAB 06/03/24 Losartan Potassium (Losartan Potassium) 50 Mg Tablet, 50 MG PO DAILY, TAB 06/03/24 Omeprazole (Omeprazole) 20 Mg Tablet.dr, 20 MG PO TID, TAB 06/03/24 Clopidogrel Bisulfate (Clopidogrel) 75 Mg Tablet, 1 TAB PO DAILY for 30 Days, #30 TAB 0 Refills 06/03/24 Metoprolol Tartrate (Metoprolol Tartrate) 25 Mg Tablet, 12.5 MG PO DAILY, TAB 06/03/24 Gabapentin (Gabapentin) 100 Mg Capsule, 100 MG PO BID, CAP 06/03/24 Atorvastatin Calcium (LIPITOR) 40 Mg Tablet, 40 MG PO AM, TAB 05/19/24 Albuterol Sulfate (Ventolin Hfa) 90 Mcg Hfa.aer.ad, 2 PUFF IH Q4HPRN PRN for wheezing for 30 Days, #18 GM 0 Refills 04/28/24 Albuterol Sulfate (Ventolin Hfa) 90 Mcg Hfa.aer.ad, 2 PUFF IH Q4HPRN PRN for wheezing for 30 Days, #18 GM 0 Refills 04/28/24 Gabapentin (Gabapentin) 100 Mg Capsule, 1 CAP PO BID for 30 Days, #90 CAP 0 Refills 04/28/24 Montelukast Sodium (Montelukast Sodium) 10 Mg Tablet, 10 MG PO PM, TAB 04/28/24 Buspirone HCl (Buspar) 15 Mg Tab, 5 MG PO BID, TAB 04/28/24 Clopidogrel Bisulfate (Plavix) 75 Mg Tablet, 75 MG PO DAILY, TAB 04/28/24 Ferrous Sulfate (Ferrous Sulfate) 325 Mg (65 Mg Iron) Tablet, 1 TAB PO AD for EVERY OTHER DAY for 30 Days, #30 TAB 0 Refills 04/28/24 Cetirizine HCl (Cetirizine HCl) 10 Mg Tab.chew, 1 TAB PO DAILY for allergy symptoms for 30 Days, #30 TAB 0 Refills 04/28/24 Tamsulosin HCl (Flomax) 0.4 Mg Cap.er.24h, 1 CAP PO DAILY for 30 Days, #30 CAP 0 Refills 04/28/24 Omeprazole (Omeprazole) 20 Mg Capsule.dr, 1 CAP PO ACBKFST for 30 Days, #30 CAP 0 Refills 04/28/24 Escitalopram Oxalate (Escitalopram Oxalate) 20 Mg Tablet, 20 MG PO DAILY, TAB 06/06/23 Buspirone HCl (Buspirone HCl) 5 Mg Tablet, 5 MG PO BID, TAB 06/06/23 Rivaroxaban (Xarelto) 2.5 Mg Tablet, 2.5 MG PO BID, TAB 01/03/23 Atorvastatin Calcium (Atorvastatin Calcium) 40 Mg Tablet, 40 MG PO DAILY, TAB 01/03/23 Nitroglycerin (Nitroglycerin) 0.4 Mg Tab.subl, 0.4 MG SL AD, TAB.SL 03/31/21 Fluticasone Propionate (Flovent Hfa) 12 Gm Aer.w.adap, 120 GM IH BID 01/05/21 Furosemide (Furosemide) 40 Mg Tablet, 40 MG PO BID, TAB 01/05/21 Gabapentin (Gabapentin) 300 Mg/6 Ml Solution, 300 MG PO TID, ML 01/05/21 Tamsulosin HCl (Flomax) 0.4 Mg Cap.er.24h, 0.4 MG PO DAILY, CAPSULE.DR 01/05/21 Hydroxyzine HCl (Hydroxyzine HCl) 25 Mg Tablet, 25 MG PO TID, TAB 01/05/21 [Vit B12] No Conflict Check, DAILY 08/12/19 Ammonium Lactate/Emu Oil (Emu-Lac Hydrating Cream) 120 Ml Cream.ml., 120 ML TP DAILY, ML 08/12/19 Metoprolol Tartrate (Metoprolol Tartrate) 25 Mg Tablet, 50 MG PO DAILY, TAB 08/12/19 Buspirone HCl (Buspirone HCl) 15 Mg Tablet, 15 MG PO BID, TAB 08/12/19 Aspirin (Aspir 81) 81 Mg Tablet.dr, 81 MG PO DAILY, TAB 08/12/19 Sertraline HCl (Sertraline HCl) 100 Mg Tablet, 100 MG PO DAILY, TAB 08/12/19 Clopidogrel Bisulfate (Clopidogrel) 75 Mg Tablet, 75 MG PO DAILY, TAB 08/12/19 Losartan Potassium (Losartan Potassium) 25 Mg Tablet, 25 MG PO DAILY, TAB 08/12/19 Atorvastatin Calcium (Atorvastatin Calcium) 40 Mg Tablet, 40 MG PO HS, TAB 08/12/19 Past Medical History Past Medical History: CAD, Diabetes-Type II, Hypertension Past Surgical History: Unknown Family History Family History: HTN Social History Social History: Smokers, Lives with family ROS Dictation CONSTITUTIONAL: No chills, no fever, no weakness, no diaphoresis, no malaise. HEAD/FACE: No signs of trauma. EENT: No eye pain, no blurred vision, no tearing, no double vision, no ear pain, no ear discharge, no nose pain, no nasal congestion, no throat pain, no throat swelling, no mouth pain. RESPIRATORY: cough, no orthopnea, no SOB, no stridor, no wheezing. CARDIOVASCULAR: No chest pain, no edema, no palpitations, no syncope. GASTROINTESTINAL/ABDOMINAL: No abdominal pain, no constipation, no diarrhea, no nausea, no vomiting. GENITOURINARY: No abnormal discharge, no dysuria, no frequent urination, no hematuria. No complaints of pain in the genitals. MUSCULOSKELETAL: No back pain, no gout, no joint pain, no joint swelling, no muscle pain, no muscle stiffness, no neck pain. INTEGUMENTARY: No change in color, no change in hair/nails, no dryness, no lesion, no lumps, no rash. NEUROLOGICAL/PSYCH: No anxiety, not depressed, no emotional problem, no headache, no numbness, no pre-existing deficit, no history of seizures, no tremors, no weakness. HEMATOLOGIC/LYMPHATIC: Not anemic, no history of blood clots, no apparent bleeding, no bruising, glands not swollen. All Systems Negative, Except as Noted. Physical Exam Physical Exam Dictation VITAL SIGNS: Reviewed. GENERAL APPEARANCE: Alert, oriented x3, no acute distress, obese. HEAD AND FACE: Non-traumatic. EYES: PERRL, pink conjunctivas, eyelid no trauma, anterior chamber clear. EARS: Pinnas intact and no signs of trauma or erythema. Ear canals clear and no discharge. TMs no erythema. NOSE: No discharge, no bleeding. OROPHARYNX: Mouth normal, teeth no caries, tongue pink. Pharynx clear, no erythema. Tonsils no exudates, no abscesses noted. Mucous membrane moist. NECK: Supple, non-tender, no thyromegaly, no masses, no JVD, no bruits. BREAST: Deferred. CHEST: No tenderness, no crepitus, no paradoxical movement, no retractions. LUNGS: Clear, well-ventilated, symmetric, rales, no wheezing, no rhonchi, no stridor, good breath sounds bilaterally. HEART: Regular rate, regular rhythm, no murmur, no gallops. VASCULAR: No peripheral edema. ABDOMEN: Soft, positive bowel sounds, nondistended, no guarding, nontender, no rebound, no masses no hepatomegaly, no splenomegaly, no Coleman's sign, no hernias. RECTAL: Deferred. GENITAL: Deferred. NEUROLOGICAL: Normal speech, gross motor function intact, gross sensory function intact. MUSCULOSKELETAL: Neck nontender, full range of motion, back nontender, full range of motion. EXTREMITIES: Nontender, full range of motion. SKIN: Color pink, dry, no turgor, no rash, no lacerations, no abrasions, no contusions. LYMPHATICS: Deferred. Results Laboratory and Microbiology Lab and Micro Result Laboratory Tests Test 08/29/24 23:42 White Blood Count 7.0 K/uL (4.8-10.8) Red Blood Count 3.71 MIL/uL (4.50-6.20) L Hemoglobin 10.8 g/dL (14.0-18.0) L Hematocrit 32.4 % (42-54) L Mean Corpuscular Volume 87.3 fL (79-99) Mean Corpuscular Hemoglobin 29.1 pg (27.0-33.0) Mean Corpuscular Hemoglobin Concent 33.3 g/dL (32.0-36.0) Red Cell Distribution Width 14.2 % (11.0-15.5) Platelet Count 285 K/uL (130-400) Mean Platelet Volume 9.5 fL (7.5-10.5) Immature Granulocyte % (Auto) 0.3 % (0-1) Neutrophils (%) (Auto) 71.8 % (40.0-77.0) Lymphocytes (%) (Auto) 9.7 % (21.0-51.0) L Monocytes (%) (Auto) 16.5 % (3.0-13.0) H Eosinophils (%) (Auto) 1.0 % (0.0-8.0) Basophils (%) (Auto) 0.7 % (0.0-5.0) Neutrophils # (Auto) 5.1 K/uL (1.8-7.7) Lymphocytes # (Auto) 0.7 K/uL (1.0-4.8) L Monocytes # (Auto) 1.2 K/uL (0.1-1.0) H Eosinophils # (Auto) 0.07 K/uL (0.00-0.70) Basophils # (Auto) 0.05 K/uL (0.00-0.20) Absolute Immature Granulocyte (auto 0.02 K/uL (0-1) Nucleated Red Blood Cells 0.0 % (0.0-0.19) Sodium Level 134 mmol/L (136-145) L Potassium Level 3.6 mmol/L (3.5-5.1) Chloride Level 96 mmol/L (101-111) L Carbon Dioxide Level 29 mmol/L (21-32) Blood Urea Nitrogen 5 mg/dL (7-18) L Creatinine 0.8 mg/dL (0.5-1.3) Glomerular Filtration Rate Calc 93 mL/min (>90) Random Glucose 109 mg/dL (70-105) H Total Calcium 9.0 mg/dL (8.5-10.1) Labs Reviewed?: Yes EKG/XRAY/US/CT/MRI EKG Comment 08/30/2024 time 00:12 Ventricular rate 73 Sinus rhythm [place] [address] wave elevation or depression X-RAY Comment Chest x-ray right lung infiltrates suggestive of a right lung pneumonia MDM MDM: Differential diagnosis: Right lung pneumonia, URI, COPD exacerbation Rationale: Tests considered and ordered secondary to shared decision making include: labs, ECG and radiology Previous outside records reviewed: Old ER visits. Risk of complication and/or morbidity or mortality of patient management: None Medications-Per medication reconciliation Need for hospitalization: Patient does meet criteria for hospitalization. Need for emergency major/minor surgery: No There are no social concerns with this patient. Prescription drug management Prescriptions will include symptomatic care Patient's prior external medical records from other ER visits were reviewed by me as indicated. Prior testing and results from previous visits were reviewed. Prior tests were taken into account with medical decision making and resource utilization, independent historian/historians were used to obtain complete med [facility] history. I independently interpreted the test that were performed, results were reviewed by me and considered findings on radiology if ordered. Medical management and examination interpretation discussions were had by me with other qualified healthcare professionals as indicated for the patient's care. Patient is a 73-year-old gentleman coming in with generalized body weakn ess and cough as well as shortness of breath. On physical exam bilateral lung long wheezing with crackles suggestive of COPD exacerbation. Chest x-ray disclose right lung infiltrates suggestive of right lung pneumonia. Patient will be admitted under the care of [facility] for ongoing management. ED Course Orders Procedure Category Date Status Time Influenza Type A & B, LAB 08/29/24 In Process Rapid 22:38 Covid Rna Naat LAB 08/29/24 In Process 22:38 Rapid (Group A Strep) LAB 08/29/24 In Process 22:38 Chest 1vw RAD 08/29/24 Taken 22:38 Cbc With Differential LAB 08/29/24 In Process 23:20 Basic Metabolic Panel LAB 08/29/24 Complete 23:20 Prothrombin Time With LAB 08/30/24 Logged INR 00:05 B-Type Natriuretic LAB 08/30/24 Logged Peptide 00:05 12 Lead Ekg Tracing- EKG 08/30/24 Logged Technical 00:05 Magnesium LAB 08/30/24 Logged 00:05 Creatine Kinase, Total LAB 08/30/24 Logged 00:05 Troponin I High LAB 08/30/24 Logged Sensitivity 00:05 Urinalysis Profile LAB 08/30/24 Logged 00:05 Partial LAB 08/30/24 Logged Thromboplastin Time 00:05 Ipratropium/Albuterol PHA 08/30/24 Complete Neb (Duoneb) 00:30 Ceftriaxone 1g Vial PHA 08/30/24 Complete (Rocephine 1g Inj) 00:30 Azithromycin 500mg+Ns PHA 08/30/24 In Process 250ml (Azithromyci 00:06 Methylprednisolone PHA 08/30/24 Complete Succ 125mg (Solu-Medr 00:30 Current Medications Medications (Trade) Dose Ordered Sig/Sherman Route PRN Reason Start Time Stop Time Status Last Admin Dose Admin Albuterol (DUOneb) 2 udvial ONCE ONCE IH 08/30/24 00:30 08/30/24 00:31 DC 08/30/24 00:25 Azithromycin 250 ml @ 250 mls/hr Q24H STAT IVPB 08/30/24 00:06 08/30/24 01:05 08/30/24 00:22 Ceftriaxone Sodium (ROCEphine 1G INJ) 1 gm ONCE ONCE IVPB 08/30/24 00:30 08/30/24 00:31 DC 08/30/24 00:13 Methylprednisolone Sodium Succinate (Solu-medROL 125MG) 125 mg ONCE ONCE IVP 08/30/24 00:30 08/30/24 00:31 DC 08/30/24 00:13 Vital Signs Date Time Temp Pulse Resp B/P (MAP) Pulse Ox O2 Delivery O2 Flow Rate FiO2 08/30/24 00:25 96 21 08/29/24 22:53 98.4 88 21 197/55 97 Room Air* 0 21 08/29/24 22:40 98.4 87 22 204/70 97 Room Air Critical Care Note Comments Critical Care Procedure Note Authorized and Performed by: me Total critical care time: Approximately 36 minutes Due to a high probability of clinically significant, life threatening deterioration, the patient required my highest level of preparedness to intervene emergently and I personally spent this critical care time directly and personally managing the patient. This critical care time included obtaining a history; examining the patient; pulse oximetry; ordering and review of studies; arranging urgent treatment with development of a management plan; evaluation of patient's response to treatment; frequent reassessment; and, discussions with other providers. This critical care time was performed to assess and manage the high probability of imminent, life-threatening deterioration that could result in multi-organ failure. It was exclusive of separately billable procedures and treating other patients and teaching time. Please see MDM section and the rest of the note for further information on p atient assessment and treatment. DX & DISP Disposition: Inpatient Decision to Admit Time: 00:36 Departure Impression: Primary Impression: Pneumonia involving right lung Additional Impression: COPD exacerbation Condition: Stable Referrals: KRISTIN COSTA MD (PCP) CHIDI RIZZO MD Aug 29, 2024 23:58
[2024-08-30] VITALS (9 sets, daily range): PULSE 75–96; RESP 18–26; O2SAT 97–100
[2024-08-30 00:02] LABS: CREATININE 0.8 mg/dL (0.5-1.3); POTASSIUM 3.6 mmol/L (3.5-5.1)
[2024-08-30] MEDS: cefTRIAXone 1G VIAL IVPB ONE (00:13)
[2024-08-30] MEDS: Solu-medROL 125MG VIAL IVP ONE (00:13)
[2024-08-30] MEDS: AZITHROMYCIN 500MG+NS 250ML 250 ML IVPB STA (00:22)
[2024-08-30] MEDS: IpraTROPium/alBUTERol SULFATE 3 ML SOLUTION IH ONE (00:25)
[2024-08-30 00:43] LABS: RAPID GROUP A STREP negative (NEGATIVE)
[2024-08-30] MEDS ORDERED: NITR0.4T50 SL (00:43)
[2024-08-30] MEDS ORDERED: ESCI20TA38 PO (00:43)
[2024-08-30] MEDS ORDERED: LOSA50TA64 PO (00:43)
[2024-08-30] MEDS ORDERED: XARELTO PO (00:43)
[2024-08-30] MEDS ORDERED: PANT40TA54 PO (00:43)
[2024-08-30] MEDS ORDERED: MONT-39 PO (00:43)
[2024-08-30] MEDS ORDERED: ATOR40TA71 PO (00:43)
[2024-08-30] MEDS ORDERED: BUDE10.7 IH (00:43)
[2024-08-30] MEDS ORDERED: BUSP5TAB3 PO (00:43)
[2024-08-30] MEDS ORDERED: METO-408 PO (00:43)
[2024-08-30] MEDS ORDERED: ASPI-1443 PO (00:43)
[2024-08-30] MEDS ORDERED: TAMS-1 PO (00:43)
[2024-08-30] MEDS ORDERED: OMEP20CA12 PO (00:43)
[2024-08-30 00:57] LABS: INFLUENZA TYPE A Negative For Type A (NEGATIVE); INFLUENZA TYPE B Negative For Type B (NEGATIVE)
[2024-08-30] MEDS ORDERED: ondanSETRON 4MG INJ IVP PRN (01:00)
[2024-08-30] MEDS ORDERED: LACTULOSE 20 GM/30 ML UDCUP PO PRN (01:00)
[2024-08-30] MEDS ORDERED: acetaMINOPHEN 650 MG SUPPOSITORY RC PRN (01:00)
--- NOTE | 2024-08-30 01:01 | HP ---
[facility] HISTORY & PHYSICAL Date Patient Seen: Aug 30, 2024 Time of Visit: 01:01 Supervising Physician: Dr. Zenon Cruz Primary Care Physician: KRISTIN COSTA MD (PCP) Outpatient Specialists: Inpatient Consults: PROBLEM LIST: Right lung pneumonia, POA Acute exacerbation of chronic obstructive pulmonary disease, POA -Tobacco dependence and hx of alcohol abuse Acute on chronic hypoxemic respiratory failure, baseline home O2-2L Acute dehydration Autoimmune disease, unspecified, on sulfasalazine at home Anemia of chronic disease Electrolyte derangement (Hyponatremia, hypochloremia, hypocalcemia) Dehydration Diabetes mellitus with hyperglycemia Peripheral vascular disease, bilateral lower extremity edema (BNP WNL at 69) Moderate aortic valve stenosis, per echo 06/05/24 Nominal left lung base scarring and/or atelectasis, per chest x-ray 06/03/2024 Left lower extremity cellulitis with swelling with underlying severe PAD s/p incomplete LE angio on 07/30/[address] Rivera PAD with history of angioplasty prior bilateral iliac stents in October 2020 and stenting of Left SFA on Xarelto Acute on chronic diastolic CHF with preserved EF 60-65% per Echo on 06/05/2024 Hyperglycemia without history of diabetes CAD hx of stenting of RCA in 2019 Primary hypertension Hyperlipidemia BPH Conduction System Disease Pacemaker in situ History of stroke with slurred speech residual Chronic anxiety History of acute Herpes Zoster of Right Thorax on 07/23/2023 admission and dx on 08/06/2023, s/p treatment Medical noncompliance HPI: Mr. Cruz is a 73-year-old male with a history of COPD, CHF, DM type 2, hypercholesteremia, heart disease, hypertension, dependent tobacco smoker who presented to ED for evaluation of evaluated for generalized body weakness and productive cough onset a couple of days. The patient denied fever or chills currently. ED provider request patient be admitted with the diagnosis of pneumonia involving right lung and COPD exacerbation. Per chart review patient was admitted on 06/22/2024 and was discharged on 07/15/2024 also for acute exacerbation of COPD. I assess the patient at bedside. Patient was tachypneic, distressed. The patient was passed on BiPAP and ABGs were obtained. ABGs: PH 7.445, pCO2 28, PO2 61.9, bicarbonate 18.7, O2 sats 93, base excess-3.8 On BiPAP 10/5, breathing 18, 30%. Settings changed to 1005 rate of 18 40% FiO2. BIS team we will continue monitoring patient closely. Plan and assessment are listed below.. PAST MEDICAL HX: see above PAST SURGICAL HX: see above SOCIAL HISTORY: No tobacco, ETOH, or illicit drug use Coded Allergies: Pork/Porcine Containing Products (Verified Allergy, Intermediate, 07/17/24) No Known Allergies (Unverified Allergy, Unknown, 07/17/24) No Known Drug Allergies (Verified Allergy, Unknown, 08/04/19) REVIEW OF SYSTEMS: Unable to obtain ROS from patient due to patient being in respiratory distress. PHYSICAL EXAM: GENERAL: Alert, weak, awake oriented x 3 HEENT: EOMI, Sclera non icteric, moist mucosa NECK: Supple, no JVD, trachea midline LUNGS: Tachypneic, diminished breath sounds bilaterally. No wheezes HEART: Regular rate and rhythm. Normal S1 and S2, without murmurs ABD: Abdomen soft, nontender. Bowel sounds present EXT: No clubbing cyanosis or edema NEURO: Alert and oriented x3, follows commands. Vital Signs (last 8hr) Date Time Temp Pulse Resp B/P (MAP) Pulse Ox O2 Delivery O2 Flow Rate FiO2 08/30/24 00:25 96 21 08/29/24 22:53 98.4 88 21 197/55 97 Room Air* 0 21 08/29/24 22:40 98.4 87 22 204/70 97 Room Air LABS: Hematology Labs: Test 08/29/24 23:42 Range/Units White Blood Count 7.0 4.8-10.8 K/uL Red Blood Count 3.71 L 4.50-6.20 MIL/uL Hemoglobin 10.8 L 14.0-18.0 g/dL Hematocrit 32.4 L 42-54 % Mean Corpuscular Volume 87.3 79-99 fL Mean Corpuscular Hemoglobin 29.1 27.0-33.0 pg Mean Corpuscular Hemoglobin Concent 33.3 32.0-36.0 g/dL Red Cell Distribution Width 14.2 11.0-15.5 % Platelet Count 285 130-400 K/uL Mean Platelet Volume 9.5 7.5-10.5 fL Immature Granulocyte % (Auto) 0.3 0-1 % Neutrophils (%) (Auto) 71.8 40.0-77.0 % Lymphocytes (%) (Auto) 9.7 L 21.0-51.0 % Monocytes (%) (Auto) 16.5 H 3.0-13.0 % Eosinophils (%) (Auto) 1.0 0.0-8.0 % Basophils (%) (Auto) 0.7 0.0-5.0 % Neutrophils # (Auto) 5.1 1.8-7.7 K/uL Lymphocytes # (Auto) 0.7 L 1.0-4.8 K/uL Monocytes # (Auto) 1.2 H 0.1-1.0 K/uL Eosinophils # (Auto) 0.07 0.00-0.70 K/uL Basophils # (Auto) 0.05 0.00-0.20 K/uL Absolute Immature Granulocyte (auto 0.02 0-1 K/uL Nucleated Red Blood Cells 0.0 0.0-0.19 % Chemistry Labs: Test 08/29/24 23:42 Range/Units Sodium Level 134 L 136-145 mmol/L Potassium Level 3.6 3.5-5.1 mmol/L Chloride Level 96 L 101-111 mmol/L Carbon Dioxide Level 29 21-32 mmol/L Blood Urea Nitrogen 5 L 7-18 mg/dL Creatinine 0.8 0.5-1.3 mg/dL Glomerular Filtration Rate Calc 93 >90 mL/min Random Glucose 109 H 70-105 mg/dL Total Calcium 9.0 8.5-10.1 mg/dL DIAGNOSTICS / RADIOLOGY RESULTS: [ ] PLAN Admit to Medical floor with continuous telemetry monitoring -Monitor respiratory status closely. -Place in BIPAP. Titrate oxygen prn to keep Spo2>/+=92%. -Albuterol and Atrovent scheduled. -RT to provide IS and education on use. -Robitussin DM as needed cough. -Solu-Medrol IV daily. -Continue antibiotic therapy: Doxy IV and Rocephin IV -PRN medications for: Pain management, fever, hypertension, N/V, constipation. -Glucometer checks AC & HS needed with insulin regular sliding scale coverage as needed. -Blood pressure checks every 4 hours and as needed. -Reconciled home medications for chronic problems (see med rec). - Monitor renal and liver function. -Monitor electrolytes and replace PRN -AM labs: CBC, BMP, mag.. -GI and DVT prophylaxis NEURO: Minimize central acting medications as possible. Maintain fall precautions, adequate lighting during the day PULMONARY: Supplemental 02 as needed. Maintain aspiration precautions at all times CARDIOVASCULAR: Follow hemodynamics. Vital signs per facility protocol GI & NUTRITION: Continue with nutritional support. Continue stool softeners and laxatives as needed. KIDNEYS & ELECTROLYTES: Strict monitoring of intake, output and overall fluid balance. Avoid nephrotoxic medications to the extent possible. Medications to be dosed according to renal function. Monitor electrolytes and replace as needed ENDOCRINE: Maintain blood glucose between 100-180 at all times. Hypoglycemia protocol in place INFECTIOUS DISEASE: Trend temperature, WBC and procalcitonin level Follow cultures, deescalate antibiotics as soon as possible. Panculture if new onset fever ONCOLOGY/HEMATOLOGY/COAGULATION: Monitor for s/s of bleeding Monitor hemoglobin, coagulation studies as needed SKIN: Pressure ulcer prevention per facility protocol Specialty mattress ORTHO/REHAB: Continue PT/OT Prophylaxis: Continue GI and DVT prophylaxis Code Status: Full Resuscitation Disposition: ELAYNE CHEN Aug 30, 2024 01:01
[2024-08-30 01:17] LABS: APPEARANCE,URINE CLEAR (CLEAR); BILIRUBIN,URINE NEGATIVE (NEGATIVE); COLOR,URINE LIGHT-YELLOW (YELLOW); GLUCOSE, URINE (UA) NEGATIVE (NEGATIVE); KETONES,URINE 10 mg/dL (NEGATIVE); LEUKOCYTE ESTERASE ,URINE NEGATIVE Leu/uL (NEGATIVE); NITRATE,URINE NEGATIVE (NEGATIVE); PH,URINE 5.5 (5.0-8.0); PROTEIN,URINE 10 mg/dL (NEGATIVE); UROBILINOGEN,URINE 0.2 mg/dL (0.2-1.0)
[2024-08-30] MEDS: hydrALAZine 20MG/ML VIAL IV PRN (01:20)
[2024-08-30 01:21] LABS: ADD UA MICROSCOPIC YES
[2024-08-30 01:23] LABS: RBC,URINE 0-1 /HPF (0-1)
[2024-08-30 01:26] LABS: SARS-CoV-2, RNA, NAAT NEGATIVE SARS CoV-2 (NEGATIVE)
[2024-08-30] MEDS: IpraTROPium 0.5 MG/2.5 ML INH IH SCH (01:30)
[2024-08-30] MEDS: ALPRAZolam 0.5 MG TABLET PO ONE (01:34)
[2024-08-30 01:47] LABS: MAGNESIUM 1.3 mg/dL (1.80-2.40)
[2024-08-30 01:59] LABS: INR 1.01 (0.85-1.15); PROTHROMBIN TIME 11.3 SEC (9.6-11.6)
[2024-08-30 02:00] LABS: PARTIAL THROMBOPLASTIN TIME 34.7 SEC (26.3-35.5)
[2024-08-30 02:00] LABS: ABG BASE EXCESS -3.8 mmol/L (-2.0-3.0); ABG HCO3 18.7 mmol/L (21.0-28.0); ABG PCO2 28 mmHg (35-48); ABG PH 7.445 (7.350-7.450); DEVICE COMMENT LR.RN MANY; PO2, ARTERIAL BG 61.9 mmHg (83.0-108.0)
[2024-08-30] MEDS ORDERED: NITROGLYCERIN 0.4 MG SL TAB SL PRN (04:00)
[2024-08-30] MEDS: Solu-medROL 125MG VIAL IVP SCH (06:57)
--- NOTE | 2024-08-30 07:00 | NUR ---
REPORT RECEIVED FROM TRINA BOTELLO
[2024-08-30] MEDS: INSULIN humuLIN R 100 UNIT/ML 3ML SQ SCH (07:30)
--- NOTE | 2024-08-30 07:35 | NUR ---
ASSESSMENT: PT FOUND LYING ON HIS LEFT SIDE HUGGING THE SIDE RAIL. NO ACUTE DISTRESS NOTED. HE HAS A BIPAP FACE MASK ON. SATS >95% CARDIO/PULMONARY: LUNG SOUNDS ARE DIMINISHED UPON RESPIRATION AND HAS RONCHI TO EXHALATION TO ALL LOBES. NO CYANOSIS NOTED TO NAIL BEDS BILATERALLY. NO USE OF ACCESSORY MUSCLES NOR STERNAL RETRACTIONS NOTED. PT ON A BIPAP MACHINE AT (10/5, RATE 12, 40%). S1S2 AUSCULTATED APICALLY. NO EDEMA NOTED. NO CYANOSIS NOTED TO NAIL BEDS ON HANDS BILATERALLY. CAP REFILL LESS THAN 3 SECONDS. NEURO: PT ASLEEP AND UNABLE TO COMPLETE NEURO ASSESSMENT AT THIS TIME. WAS REPORTED THAT PT DOES FOLLOW COMMANDS MUSCULO/INTEG: PT HAS ECCHYMOTIC PATCHES TO HIS EXTREMITIES. PT PER PREVIOUS NURSE WAS IS ABLE TO MOVE ALL EXTREMITIES. AT THIS TIME, HE IS LYING ON HIS LEFT LATERAL SIDE. GI/: PT HAS A URINAL AT BEDSIDE FOR USE. PER NURSE, PT ABLE TO USE IT. +BS X 4 QUADRANTS AND SOFT TO PALPATION. NO DISTENTION NOTED.
[2024-08-30] MEDS: ALBUTEROL 0.083% 2.5 MG/3 ML INH IH SCH (07:40)
--- NOTE | 2024-08-30 07:53 | EKG ---
[facility] Test Date: 2024-08-30 Test Time: 00:15:01 Pat Name: VENKAT PETERSEN Department: [facility]IP Room: ED 09 Gender: M [employer]: [id number] : 1950 Requested By: CHIDI RIZZO Order Number: [id number] Reading MD: Lorena Cottrell Measurements Intervals [place] Rate: 77 P: 55 TX: 151 QRS: -13 QRSD: 104 T: 12 QT: 366 QTc: 415 Interpretive Statements Sinus rhythm Probable left ventricular hypertrophy Compared to ECG 07/11/2024 22:21:53 First degree AV block no longer present Intraventricular conduction delay no longer present Myocardial infarct finding no longer present Electronically Signed On 08-30-2024 17:02:17 [employer]LAY TRANSPOR[employer] by Lorena Cottrell Please click the below link to view image of tracing.
[2024-08-30] MEDS: GLYCOPYR IH SCH (09:00)
[2024-08-30] MEDS ORDERED: NON-FORMULARY MEDICATION 1 EACH (Omeprazole 1 CAP) PO SCH (09:00)
[2024-08-30] MEDS: BUDESONIDE IH SCH (09:00)
[2024-08-30] MEDS: FORMOTEROL IH SCH (09:00)
--- NOTE | 2024-08-30 10:43 | NUR ---
PT ASSISTED TO SIT ON EDGE OF STRETCHER TO EAT HIS AM MEAL.FAMILY AT BEDSIDE
[2024-08-30] MEDS: RIVAROXABAN 2.5 MG TABLET PO SCH (10:53)
[2024-08-30] MEDS: monteLUKAST sodIUM 10 MG TAB PO SCH (10:53)
[2024-08-30] MEDS: busPIRone HCL 5 MG TABLET PO SCH (10:54)
[2024-08-30] MEDS: LoSARTan 50 MG TABLET PO SCH (10:55)
[2024-08-30] MEDS: doCUSate SODIUM 100 MG CAP PO PRN (10:55)
[2024-08-30] MEDS: cloPIDOgrel 75MG TAB PO SCH (10:56)
[2024-08-30] MEDS: tamSULOsin HCL 0.4 MG CAP.ER.24H PO SCH (10:56)
[2024-08-30] MEDS: ASPIRIN 81 MG EC TAB PO SCH (10:56)
[2024-08-30] MEDS: atorVAStatin 40 MG TABLET PO SCH (10:56)
[2024-08-30] MEDS: metOPROLol sucCINATE 25 MG TAB.SR.24H PO SCH (10:56)
[2024-08-30] MEDS: PANTOPrazole 40 MG TAB DR PO SCH (10:56)
[2024-08-30] MEDS: cefTRIAXone 1G VIAL IVPB SCH (11:00)
[2024-08-30] MEDS: citaLOPram 20 MG TABLET PO SCH (11:02)
[2024-08-30] MEDS: DOXYCYCLINE 100MG+NS 250ML 250 ML IV SCH (11:02)
--- NOTE | 2024-08-30 12:06 | NUR ---
DCP: HOME Pt lives at home with [place]. Daughter Mirtha [phone] is provider and grand daughter is cab worker. Pt needs assistance with ADLS, home management and meal prep, has gene electric w/c, [facility], CPAP at home. PCP is a [facility] and uses [facility]. Pt states he wants to go home at dc and denies need for dc. Addendum: 08/30/24 at 1217 by FLOYD SOLIS SS Amended: Links added.
--- NOTE | 2024-08-30 12:26 | PN ---
[facility] PROGRESS NOTE Date Patient Seen: Aug 30, 2024 Time of Visit: 12:18 Supervising Physician: Dr Christian Primary Care Physician: KRISTIN COSTA MD (PCP) Outpatient Specialists: Inpatient Consults: PROBLEM LIST: Right lung pneumonia, POA Acute exacerbation of chronic obstructive pulmonary disease, POA -Tobacco dependence and hx of alcohol abuse Acute on chronic hypoxemic respiratory failure, baseline home O2-2L Acute dehydration Autoimmune disease, unspecified, on sulfasalazine at home Anemia of chronic disease Electrolyte derangement (Hyponatremia, hypochloremia, hypocalcemia) Dehydration Diabetes mellitus with hyperglycemia Peripheral vascular disease, bilateral lower extremity edema (BNP WNL at 69) Moderate aortic valve stenosis, per echo 06/05/24 Nominal left lung base scarring and/or atelectasis, per chest x-ray 06/03/2024 Left lower extremity cellulitis with swelling with underlying severe PAD s/p incomplete LE angio on 07/30/[address] 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 Duo nebs every 4-6 hours as needed Repeat ABGs Repeat chest x-ray Continue Solu-Medrol Continue Rocephin Continue doxycycline Dispo: Home once medically stable for discharge INTERVAL HISTORY: Mr. Cruz is a 73-year-old male with a history of COPD, CHF, DM type 2, hypercholesteremia, heart disease, hypertension, dependent tobacco smoker who presented to ED for evaluation of evaluated for generalized body weakness and productive cough onset a couple of days. The patient denied fever or chills currently. ED provider request patient be admitted with the diagnosis of pneumonia involving right lung and COPD exacerbation. Per chart review patient was admitted on 06/22/2024 and was discharged on 07/15/2024 also for acute exacerbation of COPD. assess the patient at bedside. Patient was tachypneic, distressed. The patient was passed on BiPAP and ABGs were obtained. ABGs: PH 7.445, pCO2 28, PO2 61.9, bicarbonate 18.7, O2 sats 93, base excess-3.8 On BiPAP 10/5, breathing 18, 30%. Settings changed to 1005 rate of 18 40% FiO2. BIS team we will continue monitoring patient closely. Plan and assessment are listed below.. 08/30 - patient is seen and evaluated in the ED. Patient is lying in the stretcher continues to be hypoxemic requiring continuous BiPAP. Patient is awake and alert and responsive. No acute changes reported overnight. Instructed nursing to remove BiPAP and placed on each cannula and observe closely. Patient does report he has home O2 however unclear how much oxygen he uses. Vital signs are stable. No labs for review today. ABG shows compensated hypoxemic respiratory failure. BNP is slightly elevated. Chest x-ray shows pulmonary congestion. We will continue diuresing with Lasix. We will continue current treatment plan for now. Discussed discharge planning and offered patient SNF however he declined. Patient reports he has a great support system at home and plans to DC back home once stable. REVIEW OF SYSTEMS: Unable to obtain ROS from patient due to patient being in respiratory distress. PHYSICAL EXAM: GENERAL: Alert, weak, awake oriented x 3 HEENT: EOMI, Sclera non icteric, moist mucosa NECK: Supple, no JVD, trachea midline LUNGS: Tachypneic, diminished breath sounds bilaterally. No wheezes HEART: Regular rate and rhythm. Normal S1 and S2, without murmurs ABD: Abdomen soft, nontender. Bowel sounds present EXT: No clubbing cyanosis or edema NEURO: Alert and oriented x3, follows commands. Vital Signs (last 8hr) Date Time Temp Pulse Resp B/P (MAP) Pulse Ox O2 Delivery O2 Flow Rate FiO2 08/30/24 11:46 88 18 08/30/24 11:45 88 22 N/Cannula Low lpm 2.0 28 08/30/24 07:43 78 18 08/30/24 07:42 78 19 40 08/30/24 06:50 92 19 161/63 100 Bi-PAP+ 40 08/30/24 05:36 76 18 168/70 100 Bi-PAP+ 40 LABS: Hematology Labs: Test 08/29/24 23:42 Range/Units White Blood Count 7.0 4.8-10.8 K/uL Red Blood Count 3.71 L 4.50-6.20 MIL/uL Hemoglobin 10.8 L 14.0-18.0 g/dL Hematocrit 32.4 L 42-54 % Mean Corpuscular Volume 87.3 79-99 fL Mean Corpuscular Hemoglobin 29.1 27.0-33.0 pg Mean Corpuscular Hemoglobin Concent 33.3 32.0-36.0 g/dL Red Cell Distribution Width 14.2 11.0-15.5 % Platelet Count 285 130-400 K/uL Mean Platelet Volume 9.5 7.5-10.5 fL Immature Granulocyte % (Auto) 0.3 0-1 % Neutrophils (%) (Auto) 71.8 40.0-77.0 % Lymphocytes (%) (Auto) 9.7 L 21.0-51.0 % Monocytes (%) (Auto) 16.5 H 3.0-13.0 % Eosinophils (%) (Auto) 1.0 0.0-8.0 % Basophils (%) (Auto) 0.7 0.0-5.0 % Neutrophils # (Auto) 5.1 1.8-7.7 K/uL Lymphocytes # (Auto) 0.7 L 1.0-4.8 K/uL Monocytes # (Auto) 1.2 H 0.1-1.0 K/uL Eosinophils # (Auto) 0.07 0.00-0.70 K/uL Basophils # (Auto) 0.05 0.00-0.20 K/uL Absolute Immature Granulocyte (auto 0.02 0-1 K/uL Nucleated Red Blood Cells 0.0 0.0-0.19 % White Cell Morphology Comment See comments Chemistry Labs: Test 08/29/24 23:42 Range/Units Sodium Level 134 L 136-145 mmol/L Potassium Level 3.6 3.5-5.1 mmol/L Chloride Level 96 L 101-111 mmol/L Carbon Dioxide Level 29 21-32 mmol/L Blood Urea Nitrogen 5 L 7-18 mg/dL Creatinine 0.8 0.5-1.3 mg/dL Glomerular Filtration Rate Calc 93 >90 mL/min Random Glucose 109 H 70-105 mg/dL Total Calcium 9.0 8.5-10.1 mg/dL Magnesium Level 1.30 L 1.80-2.40 mg/dL Total Creatine Kinase 204 21-232 U/L Troponin I High Sensitivity 30 4-75 ng/L B-Type Natriuretic Peptide 696 H 0-100 pg/mL Coagulation Labs: Test 08/29/24 23:42 Range/Units Prothrombin Time 11.3 9.6-11.6 SEC Prothromb Time International Ratio 1.01 0.85-1.15 Activated Partial Thromboplast Time 34.7 26.3-35.5 SEC DIAGNOSTICS / RADIOLOGY RESULTS: [ ] PLAN NEURO: Minimize central acting medications as possible. Maintain fall precautions, adequate lighting during the day PULMONARY: Supplemental 02 as needed. Maintain aspiration precautions at all times CARDIOVASCULAR: Follow hemodynamics. Vital signs per facility protocol GI & NUTRITION: Continue with nutritional support. Continue stool softeners and laxatives as needed. KIDNEYS & ELECTROLYTES: Strict monitoring of intake, output and overall fluid balance. Avoid nephrotoxic medications to the extent possible. Medications to be dosed according to renal function. Monitor electrolytes and replace as needed ENDOCRINE: Maintain blood glucose between 100-180 at all times. Hypoglycemia protocol in place INFECTIOUS DISEASE: Trend temperature, WBC and procalcitonin level Follow cultures, deescalate antibiotics as soon as possible. Panculture if new onset fever ONCOLOGY/HEMATOLOGY/COAGULATION: Monitor for s/s of bleeding Monitor hemoglobin, coagulation studies as needed SKIN: Pressure ulcer prevention per facility protocol Specialty mattress ORTHO/REHAB: Continue PT/OT Prophylaxis: Continue GI and DVT prophylaxis Code Status: Full Resuscitation Disposition: Home Once medically stable for discharge Total time spent greater than 35 minutes. ATTESTATION BY PHYSICIAN I attest that I reviewed and discussed the case with the Physician Bad Work Gatherer as well as agree with the Physician Bad Work Gatherer's findings, plans of care, and documentation above. Neal Caldwell MD,RAI N RAW SCALES OPERATOR Aug 30, 2024 12:26 NEAL CALDWELL MD Aug 31, 2024 07:09
[2024-08-30] MEDS ORDERED: PHARMACY COMMUNICATION 1 EACH EACH MISC SCH (12:30)
[2024-08-30] MEDS: furoSEMIDE 40MG VIAL IVP SCH (12:46)
--- NOTE | 2024-08-30 13:00 | NUR ---
NO DISTRESS NOTED AT THIS TIME NOR VERBALIZED BY PT. VSS
--- NOTE | 2024-08-30 13:20 | HMCIMG ---
CHEST 1VW HISTORY: Shortness of breath COMPARISON: 07/14/2024 FINDINGS: A frontal projection of the chest was obtained. Mild bilateral pulmonary infiltrates are seen may be related to mild pulmonary vascular congestion with possible superimposed pneumonitis. The heart is borderline enlarged. Pacemaker is seen entering from the left. Degenerative changes are seen. No evidence of aortic calcification is seen. IMPRESSION: 1. Mild bilateral pulmonary infiltrates.
--- NOTE | 2024-08-30 15:57 | NUR ---
PT STATES HE IS FEELING BETTER. HE IS LYING ON HIS LEFT SIDE. NO ACUTE DISTRESS NOTED AT THIS TIME.
--- NOTE | 2024-08-30 18:26 | NUR ---
PT ASSISTED TO EDGE OF BED SO THAT HE MAY EAT HIS MEAL TRAY. NO DISTRESS NOTED
--- NOTE | 2024-08-30 18:38 | NUR ---
BED ASSIGNMENT: BED 309 JUST NOW ASSIGNED BY Renzo ZHAO. ATTEMPTED TO CALL REPORT BUT NO ANSWER ON PHONE.
--- NOTE | 2024-08-30 18:38 | NUR ---
Chris zarate in [facility] - 08/30/24 at 1853 by [email or web address] BED ASSIGNMENT: BED 309 JUST NOW ASSIGNED BY Renzo NUGENT ATTEMPTED TO CALL REPORT BUT NO ANSWER ON PHONE.
--- NOTE | 2024-08-30 19:26 | NUR ---
REPORT ENDORSED TO HOLLIE GRAYSON
[2024-08-30] MEDS: TEMAZepam 15 MG CAPSULE PO PRN (23:29)
[2024-08-30] MEDS: acetaMINOPHEN 325 MG TAB PO PRN (23:30)
[2024-08-31] VITALS (8 sets, daily range): BP systolic 104–148; BP diastolic 53–65; PULSE 17–85; RESP 17–20; TEMP 95.4–98.7; O2SAT 96–98
[2024-08-31 03:56] LABS: ABG BASE EXCESS 4.3 mmol/L (-2.0-3.0); ABG HCO3 27.4 mmol/L (21.0-28.0); ABG OXYGEN SATURATION 95.3 % (94.0-98.0); ABG PCO2 36 mmHg (35-48); ABG PH 7.501 (7.350-7.450); DEVICE COMMENT LR RN; PO2, ARTERIAL BG 68.9 mmHg (83.0-108.0); VENT MODE, BG 3LNC (ROOM AIR)
[2024-08-31 04:29] LABS: HEMATOCRIT 30.2 % (42-54); MEAN CORPUSCULAR HEMOGLOBIN 28.6 pg (27.0-33.0); MEAN CORPUSCULAR HGB CONC 33.1 g/dL (32.0-36.0); MEAN CORPUSCULAR VOLUME 86.3 fL (79-99); RED BLOOD CELL COUNT(AUTO) 3.5 MIL/uL (4.50-6.20); RED CELL DISTRIBUTION WIDTH 14.3 % (11.0-15.5); WHITE BLOOD COUNT (AUTO) 6.1 K/uL (4.8-10.8)
[2024-08-31 04:51] LABS: CREATININE 0.8 mg/dL (0.5-1.3); POTASSIUM 3.1 mmol/L (3.5-5.1)
[2024-08-31] MEDS ORDERED: PoTASSium chloRIDE 20MEQ/100ML 100 ML IV PRN (10:30)
[2024-08-31] MEDS ORDERED: PoTASSium chloRIDE 20MEQ ER 20 MEQ ERTAB PO PRN (10:30)
[2024-08-31] MEDS ORDERED: FURO40TA5 PO (10:45)
[2024-08-31] MEDS ORDERED: CEFD300C3 PO (10:47)
[2024-08-31] MEDS ORDERED: AZIT500T4 PO (10:47)
[2024-08-31] MEDS ORDERED: PRED20TA3 PO (10:48)
--- NOTE | 2024-08-31 10:52 | DS ---
[facility] DISCHARGE SUMMARY Date Patient Seen: Aug 31, 2024 Time of Visit: 10:49 Supervising Physician: Dr Christian Primary Care Physician: KRISTIN COSTA MD (PCP) Outpatient Specialists: Inpatient Consults: PROBLEM LIST: Right lung pneumonia, POA Acute exacerbation of chronic obstructive pulmonary disease, POA resolved -Tobacco dependence and hx of alcohol abuse Acute on chronic hypoxemic respiratory failure, baseline home O2-2L resolved Acute dehydration - resolved Autoimmune disease, unspecified, on sulfasalazine at home Anemia of chronic disease - stable Electrolyte derangement (Hyponatremia, hypochloremia, hypocalcemia) - resolved Diabetes mellitus with hyperglycemia Peripheral vascular disease, bilateral lower extremity edema (BNP WNL at 69) Moderate aortic valve stenosis, per echo 06/05/24 Nominal left lung base scarring and/or atelectasis, per chest x-ray 06/03/2024 Left lower extremity cellulitis with swelling with underlying severe PAD s/p incomplete LE angio on 07/30/[address] Rivera PAD with history of angioplasty prior bilateral iliac stents in October 2020 and stenting of Left SFA on Xarelto Acute on chronic diastolic CHF with preserved EF 60-65% per Echo on 06/05/2024 Hyperglycemia without history of diabetes CAD hx of stenting of RCA in 2019 Primary hypertension Hyperlipidemia BPH Conduction System Disease Pacemaker in situ History of stroke with slurred speech residual Chronic anxiety History of acute Herpes Zoster of Right Thorax on 07/23/2023 admission and dx on 08/06/2023, s/p treatment Medical noncompliance HOSPITAL COURSE: HPI (per admitting provider) Mr. Cruz is a 73-year-old male with a history of COPD, CHF, DM type 2, hypercholesteremia, heart disease, hypertension, dependent tobacco smoker who presented to ED for evaluation of evaluated for generalized body weakness and productive cough onset a couple of days. The patient denied fever or chills cur rently. ED provider request patient be admitted with the diagnosis of pneumonia involving right lung and COPD exacerbation. Per chart review patient was admitted on 06/22/2024 and was discharged on 07/15/2024 also for acute exacerbation of COPD. assess the patient at bedside. Patient was tachypneic, distressed. The patient was passed on BiPAP and ABGs were obtained. ABGs: PH 7.445, pCO2 28, PO2 61.9, bicarbonate 18.7, O2 sats 93, base excess-3.8 On BiPAP 10/5, breathing 18, 30%. Settings changed to 1005 rate of 18 40% FiO2. BIS team we will continue monitoring patient closely. Plan and assessment are listed opal [place]. 08/30 - patient is seen and evaluated in the ED. Patient is lying in the stretcher continues to be hypoxemic requiring continuous BiPAP. Patient is awake and alert and responsive. No acute changes reported overnight. Instructed nursing to remove BiPAP and placed on each cannula and observe closely. Patient does report he has home O2 however unclear how much oxygen he uses. Vital signs are stable. No labs for review today. ABG shows compensated hypoxemic respiratory failure. BNP is slightly elevated. Chest x-ray shows pulmonary congestion. We will continue diuresing with Lasix. We will continue current treatment plan for now. Discussed discharge planning and offered patient SNF however he declined. Patient reports he has a great support system at home and plans to DC back home once stable. Today patient is seen sitting up at the side of the bed with no signs of acute distress. Patient has been weaned off O2 and currently on room air denies dyspnea. Patient is accompanied by his and daughter. Patient improved very well overnight. Patient has home oxygen and concentrate or from previously. No acute changes reported overnight. Patient was found to have some electrolyte derangements which were replaced via protocol. Vital signs are stable. Labs are within normal limits. Patient has been advised to follow up with PCP in the next 1-2 days. Patient has been advised to continue oral antibiotics as well as oral steroids as prescribed on discharge. Patient has been advised to follow up in Pulmonary Clinic1 week post discharge. Patient and daughter verbalized understanding. Medication reconciliation has been completed. New prescriptions have been sent to patient's pharmacy. Education regarding current diagnosis been provided to the patient. All questions have been answered. Patient to be discharged home. The patient was treated for the following problems: ACTIVE PROBLEM LIST FOR THE HOSPITALIZATION: Right lung pneumonia, POA Acute exacerbation of chronic obstructive pulmonary disease, POA resolved -Tobacco dependence and hx of alcohol abuse Acute on chronic hypoxemic respiratory failure, baseline home O2-2L resolved Acute dehydration - resolved Autoimmune disease, unspecified, on sulfasalazine at home Anemia of chronic disease - stable Electrolyte derangement (Hyponatremia, hypochloremia, hypocalcemia) - resolved Diabetes mellitus with hyperglycemia Peripheral vascular disease, bilateral lower extremity edema (BNP WNL at 69) Moderate aortic valve stenosis, per echo 06/05/24 Nominal left lung base scarring and/or atelectasis, per chest x-ray 06/03/2024 Left lower extremity cellulitis with swelling with underlying severe PAD s/p incomplete LE angio on 07/30/[address] Rivera PAD with history of angioplasty prior bilateral iliac stents in October 2020 and stenting of Left SFA on Xarelto Acute on chronic diastolic CHF with preserved EF 60-65% per Echo on 06/05/2024 Hyperglycemia without history of diabetes CAD hx of stenting of RCA in 2018 Primary hypertension Hyperlipidemia BPH Conduction System Disease Pacemaker in situ History of stroke with slurred speech residual Chronic anxiety History of acute Herpes Zoster of Right Thorax on 07/23/2023 admission and dx on 08/06/2023, s/p treatment Medical noncompliance CHRONIC PROBLEMS: continue previous management per PCP unless otherwise indicated ADHESIVE BONDING 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 PCP notified of patients admission, hospital course and discharge. New Medications: Azithromycin (Azithromycin) 500 Mg Tablet 1 TAB PO DAILY for 5 Days, #5 TAB 0 Refills Cefdinir (Cefdinir) 300 Mg Capsule 1 CAP PO BID for 10 Days, #20 CAP 0 Refills Furosemide (Furosemide) 40 Mg Tablet 1 TAB PO DAILY for 30 Days, #30 TAB 0 Refills Prednisone (Prednisone) 20 Mg Tablet 40 MG PO DAILY for 7 Days, #7 TAB Continued Medications: Aspirin (Aspirin EC) 81 Mg Tablet.dr 1 TAB PO DAILY for 30 Days, #30 TAB 0 Refills Atorvastatin Calcium (Atorvastatin Calcium) 40 Mg Tablet 1 TAB PO DAILY for 30 Days, #30 TAB 0 Refills Budesonide/Glycopyr/Formoterol (Breztri Aerosphere Inhaler) 160 Mcg-9 Mcg-4.8 Mcg/Actuation Hfa.aer.ad 2 PUFF IH BID for 30 Days, #10.7 GM 0 Refills Buspirone HCl (Buspirone HCl) 5 Mg Tablet 1 TAB PO BID for 30 Days, #60 TAB 0 Refills Clopidogrel Bisulfate (Clopidogrel) 75 Mg Tablet 1 TAB PO DAILY for 30 Days, #30 TAB 0 Refills Clopidogrel Bisulfate (Clopidogrel) 75 Mg Tablet 1 TAB PO DAILY for 30 Days, #30 TAB 0 Refills Escitalopram Oxalate (Escitalopram Oxalate) 20 Mg Tablet 1 TAB PO DAILY for 30 Days, #30 TAB 0 Refills Ferrous Sulfate (Ferrous Sulfate) 325 Mg (65 Mg Iron) Tablet 1 TAB PO AD for EVERY OTHER DAY for 30 Days, #30 TAB 0 Refills Ferrous Sulfate (Ferrous Sulfate) 325 Mg (65 Mg Iron) Ectab 1 TAB PO DAILY for 30 Days, #30 TAB 0 Refills Gabapentin (Gabapentin) 100 Mg Capsule 100 MG PO BID, CAP Hydralazine HCl (Hydralazine HCl) 50 Mg Tablet 1 TAB PO BID for 30 Days, #60 TAB 0 Refills Losartan Potassium (Losartan Potassium) 50 Mg Tablet 1 TAB PO DAILY for 30 Days, #30 TAB 0 Refills Metoprolol Succinate (Metoprolol Succinate) 25 Mg Tab.er.24h 1 TAB PO DAILY for 30 Days, #30 TAB 0 Refills Montelukast Sodium (Montelukast Sodium) 10 Mg Tablet 10 MG PO PM, TAB Montelukast Sodium (Montelukast Sodium) 10 Mg Tablet 1 TAB PO DAILY for 30 Days, #30 TAB 0 Refills Nitroglycerin (Nitroglycerin) 0.4 Mg Tab.subl 1 TAB SL AD PRN for CHEST PAIN, #25 TAB 0 Refills 1st sign of attack; may repeat every 5 mins; if pain persists after 3 in 15 min, medical attention is recommended Omeprazole (Omeprazole) 20 Mg Capsule.dr 1 CAP PO DAILY for 30 Days, #30 CAP 0 Refills Pantoprazole Sodium (Pantoprazole Sodium) 40 Mg Tablet.dr 1 TAB PO DAILY for 30 Days, #30 TAB 0 Refills Sulfasalazine (Sulfasalazine Dr) 500 Mg Tablet.dr 1000 MG PO QID, TAB Tamsulosin HCl (Flomax) 0.4 Mg Cap.er.24h 1 CAP PO DAILY for 30 Days, #30 CAP 0 Refills Vitamin E Mixed (Vitamin E) 400 Unit Capsule 1 CAP PO DAILY for 30 Days, #60 CAP 0 Refills [Xarelto] () 2.5 MG PO BID Discontinued Medications: Aspirin (Aspirin 81MG Chew Tab) 81 Mg Tab.chew 81 MG PO DAILY for 30 Days, #30 TAB.CHEW 2 Refills Clopidogrel Bisulfate (Plavix) 75 Mg Tablet 75 MG PO DAILY for 30 Days, #30 TAB 2 Refills Losartan Potassium (Losartan Potassium) 50 Mg Tablet 50 MG PO DAILY, TAB Methylprednisolone (Medrol) 4 Mg Tab.ds.pk 1 TAB PO AD for 6 Days, #21 TAB 0 Refills 6 on day 1 then reduce by one tablet daily until gone Metoprolol Tartrate (Metoprolol Tartrate) 25 Mg Tablet 12.5 MG PO DAILY, TAB Omeprazole (Omeprazole) 20 Mg Tablet.dr 20 MG PO TID, TAB Tamsulosin HCl (Flomax) 0.4 Mg Cap.er.24h 0.4 MG PO DAILY, CAPSULE.DR PHYSICAL EXAM: GENERAL: Alert, weak, awake oriented x 3 HEENT: EOMI, Sclera non icteric, moist mucosa NECK: Supple, no JVD, trachea midline LUNGS: Tachypneic, diminished breath sounds bilaterally. No wheezes HEART: Regular rate and rhythm. Normal S1 and S2, without murmurs ABD: Abdomen soft, nontender. Bowel sounds present EXT: No clubbing cyanosis or edema NEURO: Alert and oriented x3, follows commands. FOLLOW-UP: Follow-up with PCP in 2-3 days Follow up in Pulmonary Clinic in 1 week RECOMMENDATIONS: See Discharge Instructions This case was seen and discussed with my supervising physician. More than 30 minutes spent on discharge process, including evaluation of the patient, discussion with nursing staff, medication reconciliation and follow-up appointments ATTESTATION BY PHYSICIAN I attest that I reviewed and discussed the case with the Physician Wind Energy Mechanic as well as agree with the Physician Wind Energy Mechanic's findings, plans of care, and documentation above. Nito Caldwell MD, ECTOR N NP Aug 31, 2024 10:52
--- NOTE | 2024-08-31 11:30 | HMCIMG ---
CHEST 1VW HISTORY: Dyspnea COMPARISON: 08/29/2024 FINDINGS: A frontal projection of the chest was obtained. Mild bilateral pulmonary infiltrates are seen may be related to mild pulmonary vascular congestion with possible superimposed pneumonitis. The heart is borderline enlarged. Pacemaker is seen entering from the left. Aortic calcifications are seen. IMPRESSION: 1. Mild bilateral pulmonary infiltrates are seen may be related to mild pulmonary vascular congestion with possible superimposed pneumonitis.
[2024-08-31] MEDS: PoTASSium chl 10% ELIXIR 20MEQ 20 MEQ/15 ML UDCUP PO PRN (11:47)
[2024-08-31] MEDS: Solu-medROL 40MG VIAL IVP SCH (11:48)
[2024-08-31] MEDS: MAGNESIUM 2GM PREMIX 50ML 50 ML IV PRN (12:00)
--- NOTE | 2024-08-31 18:12 | NUR ---
DISCHARGE HOME ID BANDS, IV AND TELEPAK REMOVED. DISCHARGE INSTRUCTIONS GIVEN AND EXPLAINED TO PATIENT AND FAMILY. BELONGINGS PACKED AND TAKEN BY SPOUSE. PATIENT WHEELED DOWN TO PRIVATE CAR.
== END 2024-08-31 18:30 | disposition home or self-care (01) | DRG 193 ==
LOC: EDH 22:36 → EDHIP 08-30 00:54 → OBSVTOIN 08-30 00:54 → 3DH 08-30 21:26
PROVIDERS: ADMIT Internal Medicine; ATTEND Internal Medicine
PROC: 5A09357 Assistance with Respiratory Ventilation, Less than 24 Consecutive Hours, Continuous Positive Airway Pressure (ICD-10-PCS; principal; 2024-08-30)
DX: J18.9 Pneumonia, unspecified organism (principal); I50.33 Acute on chronic diastolic (congestive) heart failure; J96.21 Acute and chronic respiratory failure with hypoxia; J44.1 Chronic obstructive pulmonary disease with (acute) exacerbation; E87.1 Hypo-osmolality and hyponatremia; J44.0 Chronic obstructive pulmonary disease with (acute) lower respiratory infection; M35.89 Other specified systemic involvement of connective tissue; L03.116 Cellulitis of left lower limb; I11.0 Hypertensive heart disease with heart failure; E86.0 Dehydration; D63.8 Anemia in other chronic diseases classified elsewhere; E87.8 Other disorders of electrolyte and fluid balance, not elsewhere classified; E11.65 Type 2 diabetes mellitus with hyperglycemia; N40.0 Benign prostatic hyperplasia without lower urinary tract symptoms; D89.89 Other specified disorders involving the immune mechanism, not elsewhere classified; E78.00 Pure hypercholesterolemia, unspecified; E11.51 Type 2 diabetes mellitus with diabetic peripheral angiopathy without gangrene; F17.200 Nicotine dependence, unspecified, uncomplicated; F41.9 Anxiety disorder, unspecified; I25.10 Atherosclerotic heart disease of native coronary artery without angina pectoris; I35.0 Nonrheumatic aortic (valve) stenosis; K59.00 Constipation, unspecified; I45.9 Conduction disorder, unspecified; E83.51 Hypocalcemia; Z82.49 Family history of ischemic heart disease and other diseases of the circulatory system; Z86.73 Personal history of transient ischemic attack (TIA), and cerebral infarction without residual deficits; Z91.199 Patient's noncompliance with other medical treatment and regimen due to unspecified reason; Z95.0 Presence of cardiac pacemaker; Z95.5 Presence of coronary angioplasty implant and graft
CPT/HCPCS: 36415; 36600; 71045; 80048; 81001; 82550; 82803; 82948; 83735; 83880; 84145; 84484; 85025; 85027; 85610; 85730; 87635; 87804; 87880; 93005; 94640; 94660; 94664; 99291; G0378; J0360; J0456; J0696; J1815; J1940; J2919; J3475; J3490

== ENCOUNTER 2024-11-20 03:20 | Inpatient (IN) | payer OTHER, MEDICARE ==
[~2024-11-20] VITALS: Ht 167.6 cm; Wt 73.5 kg
[2024-11-20] VITALS (11 sets, daily range): BP systolic 117–156; BP diastolic 45–68; PULSE 60–77; RESP 16–22; TEMP 97.4–98.1; O2SAT 96–100
[~2024-11-20 03:20] MED LIST changes: -ALBU18HF7 IH; -AMMO120C2 TP; -ASPI-1005 PO; +ASPI-1443 PO; -ASPI-556 PO; -ATOR40TA69 PO; +AZIT500T4 PO; +BUDE10.7 IH; -BUSP15 PO; -BUSP15TA3 PO; +CEFD300C3 PO; -CETI10TA87 PO; -CLOP-31 PO; -DOXY100C5 PO; -FLUT110HFA IH; -FURO20TA6 PO; -GABA300S3 PO; -HYDR-3421 PO; -IPRA3AMP24 IH; -LEVO-70 PO; -LOSA-418 PO; -LOSA25TA41 PO; -METH4TAB3 PO; +METO-408 PO; -METO25TA3 PO; -METO25TA6 PO; -METR-172 PO; -MONT-46 PO; -OMEP20TA20 PO; +PANT40TA54 PO; -RIVA2.5T PO; -SERT-440 PO; -SULF500T3 PO; -TAMS-1 PO; +TAMS-55 PO; -VIT B12; +XARELTO PO
--- NOTE | 2024-11-20 04:27 | NUR ---
BLADDER SCAN PREFORMED AND GREATER THAN 360MLS OF URINE FOUND. ED MD [place] MADE AWARE.
[2024-11-20 04:47] LABS: BASOPHILS # (AUTO) 0.05 K/uL (0.00-0.20); BASOPHILS % (AUTO) 0.8 % (0.0-5.0); EOSINOPHILS # (AUTO) 0.39 K/uL (0.00-0.70); IMMATURE GRANULOCYTE ABSOLUTE 0.03 K/uL (0-1); LYMPHOCYTES # (AUTO) 0.7 K/uL (1.0-4.8); LYMPHOCYTES % (AUTO) 10.1 % (21.0-51.0); MEAN CORPUSCULAR HEMOGLOBIN 27.1 pg (27.0-33.0); MEAN CORPUSCULAR HGB CONC 30.4 g/dL (32.0-36.0); MEAN CORPUSCULAR VOLUME 89.1 fL (79-99); MONOCYTES # (AUTO) 0.6 K/uL (0.1-1.0); MONOCYTES % (AUTO) 9.2 % (3.0-13.0); NEUTROPHILS # (AUTO) 4.8 K/uL (1.8-7.7); NEUTROPHILS % (AUTO) 73.4 % (40.0-77.0); PLATELET COUNT (AUTO) 297 K/uL (130-400); RED BLOOD CELL COUNT(AUTO) 2.58 MIL/uL (4.50-6.20); RED CELL DISTRIBUTION WIDTH 15.2 % (11.0-15.5); WHITE BLOOD COUNT (AUTO) 6.5 K/uL (4.8-10.8)
[2024-11-20 04:58] LABS: CREATININE 0.8 mg/dL (0.5-1.3); POTASSIUM 4.5 mmol/L (3.5-5.1)
[2024-11-20 05:03] LABS: ALBUMIN 3.8 g/dL (3.5-5.0); BILIRUBIN,TOTAL 0.2 mg/dL (0.2-1.0); TOTAL PROTEIN, SERUM 6.5 g/dL (6.0-8.3)
--- NOTE | 2024-11-20 05:13 | EKG ---
[facility] Test Date: 2024-11-20 Test Time: 05:11:04 Pat Name: VENKAT PETERSEN Department: [facility] Room: ED Gender: M Manager Library: [id number] : [id number] Requested By: TERESSA GUTHRIE Order Number: [id number] Reading MD: Jn Turcios Measurements Intervals [place] Rate: 77 P: 31 DC: 271 QRS: 18 QRSD: 110 T: 97 QT: 399 QTc: 453 Interpretive Statements Sinus rhythm Prolonged DC interval Probable posterior infarct, recent Abnrm T, consider ischemia, anterolateral lds Compared to ECG 08/30/2024 00:15:01 First degree AV block now present Myocardial infarct finding now present Possible ischemia now present Electronically Signed On 11-20-2024 07:19:59 CDT by nJ Turcios Please click the below link to view image of tracing.
[2024-11-20 05:27] LABS: B-TYPE NATRIURETIC PEPTIDE 268 pg/mL (0-100)
--- NOTE | 2024-11-20 06:03 | ERN ---
General Chief Complaint: LOWER EXTREMITY EDEMA Stated Complaint: URINARY RETENTION, LE EDEMA Time Seen by MD: 04:11 History of Present Illness Initial Comments Patient comes in because of lower extremity edema. Right much worse than left. He surprisingly has more pain in his left leg than his right leg. In addition he says he has trouble urinating. Patient is a difficult historian he slurs his words and Japanese is his primary language. But even Japanese-speaking nurses in the ED have a difficult time understanding what he says. Thinks he has a cardiac medication he thinks he takes a diuretic he thinks he drinks. Patient has been admitted to our hospital numerous times with hyponatremia and anemia. Allergies: Coded Allergies: Pork/Porcine Containing Products (Verified Allergy, Intermediate, 07/17/24) No Known Allergies (Unverified Allergy, Unknown, 07/17/24) No Known Drug Allergies (Verified Allergy, Unknown, 08/04/19) Home Meds Active Scripts Prednisone (Prednisone) 20 Mg Tablet, 40 MG PO DAILY for 7 Days, #7 TAB Prov:RAI [employer]IND[employer]NAGER 08/31/24 Cefdinir (Cefdinir) 300 Mg Capsule, 1 CAP PO BID for 10 Days, #20 CAP 0 Refills Prov:RAI [employer]VIRONMENT MANAGER 08/31/24 Azithromycin (Azithromycin) 500 Mg Tablet, 1 TAB PO DAILY for 5 Days, #5 TAB 0 Refills Prov:RAI [employer]VIRONMENT MANAGER 08/31/24 Furosemide (Furosemide) 40 Mg Tablet, 1 TAB PO DAILY for 30 Days, #30 TAB 0 Refills Prov:RAI [employer]VIRONMENT MANAGER 08/31/24 Reported Medications Budesonide/Glycopyr/Formoterol (Breztri Aerosphere Inhaler) 160 Mcg-9 Mcg-4.8 Mcg/Actuation Hfa.aer.ad, 2 PUFF IH BID for 30 Days, #10.7 GM 0 Refills 08/30/24 Nitroglycerin (Nitroglycerin) 0.4 Mg Tab.subl, 1 TAB SL AD PRN for CHEST PAIN, #25 TAB 0 Refills 1st sign of attack; may repeat every 5 mins; if pain persists after 3 in 15 min, medical attention is recommended 08/30/24 [Xarelto] No Conflict Check, 2.5 MG PO BID 08/30/24 Montelukast Sodium (Montelukast Sodium) 10 Mg Tablet, 1 TAB PO DAILY for 30 Days, #30 TAB 0 Refills 08/30/24 Omeprazole (Omeprazole) 20 Mg Capsule.dr, 1 CAP PO DAILY for 30 Days, #30 CAP 0 Refills 08/30/24 Atorvastatin Calcium (Atorvastatin Calcium) 40 Mg Tablet, 1 TAB PO DAILY for 30 Days, #30 TAB 0 Refills 08/30/24 Escitalopram Oxalate (Escitalopram Oxalate) 20 Mg Tablet, 1 TAB PO DAILY for 30 Days, #30 TAB 0 Refills 08/30/24 Losartan Potassium (Losartan Potassium) 50 Mg Tablet, 1 TAB PO DAILY for 30 Days, #30 TAB 0 Refills 08/30/24 Clopidogrel Bisulfate (Clopidogrel) 75 Mg Tablet, 1 TAB PO DAILY for 30 Days, #30 TAB 0 Refills 08/30/24 Aspirin (Aspirin EC) 81 Mg Tablet.dr, 1 TAB PO DAILY for 30 Days, #30 TAB 0 Refills 08/30/24 Tamsulosin HCl (Flomax) 0.4 Mg Cap.er.24h, 1 CAP PO DAILY for 30 Days, #30 CAP 0 Refills 08/30/24 Metoprolol Succinate (Metoprolol Succinate) 25 Mg Tab.er.24h, 1 TAB PO DAILY for 30 Days, #30 TAB 0 Refills 08/30/24 Pantoprazole Sodium (Pantoprazole Sodium) 40 Mg Tablet.dr, 1 TAB PO DAILY for 30 Days, #30 TAB 0 Refills 08/30/24 Buspirone HCl (Buspirone HCl) 5 Mg Tablet, 1 TAB PO BID for 30 Days, #60 TAB 0 Refills 08/30/24 Vitamin E Mixed (Vitamin E) 400 Unit Capsule, 1 CAP PO DAILY for 30 Days, #60 CAP 0 Refills 07/12/24 Hydralazine HCl (Hydralazine HCl) 50 Mg Tablet, 1 TAB PO BID for 30 Days, #60 TAB 0 Refills 07/12/24 Ferrous Sulfate (Ferrous Sulfate) 325 Mg (65 Mg Iron) Ectab, 1 TAB PO DAILY for 30 Days, #30 TAB 0 Refills 06/03/24 Sulfasalazine (Sulfas[address]azine Dr) 500 Mg Tablet.dr, 1000 MG PO QID, TAB 06/03/24 Clopidogrel Bisulfate (Clopidogrel) 75 Mg Tablet, 1 TAB PO DAILY for 30 Days, #30 TAB 0 Refills 06/03/24 Gabapentin (Gabapentin) 100 Mg Capsule, 100 MG PO BID, CAP 06/03/24 Montelukast Sodium (Montelukast Sodium) 10 Mg Tablet, 10 MG PO PM, TAB 04/28/24 Ferrous Sulfate (Ferrous Sulfate) 325 Mg (65 Mg Iron) Tablet, 1 TAB PO AD for EVERY OTHER DAY for 30 Days, #30 TAB 0 Refills 04/28/24 Past Medical History Past Medical History: Anemia, CAD, COPD, Diabetes-Type II, Hypertension Medical History Other: hyponatremia Past Surgical History: Unknown Family History Family History: HTN Social History Social History: Smokers, Lives with family ROS Dictation Unable to get a consistent review of systems from the patient. But I think he says no chest pain no shortness of breath no diarrhea no emesis. Physical Exam General Appearance: (+) no apparent distress Orientation: (+) alert Head/Face Trauma: No Eye: bilateral eye normal inspection, bilateral eye PERRL, bilateral eye EOMI Ear, Nose, Throat: (+) hearing grossly normal, (+) normal ENT inspection, (+) moist mucous membraine Neck: (+) normal inspection, (+) supple Respiratory: (+) chest non-tender, (+) lungs clear Heart: (+) regular, (+) murmur Vascular: (+) edema Gastrointestinal: (+) soft, (+) non-tender, (+) bowel sound present Results Laboratory and Microbiology Lab and Micro Result Laboratory Tests Test 11/20/24 04:36 White Blood Count 6.5 K/uL (4.8-10.8) Red Blood Count 2.58 MIL/uL (4.50-6.20) L Hemoglobin 7.0 g/dL (14.0-18.0) *L Hematocrit 23.0 % (42-54) L Mean Corpuscular Volume 89.1 fL (79-99) Mean Corpuscular Hemoglobin 27.1 pg (27.0-33.0) Mean Corpuscular Hemoglobin Concent 30.4 g/dL (32.0-36.0) L Red Cell Distribution Width 15.2 % (11.0-15.5) Platelet Count 297 K/uL (130-400) Mean Platelet Volume 9.0 fL (7.5-10.5) Immature Granulocyte % (Auto) 0.5 % (0-1) Neutrophils (%) (Auto) 73.4 % (40.0-77.0) Lymphocytes (%) (Auto) 10.1 % (21.0-51.0) L Monocytes (%) (Auto) 9.2 % (3.0-13.0) Eosinophils (%) (Auto) 6.0 % (0.0-8.0) Basophils (%) (Auto) 0.8 % (0.0-5.0) Neutrophils # (Auto) 4.8 K/uL (1.8-7.7) Lymphocytes # (Auto) 0.7 K/uL (1.0-4.8) L Monocytes # (Auto) 0.6 K/uL (0.1-1.0) Eosinophils # (Auto) 0.39 K/uL (0.00-0.70) Basophils # (Auto) 0.05 K/uL (0.00-0.20) Absolute Immature Granulocyte (auto 0.03 K/uL (0-1) Nucleated Red Blood Cells 0.0 % (0.0-0.19) Red Blood Cell Morphology See comments Sodium Level 131 mmol/L (136-145) L Potassium Level 4.5 mmol/L (3.5-5.1) Chloride Level 96 mmol/L (101-111) L Carbon Dioxide Level 29 mmol/L (21-32) Blood Urea Nitrogen 10 mg/dL (7-18) Creatinine 0.8 mg/dL (0.5-1.3) Glomerular Filtration Rate Calc 92 mL/min (>90) Random Glucose 100 mg/dL (70-105) Total Calcium 8.7 mg/dL (8.5-10.1) Total Bilirubin 0.2 mg/dL (0.2-1.0) Aspartate Amino Transf (AST/SGOT) 27 U/L (10-37) Alanine Aminotransferase (ALT/SGPT) 15 U/L (12-78) Alkaline Phosphatase 73 U/L (50-136) Troponin I High Sensitivity 32 ng/L (4-75) B-Type Natriuretic Peptide 268 pg/mL (0-100) H Total Protein 6.5 g/dL (6.0-8.3) Albumin 3.8 g/dL (3.5-5.0) MDM Patient's prior history I fully expect this patient to be hyponatremic and fluid overloaded. I will order a chest x-ray a BNP a CMP and a CBC and a chest x- ray.. Results have come back with a chest x-ray showing cephalization and an elevated BNP consistent with CHF, although the patient does have a heart murmur so some valvular disease maybe elevating the BNP. The patient's hemoglobin is 7.0 and he is hyponatremic and hypo kalemia quick. I will call the hospitalist service to admit him. ED Course Orders Procedure Category Date Status Time Cbc With Differential LAB 11/20/24 Complete 04:36 B-Type Natriuretic LAB 11/20/24 Complete Peptide 04:36 Comprehensive LAB 11/20/24 Complete Metabolic Panel 04:36 Troponin I High LAB 11/20/24 Complete Sensitivity 04:36 12 Lead Ekg Tracing- EKG 11/20/24 Complete Technical 04:49 Chest 1vw RAD 11/20/24 Logged 05:47 Vital Signs Date Time Temp Pulse Resp B/P (MAP) Pulse Ox O2 Delivery O2 Flow Rate FiO2 11/20/24 03:54 98.8 74 11 132/49 95 Room Air* 0 21 11/20/24 03:26 97.3 90 16 160/57 94 Room Air 0 DX & DISP Disposition: Inpatient Departure Impression: Primary Impression: Hyponatremia Additional Impressions: Anemia, Left leg swelling Condition: Stable Referrals: KRISTIN COSTA MD (PCP) TERESSA GUTHRIE MD November 20, 2024 06:02
--- NOTE | 2024-11-20 06:11 | NUR ---
ED MD [place] MADE AWARE OF HBG RESULT AT THIS TIME. NO ORDERS GIVEN.
[2024-11-20] MEDS ORDERED: ondanSETRON 4MG INJ IVP PRN (06:30)
[2024-11-20] MEDS ORDERED: acetaMINOPHEN 650 MG SUPPOSITORY RC PRN (06:30)
[2024-11-20] MEDS ORDERED: LAbetaLOL 20MG SYG IV PRN (06:30)
[2024-11-20] MEDS ORDERED: hydrALAZine 20MG/ML VIAL IV PRN (06:30)
--- NOTE | 2024-11-20 07:06 | NUR ---
REPORT GIVEN TO ÁNGEL GRAYSON AT THIS TIME
[2024-11-20] MEDS: ALBUTEROL 0.083% 2.5 MG/3 ML INH IH PRN (07:15)
--- NOTE | 2024-11-20 07:30 | NUR ---
PT HAS HIS EYES CLOSED IN THE LEFT LATERAL POSITION. NO ACUTE DISTRESS NOTED. SATS>95% ON ROOM AIR OXYGEN.
--- NOTE | 2024-11-20 08:45 | NUR ---
MEAL TRAY PROVIDED TO PT BUT PT PREFERS TO SLEEP AT THIS TIME.
--- NOTE | 2024-11-20 08:51 | HMCIMG ---
Exam Type: CHEST 1VW Clinical Information: hypoxia Comparison: None Findings: The lungs are clear of infiltrates. The heart is enlarged in size. The bony and soft tissue structures of the chest are unremarkable. Left cardiac pacemaker is noted with leads in place. Impression: Clear lungs.
[2024-11-20] MEDS: ASCORBIC ACID 500 MG TAB PO SCH (09:00)
[2024-11-20] MEDS: FAMOTIDINE 20MG TAB PO SCH (09:00)
--- NOTE | 2024-11-20 10:16 | NUR ---
PT WAS MOVED OVER TO ED BED 5.
--- NOTE | 2024-11-20 10:20 | NUR ---
REPORT ENDORSED TO HELENA GRAYSON
[2024-11-20] MEDS: INSULIN humuLIN R 100 UNIT/ML 3ML SQ SCH (11:30)
[2024-11-20] MEDS ORDERED: BUSP5TAB3 PO (11:50)
--- NOTE | 2024-11-20 11:51 | NUR ---
Patients home medications reviewed, pending to be reconsiled by physician.
--- NOTE | 2024-11-20 12:08 | NUR ---
Patient refused his morning medications. Stated he does not take those mediacttions at home.
--- NOTE | 2024-11-20 12:08 | NUR ---
Blood glucose 104. No insulin coverage needed at this time.
[2024-11-20] MEDS: acetaMINOPHEN 325 MG TAB PO PRN (13:04)
[2024-11-20] MEDS: Solu-medROL 40MG VIAL IVP SCH (13:04)
[2024-11-20 13:33] LABS: BASOPHILS # (AUTO) 0.05 K/uL (0.00-0.20); BASOPHILS % (AUTO) 0.7 % (0.0-5.0); EOSINOPHILS % (AUTO) 5.5 % (0.0-8.0); HEMATOCRIT 21.3 % (42-54); IMMATURE GRANULOCYTE ABSOLUTE 0.02 K/uL (0-1); LYMPHOCYTES # (AUTO) 0.8 K/uL (1.0-4.8); LYMPHOCYTES % (AUTO) 10.9 % (21.0-51.0); MEAN CORPUSCULAR HGB CONC 31.5 g/dL (32.0-36.0); MEAN CORPUSCULAR VOLUME 89.1 fL (79-99); MONOCYTES # (AUTO) 1.1 K/uL (0.1-1.0); MONOCYTES % (AUTO) 14.5 % (3.0-13.0); NEUTROPHILS % (AUTO) 68.1 % (40.0-77.0); PLATELET COUNT (AUTO) 270 K/uL (130-400); RED BLOOD CELL COUNT(AUTO) 2.39 MIL/uL (4.50-6.20); WHITE BLOOD COUNT (AUTO) 7.3 K/uL (4.8-10.8)
--- NOTE | 2024-11-20 13:42 | NUR ---
CALLED TO GIVE REPORT TO MRS. GARCIA. NOTIFY HER THAT PATIENT WAS PENDING A CBC RESULTS. SHE VERBALIZED UNDERTANDING.
--- NOTE | 2024-11-20 13:45 | NUR ---
CRITICAL RESULT FOR HEMOGLOBIN OF 6.7. CALLED MR. ANNI BARRETO FOR BENCHMARK AND NOTIFY HIM OF RESULT. HE STATED HE WILL PUT ORDERS. I CALLED DARNELL TO LET HER KNOW. SHE VERBALIZED UNDERSTANDING.
--- NOTE | 2024-11-20 13:48 | NUR ---
VENOUS DOPPLER DONE.
--- NOTE | 2024-11-20 13:57 | HMCIMG ---
Exam Type: US VENOUS DOPPLER BILATERAL Clinical Information: EDEMA Comparison: None Findings: The examination shows normal deep venous system. There is normal compressibility at all levels. There is no intraluminal clot. There is no occlusion. Adequate response is obtained on augmentation. Impression: No evidence of DVT.
--- NOTE | 2024-11-20 16:20 | HP ---
[facility] HISTORY & PHYSICAL Date Patient Seen: November 20, 2024 Time of Visit: 16:55 Supervising Physician: [Dr. Christian] Primary Care Physician: [Dr. Mark Meehan] Outpatient Specialists: [ ] Inpatient Consults: [ ] PROBLEM LIST: Acute on chronic diastolic CHF with preserved EF 60-65% per Echo on 06/05/2024 Acute urinary retention, s/p ny insertion in ED Acute dehydration, POA Autoimmune disease, unspecified, on sulfasalazine at home Anemia of chronic disease - stable Electrolyte derangement (Hyponatremia, hypochloremia, hypocalcemia) - resolved Diabetes mellitus with hyperglycemia PAD with history of angioplasty prior bilateral iliac stents in October 2020 and stenting of Left SFA on Xarelto Moderate aortic valve stenosis, per echo 06/05/24 Nominal left lung base scarring and/or atelectasis, per chest x-ray 06/03/2024 Left lower extremity cellulitis with swelling with underlying severe PAD s/p incomplete LE angio on 07/30/[address] 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 His labs on admission revealed mild hyponatremia at 131, slightly elevated BNP of 268 but were otherwise grossly unremarkable. CXR on admission was clear of any infiltrates. Patient did have a bladder scan at bedside which revealed over 300 cc of urine, Ny catheter was inserted and had over 600 cc of urine evacuated. He did have some hematuria noted to Ny bag, likely traumatic from Ny insertion. Patient is on dual antiplatelet therapy as well as Xarelto 2.5 mg b.i.d. for PAD. His hemoglobin was 7.0, repeat was 6.7. No other signs of active bleed. He has a history of COPD with some bilateral wheezing auscultation. Does have a history of home O2 use but currently saturating well on room air. He does have significant swelling to bilateral lower extremities, R>L] PAST MEDICAL HX: see above PAST SURGICAL HX: noncontributory SOCIAL HISTORY: No illicit drug use, positive alcohol and tobacco abuse Coded Allergies: Pork/Porcine Containing Products (Verified Allergy, Intermediate, 07/17/24) No Known Allergies (Unverified Allergy, Unknown, 07/17/24) No Known Drug Allergies (Verified Allergy, Unknown, 08/04/19) REVIEW OF SYSTEMS: 12 point ROS reviewed with patient. Pertinent positives mentioned above. Otherwise negative. PHYSICAL EXAM: GENERAL: alert, weak, awake oriented x 3 HEENT: EOMI, Sclera non icteric, moist mucosa NECK: Supple, no JVD, trachea midline LUNGS: Clear breath sounds bilaterally. No wheezes HEART: Regular rate and rhythm. Normal S1 and S2, without murmurs ABD: Abdomen soft, nontender. Bowel sounds present EXT: No clubbing cyanosis or edema NEURO: Alert and oriented to person, follows commands Vital Signs (last 8hr) Date Time Temp Pulse Resp B/P (MAP) Pulse Ox O2 Delivery O2 Flow Rate FiO2 11/20/24 14:00 77 20 156/68 96 Room Air 11/20/24 13:57 96 Room Air* 0 21 11/20/24 11:27 76 16 N/A Room Air 21 11/20/24 11:25 76 16 LABS: Hematology Labs: Test 11/20/24 13:27 11/20/24 04:36 Range/Units White Blood Count 7.3 4.8-10.8 K/uL Red Blood Count 2.39 L 4.50-6.20 MIL/uL Hemoglobin 6.7 *L 14.0-18.0 g/dL Hematocrit 21.3 L 42-54 % Mean Corpuscular Volume 89.1 79-99 fL Mean Corpuscular Hemoglobin 28.0 27.0-33.0 pg Mean Corpuscular Hemoglobin Concent 31.5 L 32.0-36.0 g/dL Red Cell Distribution Width 15.0 11.0-15.5 % Platelet Count 270 130-400 K/uL Mean Platelet Volume 8.8 7.5-10.5 fL Immature Granulocyte % (Auto) 0.3 0-1 % Neutrophils (%) (Auto) 68.1 40.0-77.0 % Lymphocytes (%) (Auto) 10.9 L 21.0-51.0 % Monocytes (%) (Auto) 14.5 H 3.0-13.0 % Eosinophils (%) (Auto) 5.5 0.0-8.0 % Basophils (%) (Auto) 0.7 0.0-5.0 % Neutrophils # (Auto) 5.0 1.8-7.7 K/uL Lymphocytes # (Auto) 0.8 L 1.0-4.8 K/uL Monocytes # (Auto) 1.1 H 0.1-1.0 K/uL Eosinophils # (Auto) 0.40 0.00-0.70 K/uL Basophils # (Auto) 0.05 0.00-0.20 K/uL Absolute Immature Granulocyte (auto 0.02 0-1 K/uL Nucleated Red Blood Cells 0.0 0.0-0.19 % Red Blood Cell Morphology See comments Chemistry Labs: Test 11/20/24 12:04 11/20/24 04:36 Range/Units Whole Blood Glucose 102 70-110 MG/DL Sodium Level 131 L 136-145 mmol/L Potassium Level 4.5 3.5-5.1 mmol/L Chloride Level 96 L 101-111 mmol/L Carbon Dioxide Level 29 21-32 mmol/L Blood Urea Nitrogen 10 7-18 mg/dL Creatinine 0.8 0.5-1.3 mg/dL Glomerular Filtration Rate Calc 92 >90 mL/min Random Glucose 100 70-105 mg/dL Total Calcium 8.7 8.5-10.1 mg/dL Total Bilirubin 0.2 0.2-1.0 mg/dL Aspartate Amino Transf (AST/SGOT) 27 10-37 U/L Alanine Aminotransferase (ALT/SGPT) 15 12-78 U/L Alkaline Phosphatase 73 50-136 U/L Troponin I High Sensitivity 32 4-75 ng/L B-Type Natriuretic Peptide 268 H 0-100 pg/mL Total Protein 6.5 6.0-8.3 g/dL Albumin 3.8 3.5-5.0 g/dL DIAGNOSTICS / RADIOLOGY RESULTS: [Reviewed] PLAN Continue Ny catheter Monitor hemoglobin and hematocrit Ordered venous Doppler Resume home medications as reconciled, hold antiplatelets and anticoagulants Start Flomax to 0.5 mg b.i.d. Start IV Solu-Medrol 20 mg b.i.d., continue albuterol supplemental oxygen and troponin Order UA with urine protein urine creatinine Defer lasix for now with hyponatremia and soft blood pressures Further management per hospital course Disposition TBD NEURO: Minimize central acting medications as possible. Maintain fall precautions, adequate lighting during the day PULMONARY: Supplemental 02 as needed. Maintain aspiration precautions at all times CARDIOVASCULAR: Follow hemodynamics. Vital signs per facility protocol GI & NUTRITION: Continue with nutritional support. Continue stool softeners and laxatives as needed. KIDNEYS & ELECTROLYTES: Strict monitoring of intake, output and overall fluid balance. Avoid nephrotoxic medications to the extent possible. Medications to be dosed according to renal function. Monitor electrolytes and replace as needed ENDOCRINE: Maintain blood glucose between 100-180 at all times. Hypoglycemia protocol in place INFECTIOUS DISEASE: Trend temperature, WBC and procalcitonin level Follow cultures, deescalate antibiotics as soon as possible. Panculture if new onset fever ONCOLOGY/HEMATOLOGY/COAGULATION: Monitor for s/s of bleeding Monitor hemoglobin, coagulation studies as needed SKIN: Pressure ulcer prevention per facility protocol Specialty mattress ORTHO/REHAB: Continue PT/OT Prophylaxis: Continue GI and DVT prophylaxis Code Status: Full Resuscitation Disposition: TBD Other: Total patient care time exceeds 35 minutes excluding all procedures. ANNI MURO November 20, 2024 16:20
[2024-11-20 16:31] LABS: HEMATOCRIT 21.1 % (42-54)
[2024-11-21] VITALS (15 sets, daily range): BP systolic 117–140; BP diastolic 44–57; PULSE 60–77; RESP 16–20; TEMP 97.5–99; O2SAT 96–100
[2024-11-21 06:17] LABS: HEMATOCRIT 22.6 % (42-54); IMMATURE GRANULOCYTE ABSOLUTE 0.02 K/uL (0-1); LYMPHOCYTES # (AUTO) 0.2 K/uL (1.0-4.8); LYMPHOCYTES % (AUTO) 4.8 % (21.0-51.0); MEAN CORPUSCULAR HEMOGLOBIN 26.8 pg (27.0-33.0); MEAN CORPUSCULAR HGB CONC 30.5 g/dL (32.0-36.0); MEAN CORPUSCULAR VOLUME 87.9 fL (79-99); MONOCYTES # (AUTO) 0.1 K/uL (0.1-1.0); NEUTROPHILS # (AUTO) 4.2 K/uL (1.8-7.7); NEUTROPHILS % (AUTO) 92.8 % (40.0-77.0); PLATELET COUNT (AUTO) 265 K/uL (130-400); RED BLOOD CELL COUNT(AUTO) 2.57 MIL/uL (4.50-6.20); RED CELL DISTRIBUTION WIDTH 15.3 % (11.0-15.5); WHITE BLOOD COUNT (AUTO) 4.6 K/uL (4.8-10.8)
[2024-11-21 06:37] LABS: CREATININE 0.7 mg/dL (0.5-1.3); MAGNESIUM 1.7 mg/dL (1.80-2.40); POTASSIUM 4.3 mmol/L (3.5-5.1)
[2024-11-21] MEDS: tamSULOsin HCL 0.4 MG CAP.ER.24H PO SCH (09:48)
[2024-11-21] MEDS: furoSEMIDE 40MG VIAL IV ONE (11:54)
--- NOTE | 2024-11-21 13:19 | NUR ---
Discharge Planning: Pt. states he lives with his spouse. Contact number is for his daughter Mirtha Frost at . PCP is Dr. Mark Carver and preferred pharmacy is [facility]. Pt. states he needs assistance with ADL's. Has provider services 3 hours daily. States he has a motorized w/c and a regular w/c. DCP is for home, depending on patient's progress. Addendum: 11/21/24 at 1323 by IVONNE VILLALTA RN CM Amended: Links added.
--- NOTE | 2024-11-21 14:01 | PN ---
[facility] PROGRESS NOTE Date Patient Seen: November 21, 2024 Time of Visit: 14:01 Supervising Physician: [Dr. Christian] Primary Care Physician: [Dr. Mark Meehan] Outpatient Specialists: [ ] Inpatient Consults: [ ] PROBLEM LIST: Acute on chronic diastolic CHF with preserved EF 60-65% per Echo on 06/05/2024 Acute urinary retention, s/p ny insertion in ED Acute dehydration, POA Autoimmune disease, unspecified, on sulfasalazine at home Anemia of chronic disease - stable Electrolyte derangement (Hyponatremia, hypochloremia, hypocalcemia) - resolved Diabetes mellitus with hyperglycemia PAD with history of angioplasty prior bilateral iliac stents in October 2020 and stenting of Left SFA on Xarelto Moderate aortic valve stenosis, per echo 06/05/24 Nominal left lung base scarring and/or atelectasis, per chest x-ray 06/03/2024 Left lower extremity cellulitis with swelling with underlying severe PAD s/p incomplete LE angio on 07/30/[address] 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 He continues with Ny catheter placement and clear urine noted per Ny bag. He did undergo intermittent irrigation with resolution of his hematuria. His hemoglobin is decreased, likely secondary to acute blood loss in traumatic Ny insertion. Repeat is improved to 7.2 without transfusion. We will continue to monitor hemoglobin overnight. Patient was initiated with a dose of IV Lasix and we will continue on maintenance dose for improvement of bilateral lower extremity edema. Venous Doppler was negative for DVT. Urinary protein excretion is about 0.2g/day.] REVIEW OF SYSTEMS: 12 point ROS reviewed with patient. Pertinent positives mentioned above. Otherwise negative. PHYSICAL EXAM: GENERAL: alert, weak, awake oriented x 3 HEENT: EOMI, Sclera non icteric, moist mucosa NECK: Supple, no JVD, trachea midline LUNGS: Clear breath sounds bilaterally. No wheezes HEART: Regular rate and rhythm. Normal S1 and S2, without murmurs ABD: Abdomen soft, nontender. Bowel sounds present EXT: No clubbing cyanosis or edema NEURO: Alert and oriented to person, follows commands Vital Signs (last 8hr) Date Time Temp Pulse Resp B/P (MAP) Pulse Ox O2 Delivery O2 Flow Rate FiO2 11/21/24 11:57 97.9 68 16 117/44 100 Room Air 11/21/24 07:45 97.9 61 17 122/48 100 Nasal Cannula 2.0 11/21/24 07:30 67 20 N/Cannula Low lpm 2.0 28 11/21/24 07:14 60 16 LABS: Hematology Labs: Test 11/21/24 12:39 11/21/24 05:20 11/20/24 04:36 Range/Units Hemoglobin 7.2 L 14.0-18.0 g/dL White Blood Count 4.6 #L 4.8-10.8 K/uL Red Blood Count 2.57 L 4.50-6.20 MIL/uL Hematocrit 22.6 L 42-54 % Mean Corpuscular Volume 87.9 79-99 fL Mean Corpuscular Hemoglobin 26.8 L 27.0-33.0 pg Mean Corpuscular Hemoglobin Concent 30.5 L 32.0-36.0 g/dL Red Cell Distribution Width 15.3 11.0-15.5 % Platelet Count 265 130-400 K/uL Mean Platelet Volume 9.2 7.5-10.5 fL Immature Granulocyte % (Auto) 0.4 0-1 % Neutrophils (%) (Auto) 92.8 H 40.0-77.0 % Lymphocytes (%) (Auto) 4.8 L 21.0-51.0 % Monocytes (%) (Auto) 2.0 L 3.0-13.0 % Eosinophils (%) (Auto) 0.0 0.0-8.0 % Basophils (%) (Auto) 0.0 0.0-5.0 % Neutrophils # (Auto) 4.2 1.8-7.7 K/uL Lymphocytes # (Auto) 0.2 L 1.0-4.8 K/uL Monocytes # (Auto) 0.1 0.1-1.0 K/uL Eosinophils # (Auto) 0.00 0.00-0.70 K/uL Basophils # (Auto) 0.00 0.00-0.20 K/uL Absolute Immature Granulocyte (auto 0.02 0-1 K/uL Nucleated Red Blood Cells 0.0 0.0-0.19 % White Cell Morphology Comment See comments Red Blood Cell Morphology See comments Chemistry Labs: Test 11/21/24 11:04 11/21/24 05:20 11/20/24 16:23 11/20/24 04:36 Range/Units Whole Blood Glucose 175 H 70-110 MG/DL Sodium Level 132 L 136-145 mmol/L Potassium Level 4.3 3.5-5.1 mmol/L Chloride Level 95 L 101-111 mmol/L Carbon Dioxide Level 30 21-32 mmol/L Blood Urea Nitrogen 11 7-18 mg/dL Creatinine 0.7 0.5-1.3 mg/dL Glomerular Filtration Rate Calc 96 >90 mL/min Random Glucose 127 H 70-105 mg/dL Total Calcium 8.8 8.5-10.1 mg/dL Phosphorus Level 4.0 2.5-4.9 mg/dL Magnesium Level 1.70 L 1.80-2.40 mg/dL Thyroid Stimulating Hormone (TSH) 0.88 # 0.36-3.74 uIU/mL Total Bilirubin 0.2 0.2-1.0 mg/dL Aspartate Amino Transf (AST/SGOT) 27 10-37 U/L Alanine Aminotransferase (ALT/SGPT) 15 12-78 U/L Alkaline Phosphatase 73 50-136 U/L Troponin I High Sensitivity 32 4-75 ng/L B-Type Natriuretic Peptide 268 H 0-100 pg/mL Total Protein 6.5 6.0-8.3 g/dL Albumin 3.8 3.5-5.0 g/dL DIAGNOSTICS / RADIOLOGY RESULTS: [ ] PLAN One time dose of IV lasix 80mg Maintenance dose of lasix 20mg PO BID Repeat labs in AM Monitor hemoglobin and hematocrit Venous Doppler negative Resume home medications as reconciled, hold antiplatelets and anticoagulants Continue Flomax to 0.5 mg b.i.d. Continue IV Solu-Medrol 20 mg b.i.d., continue albuterol supplemental oxygen and troponin Order UA with urine protein urine creatinine Further management per hospital course Disposition TBD NEURO: Minimize central acting medications as possible. Maintain fall precautions, adequate lighting during the day PULMONARY: Supplemental 02 as needed. Maintain aspiration precautions at all times CARDIOVASCULAR: Follow hemodynamics. Vital signs per facility protocol GI & NUTRITION: Continue with nutritional support. Continue stool softeners and laxatives as needed. KIDNEYS & ELECTROLYTES: Strict monitoring of intake, output and overall fluid balance. Avoid nephrotoxic medications to the extent possible. Medications to be dosed according to renal function. Monitor electrolytes and replace as needed ENDOCRINE: Maintain blood glucose between 100-180 at all times. Hypoglycemia protocol in place INFECTIOUS DISEASE: Trend temperature, WBC and procalcitonin level Follow cultures, deescalate antibiotics as soon as possible. Panculture if new onset fever ONCOLOGY/HEMATOLOGY/COAGULATION: Monitor for s/s of bleeding Monitor hemoglobin, coagulation studies as needed SKIN: Pressure ulcer prevention per facility protocol Specialty mattress ORTHO/REHAB: Continue PT/OT Prophylaxis: Continue GI and DVT prophylaxis Code Status: Full Resuscitation Disposition: TBD Other: Total patient care time exceeds 35 minutes excluding all procedures. ANNI MURO November 21, 2024 14:01
[2024-11-21] MEDS: furoSEMIDE 20 MG TABLET PO SCH (21:25)
[2024-11-22] VITALS (7 sets, daily range): BP systolic 112–130; BP diastolic 34–42; PULSE 60–73; RESP 17–19; TEMP 97.8–98.1; O2SAT 97–100
[2024-11-22 02:14] LABS: APPEARANCE,URINE CLEAR (CLEAR); BILIRUBIN,URINE NEGATIVE (NEGATIVE); COLOR,URINE LIGHT-YELLOW (YELLOW); GLUCOSE, URINE (UA) NEGATIVE (NEGATIVE); KETONES,URINE NEGATIVE (NEGATIVE); LEUKOCYTE ESTERASE ,URINE 250 Leu/uL (NEGATIVE); NITRATE,URINE NEGATIVE (NEGATIVE); OCCULT BLOOD,URINE LARGE (NEGATIVE); PH,URINE 5.5 (5.0-8.0); PROTEIN,URINE NEGATIVE (NEGATIVE); UROBILINOGEN,URINE 0.2 mg/dL (0.2-1.0)
[2024-11-22 02:18] LABS: CREATININE,URINE RANDOM 98.06 mg/dL (30-135); PROTEIN,URINE RANDOM 21.9 mg/dL (0-11.9)
[2024-11-22 02:19] LABS: ADD UA MICROSCOPIC YES
[2024-11-22 02:21] LABS: BACTERIA,URINE RARE /HPF (None Seen); RBC,URINE 51-100 /HPF (0-1); WBC,URINE 51-100 /HPF (0-1)
[2024-11-22 06:56] LABS: EOSINOPHILS # (AUTO) 0.14 K/uL (0.00-0.70); EOSINOPHILS % (AUTO) 2.1 % (0.0-8.0); HEMATOCRIT 22.7 % (42-54); IMMATURE GRANULOCYTE ABSOLUTE 0.03 K/uL (0-1); LYMPHOCYTES # (AUTO) 0.3 K/uL (1.0-4.8); LYMPHOCYTES % (AUTO) 3.9 % (21.0-51.0); MEAN CORPUSCULAR HGB CONC 31.3 g/dL (32.0-36.0); MEAN CORPUSCULAR VOLUME 86.3 fL (79-99); MONOCYTES # (AUTO) 0.3 K/uL (0.1-1.0); MONOCYTES % (AUTO) 4.8 % (3.0-13.0); NEUTROPHILS # (AUTO) 5.9 K/uL (1.8-7.7); NEUTROPHILS % (AUTO) 88.7 % (40.0-77.0); PLATELET COUNT (AUTO) 280 K/uL (130-400); RED BLOOD CELL COUNT(AUTO) 2.63 MIL/uL (4.50-6.20); RED CELL DISTRIBUTION WIDTH 15.1 % (11.0-15.5); WHITE BLOOD COUNT (AUTO) 6.6 K/uL (4.8-10.8)
[2024-11-22 07:30] LABS: CREATININE 0.8 mg/dL (0.5-1.3); POTASSIUM 5.1 mmol/L (3.5-5.1)
[2024-11-22] MEDS ORDERED: FURO20TA4 PO (12:29)
[2024-11-22] MEDS ORDERED: RIVA2.5T PO (12:29)
[2024-11-22] MEDS ORDERED: NITROGLYCERIN 0.4 MG SL TAB SL PRN (15:00)
--- NOTE | 2024-11-22 17:07 | DS ---
[facility] DISCHARGE SUMMARY Date Patient Seen: November 22, 2024 Time of Visit: 17:07 Supervising Physician: [Dr. Smith] Primary Care Physician: [Dr. Mark Meehan] Outpatient Specialists: [ ] Inpatient Consults: [ ] PROBLEM LIST: Acute on chronic diastolic CHF with preserved EF 60-65% per Echo on 06/05/2024 Acute urinary retention, s/p ny insertion in ED Acute dehydration, POA Autoimmune disease, unspecified, on sulfasalazine at home Anemia of chronic disease - stable Electrolyte derangement (Hyponatremia, hypochloremia, hypocalcemia) - resolved Diabetes mellitus with hyperglycemia PAD with history of angioplasty prior bilateral iliac stents in October 2020 and stenting of Left SFA on Xarelto Moderate aortic valve stenosis, per echo 06/05/24 Nominal left lung base scarring and/or atelectasis, per chest x-ray 06/03/2024 Left lower extremity cellulitis with swelling with underlying severe PAD s/p incomplete LE angio on 07/30/[address] Rivera CAD hx of stenting of RCA in 2018 Primary hypertension Hyperlipidemia BPH with LUTS Conduction System Disease Pacemaker in situ History of stroke with slurred speech residual Chronic anxiety History of acute Herpes Zoster of Right Thorax on 07/23/2023 admission and dx on 08/06/2023, s/p treatment Tobacco dependence and hx of alcohol abuse Medical noncompliance HOSPITAL COURSE: HPI (per admitting provider) [This is a 74-year-old male with a history of diabetes, hypertension, CAD/PAD s/p remote stenting who presents to the ED for evaluation of bilateral lower extremity edema And trouble urinating. His labs on admission revealed mild hyponatremia at 131, slightly elevated BNP of 268 but were otherwise grossly unremarkable. CXR on admission was clear of any infiltrates. Patient did have a bladder scan at bedside which revealed over 300 cc of urine, Ny catheter was inserted and had over 600 cc of urine evacuated. He did have some hematuria noted to Ny bag, likely traumatic from Ny insertion. Patient is on dual antiplatelet therapy as well as Xarelto 2.5 mg b.i.d. for PAD. His hemoglobin was 7.0, repeat was 6.7. No other signs of active bleed. He has a history of COPD with some bilateral wheezing auscultation. Does have a history of home O2 use but currently saturating well on room air. He does have significant swelling to bilateral lower extremities, R>L] [Patient is evaluated at bedside. He continues with Ny catheter placement and clear urine noted per Ny bag. He did undergo intermittent irrigation with resolution of his hematuria. His hemoglobin is decreased, likely secondary to acute blood loss in traumatic Ny insertion. Repeat is improved to 7.2 without transfusion. We will continue to monitor hemoglobin overnight. Patient was initiated with a dose of IV Lasix and we will continue on maintenance dose for improvement of bilateral lower extremity edema. Venous Doppler was negative for DVT. Urinary protein excretion is about 0.2g/day.] 11/22 patient admitted at bedside. He is given a dose of Lasix with can not urine output. He continues with Ny catheter in place. Continues with bilateral lower extremity edema, secondary to noncompliance with medications outpatient. He is overall feeling improved and requesting discharge home. He continues with mild wheezing bilaterally which is expected chronic COPD patient he otherwise is without fever, cough. No other reported symptoms. Patient is discharged home in stable condition. Advised to be compliant with medications at home to reduce complications of his medical condition, verbalized understanding. The patient was treated for the following problems: ACTIVE PROBLEM LIST FOR THE HOSPITALIZATION: CHRONIC PROBLEMS: continue previous management per PCP unless otherwise indicated BUTTER MELTER FINDINGS/RECOMMENDATIONS: [ ] PROCEDURES: as mentioned above DISCHARGE MEDICATIONS: Pt hemodynamically stable and afebrile at time of discharge. PCP notified of patient�s admission, hospital course and discharge. Continued Medications: Atorvastatin Calcium (Atorvastatin Calcium) 40 Mg Tablet 1 TAB PO DAILY for 30 Days, #30 TAB 0 Refills Budesonide/Glycopyr/Formoterol (Breztri Aerosphere Inhaler) 160 Mcg-9 Mcg-4.8 Mcg/Actuation Hfa.aer.ad 2 PUFF IH BID for 30 Days, #10.7 GM 0 Refills Buspirone HCl (Buspirone HCl) 5 Mg Tablet 1 TAB PO BID for 30 Days, #60 TAB 0 Refills Escitalopram Oxalate (Escitalopram Oxalate) 20 Mg Tablet 1 TAB PO DAILY for 30 Days, #30 TAB 0 Refills Ferrous Sulfate (Ferrous Sulfate) 325 Mg (65 Mg Iron) Ectab 1 TAB PO DAILY for 30 Days, #30 TAB 0 Refills Furosemide (Furosemide) 20 Mg Tablet 1 TAB PO DAILY for 30 Days, #30 TAB 0 Refills Gabapentin (Gabapentin) 100 Mg Capsule 100 MG PO BID, CAP Hydralazine HCl (Hydralazine HCl) 50 Mg Tablet 1 TAB PO BID for 30 Days, #60 TAB 0 Refills Losartan Potassium (Losartan Potassium) 50 Mg Tablet 1 TAB PO DAILY for 30 Days, #30 TAB 0 Refills Metoprolol Succinate (Metoprolol Succinate) 25 Mg Tab.er.24h 0.5 TAB PO DAILY for 30 Days, #30 TAB 0 Refills Montelukast Sodium (Montelukast Sodium) 10 Mg Tablet 10 MG PO PM, TAB Nitroglycerin (Nitroglycerin) 0.4 Mg Tab.subl 1 TAB SL AD PRN for CHEST PAIN, #25 TAB 0 Refills 1st sign of attack; may repeat every 5 mins; if pain persists after 3 in 15 min, medical attention is recommended Omeprazole (Omeprazole) 20 Mg Capsule.dr 1 CAP PO DAILY for 30 Days, #30 CAP 0 Refills Tamsulosin HCl (Flomax) 0.4 Mg Cap.er.24h 1 CAP PO DAILY for 30 Days, #30 CAP 0 Refills Discontinued Medications: Aspirin (Aspirin EC) 81 Mg Tablet.dr 1 TAB PO DAILY for 30 Days, #30 TAB 0 Refills Clopidogrel Bisulfate (Clopidogrel) 75 Mg Tablet 1 TAB PO DAILY for 30 Days, #30 TAB 0 Refills Rivaroxaban (Xarelto) 2.5 Mg Tablet 1 TAB PO BID PHYSICAL EXAM: GENERAL: alert, weak, awake oriented x 3 HEENT: EOMI, Sclera non icteric, moist mucosa NECK: Supple, no JVD, trachea midline LUNGS: Clear breath sounds bilaterally. No wheezes HEART: Regular rate and rhythm. Normal S1 and S2, without murmurs ABD: Abdomen soft, nontender. Bowel sounds present EXT: No clubbing cyanosis or edema NEURO: Alert and oriented to person, follows commands FOLLOW-UP: Hold aspirin and Plavix and Xarelto for two days upon discharge. Follow-up with PCP for repeat hemoglobin before initiating. Follow-up with PCP for management of Ny or referral to Urology as needed for the same. Resume Plavix and Xarelto when deemed safe by PCP/Cardiology. Complete Medrol Dosepak upon discharge. RECOMMENDATIONS: See Discharge Instructions This case was seen and discussed with my supervising physician. More than 30 minutes spent on discharge process, including evaluation of the patient, discussion with nursing staff, medication reconciliation and follow-up ap pointANNI Joyce November 22, 2024 17:07
--- NOTE | 2024-11-22 17:19 | NUR ---
LEFT HAND EDEMA: 4+ Addendum: 11/22/24 at 1721 by ALYSHA ORTEGA LVN LVN Amended: Links added.
--- NOTE | 2024-11-22 17:49 | NUR ---
DISCHARGE DC'D IV WITH NO COMPLICATIONS. DISCHARGE INSTRUCTIONS GIVEN TO PT AND FAMILY. FAMILY ACKNOWLEDGED INFORMATION. INSTRUCTED THAT PT WILL LEAVE WITH HARE INSERTED AND TO FOLLOW UP WITH PCP IN 2 DAYS. HARE WAS EMPTIED. HARE EDUCATION WAS PERFORMED. FAMILY WAS INFORMED ON STOPPED MEDICATIONS. ALL QUESTIONS ANSWERED.
[2024-11-22] MEDS ORDERED: GABApentin 100 MG CAPSULE PO SCH (21:00)
[2024-11-22] MEDS ORDERED: monteLUKAST sodIUM 10 MG TAB PO SCH (21:00)
[2024-11-22] MEDS ORDERED: busPIRone HCL 5 MG TABLET PO SCH (21:00)
[2024-11-22] MEDS ORDERED: hydrALAZine 25MG TABLET PO SCH (21:00)
[2024-11-23] MEDS ORDERED: FERROUS SULFATE 325 MG TABLET.DR PO SCH (09:00)
[2024-11-23] MEDS ORDERED: ASPIRIN 81 MG EC TAB PO SCH (09:00)
[2024-11-23] MEDS ORDERED: atorVAStatin 40 MG TABLET PO SCH (09:00)
[2024-11-23] MEDS ORDERED: LoSARTan 50 MG TABLET PO SCH (09:00)
[2024-11-23] MEDS ORDERED: PANTOPrazole 40 MG TAB DR PO SCH (09:00)
[2024-11-23] MEDS ORDERED: metOPROLol sucCINATE 25 MG TAB.SR.24H PO SCH (09:00)
[2024-11-23] MEDS ORDERED: citaLOPram 20 MG TABLET PO SCH (09:00)
--- NOTE | 2024-11-24 12:02 | NUR ---
Transitional Phone Call Patient readmitted on 11/24/2024 for Sepsis.
[2024-11-26] MEDS ORDERED: LEVO750T68 PO (12:13)
[2024-11-26] MEDS ORDERED: PANT40TA55 PO (12:13)
== END 2024-11-22 18:00 | disposition home or self-care (01) | DRG 291 ==
LOC: EDH 03:20 → EDHIP 06:07 → 3BH 14:00
PROVIDERS: ADMIT Internal Medicine Critical Care Medicine; ATTEND Internal Medicine Critical Care Medicine
DX: I11.0 Hypertensive heart disease with heart failure (principal); I50.33 Acute on chronic diastolic (congestive) heart failure; E87.1 Hypo-osmolality and hyponatremia; D63.8 Anemia in other chronic diseases classified elsewhere; E78.5 Hyperlipidemia, unspecified; E83.51 Hypocalcemia; E86.0 Dehydration; E87.8 Other disorders of electrolyte and fluid balance, not elsewhere classified; F17.200 Nicotine dependence, unspecified, uncomplicated; F41.9 Anxiety disorder, unspecified; I25.10 Atherosclerotic heart disease of native coronary artery without angina pectoris; I35.0 Nonrheumatic aortic (valve) stenosis; I45.9 Conduction disorder, unspecified; E11.628 Type 2 diabetes mellitus with other skin complications; E11.65 Type 2 diabetes mellitus with hyperglycemia; N40.1 Benign prostatic hyperplasia with lower urinary tract symptoms; Z86.73 Personal history of transient ischemic attack (TIA), and cerebral infarction without residual deficits; Z91.199 Patient's noncompliance with other medical treatment and regimen due to unspecified reason; Z95.0 Presence of cardiac pacemaker; Z95.5 Presence of coronary angioplasty implant and graft; Z79.01 Long term (current) use of anticoagulants; Z82.49 Family history of ischemic heart disease and other diseases of the circulatory system; Z91.148 Patient's other noncompliance with medication regimen for other reason
CPT/HCPCS: 36415; 71045; 80048; 80053; 81001; 82570; 82948; 83735; 83880; 84100; 84156; 84443; 84484; 85014; 85018; 85025; 87086; 87186; 93005; 93970; 94640; 99285; G0378; J1938; J2919

== ENCOUNTER 2025-05-20 03:35 | Inpatient (IN) | payer OTHER, MEDICAID ==
[~2025-05-20] VITALS: Ht 172.7 cm; Wt 71.7 kg
[2025-05-20] VITALS (19 sets, daily range): BP systolic 122–149; BP diastolic 47–74; PULSE 60–133; RESP 17–30; TEMP 96.5–98.1; O2SAT 2–100
[2025-05-20 03:20] LABS: IMMATURE GRANULOCYTE ABSOLUTE 0.08 K/uL (0-1); PLATELET COUNT (AUTO) 273 K/uL (130-400); RED BLOOD CELL COUNT(AUTO) 2.14 MIL/uL (4.50-6.20); RED CELL DISTRIBUTION WIDTH 14.1 % (11.0-15.5); WHITE BLOOD COUNT (AUTO) 7.4 K/uL (4.8-10.8)
[2025-05-20 03:25] LABS: ASPARTATE AMINOTRANSFERASE 20.0 U/L (10-37); CREATININE 0.9 mg/dL (0.5-1.3); GLOMERULAR FILTR. RATE CALC 89.0 mL/min (>90); GLUCOSE,RANDOM 110.0 mg/dL (70-105); SODIUM SERUM 127.0 mmol/L (136-145); TOTAL PROTEIN, SERUM 6.1 g/dL (6.0-8.3); UREA NITROGEN, BLOOD 19.0 mg/dL (7-18)
[~2025-05-20 03:35] MED LIST changes: +APIX5TAB PO; +ASPI-1005 PO; -ASPI-1443 PO; -AZIT500T4 PO; -BUDE10.7 IH; -CEFD300C3 PO; -CLOP75TA32 PO; -ESCI20TA38 PO; -FERR-72 PO; +FLUT1BLS15 IH; +FURO20TA4 PO; -FURO40TA5 PO; -HYDR50TA37 PO; -NITR0.4T50 SL; -OMEP20CA12 PO; -PANT40TA54 PO; +PANT40TA55 PO; -PRED20TA3 PO; -SULF500T49 PO; -VITA-348 PO; -XARELTO PO
--- NOTE | 2025-05-20 03:47 | EKG ---
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: [id number] : 1950 Requested By: DANNIELLE CHASE Order Number: [id number] Reading MD: Jn Turcios Measurements Intervals [place] Rate: 77 P: -53 ND: 130 QRS: -1 QRSD: 87 T: 219 QT: 340 QTc: 386 Interpretive Statements Atrial fibrillation with controlled ventricular response Repol abnrm, global ischemia, diffuse leads Compared to ECG 05/01/2025 22:43:57 Ectopic atrial rhythm now present Atrial premature complex(es) now present Early repolarization now present Possible ischemia now present Atrial fibrillation no longer present Electronically Signed On 05-20-2025 11:15:32 LEVEL DESIGNER by Jn Turcios Please click the below link to view image of tracing.
--- NOTE | 2025-05-20 03:58 | ERN ---
General Chief Complaint: Chest Pain Stated Complaint: CHEST PAIN Time Seen by MD: 03:38 Source: EMS History of Present Illness Initial Comments 74-year-old male with a extensive past medical history including primarily artery disease, pacemaker, on multiple medications including clopidogrel and Eliquis here for evaluation of chest pain. As per EMS who was present at bedside they state that the patient developed chest pain at 1:00 a.m. earlier today. They administered nitro which mildly alleviated the pain. Three history limited at this time as patient is not a good historian Associated Symptoms: chest pain Allergies: Coded Allergies: Pork/Porcine Containing Products (Verified Allergy, Intermediate, 07/17/24) No Known Allergies (Unverified Allergy, Unknown, 07/17/24) No Known Drug Allergies (Verified Allergy, Unknown, 08/04/19) Home Meds Active Scripts Pantoprazole Sodium (Protonix) 40 Mg Ectab, 40 MG PO AM, #15 TAB.EC Prov:[facility]ENNIFER GODOY [facility] 11/26/24 Reported Medications Fluticasone/Umeclidin/Vilanter (Trelegy Ellipta 200-62.5-25) 200-62.5 Blst.w.dev, 1 PUFF IH DAILY for 30 Days, #60 EACH 0 Refills 05/03/25 Gabapentin (Gabapentin) 100 Mg Capsule, 1 CAP PO BID for 30 Days, #90 CAP 0 Refills 05/03/25 Aspirin (ASPIRIN 81MG CHEW TAB) 81 Mg Tab.chew, 1 TAB PO DAILY for 30 Days, #30 TAB 0 Refills 05/03/25 Losartan Potassium (Losartan Potassium) 50 Mg Tablet, 1 TAB PO DAILY for 30 Days, #30 TAB 0 Refills 05/03/25 Apixaban (Eliquis) 5 Mg Tablet, 1 TAB PO BID for 30 Days, #60 TAB 0 Refills 05/03/25 Furosemide (Furosemide) 20 Mg Tablet, 1 TAB PO DAILY for 30 Days, #30 TAB 0 Refills 11/22/24 Buspirone HCl (Buspirone HCl) 5 Mg Tablet, 1 TAB PO BID for 30 Days, #60 TAB 0 Refills 11/20/24 Atorvastatin Calcium (Atorvastatin Calcium) 40 Mg Tablet, 1 TAB PO DAILY for 30 Days, #30 TAB 0 Refills 08/30/24 Tamsulosin HCl (Flomax) 0.4 Mg Cap.er.24h, 1 CAP PO DAILY for 30 Days, #30 CAP 0 Refills 08/30/24 Metoprolol Succinate (Metoprolol Succinate) 25 Mg Tab.er.24h, 0.5 TAB PO DAILY for 30 Days, #30 TAB 0 Refills 08/30/24 Ferrous Sulfate (Ferrous Sulfate) 325 Mg (65 Mg Iron) Ectab, 1 TAB PO DAILY for 30 Days, #30 TAB 0 Refills 06/03/24 Montelukast Sodium (Montelukast Sodium) 10 Mg Tablet, 10 MG PO PM, TAB 04/28/24 Past Medical History Past Medical History: Anemia, CAD, CHF, COPD, CVA, Diabetes-Type II, Hypertension Medical History Other: AORTIC VALVE STENOSIS,PVD, Past Surgical History: Pacer/AICD Surgical History Other: CARDIAC STENT PLACEMENT Family History Family History: HTN Social History Social History: Smokers, ETOH, Lives with family Cardiovascular: (+) chest pain Physical Exam General Appearance: (+) no apparent distress, (+) obese, (+) other d ocumentation (Chronically ill.) Orientation: (+) alert Eye: bilateral eye normal inspection, bilateral eye PERRL, bilateral eye EOMI Ear, Nose, Throat: (+) moist mucous membraine, (+) normal pharynx Neck: (+) normal inspection Respiratory: (+) chest non-tender, (+) lungs clear, (+) well ventilated Heart: (+) regular; (-) murmur Gastrointestinal: (+) soft, (+) non-tender Skin Comment Multiple areas of ecchymosis/petechiae at different stages of healing throughout body. Left lower extremity with senile purpura. Left lower extremity wrapped in gauze. Left lower extremity noted to be swollen compared to right lower extremity Results Laboratory and Microbiology Lab and Micro Result Laboratory Tests Test 05/20/25 02:55 White Blood Count 7.4 K/uL (4.8-10.8) Red Blood Count 2.14 MIL/uL (4.50-6.20) L Hemoglobin 6.3 g/dL (14.0-18.0) *L Hematocrit 19.7 % (42-54) *L Mean Corpuscular Volume 92.1 fL (79-99) Mean Corpuscular Hemoglobin 29.4 pg (27.0-33.0) Mean Corpuscular Hemoglobin Concent 32.0 g/dL (32.0-36.0) Red Cell Distribution Width 14.1 % (11.0-15.5) Platelet Count 273 K/uL (130-400) Mean Platelet Volume 9.6 fL (7.5-10.5) Immature Granulocyte % (Auto) 1.1 % (0-1) H Neutrophils (%) (Auto) 88.7 % (40.0-77.0) H Lymphocytes (%) (Auto) 5.5 % (21.0-51.0) L Monocytes (%) (Auto) 4.7 % (3.0-13.0) Eosinophils (%) (Auto) 0.0 % (0.0-8.0) Basophils (%) (Auto) 0.0 % (0.0-5.0) Absolute Immature Granulocyte (auto 0.08 K/uL (0-1) White Cell Morphology Comment CONSISTENT W/DIFF Platelet Morphology LARGE PLTS PRESENT Red Blood Cell Morphology See comments Sodium Level 127 mmol/L (136-145) L Potassium Level 4.9 mmol/L (3.5-5.1) Chloride Level 89 mmol/L (101-111) *L Carbon Dioxide Level 28 mmol/L (21-32) Blood Urea Nitrogen 19 mg/dL (7-18) H Creatinine 0.9 mg/dL (0.5-1.3) Glomerular Filtration Rate Calc 89 mL/min (>90) Random Glucose 110 mg/dL (70-105) H Total Calcium 8.5 mg/dL (8.5-10.1) Total Bilirubin 0.3 mg/dL (0.2-1.0) Direct Bilirubin 0.1 mg/dL (0.0-0.3) Aspartate Amino Transf (AST/SGOT) 20 U/L (10-37) Alanine Aminotransferase (ALT/SGPT) 20 U/L (12-78) Alkaline Phosphatase 60 U/L (50-136) Troponin I High Sensitivity 107 ng/L (4-75) *H B-Type Natriuretic Peptide 619 pg/mL (0-100) H Total Protein 6.1 g/dL (6.0-8.3) Albumin 3.5 g/dL (3.5-5.0) EKG/XRAY/US/CT/MRI EKG: (+) rhythm (Sinus rhythm with a rate of 77, TX 130, QRS 87, QT 340, supraventricular bigeminy. No ST elevation on my read) MDM 74-year-old male with a extensive past cardiac history here for evaluation of chest pain. Patient likely to be admitted for heart monitoring. Disposition pending results of labs and imaging ED Course Orders Procedure Category Date Status Time Cbc With Differential LAB 05/20/25 Complete 03:38 Basic Metabolic Panel LAB 05/20/25 Complete 03:38 Hepatic Function Panel LAB 05/20/25 Complete 03:38 Troponin I High LAB 05/20/25 Complete Sensitivity 03:38 Chest 1vw RAD 05/20/25 Taken 03:38 12 Lead Ekg Tracing- EKG 05/20/25 Complete Technical 03:38 Urinalysis Profile LAB 05/20/25 Logged 03:38 B-Type Natriuretic LAB 05/20/25 Complete Peptide 03:47 Us Soft Tissue Lower US 05/20/25 Logged Extremity 03:56 Acetaminophen 500mg PHA 05/20/25 Complete Tab (Tylenol 500mg T 03:30 Lactic Acid LAB 05/20/25 In Process 03:32 Type And Screen BBK 05/20/25 In Process 03:46 Troponin I High LAB 05/20/25 In Process Sensitivity 03:46 Additional CPOE 05/20/25 Transmitted Transfusion Orders 03:51 Rbc-No Active Bleeding BBK 05/20/25 In Process 03:51 Morphine 2mg Syg PHA 05/20/25 Complete (Morphine 2mg Syg) 04:00 Ondansetron 4mg Inj PHA 05/20/25 Complete (Zofran 4mg Inj) 04:00 Current Medications Medications (Trade) Dose Ordered Sig/Sherman Route PRN Reason Start Time Stop Time Status Last Admin Dose Admin Acetaminophen (TYLenol 500MG TAB) 500 mg ONCE ONCE PO 05/20/25 03:30 05/20/25 03:31 DC Morphine Sulfate (morPHINE 2MG SYG) 2 mg ONCE ONCE IVP 05/20/25 04:00 05/20/25 04:01 DC 05/20/25 04:05 Ondansetron HCl (zoFRAN 4MG INJ) 4 mg ONCE ONCE IVP 05/20/25 04:00 05/20/25 04:01 DC 05/20/25 04:05 Vital Signs Date Time Temp Pulse Resp B/P (MAP) Pulse Ox O2 Delivery O2 Flow Rate FiO2 05/20/25 03:59 97.3 68 13 129/48 97 Room Air* 0 21 05/20/25 03:37 97.3 86 18 127/51 99 Room Air 0 CBC shows anemia with a RBC of less than seven. Thus we will admit the patient for further management evaluation. HEART Score Response (Comments) Value History: High suspicion (+2) 2 EKG: Repolarization changes 1 Age: > 65yrs (+2) 2 Risk Factors: 3+ risk factors (+2) 2 HEART Score Risk: High Risk for MACE (7-10) Total 7 DX & DISP Disposition: Inpatient Departure Impression: Primary Impression: Symptomatic anemia Additional Impressions: Acute exacerbation of chronic obstructive pulmonary disease (COPD), Anemia, CHF exacerbation Condition: Stable Referrals: KRISTIN COSTA MD (PCP) DANNIELLE CHASE MD May 20, 2025 03:58
[2025-05-20 04:05] LABS: WBC MORPHOLOGY CONSISTENT W/DIFF
[2025-05-20 04:06] LABS: PLATELET MORPHOLOGY LARGE PLTS PRESENT
[2025-05-20] MEDS ORDERED: HYDROcodone/APAP 5/325 1 TAB TABLET PO PRN (05:00)
[2025-05-20] MEDS ORDERED: ALBUTEROL 0.083% 2.5 MG/3 ML INH IH PRN (05:00)
[2025-05-20 05:10] LABS: APPEARANCE,URINE CLEAR (CLEAR); GLUCOSE, URINE (UA) NEGATIVE (NEGATIVE); LEUKOCYTE ESTERASE ,URINE NEGATIVE Leu/uL (NEGATIVE); NITRATE,URINE NEGATIVE (NEGATIVE); OCCULT BLOOD,URINE NEGATIVE (NEGATIVE)
[2025-05-20 05:16] LABS: ADD UA MICROSCOPIC NO
--- NOTE | 2025-05-20 05:42 | HMCIMG ---
EXAM: CR Chest, 1 View. CLINICAL HISTORY: cp COMPARISON: Radiograph dated May 01, 2025 FINDINGS: LUNGS: The lungs show no infiltrate or other acute finding. PLEURAL SPACES: No pleural effusion or pneumothorax. MEDIASTINUM: Pacemaker leads overlie the right atrium and right ventricle. Cardiac size and mediastinal contours within normal limits. BONES: No acute osseous abnormality. IMPRESSION: No acute cardiopulmonary pathology is evident. /[place]
[2025-05-20 08:24] LABS: INR 1.08 (0.85-1.15)
[2025-05-20 08:28] LABS: ABG BASE EXCESS 0.7 mmol/L (-2.0-3.0); ABG HCO3 25.2 mmol/L (21.0-28.0); ABG OXYGEN SATURATION 98.2 % (94.0-98.0); ABG PCO2 40 mmHg (35-48); ABG PH 7.415 (7.350-7.450); PO2, ARTERIAL BG 114.0 mmHg (83.0-108.0); TEMPERATURE, CELSIUS BG 37.0 CELSIUS (35.5-37.0)
--- NOTE | 2025-05-20 09:39 | HP ---
[facility] HISTORY & PHYSICAL Date Patient Seen: May 20, 2025 Time of Visit: 09:39 Supervising Physician: Dr. Benton Lange Primary Care Physician: Dr. Mark Meehan Outpatient Specialists: [ ] Inpatient Consults: Cardiology PROBLEM LIST: Acute on chronic hypoxic respiratory failure Acute NSTEMI Acute COPD Exacerbation Acute Anemia, rule out GI bleed, requiring PRBC transfusion Acute Hyponatremia DM type 2, with hyperglycemia LVEF is 60-65% per echo done 05/02/25 Hypertension, uncontrolled PVD s/p angioplasty, with bilateral stents to iliac and left SFA History of Aortic valve stenosis History of CAD with stent placement to RCA in 2019, pacemaker HPI: This is a 74 year old male with a medical history including PAD, chronic respiratory failure on home O2, COPD, DM II, CHF, HTN, PVD s/p angioplasty with bilateral stents to iliac and left SFA, aortic valve stenosis, CAD with stent placement to RCA in 2019, pacemaker. He presented to ER with chest pain. As per EMS chest pain started at 100 a.m. At that time patient was given a nitro which alleviated the pain. In ED EKG sinus rhythm rate 77, OH 130, QRS 87, QT 340, supraventricular bigem iny. No ST elevation. Chest Xray shows No acute cardiopulmonary pathology is evident. WBC 7.4 Hgb 6.3/ Hct 19.7 Plt 273, BUN 19, Cr 0.9, Sodium 127, potassium 4.9. Troponin started at 107 now at 2097.5. Today, patient assessed and examined in bed. He is on 3 L of oxygen with appropriate oxygen saturation, not in acute respiratory distress, denies any headache, chest pain, abdominal pain, but complains of generalized body weakness. He received 1 units PRBC Hgb 8.2. Patient admits to smoking. Patient wheezing to bilateral lobes. Patient has edema to lower left extremity and left upper extremity. He has a wound to left hand which has ecchymosis and appears to be infected. He also has a wound that is covered with gauze to the left lower extremity. He is a poor historian. Patient does not know which medications he takes but has them in room in a bag. He states his daughter administer his medications. Per daughter patient is currently taking ASA 91 daily, Plavix 75 mg daily, and Eliquis 5mg bid. Home medications resumed except for ASA, Plavix, and Eliquis. Patient states he had dark stool, but he is on an iron supplement. Later in the day I was notified of patients respiratory status worsened with at bedside. Patient is respiratory distress with audible wheezing using accessory muscles complaining of anxiety. Patient placed on bipap 12/6, RR 16, Fi02 40%, solumedrol 60 mg IV stat, Lasix 40 mg IV x 1, stat ABG ordered. After bipap was placed, patient relaxed minimally, but then started with anxiety again Valium 5 mg IVP x 1 ordered. Patient is a high risk for cardio respiratory decompensation, explained this to and patient. Per and patient remains full code. If patient's conditions worsens, will transfer to ICU for precedex drip. PLAN Consult cardiology, 1:1 done with Mindy ALEXANDER Started solumedrol, atrovent, pulmicort Hold off on ASA due to possible GI bleed Follow up echo Follow up US of left upper extremity and left lower extremity Protonix BID Serial hemoglobin Maintain O2 saturation >95% Monitor labs PAST MEDICAL HX: see above PAST SURGICAL HX: noncontributory SOCIAL HISTORY: admits to smoking, ETOH, or illicit drug use Coded Allergies: Pork/Porcine Containing Products (Verified Allergy, Intermediate, 07/17/24) No Known Drug Allergies (Verified Allergy, Unknown, 08/04/19) REVIEW OF SYSTEMS: 12 point ROS reviewed with patient. Pertinent positives mentioned above. Otherwise negative. PHYSICAL EXAM: GENERAL: awake, alert and oriented x 3 HEENT: EOMI, Sclera non icteric, moist mucosa NECK: Supple, no JVD, trachea midline LUNGS: Wheezing bilateral lobes HEART: Regular rate and rhythm. Normal S1 and S2, without murmurs ABD: Abdomen soft, nontender. Bowel sounds present EXT: left upper extremity and left lower extremity with edema NEURO: Alert and oriented to person, follows commands Vital Signs (last 8hr) Date Time Temp Pulse Resp B/P (MAP) Pulse Ox O2 Delivery O2 Flow Rate FiO2 05/20/25 08:11 98.1 89 18 139/66 100 Nasal Cannula 3.0 05/20/25 07:07 64 18 N/Cannula Low lpm 3.0 32 05/20/25 06:56 60 18 05/20/25 06:55 60 18 Partial Non-Rebreather 10.0 70 05/20/25 06:31 100 Non-Rebreather+ 8 45 05/20/25 06:00 97.9 98 20 122/60 98 Nonrebreathing Mask 8.0 05/20/25 05:29 97.3 81 13 138/38 97 Non-Rebreather+ 10 100 05/20/25 05:08 114 30 05/20/25 05:07 133 30 Non Rebreather 15.0 100 05/20/25 04:51 97.3 123 13 141/56 97 Room Air* 0 21 05/20/25 03:59 97.3 68 13 129/48 97 Room Air* 0 21 05/20/25 03:37 97.3 86 18 127/51 99 Room Air 0 LABS: Hematology Labs: Test 05/20/25 02:55 Range/Units White Blood Count 7.4 4.8-10.8 K/uL Red Blood Count 2.14 L 4.50-6.20 MIL/uL Hemoglobin 6.3 *L 14.0-18.0 g/dL Hematocrit 19.7 *L 42-54 % Mean Corpuscular Volume 92.1 79-99 fL Mean Corpuscular Hemoglobin 29.4 27.0-33.0 pg Mean Corpuscular Hemoglobin Concent 32.0 32.0-36.0 g/dL Red Cell Distribution Width 14.1 11.0-15.5 % Platelet Count 273 130-400 K/uL Mean Platelet Volume 9.6 7.5-10.5 fL Immature Granulocyte % (Auto) 1.1 H 0-1 % Neutrophils (%) (Auto) 88.7 H 40.0-77.0 % Lymphocytes (%) (Auto) 5.5 L 21.0-51.0 % Monocytes (%) (Auto) 4.7 3.0-13.0 % Eosinophils (%) (Auto) 0.0 0.0-8.0 % Basophils (%) (Auto) 0.0 0.0-5.0 % Absolute Immature Granulocyte (auto 0.08 0-1 K/uL White Cell Morphology Comment CONSISTENT W/DIFF Platelet Morphology LARGE PLTS PRESENT Red Blood Cell Morphology See comments Chemistry Labs: Test 05/20/25 08:01 05/20/25 07:54 05/20/25 06:59 05/20/25 04:02 Range/Units Lactic Acid Level 3.0 H 0.8-2.5 mmol/L Procalcitonin < 0.05 L 0.05-0.5 ng/mL Troponin I High Sensitivity 1379 *H 4-75 ng/L Whole Blood Glucose 120 H 70-110 MG/DL Total Creatine Kinase 63 # 21-232 U/L Test 05/20/25 02:55 Range/Units Sodium Level 127 L 136-145 mmol/L Potassium Level 4.9 3.5-5.1 mmol/L Chloride Level 89 *L 101-111 mmol/L Carbon Dioxide Level 28 21-32 mmol/L Blood Urea Nitrogen 19 H 7-18 mg/dL Creatinine 0.9 0.5-1.3 mg/dL Glomerular Filtration Rate Calc 89 >90 mL/min Random Glucose 110 H 70-105 mg/dL Total Calcium 8.5 8.5-10.1 mg/dL Total Bilirubin 0.3 0.2-1.0 mg/dL Direct Bilirubin 0.1 0.0-0.3 mg/dL Aspartate Amino Transf (AST/SGOT) 20 10-37 U/L Alanine Aminotransferase (ALT/SGPT) 20 12-78 U/L Alkaline Phosphatase 60 50-136 U/L B-Type Natriuretic Peptide 619 H 0-100 pg/mL Total Protein 6.1 6.0-8.3 g/dL Albumin 3.5 3.5-5.0 g/dL Coagulation Labs: Test 05/20/25 08:01 Range/Units Prothrombin Time 11.4 9.6-11.6 SEC Prothromb Time International Ratio 1.08 0.85-1.15 DIAGNOSTICS / RADIOLOGY RESULTS: n/a NEURO: Minimize central acting medications as possible. Maintain fall precautions, adequate lighting during the day PULMONARY: Supplemental 02 as needed. Maintain aspiration precautions at all times CARDIOVASCULAR: Follow hemodynamics. Vital signs per facility protocol GI & NUTRITION: Continue with nutritional support. Continue stool softeners and laxatives as needed. KIDNEYS & ELECTROLYTES: Strict monitoring of intake, output and overall fluid balance. Avoid nephrotoxic medications to the extent possible. Medications to be dosed according to renal function. Monitor electrolytes and replace as needed ENDOCRINE: Maintain blood glucose between 100-180 at all times. Hypoglycemia protocol in place INFECTIOUS DISEASE: Trend temperature, WBC and procalcitonin level Follow cultures, deescalate antibiotics as soon as possible. Panculture if new onset fever ONCOLOGY/HEMATOLOGY/COAGULATION: Monitor for s/s of bleeding Monitor hemoglobin, coagulation studies as needed SKIN: Pressure ulcer prevention per facility protocol Specialty mattress ORTHO/REHAB: Continue PT/OT Prophylaxis: Continue GI and DVT prophylaxis Code Status: Full Resuscitation Disposition: TBD Total critical care time 70 minutes, excluding any procedures MAKEDA GOLDMAN APRN May 20, 2025 09:39
--- NOTE | 2025-05-20 10:07 | CONS ---
[facility] Cardiology Consultation Note Cardiology consult dictated for Hollie Mcallister MD Date of service 05/20/2025 Chief complaint: Chest pain Reason for consult: Elevated troponin Primary pony ride attendant: Dr. Rivera History of present illness: This is a 74-year-old male presents for evaluation of chest pain. He has been experiencing pain for the past 2-3 days but it was mild and constant not associated with any other symptom. Overnight he developed severe chest pain substernal woke him up from sleep. This was not associated with any other symptom he called EMS. He received a nitroglycerin which did not alleviate pain completely. Currently he is pain-free. Troponin on arrival was 107 followed by 181 and this morning 1379 with a BNP of 619. No EKGs available. Hemoglobin 6.3 hematocrit of 19.7 with platelets of 273 and receiving 1 unit of PRBC's currently. Positive for PTCA and stenting to a subtotal mid RCA 60-70% stenosis in the proximal to mid RCA in 20-30% stenosis in the mid LAD with evidence of 50% InStent restenosis and normal IFR April 2022. Past medical history: Positive for atrial flutter, status post DC cardioversion 2013, hypertension, history of tobacco abuse alcohol abuse, dyslipidemia, inferior STEMI June 2019, remote inferior wall CT 2018, COPD, venous outflow obstruction, peripheral arterial disease, symptomatic bradycardia, COPD, GI bleed with gastritis and esophagitis May 2024. Past surgical history: Positive for PTCA and stenting to a subtotal mid RCA 60- 70% stenosis in the proximal to mid RCA in 20-30% stenosis in the mid LAD with evidence of 50% InStent restenosis and normal IFR April 2022. Status post Biotronik permanent pacemaker implant April 2022, peripheral arterial disease status post remote stenting of the superficial femoral artery with subsequent percutaneous intervention for InStent restenosis by Dr. Rivera March 2022, repeat arteriogram October of 2022 demonstrated total occlusion of left peroneal without reconstitution, total acute occlusion of left posterior tibial with minimal reconstitution at the heel and patent anterior tibial with diffuse disease in the foot. Stents in the left SFA patent. Status post percutaneous intervention on the left leg with Dr. Rivera May 2024. Family history: Noncontributory Allergies: No known allergies Review of systems: 14 point review of systems performed pertinent positives and negatives discussed in HPI Social history: Patient has a history of tobacco and alcohol use. He denies current use. Lives with . Physical exam: Blood pressure 139/66 heart rate of 89 beats per minute and regular normal S1-S2 no rubs or gallops noted he does have a 1/6 systolic murmur over aortic area. Bilateral breath sounds are diminished with scattered rhonchi and crackles. No JVD no carotid bruits. Lower extremities left leg with plus two pitting edema and bandage dry and intact to the foot. Patient is alert awake and oriented. Assessment: Chest pain Elevated troponin (1379) Anemia with hemoglobin on presentation of 6.3 hematocrit of 19.7. History of CAD, 2018 PTCA and stenting to a subtotal mid RCA 60-70% stenosis in the proximal to mid RCA in 20-30% stenosis in the mid LAD with evidence of 50% InStent restenosis and normal IFR April 2022. Inferior STEMI June 2019 GI bleed with gastritis and esophagitis May 2024 Biotronik permanent pacemaker implant April 2022, PAD COPD Plan: 74-year-old male presented for evaluation of severe chest pain. He has a history of CAD and stent to the mid RCA in 2018 after an inferior STEMI. Cardiology consult was requested due to troponin increased to 1379. BNP on admission 619 is on oxygen at 2 L nasal cannula, bilateral breath sounds with scattered rhonchi and crackles, JVD noted and lower extremity edema left leg greater than right. We will continue to trend troponin currently the patient is pain-free. We can add home beta-janette. Clopidogrel and aspirin are contraindicated at the time due to low hemoglobin. We will schedule him for a 2D echocardiogram with further recommendations once results are available for review. Transfuse as needed to maintain hemoglobin above seven. GI evaluation. I will review the 2D echocardiogram when available. If endoscopy is advised there was no absolute contraindication from a cardiac standpoint once his anemia is improved. He would be an intermediate risk patient for low risk procedure. ATTESTATION BY PHYSICIAN I have seen and examined the patient. I reviewed the documentation, medical decision making, and treatment plan as noted by the mid-level provider above. I agree with the findings and plan of care. HOLLIE MCALLISTER MD, [facility] May 20, 2025 10:07 HOLLIE MCALLISTER MD May 20, 2025 10:12
[2025-05-20] MEDS ORDERED: METH4TAB PO (10:15)
[2025-05-20] MEDS ORDERED: ALBU18HF7 IH (10:15)
[2025-05-20] MEDS ORDERED: CLOP75TA32 PO (10:15)
[2025-05-20] MEDS ORDERED: MEDROL PACK (10:16)
[2025-05-20 10:55] LABS: CREATINE KINASE, TOTAL 173.0 U/L (21-232)
[2025-05-20] MEDS: Solu-medROL 40MG VIAL IVP SCH (11:08)
--- NOTE | 2025-05-20 14:30 | NUR ---
DCP HOME VS SNF Pt awake, alert, oriented x3 Ukrainian speaking, shortness of breath noted, o2 nebs being rendered. Primary point of contact is daughter Mirtha Frost [phone] and spouse at bedside. Daughter verbalizes pt has a ramp available at home, scooter, wheelchair, shower chair, o2@2.5L N/C with [employer]. Daughter states pt has been to SNF in the past would like him to go home on discharge, correctional counselor/case manager to follow. Addendum: 05/20/25 at 1435 by MAURICIO SAUCEDO RN CM Amended: Links added.
[2025-05-20] MEDS: Solu-medROL 40MG VIAL IVP ONE ×2 (14:53→14:55)
[2025-05-20 15:11] LABS: ABG BASE EXCESS 0.7 mmol/L (-2.0-3.0); ABG HCO3 24.9 mmol/L (21.0-28.0); ABG OXYGEN SATURATION 99.3 % (94.0-98.0); ABG PCO2 39 mmHg (35-48); ABG PH 7.428 (7.350-7.450); DEVICE COMMENT LR; PO2, ARTERIAL BG 186.3 mmHg (83.0-108.0); TEMPERATURE, CELSIUS BG 37.0 CELSIUS (35.5-37.0); VENT MODE, BG BIPAP 12,6 (ROOM AIR)
--- NOTE | 2025-05-20 15:30 | HMCIMG ---
EXAM: US for Deep Venous Thrombosis, Left Lower Extremity. CLINICAL HISTORY: Leg pain and swelling. TECHNIQUE: Real-time ultrasound scan of the veins of the left lower extremity performed with color Doppler flow, spectral waveform analysis, and compression maneuvers. COMPARISON: US/SD ??? US Venous Doppler Bilateral ??? 05/02/25, 16:31 EDT. FINDINGS: DEEP VEINS: The common femoral, superficial femoral, popliteal, and visualized calf veins are patent, echolucent, and fully compressible with normal color Doppler flow and spectral waveforms. No evidence of intraluminal thrombus. SUPERFICIAL VEINS: Visualized portions appear patent and compressible. SOFT TISSUES: No popliteal fossa cyst or soft tissue abnormality identified. IMPRESSION: * No evidence of deep venous thrombosis in the left lower extremity. * Compared with prior examination dated 05/02/25, no significant interval change. /[place]
[2025-05-20] MEDS: NICOTINE 21 MG/ 24 HR PATCH TD SCH (15:37)
--- NOTE | 2025-05-20 16:31 | HMCSR ---
APPROVED REPORT EXAM: LIMITED Two-dimensional and M-mode echocardiogram. Study Details: previous echo 05/02/25 INDICATION ICD: Chest Pain Assess LV Function 2D Dimensions IVSd1.1 (0.7-1.1cm)LVEF(%)50.4 (>50%)LVED Vol(simp.)108.0 mL LVDd4.2 (3.8-5.6cm)FS(%)25 %LVES Vol(simp.)56.0 mL PWd1.3 (0.7-1.1cm)LA (2D)3.9 (1.6-4.0cm)LVEF(%, simp.)48 % LVDs3.1 (2.5-4.0cm)Ao Root(2D)3.0 (2.0-3.7cm)LA ESV INDEX (BP)42.65 mL/m2 Deformation Strain Apical 4-11.1 % Apical 2-10.5 % Apical 3-12.3 % Global Strain-11.3 % Left Ventricle Left ventricular cavity size is normal. No regional wall motion abnormalities. There is normal left v entricular wall thickness. LVEF is 45-50%. Right Ventricle The right ventricle is normal size. Atria The left atrium is moderately dilated. The right atrium size is normal. Pericardium No pericardial effusion. Conclusion Limited exam after recent echo to reassess LV function. LVEF is 45-50%. No regional wall motion abnormalities. Global strain of -11%.
[2025-05-20 17:18] LABS: CREATINE KINASE, TOTAL 196.0 U/L (21-232)
[2025-05-20] MEDS: BUDESONIDE 0.5 MG/2 ML INH IH SCH (18:47)
[2025-05-21] VITALS (15 sets, daily range): BP systolic 113–144; BP diastolic 48–69; PULSE 60–75; RESP 16–20; TEMP 96.8–98; O2SAT 94–100
[2025-05-21 04:21] LABS: IMMATURE GRANULOCYTE ABSOLUTE 0.11 K/uL (0-1); NUCLEATED RED BLOOD CELLS 0.0 % (0.0-0.19); PLATELET COUNT (AUTO) 220 K/uL (130-400); RED BLOOD CELL COUNT(AUTO) 2.55 MIL/uL (4.50-6.20); RED CELL DISTRIBUTION WIDTH 13.9 % (11.0-15.5); WHITE BLOOD COUNT (AUTO) 12.2 K/uL (4.8-10.8)
[2025-05-21 04:37] LABS: CREATININE 0.7 mg/dL (0.5-1.3); GLOMERULAR FILTR. RATE CALC 96.0 mL/min (>90); GLUCOSE,RANDOM 131.0 mg/dL (70-105); PHOSPHORUS 4.8 mg/dL (2.5-4.9); SODIUM SERUM 127.0 mmol/L (136-145); UREA NITROGEN, BLOOD 24.0 mg/dL (7-18)
[2025-05-21 04:51] LABS: % IRON SATURATION 3.6 % (30-44); IRON, SERUM 13.0 mcg/dL (65-175)
[2025-05-21 06:21] LABS: INFLUENZA TYPE A Negative For Type A (NEGATIVE); INFLUENZA TYPE B Negative For Type B (NEGATIVE)
[2025-05-21 06:30] LABS: SARS-CoV-2, RNA, NAAT NEGATIVE SARS CoV-2 (NEGATIVE)
--- NOTE | 2025-05-21 08:19 | PN ---
[facility] CARDIOLOGY PROGRESS NOTE Date Patient Seen: May 21, 2025 Time of Visit: 08:12 Interval History: [Troponin continues to rise ] Physical Examination: GENERAL: [No acute distress.] HEAD: [Normal with no signs of head trauma.] EYES: [PERRLA, EOMI, conjunctiva and sclera normal.] ENT: [Hearing grossly intact, normal oropharynx.] NECK: [+ JVD. There is no tenderness, lymphadenopathy, or masses. No thyromegaly. Normal carotid upstrokes without bruits.] LUNGS: [Clear breath sounds bilaterally. There are right basilar rales one third of the way up the chest. No wheezes, or rhonchi.] HEART: [Normal rate and rhythm. Normal S1 and S2 without mumurs, gallop or rub.] VASC: [Peripheral pulses +2 bilaterally.] ABD: [Bowel sounds normal, soft, nontender, no masses, no organomegaly. No audible bruits.] : [Not examined] LYMPH: [No lymphadenopathy noted.] EXT: [+ edema.] SKIN: [No rashes or lesions noted.] NEURO: [Awake, alert, and oriented x3. No focal sensory or strength deficits noted.] Laboratory: [ ] Hematology Labs: Test 05/21/25 03:40 05/20/25 02:55 Range/Units White Blood Count 12.2 H 4.8-10.8 K/uL Red Blood Count 2.55 L 4.50-6.20 MIL/uL Hemoglobin 7.6 L 14.0-18.0 g/dL Hematocrit 23.0 L 42-54 % Mean Corpuscular Volume 90.2 79-99 fL Mean Corpuscular Hemoglobin 29.8 27.0-33.0 pg Mean Corpuscular Hemoglobin Concent 33.0 32.0-36.0 g/dL Red Cell Distribution Width 13.9 11.0-15.5 % Platelet Count 220 130-400 K/uL Mean Platelet Volume 9.4 7.5-10.5 fL Immature Granulocyte % (Auto) 0.9 0-1 % Neutrophils (%) (Auto) 92.7 H 40.0-77.0 % Lymphocytes (%) (Auto) 1.9 L 21.0-51.0 % Monocytes (%) (Auto) 4.4 3.0-13.0 % Eosinophils (%) (Auto) 0.0 0.0-8.0 % Basophils (%) (Auto) 0.1 0.0-5.0 % Neutrophils # (Auto) 11.3 H 1.8-7.7 K/uL Lymphocytes # (Auto) 0.2 L 1.0-4.8 K/uL Monocytes # (Auto) 0.5 0.1-1.0 K/uL Eosinophils # (Auto) 0.00 0.00-0.70 K/uL Basophils # (Auto) 0.01 0.00-0.20 K/uL Absolute Immature Granulocyte (auto 0.11 0-1 K/uL Nucleated Red Blood Cells 0.0 0.0-0.19 % Reticulocyte Count (auto) 4.48820 H 0.42-2.23 % Immature Reticulocyte Fraction 31.70 H 0.18-0.48 % White Cell Morphology Comment CONSISTENT W/DIFF Platelet Morphology LARGE PLTS PRESENT Red Blood Cell Morphology See comments Chemistry Labs: Test 05/21/25 05:11 05/21/25 03:40 05/20/25 16:50 05/20/25 08:01 Range/Units Whole Blood Glucose 140 H 70-110 MG/DL Sodium Level 127 L 136-145 mmol/L Potassium Level 4.3 3.5-5.1 mmol/L Chloride Level 92 L 101-111 mmol/L Carbon Dioxide Level 29 21-32 mmol/L Blood Urea Nitrogen 24 H 7-18 mg/dL Creatinine 0.7 0.5-1.3 mg/dL Glomerular Filtration Rate Calc 96 >90 mL/min Random Glucose 131 H 70-105 mg/dL Total Calcium 7.9 L 8.5-10.1 mg/dL Phosphorus Level 4.8 2.5-4.9 mg/dL Magnesium Level 2.00 1.80-2.40 mg/dL Iron Level 13 L 65-175 mcg/dL Total Iron Binding Capacity 359 250-450 mcg/dL Percent Iron Saturation 3.6 L 30-44 % Ferritin 57 30-400 ng/mL Vitamin B12 Level 224 193-986 pg/mL Total Creatine Kinase 196 21-232 U/L Troponin I High Sensitivity 4485.9 *H 4-75 ng/L Lactic Acid Level 3.0 H 0.8-2.5 mmol/L Procalcitonin < 0.05 L 0.05-0.5 ng/mL Test 05/20/25 02:55 Range/Units Total Bilirubin 0.3 0.2-1.0 mg/dL Direct Bilirubin 0.1 0.0-0.3 mg/dL Aspartate Amino Transf (AST/SGOT) 20 10-37 U/L Alanine Aminotransferase (ALT/SGPT) 20 12-78 U/L Alkaline Phosphatase 60 50-136 U/L B-Type Natriuretic Peptide 619 H 0-100 pg/mL Total Protein 6.1 6.0-8.3 g/dL Albumin 3.5 3.5-5.0 g/dL Coagulation Labs: Test 05/20/25 08:01 Range/Units Prothrombin Time 11.4 9.6-11.6 SEC Prothromb Time International Ratio 1.08 0.85-1.15 Diagnostics / Radiology: [Copy/Paste Echos/Imaging Report here] Impression and Plan: [Chest pain Elevated troponin (1379) Anemia with hemoglobin on presentation of 6.3 hematocrit of 19.7. History of CAD, 2018 PTCA and stenting to a subtotal mid RCA 60-70% stenosis in the proximal to mid RCA in 20-30% stenosis in the mid LAD with evidence of 50% InStent restenosis and normal IFR April 2022. Inferior STEMI June 2019 GI bleed with gastritis and esophagitis May 2024 Biotronik permanent pacemaker implant April 2022, PAD COPD #Elevated Troponin -Trop 107--181--1379--2097--4485 - 74-year-old male presented for evaluation of severe chest pain. -He has a history of CAD and stent to the mid RCA in 2018 after an inferior STEMI. - BNP on admission 619 is on oxygen at 2 L nasal cannula. - Clopidogrel and aspirin, heparin are contraindicated at the time due to low hemoglobin. -Echo LVEF 45-50% -pending repeat AM troponin and corresponding ECG #Anemia -Hb 6.3 on arrival -Transfuse as needed to maintain hemoglobin above seven. GI evaluation is warranted ] BHANU TORRES MD May 21, 2025 08:19
--- NOTE | 2025-05-21 08:42 | HMCIMG ---
EXAMINATION: SPECTRAL DOPPLER ULTRASOUND EXAMINATION OF THE LEFT UPPER EXTREMITY VEINS. CLINICAL HISTORY: Swelling and bruising. COMPARISON: None. TECHNIQUE: Grayscale, color, and spectral Doppler images of the left upper extremity veins are submitted. FINDINGS: The internal jugular, subclavian, axillary, basilic, and brachial veins are patent. These veins show normal flow with physiological changes of phasicity and augmentation. There is subcutaneous edema in the left upper extremity. IMPRESSION: There is no deep vein thrombosis within the left upper extremity. Subcutaneous edema in the left upper extremity. /[place]
--- NOTE | 2025-05-21 09:22 | EKG ---
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 : 1950 Requested By: BHANU TORRES Order Number: [id number] Reading MD: Leonard Tipton Measurements Intervals [place] Rate: 62 P: -17 OR: 112 QRS: 12 QRSD: 88 T: -63 QT: 380 QTc: 385 Interpretive Statements Normal sinus rhythm Septal infarct , age undetermined ST & T wave abnormality, consider inferior ischemia Compared to ECG 05/20/2025 02:42:50 Myocardial infarct finding now present ST (T wave) deviation now present Atrial fibrillation no longer present Early repolarization no longer present Possible ischemia still present Electronically Signed On 05-21-2025 18:16:55 DIRECTOR OF SCIENTIFIC RESEARCH by Leonard Tipton Please click the below link to view image of tracing.
[2025-05-21] MEDS ORDERED: COMPOUND IV REFRIGERATED 1 EACH IVSOLN MISC PRN (10:30)
[2025-05-21] MEDS ORDERED: COMPOUND IV MISC 1 EACH IVSOLN MISC PRN (10:30)
--- NOTE | 2025-05-21 11:35 | PN ---
[facility] PROGRESS NOTE Date Patient Seen: May 21, 2025 Time of Visit: 1025 Supervising Physician: Dr. Benton Lange Primary Care Physician: Dr. Mark Carver Outpatient Specialists: [ ] Inpatient Consults: Cardiology, Gastroenterology PROBLEM LIST: Acute on chronic hypoxic respiratory failure Acute NSTEMI Acute COPD Exacerbation Acute Anemia, rule out GI bleed, requiring PRBC transfusion Acute Hyponatremia DM type 2, with hyperglycemia LVEF is 45-50% per echo done 05/20/25 Hypertension, uncontrolled PVD s/p angioplasty, with bilateral stents to iliac and left SFA History of Aortic valve stenosis History of CAD with stent placement to RCA in 2019, pacemaker INTERVAL HISTORY: Patient awake, alert, and oriented x 3. Family at beside. Patient is sitting up in no acute distress on NC 2 lpm. Patient was negative for covid, strep, and flu. Patient denies any chest pain, abdominal pain, nausea, vomiting or bloody stools. GI has been consulted because hgb is trending down again after 1 unit of PRBC post transfusion (Hgb 8.2) that was given yesterday. Hgb today 7.2. Venous doppler of left upper and lower extremity negative. 2 D Echo 45-50%. BUN 24, Cr 0.7, potassium 4.3, and sodium 127. Troponin continues to trend upward 107- 181- 2097- 4485.9. Updated family on medical plan. Patient seen by cardiology. Bedside nurse reports no acute findings. PLAN Consult gastroenterology Follow cardiology recommendations Continue solumedrol, atrovent, pulmicort Hold off on ASA due to possible GI bleed Protonix BID Serial hemoglobin, transfuse PRBC if HGB less than 7 Maintain O2 saturation >95% Monitor labs REVIEW OF SYSTEMS: 12 point ROS reviewed with patient. Pertinent positives mentioned above. Otherwise negative. PHYSICAL EXAM: GENERAL: awake, alert and oriented x 3 HEENT: EOMI, Sclera non icteric, moist mucosa NECK: Supple, no JVD, trachea midline LUNGS: Wheezing bilateral lobes HEART: Regular rate and rhythm. Normal S1 and S2, without murmurs ABD: Abdomen soft, nontender. Bowel sounds present EXT: left upper extremity and left lower extremity with edema NEURO: Alert and oriented to person, follows commands Vital Signs (last 8hr) Date Time Temp Pulse Resp B/P (MAP) Pulse Ox O2 Delivery O2 Flow Rate FiO2 05/21/25 11:14 61 18 N/Cannula Low lpm 2.0 28 05/21/25 11:13 61 18 05/21/25 06:59 75 18 N/Cannula Low lpm 2.0 05/21/25 06:56 74 18 05/21/25 03:48 96.8 62 20 144/57 99 BIPAP LABS: Hematology Labs: Test 05/21/25 08:46 05/21/25 03:40 05/20/25 02:55 Range/Units Hemoglobin 7.2 L 14.0-18.0 g/dL White Blood Count 12.2 H 4.8-10.8 K/uL Red Blood Count 2.55 L 4.50-6.20 MIL/uL Hematocrit 23.0 L 42-54 % Mean Corpuscular Volume 90.2 79-99 fL Mean Corpuscular Hemoglobin 29.8 27.0-33.0 pg Mean Corpuscular Hemoglobin Concent 33.0 32.0-36.0 g/dL Red Cell Distribution Width 13.9 11.0-15.5 % Platelet Count 220 130-400 K/uL Mean Platelet Volume 9.4 7.5-10.5 fL Immature Granulocyte % (Auto) 0.9 0-1 % Neutrophils (%) (Auto) 92.7 H 40.0-77.0 % Lymphocytes (%) (Auto) 1.9 L 21.0-51.0 % Monocytes (%) (Auto) 4.4 3.0-13.0 % Eosinophils (%) (Auto) 0.0 0.0-8.0 % Basophils (%) (Auto) 0.1 0.0-5.0 % Neutrophils # (Auto) 11.3 H 1.8-7.7 K/uL Lymphocytes # (Auto) 0.2 L 1.0-4.8 K/uL Monocytes # (Auto) 0.5 0.1-1.0 K/uL Eosinophils # (Auto) 0.00 0.00-0.70 K/uL Basophils # (Auto) 0.01 0.00-0.20 K/uL Absolute Immature Granulocyte (auto 0.11 0-1 K/uL Nucleated Red Blood Cells 0.0 0.0-0.19 % Reticulocyte Count (auto) 4.79633 H 0.42-2.23 % Immature Reticulocyte Fraction 31.70 H 0.18-0.48 % White Cell Morphology Comment CONSISTENT W/DIFF Platelet Morphology LARGE PLTS PRESENT Red Blood Cell Morphology See comments Chemistry Labs: Test 05/21/25 11:18 05/21/25 09:05 05/21/25 03:40 05/20/25 16:50 Range/Units Whole Blood Glucose 113 H 70-110 MG/DL Troponin I High Sensitivity 3102 *H 4-75 ng/L Sodium Level 127 L 136-145 mmol/L Potassium Level 4.3 3.5-5.1 mmol/L Chloride Level 92 L 101-111 mmol/L Carbon Dioxide Level 29 21-32 mmol/L Blood Urea Nitrogen 24 H 7-18 mg/dL Creatinine 0.7 0.5-1.3 mg/dL Glomerular Filtration Rate Calc 96 >90 mL/min Random Glucose 131 H 70-105 mg/dL Total Calcium 7.9 L 8.5-10.1 mg/dL Phosphorus Level 4.8 2.5-4.9 mg/dL Magnesium Level 2.00 1.80-2.40 mg/dL Iron Level 13 L 65-175 mcg/dL Total Iron Binding Capacity 359 250-450 mcg/dL Percent Iron Saturation 3.6 L 30-44 % Ferritin 57 30-400 ng/mL Vitamin B12 Level 224 193-986 pg/mL Total Creatine Kinase 196 21-232 U/L Test 05/20/25 08:01 05/20/25 02:55 Range/Units Lactic Acid Level 3.0 H 0.8-2.5 mmol/L Procalcitonin < 0.05 L 0.05-0.5 ng/mL Total Bilirubin 0.3 0.2-1.0 mg/dL Direct Bilirubin 0.1 0.0-0.3 mg/dL Aspartate Amino Transf (AST/SGOT) 20 10-37 U/L Alanine Aminotransferase (ALT/SGPT) 20 12-78 U/L Alkaline Phosphatase 60 50-136 U/L B-Type Natriuretic Peptide 619 H 0-100 pg/mL Total Protein 6.1 6.0-8.3 g/dL Albumin 3.5 3.5-5.0 g/dL Coagulation Labs: Test 05/20/25 08:01 Range/Units Prothrombin Time 11.4 9.6-11.6 SEC Prothromb Time International Ratio 1.08 0.85-1.15 DIAGNOSTICS / RADIOLOGY RESULTS: n/a NEURO: Minimize central acting medications as possible. Maintain fall precautions, adequate lighting during the day PULMONARY: Supplemental 02 as needed. Maintain aspiration precautions at all times CARDIOVASCULAR: Follow hemodynamics. Vital signs per facility protocol GI & NUTRITION: Continue with nutritional support. Continue stool softeners and laxatives as needed. KIDNEYS & ELECTROLYTES: Strict monitoring of intake, output and overall fluid balance. Avoid nephrotoxic medications to the extent possible. Medications to be dosed according to renal function. Monitor electrolytes and replace as needed ENDOCRINE: Maintain blood glucose between 100-180 at all times. Hypoglycemia protocol in place INFECTIOUS DISEASE: Trend temperature, WBC and procalcitonin level Follow cultures, deescalate antibiotics as soon as possible. Panculture if new onset fever ONCOLOGY/HEMATOLOGY/COAGULATION: Monitor for s/s of bleeding Monitor hemoglobin, coagulation studies as needed SKIN: Pressure ulcer prevention per facility protocol Specialty mattress ORTHO/REHAB: Continue PT/OT Prophylaxis: Continue GI and DVT prophylaxis Code Status: Full Resuscitation Disposition: TBD Total critical care time 38 minutes, excluding any procedures MAKEDA GOLDMAN APRN May 21, 2025 11:35 FRANCOISE PETERSEN FORENSICS ANALYST May 21, 2025 20:01
--- NOTE | 2025-05-21 16:14 | NUR ---
[facility] Consult: Patient assessed by wound healing team. See wound assessment. Assessment and recommendations provided to primary nurse. Education provided to patient r/t to wound and wound care treatment.
--- NOTE | 2025-05-21 17:59 | CONS ---
GASTROENTEROLOGY CONSULTATION NOTE Date of Consultation: May 21, 2025 Time of Consultation: 17:59 History of Present Illness: This is a 74-year-old male with past medical history of CAD, chronic respiratory failure on home oxygen, COPD, diabetes, CHF, hypertension, PVD with angioplasty and bilateral stents, aortic valve stenosis, CAD, pacemaker presented due to chest pain and was started on nitro which alleviated the pain. Troponin elevated. Patient previously taking aspirin, Plavix and Eliquis. Consulted due to melena and anemia cardiology recommending GI evaluation. Hemoglobin today was 7.6 with a platelet count of 220. No EGD history. Review of Systems: CONSTITUTIONAL: No malaise or change in sensation of wellbeing. ENMT: No rhinorrhea, otorrhea, sinus pain, ear ache. CARDIOVASCULAR: No angina, palpitations, orthopnea or paroxysmal dyspnea. RESPIRATORY: No SOB. GASTROINTESTINAL: No abdominal pain, nausea, vomiting, diarrhea, hematemesis, melena or change in the patient's habitual bowel movements consistency/number. GENITOURINARY: No dysuria, hematuria or change in bladder continence. MUSCULOSKELETAL: No new muscle pain or decrease in muscular strength. No new joint swelling, redness or tenderness. SKIN: No new rash. Past Medical History: Past medical history: Positive for atrial flutter, status post DC cardioversion 2013, hypertension, history of tobacco abuse alcohol abuse, dyslipidemia, inferior STEMI June 2019, remote inferior wall MT 2018, COPD, venous outflow obstruction, peripheral arterial disease, symptomatic bradycardia, COPD, GI bleed with gastritis and esophagitis May 2024. Past surgical history: Positive for PTCA and stenting to a subtotal mid RCA 60- 70% stenosis in the proximal to mid RCA in 20-30% stenosis in the mid LAD with evidence of 50% InStent restenosis and normal IFR April 2022. Status post B iotronik permanent pacemaker implant April 2022, peripheral arterial disease status post remote stenting of the superficial femoral artery with subsequent percutaneous intervention for InStent restenosis by Dr. Rivera March 2022, repeat arteriogram October of 2022 demonstrated total occlusion of left peroneal without reconstitution, total acute occlusion of left posterior tibial with minimal reconstitution at the heel and patent anterior tibial with diffuse disease in the foot. Stents in the left SFA patent. Status post percutaneous intervention on the left leg with Dr. Rivera May 2024. Family history: Noncontributory Allergies: No known allergies Review of systems: 14 point review of systems performed pertinent positives and negatives discussed in HPI Social history: Patient has a history of tobacco and alcohol use. He denies current use. Lives with . Coded Allergies: Pork/Porcine Containing Products (Verified Allergy, Intermediate, 07/17/24) No Known Drug Allergies (Verified Allergy, Unknown, 08/04/19) Physical Exam: GEN: Awake, alert, oriented in person, time and place, and in no acute distress. HEENT: No sinus tenderness. Tympanic membranes were not examined. No rhinorrhea. Oral pharyngeal mucosa is pink, moist and within normal limits. Neck is supple with no cervical lymphadenopathy, thyromegaly or JVD. CHEST: Inspection, palpation and percussion of the chest were unremarkable. Lung auscultation revealed normal breath sounds bilaterally. CARDIAC: PMI is within normal limits. Heart sounds are regular. Normal S1, S2. No gallop or murmur. ABD: Soft, non-tender and not distended. No peritoneal signs on palpation. No organomegaly. Normal bowel sounds. EXT: No cyanosis or clubbing. No edema. SKIN: Intact. No rashes. JOINTS: No evidence of synovitis or acute arthritis. NEURO: Alert and oriented to name, place and person. Cranial nerve examination is unremarkable. No focal motor deficits. Normal speech. Gait is normal. Strength is normal. Vital Sign (Last 24 Hours) 05/21/25 05/21/25 11:14 16:17 Temp 98.1 Pulse 64 Resp 16 B/P (MAP) 113/69 Pulse Ox 94 O2 Delivery Nasal Cannula O2 Flow Rate 2.0 FiO2 28 Intake & Output (last 24hrs) 05/20/25 05/20/25 05/21/25 14:59 22:59 06:59 Intake Total 480 ml Output Total 1375 ml 900 ml Balance 480 ml -1375 ml -900 ml Laboratory: [ ] Laboratory: Test 05/21/25 16:10 05/21/25 14:44 05/21/25 09:05 05/21/25 05:35 Range/Units Whole Blood Glucose 146 H 70-110 MG/DL Hemoglobin 6.9 *L 14.0-18.0 g/dL Troponin I High Sensitivity 3102 *H 4-75 ng/L Influenza Type A Antigen Negative For Type A NEGATIVE Influenza Type B Antigen Negative For Type B NEGATIVE SARS-CoV-2, RNA, NAAT NEGATIVE SARS CoV-2 NEGATIVE Group A Streptococcus Rapid NEGATIVE NEGATIVE Test 05/21/25 03:40 05/20/25 16:50 05/20/25 15:09 05/20/25 08:26 Range/Units White Blood Count 12.2 H 4.8-10.8 K/uL Red Blood Count 2.55 L 4.50-6.20 MIL/uL Hematocrit 23.0 L 42-54 % Mean Corpuscular Volume 90.2 79-99 fL Mean Corpuscular Hemoglobin 29.8 27.0-33.0 pg Mean Corpuscular Hemoglobin Concent 33.0 32.0-36.0 g/dL Red Cell Distribution Width 13.9 11.0-15.5 % Platelet Count 220 130-400 K/uL Mean Platelet Volume 9.4 7.5-10.5 fL Immature Granulocyte % (Auto) 0.9 0-1 % Neutrophils (%) (Auto) 92.7 H 40.0-77.0 % Lymphocytes (%) (Auto) 1.9 L 21.0-51.0 % Monocytes (%) (Auto) 4.4 3.0-13.0 % Eosinophils (%) (Auto) 0.0 0.0-8.0 % Basophils (%) (Auto) 0.1 0.0-5.0 % Neutrophils # (Auto) 11.3 H 1.8-7.7 K/uL Lymphocytes # (Auto) 0.2 L 1.0-4.8 K/uL Monocytes # (Auto) 0.5 0.1-1.0 K/uL Eosinophils # (Auto) 0.00 0.00-0.70 K/uL Basophils # (Auto) 0.01 0.00-0.20 K/uL Absolute Immature Granulocyte (auto 0.11 0-1 K/uL Nucleated Red Blood Cells 0.0 0.0-0.19 % Reticulocyte Count (auto) 4.03819 H 0.42-2.23 % Immature Reticulocyte Fraction 31.70 H 0.18-0.48 % Sodium Level 127 L 136-145 mmol/L Potassium Level 4.3 3.5-5.1 mmol/L Chloride Level 92 L 101-111 mmol/L Carbon Dioxide Level 29 21-32 mmol/L Blood Urea Nitrogen 24 H 7-18 mg/dL Creatinine 0.7 0.5-1.3 mg/dL Glomerular Filtration Rate Calc 96 >90 mL/min Random Glucose 131 H 70-105 mg/dL Total Calcium 7.9 L 8.5-10.1 mg/dL Phosphorus Level 4.8 2.5-4.9 mg/dL Magnesium Level 2.00 1.80-2.40 mg/dL Iron Level 13 L 65-175 mcg/dL Total Iron Binding Capacity 359 250-450 mcg/dL Percent Iron Saturation 3.6 L 30-44 % Ferritin 57 30-400 ng/mL Vitamin B12 Level 224 193-986 pg/mL Total Creatine Kinase 196 21-232 U/L Blood Gas Specimen Type Arterial Arterial Blood pH 7.428 7.350-7.450 Arterial Blood Partial Pressure CO2 39 35-48 mmHg Arterial Blood Partial Pressure O2 186.3 H 83.0-108.0 mmHg Arterial Blood HCO3 24.9 21.0-28.0 mmol/L Arterial Blood Oxygen Saturation 99.3 H 94.0-98.0 % Arterial Blood Base Excess 0.7 -2.0-3.0 mmol/L Blood Gas Temperature 37.0 35.5-37.0 CELSIUS Blood Gas Respiration Rate 16.0 min. Blood Gas Vent Mode BIPAP 12,6 ROOM AIR FiO2 40.0 % Blood Gas PEEP 6 cm H2O Blood Gas Specimen Comment LR Blood Gas Flow-by 3.00 0.00-15.00 L/min Test 05/20/25 08:01 05/20/25 04:47 05/20/25 02:55 Range/Units Prothrombin Time 11.4 9.6-11.6 SEC Prothromb Time International Ratio 1.08 0.85-1.15 Lactic Acid Level 3.0 H 0.8-2.5 mmol/L Procalcitonin < 0.05 L 0.05-0.5 ng/mL Urine Color LIGHT-YELLOW YELLOW Urine Appearance CLEAR CLEAR Urine pH 5.0 5.0-8.0 Urine Specific [place] 1.014 1.001-1.031 Urine Protein NEGATIVE NEGATIVE mg/dL Urine Glucose (UA) NEGATIVE NEGATIVE mg/dL Urine Ketones NEGATIVE NEGATIVE mg/dL Urine Occult Blood NEGATIVE NEGATIVE Urine Nitrate NEGATIVE NEGATIVE Urine Bilirubin NEGATIVE NEGATIVE mg/dL Urine Urobilinogen 0.2 0.2-1.0 mg/dL Urine Leukocyte Esterase NEGATIVE NEGATIVE Fam/uL White Cell Morphology Comment CONSISTENT W/DIFF Platelet Morphology LARGE PLTS PRESENT Red Blood Cell Morphology See comments Total Bilirubin 0.3 0.2-1.0 mg/dL Direct Bilirubin 0.1 0.0-0.3 mg/dL Aspartate Amino Transf (AST/SGOT) 20 10-37 U/L Alanine Aminotransferase (ALT/SGPT) 20 12-78 U/L Alkaline Phosphatase 60 50-136 U/L B-Type Natriuretic Peptide 619 H 0-100 pg/mL Total Protein 6.1 6.0-8.3 g/dL Albumin 3.5 3.5-5.0 g/dL Current Medications Medications (Trade) Dose Ordered Sig/Sherman Route PRN Reason Start Time Stop Time Status Last Admin Dose Admin Acetaminophen (TYLenol 325MG TAB) 650 mg Q6H PRN PO FEVER/MILD PAIN LEVEL 1-3 05/20/25 05:00 06/19/25 04:59 05/21/25 10:29 650 MG Acetaminophen (TYLenol 650MG SUPPOSITORY) 650 mg Q6H PRN RC FEVER / MILD PAIN 1-3 IF NPO 05/20/25 05:00 06/19/25 04:59 Acetaminophen/ Hydrocodone Bitart (NORco 5/325MG) FOR MODERATE PAIN SC... Q6H PRN PO PAIN 4-10 05/20/25 05:00 05/20/25 07:47 DC Albuterol (DUOneb) 1 UDVIAL Q6H PRN IH SHORTNESS OF BREATH 05/20/25 05:00 06/19/25 04:59 05/20/25 15:03 1 UDVIAL Albuterol Sulfate (Proventil 0.083% 2.5mg/3ml) 2.5 mg [id number] PRN IH SHORTNESS OF BREATH 05/20/25 05:00 05/20/25 04:59 DC Atorvastatin Calcium (LIPItor 40MG) 40 mg DAILY PO 05/21/25 09:00 06/20/25 08:59 05/21/25 10:27 40 MG Budesonide (Pulmicort 0.5 Mg/2ml) 0.5 mg BIDRESP IH 05/20/25 18:00 06/19/25 17:59 05/21/25 06:56 0.5 MG Buspirone HCl (BUspar) 5 mg BID PO 05/20/25 21:00 06/19/25 20:59 05/21/25 10:28 5 MG Ferric Sodium Gluconate Complex 125 mg/Sodium Chloride 110 ml @ 110 mls/hr Q24H IV 05/21/25 10:00 05/23/25 10:59 Gabapentin (NEURontin 100 mg CAP) 100 mg BID PO 05/20/25 21:00 06/19/25 20:59 05/21/25 10:27 100 MG Hydralazine HCl (APRESOLine 20MG INJ) 10 mg Q6H PRN IV SBP GREATER THAN 160 05/20/25 05:00 06/19/25 04:59 Hydroxyzine HCl (ATArax 25MG TAB) 25 mg TID PRN PO ANXIETY 05/20/25 10:30 06/19/25 10:29 05/21/25 10:27 25 MG Insulin Human Regular (humuLIN R 100 UNIT/ML 3ML) INSULIN SLIDING SCAL... ACHS SQ 05/20/25 07:30 06/19/25 07:29 Ipratropium [place] (AtrovENT UD) 0.5 MG [id number] IH 05/20/25 12:00 06/19/25 11:59 05/21/25 11:13 0.5 MG Labetalol HCl (TRANdate 20MG SYG) 10 mg Q2H PRN IV SBP GREATER THAN 180 05/20/25 05:00 06/19/25 04:59 Losartan Potassium (CozAAR 50 mg TAB) 50 mg DAILY PO 05/21/25 09:00 06/20/25 08:59 05/21/25 10:27 50 MG Methylprednisolone Sodium Succinate (Solu-medROL 40MG) 40 mg Q8H IVP 05/20/25 10:30 06/19/25 10:29 05/21/25 10:28 40 MG Metoprolol Succinate (TopROL XL) 12.5 mg DAILY PO 05/21/25 09:00 05/20/25 11:15 DC Metoprolol Tartrate (loprESSOR) 12.5 mg BID PO 05/20/25 11:30 06/19/25 11:29 05/21/25 10:28 12.5 MG Metoprolol Tartrate (loprESSOR) 12.5 mg BID PO 05/20/25 21:00 05/20/25 10:25 DC Montelukast Sodium (SinguLAIR) 10 mg PM PO 05/20/25 21:00 06/19/25 20:59 05/20/25 21:29 10 MG Nicotine (Nicoderm) 21 mg Q24H TD 05/20/25 15:30 06/19/25 15:29 05/20/25 15:37 21 MG Ondansetron HCl (zoFRAN 4MG INJ) 4 mg Q6H PRN IVP NAUSEA/VOMITING 05/20/25 05:00 06/19/25 04:59 Pantoprazole Sodium (PROTonix 40MG INJ) 40 mg BID IVP 05/20/25 21:00 06/19/25 08:59 05/21/25 10:28 40 MG Pantoprazole Sodium (PROTonix 40MG INJ) 40 mg DAILY IVP 05/20/25 09:00 05/20/25 10:09 DC 05/20/25 09:37 40 MG Polyethylene Glycol (MIRalax 3350 17 GM POWD.PACK) 17 gm DAILY PO 05/20/25 09:00 06/19/25 08:59 05/21/25 10:28 17 GM Tamsulosin HCl (FloMAX) 0.4 mg DAILY PO 05/21/25 09:00 06/20/25 08:59 05/21/25 10:27 0.4 MG Diagnostics / Radiology: [COPY/PASTE HERE IF NO REPORTS PLEASE DELETE SECTION] Assessment: Melena Acute blood loss anemia Elevated troponin CAD Respiratory failure CHF PVD Plan: DDX Melena: peptic ulcer, esophageal varices, angiodysplasia, Kristen Sanchez tear, [place] lesion, malignancy, small bowel source (angiodysplasia, ulcer, malignancy), and right colonic sources (angiodysplasia, colon polyp, malignancy, colitis) Plan: 1. NPO 2. EGD in AM. I have discussed the risks, benefits, alternatives, and potential complications. Questions were answered and they agree to proceed. 3. Pantoprazole 40mg po bid 4. GI prophylaxis 5. Recommend checking Hg every 6 hours and transfuse to goal Hg >7. Please do not overtransfuse 6. Please contact our service if the patient has significant bleeding such as hematemesis and we can proceed sooner with the EGD Thanks you for allowing us to participate in the care of this patient! [facility] May 21, 2025 17:59
[2025-05-21] MEDS: SOD FERRIC GLUC COMPLEX/SUC 125 MG in 0.9%NACL 100ML 100 ML IV SCH (18:47)
[2025-05-22] VITALS (27 sets, daily range): BP systolic 124–152; BP diastolic 37–70; PULSE 58–100; RESP 14–22; TEMP 97.1–98; O2SAT 94–100
[2025-05-22 03:31] LABS: NUCLEATED RED BLOOD CELLS 0.0 % (0.0-0.19); PLATELET COUNT (AUTO) 175.0 K/uL (130-400); RED BLOOD CELL COUNT(AUTO) 2.85 MIL/uL (4.50-6.20); RED CELL DISTRIBUTION WIDTH 14.6 % (11.0-15.5); WHITE BLOOD COUNT (AUTO) 7.9 K/uL (4.8-10.8)
[2025-05-22 03:51] LABS: CREATININE 0.6 mg/dL (0.5-1.3); GLOMERULAR FILTR. RATE CALC 101.0 mL/min (>90); GLUCOSE,RANDOM 122.0 mg/dL (70-105); PHOSPHORUS 3.4 mg/dL (2.5-4.9); SODIUM SERUM 130.0 mmol/L (136-145); UREA NITROGEN, BLOOD 21.0 mg/dL (7-18)
--- NOTE | 2025-05-22 11:09 | PN ---
[facility] PROGRESS NOTE Date Patient Seen: May 22, 2025 Time of Visit: 10:59 Supervising Physician: [Dr Pina Primary Care Physician: Dr. Mark Carver Outpatient Specialists: [ ] Inpatient Consults: Cardiology, Gastroenterology PROBLEM LIST: Acute on chronic hypoxic respiratory failure Acute NSTEMI Acute COPD Exacerbation Acute Anemia, rule out GI bleed, requiring PRBC transfusion Acute Hyponatremia DM type 2, with hyperglycemia LVEF is 45-50% per echo done 05/20/25 Hypertension, uncontrolled PVD s/p angioplasty, with bilateral stents to iliac and left SFA History of Aortic valve stenosis History of CAD with stent placement to RCA in 2019, pacemaker INTERVAL HISTORY: 05/21 - Patient awake, alert, and oriented x 3. Family at beside. Patient is sitting up in no acute distress on NC 2 lpm. Patient was negative for covid, strep, and flu. Patient denies any chest pain, abdominal pain, nausea, vomiting or bloody stools. GI has been consulted because hgb is trending down again after 1 unit of PRBC post transfusion (Hgb 8.2) that was given yesterday. Hgb today 7.2. Venous doppler of left upper and lower extremity negative. 2 D Echo 45-50%. BUN 24, Cr 0.7, potassium 4.3, and sodium 127. Troponin continues to trend upward 107- 181- 2097- 4485.9. Updated family on medical plan. Patient seen by cardiology. Bedside nurse reports no acute findings. 05/22 - patient is seen and evaluated at the bedside. Patient is lying in bed resting quietly continues to be weak, deconditioned and hypoxemic requiring 2 L via nasal cannula. Patient is awake alert and oriented x3. no family at the bedside at this time. No acute changes reported overnight. Patient denies chest discomfort or chest pain at this time. Patient was evaluated by GI and recommended EGD which is scheduled for this morning. H&H remained stable as today's labs show 8.5/25.7. Patient did receive 1 unit of PRBCs yesterday 4 and H 6. Patient denies hematemesis, hematochezia or melena. Patient's troponin is trending down his most recent is 3102 from 4485. Patient was evaluated by Cardiology given his suspected GI bleed, aspirin heparin contraindicated at this time. Patient had an echo results show LVEF is 45-50%. As per nursing, if EGD is unremarkable cardio we will plan a left heart catheterization for the p atient. PLAN Supplemental oxygen as needed Wean off as tolerated Monitor H&H closely Transfuse as needed to maintain hemoglobin above 7.0 Follow EGD results Follow Cardiology recommendations Follow GI recs Continue Protonix b.i.d. Continue to hold blood thinners REVIEW OF SYSTEMS: 12 point ROS reviewed with patient. Pertinent positives mentioned above. Otherwise negative. PHYSICAL EXAM: GENERAL: awake, alert and oriented x 3 HEENT: EOMI, Sclera non icteric, moist mucosa NECK: Supple, no JVD, trachea midline LUNGS: Wheezing bilateral lobes HEART: Regular rate and rhythm. Normal S1 and S2, without murmurs ABD: Abdomen soft, nontender. Bowel sounds present EXT: left upper extremity and left lower extremity with edema NEURO: Alert and oriented to person, follows commands Vital Signs (last 8hr) Date Time Temp Pulse Resp B/P (MAP) Pulse Ox O2 Delivery O2 Flow Rate FiO2 05/22/25 10:50 97.2 60 15 124/37 97 Nasal Cannula 3.0 28 05/22/25 08:27 97.3 60 14 134/52 98 Nasal Cannula 2.0 05/22/25 06:25 66 18 05/22/25 06:20 20 N/Cannula Low lpm 3.0 32 05/22/25 03:42 64 19 28 LABS: Hematology Labs: Test 05/22/25 03:04 05/21/25 03:40 Range/Units White Blood Count 7.9 # 4.8-10.8 K/uL Red Blood Count 2.85 L 4.50-6.20 MIL/uL Hemoglobin 8.5 L 14.0-18.0 g/dL Hematocrit 25.7 L 42-54 % Mean Corpuscular Volume 90.2 79-99 fL Mean Corpuscular Hemoglobin 29.8 27.0-33.0 pg Mean Corpuscular Hemoglobin Concent 33.1 32.0-36.0 g/dL Red Cell Distribution Width 14.6 11.0-15.5 % Platelet Count 175 130-400 K/uL Mean Platelet Volume 9.3 7.5-10.5 fL Nucleated Red Blood Cells 0.0 0.0-0.19 % Immature Granulocyte % (Auto) 0.9 0-1 % Neutrophils (%) (Auto) 92.7 H 40.0-77.0 % Lymphocytes (%) (Auto) 1.9 L 21.0-51.0 % Monocytes (%) (Auto) 4.4 3.0-13.0 % Eosinophils (%) (Auto) 0.0 0.0-8.0 % Basophils (%) (Auto) 0.1 0.0-5.0 % Neutrophils # (Auto) 11.3 H 1.8-7.7 K/uL Lymphocytes # (Auto) 0.2 L 1.0-4.8 K/uL Monocytes # (Auto) 0.5 0.1-1.0 K/uL Eosinophils # (Auto) 0.00 0.00-0.70 K/uL Basophils # (Auto) 0.01 0.00-0.20 K/uL Absolute Immature Granulocyte (auto 0.11 0-1 K/uL Reticulocyte Count (auto) 4.06861 H 0.42-2.23 % Immature Reticulocyte Fraction 31.70 H 0.18-0.48 % Chemistry Labs: Test 05/22/25 05:00 05/22/25 03:04 05/21/25 09:05 05/21/25 03:40 Range/Units Whole Blood Glucose 136 H 70-110 MG/DL Sodium Level 130 L 136-145 mmol/L Potassium Level 5.0 3.5-5.1 mmol/L Chloride Level 96 L 101-111 mmol/L Carbon Dioxide Level 30 21-32 mmol/L Blood Urea Nitrogen 21 H 7-18 mg/dL Creatinine 0.6 0.5-1.3 mg/dL Glomerular Filtration Rate Calc 101 >90 mL/min Random Glucose 122 H 70-105 mg/dL Total Calcium 7.8 L 8.5-10.1 mg/dL Phosphorus Level 3.4 2.5-4.9 mg/dL Magnesium Level 2.10 1.80-2.40 mg/dL Troponin I High Sensitivity 3102 *H 4-75 ng/L Iron Level 13 L 65-175 mcg/dL Total Iron Binding Capacity 359 250-450 mcg/dL Percent Iron Saturation 3.6 L 30-44 % Ferritin 57 30-400 ng/mL Vitamin B12 Level 224 193-986 pg/mL Test 05/20/25 16:50 Range/Units Total Creatine Kinase 196 21-232 U/L DIAGNOSTICS / RADIOLOGY RESULTS: PATIENT: VENKAT PETERSEN JR MR#: [id number] : 1950 SEX: M AGE: 74 LOCATION: [facility] ORDER 8 STATUS: ADM IN REPORT#: [id number] SERVICE 7 REASON: cp ORDERING PHYSICIAN: DANNIELLE CHASE MD PROCEDURE: CXR1VW - CHEST 1VW EXAM: CR Chest, 1 View. CLINICAL HISTORY: cp COMPARISON: Radiograph dated May 01, 2025 FINDINGS: LUNGS: The lungs show no infiltrate or other acute finding. PLEURAL SPACES: No pleural effusion or pneumothorax. MEDIASTINUM: Pacemaker leads overlie the right atrium and right ventricle. Cardiac size and mediastinal contours within normal limits. BONES: No acute osseous abnormality. IMPRESSION: No acute cardiopulmonary pathology is evident. /[place] DICTATED BY: MELISSA GARBER Jr., MD DATE: 05/20/25640 ELECTRONICALLY SIGNED BY: MELISSA GARBER Jr., MD DATE: 05/20/25640 NEURO: Minimize central acting medications as possible. Maintain fall precautions, adequate lighting during the day PULMONARY: Supplemental 02 as needed. Maintain aspiration precautions at all times CARDIOVASCULAR: Follow hemodynamics. Vital signs per facility protocol GI & NUTRITION: Continue with nutritional support. Continue stool softeners and laxatives as needed. KIDNEYS & ELECTROLYTES: Strict monitoring of intake, output and overall fluid balance. Avoid nephrotoxic medications to the extent possible. Medications to be dosed according to renal function. Monitor electrolytes and replace as needed ENDOCRINE: Maintain blood glucose between 100-180 at all times. Hypoglycemia protocol in place INFECTIOUS DISEASE: Trend temperature, WBC and procalcitonin level Follow cultures, deescalate antibiotics as soon as possible. Panculture if new onset fever ONCOLOGY/HEMATOLOGY/COAGULATION: Monitor for s/s of bleeding Monitor hemoglobin, coagulation studies as needed SKIN: Pressure ulcer prevention per facility protocol Specialty mattress ORTHO/REHAB: Continue PT/OT Prophylaxis: Continue GI and DVT prophylaxis Code Status: Full Resuscitation Disposition: Home Once medically stable for discharge Total critical care time spent case 35 minutes. ATTESTATION BY PHYSICIAN I reviewed the documentation, medical decision making, and treatment plan as noted by the mid-level provider above. I agree with the findings and plan of care. Vlad Pina MD, [employer] ATTENDANT May 22, 2025 11:09
--- NOTE | 2025-05-22 14:00 | PN ---
[facility] PROGRESS NOTE Date Patient Seen: May 22, 2025 Time of Visit: 13:55 Interval History: [No acute events overnight. Troponin has downtrended to 3102 , current hemoglobin 8.5, GI is following, currently NPO pending to undergo EGD today to assess for any acute bleed ] Physical Examination: GENERAL: [No acute distress.] HEAD: [Normal with no signs of head trauma.] EYES: [PERRLA, EOMI, conjunctiva and sclera normal.] ENT: [Hearing grossly intact, normal oropharynx.] NECK: [+ JVD. There is no tenderness, lymphadenopathy, or masses. No thyromegaly. Normal carotid upstrokes without bruits.] LUNGS: [Clear breath sounds bilaterally. No wheezes, or rhonchi.] HEART: [Normal rate and rhythm. Normal S1 and S2 without murmurs, gallop or rub.] VASC: [Peripheral pulses +2 bilaterally.] ABD: [Bowel sounds normal, soft, nontender, no masses, no organomegaly. No audible bruits.] : [Not examined] LYMPH: [No lymphadenopathy noted.] EXT: [+ edema.] SKIN: [No rashes or lesions noted.] NEURO: [Awake, alert, and oriented x3. No focal sensory or strength deficits noted.] Laboratory: [ ] Hematology Labs: Test 05/22/25 03:04 05/21/25 03:40 Range/Units White Blood Count 7.9 # 4.8-10.8 K/uL Red Blood Count 2.85 L 4.50-6.20 MIL/uL Hemoglobin 8.5 L 14.0-18.0 g/dL Hematocrit 25.7 L 42-54 % Mean Corpuscular Volume 90.2 79-99 fL Mean Corpuscular Hemoglobin 29.8 27.0-33.0 pg Mean Corpuscular Hemoglobin Concent 33.1 32.0-36.0 g/dL Red Cell Distribution Width 14.6 11.0-15.5 % Platelet Count 175 130-400 K/uL Mean Platelet Volume 9.3 7.5-10.5 fL Nucleated Red Blood Cells 0.0 0.0-0.19 % Immature Granulocyte % (Auto) 0.9 0-1 % Neutrophils (%) (Auto) 92.7 H 40.0-77.0 % Lymphocytes (%) (Auto) 1.9 L 21.0-51.0 % Monocytes (%) (Auto) 4.4 3.0-13.0 % Eosinophils (%) (Auto) 0.0 0.0-8.0 % Basophils (%) (Auto) 0.1 0.0-5.0 % Neutrophils # (Auto) 11.3 H 1.8-7.7 K/uL Lymphocytes # (Auto) 0.2 L 1.0-4.8 K/uL Monocytes # (Auto) 0.5 0.1-1.0 K/uL Eosinophils # (Auto) 0.00 0.00-0.70 K/uL Basophils # (Auto) 0.01 0.00-0.20 K/uL Absolute Immature Granulocyte (auto 0.11 0-1 K/uL Reticulocyte Count (auto) 4.25744 H 0.42-2.23 % Immature Reticulocyte Fraction 31.70 H 0.18-0.48 % Chemistry Labs: Test 05/22/25 11:38 05/22/25 03:04 05/21/25 09:05 05/21/25 03:40 Range/Units Whole Blood Glucose 111 H 70-110 MG/DL Sodium Level 130 L 136-145 mmol/L Potassium Level 5.0 3.5-5.1 mmol/L Chloride Level 96 L 101-111 mmol/L Carbon Dioxide Level 30 21-32 mmol/L Blood Urea Nitrogen 21 H 7-18 mg/dL Creatinine 0.6 0.5-1.3 mg/dL Glomerular Filtration Rate Calc 101 >90 mL/min Random Glucose 122 H 70-105 mg/dL Total Calcium 7.8 L 8.5-10.1 mg/dL Phosphorus Level 3.4 2.5-4.9 mg/dL Magnesium Level 2.10 1.80-2.40 mg/dL Troponin I High Sensitivity 3102 *H 4-75 ng/L Iron Level 13 L 65-175 mcg/dL Total Iron Binding Capacity 359 250-450 mcg/dL Percent Iron Saturation 3.6 L 30-44 % Ferritin 57 30-400 ng/mL Vitamin B12 Level 224 193-986 pg/mL Test 05/20/25 16:50 Range/Units Total Creatine Kinase 196 21-232 U/L Diagnostics / Radiology: [Copy/Paste Echos/Imaging Report here] Impression and Plan: [Chest pain Elevated troponin (1379) Anemia with hemoglobin on presentation of 6.3 hematocrit of 19.7. History of CAD, 2018 PTCA and stenting to a subtotal mid RCA 60-70% stenosis in the proximal to mid RCA in 20-30% stenosis in the mid LAD with evidence of 50% InStent restenosis and normal IFR April 2022. Inferior STEMI June 2019 GI bleed with gastritis and esophagitis May 2024 Biotronik permanent pacemaker implant April 2022, PAD COPD #Elevated Troponin -Trop 107--181--1379--2097--4485 downtrended to 3102 -74-year-old male presented for evaluation of severe chest pain. -He has a history of CAD and stent to the mid RCA in 2018 after an inferior STEMI. -BNP on admission 619 -continue Clopidogrel 75 mg daily and aspirin 81 mg daily, heparin are contraindicated at the time due to low hemoglobin. -Echo LVEF 45-50% -at this time we will defer any invasive procedures until any active bleeding has been ruled out by the GI team #Anemia -Hb 6.3 on arrival -Current hemoglobin 8.5, GI is following, currently NPO pending to undergo EGD today to assess for any acute bleed -Transfuse as needed to maintain hemoglobin above 7gr. GI evaluation is warranted Thank you for this consult cardiology will continue to follow along Kirk mireles MD] ATTESTATION BY PHYSICIAN I have seen and examined the patient, reviewed the above documentation, participated in medical decision making, made necessary modifications, and agree with the treatment plan as documented by my mid-level provider above. MD BRIAN Sams JAMES R MD May 22, 2025 14:00
--- NOTE | 2025-05-22 17:02 | CONS ---
CONSULTATION NOTE Date of Service: May 22, 2025 Reason for Consultation: [ ] Requesting Physician: [ ] HISTORY OF PRESENT ILLNESS: [ ] REVIEW OF SYSTEMS CONSTITUTIONAL: Denies fever, chills, or fatigue. HEAD/FACE: No signs of trauma. EENT: Denies eye pain, blurred vision, double vision, or light sensitivity. RESPIRATORY: Denies shortness of breath, cough, wheezing CARDIOVASCULAR: Denies chest pain, palpitation, syncope GASTROINTESTINAL/ABDOMINAL: Denies abdominal pain, constipation, diarrhea, nausea or vomiting GENITOURINARY: Denies dysuria or hematuria. MUSCULOSKELETAL: Denies joint pain, tenderness, or trauma. INTEGUMENTARY: Denies rash or itchiness NEUROLOGICAL/PSYCH: Denies anxiety, depression, heat or cold intolerance. PAST MEDICAL HISTORY: [ ] PAST SURGICAL HISTORY: [ ] PAST SOCIAL HISTORY: [ ] FAMILY HISTORY: [ ] Coded Allergies: Pork/Porcine Containing Products (Verified Allergy, Intermediate, 07/17/24) No Known Drug Allergies (Verified Allergy, Unknown, 08/04/19) PHYSICAL EXAM EYES: Anicteric. Pupils equal and reactive. HENT: No oral thrush seen, moist Oral mucosa NECK: Supple, no JVD or thyromegaly. LUNGS: Good air entry. No rales, no rhonchi. CARDIOVASCULAR: S1, S2 regular. No murmur heard. ABDOMEN: Soft, non tender, bowel sounds present, no organomegaly CENTRAL NERVOUS SYSTEM: Awake, alert, oriented x 3. No focal deficits. SKIN: No rashes, no swelling. LYMPHATICS: No peripheral lymphadenopathy MUSCULOSKELETAL: No joint swelling, erythema or tenderness. EXTREMITIES: No cyanosis or clubbing BACK: No deformity, no pressure ulcer. GENITOURINARY: No dysuria or hematuria Vital Sign (Last 24 Hours) 05/22/25 05/22/25 11:20 15:20 Temp 97.2 Pulse 61 Resp 15 B/P (MAP) 137/54 Pulse Ox 100 O2 Delivery Nasal Cannula O2 Flow Rate 2.0 FiO2 24 Intake & Output (last 24hrs) 05/21/25 05/21/25 05/22/25 15:00 23:00 07:00 Output Total 600 ml 600 ml Balance -600 ml -600 ml LABS: Laboratory: Test 05/22/25 15:26 05/22/25 03:04 05/21/25 09:05 05/21/25 05:35 Range/Units Whole Blood Glucose 114 H 70-110 MG/DL White Blood Count 7.9 # 4.8-10.8 K/uL Red Blood Count 2.85 L 4.50-6.20 MIL/uL Hemoglobin 8.5 L 14.0-18.0 g/dL Hematocrit 25.7 L 42-54 % Mean Corpuscular Volume 90.2 79-99 fL Mean Corpuscular Hemoglobin 29.8 27.0-33.0 pg Mean Corpuscular Hemoglobin Concent 33.1 32.0-36.0 g/dL Red Cell Distribution Width 14.6 11.0-15.5 % Platelet Count 175 130-400 K/uL Mean Platelet Volume 9.3 7.5-10.5 fL Nucleated Red Blood Cells 0.0 0.0-0.19 % Sodium Level 130 L 136-145 mmol/L Potassium Level 5.0 3.5-5.1 mmol/L Chloride Level 96 L 101-111 mmol/L Carbon Dioxide Level 30 21-32 mmol/L Blood Urea Nitrogen 21 H 7-18 mg/dL Creatinine 0.6 0.5-1.3 mg/dL Glomerular Filtration Rate Calc 101 >90 mL/min Random Glucose 122 H 70-105 mg/dL Total Calcium 7.8 L 8.5-10.1 mg/dL Phosphorus Level 3.4 2.5-4.9 mg/dL Magnesium Level 2.10 1.80-2.40 mg/dL Troponin I High Sensitivity 3102 *H 4-75 ng/L Influenza Type A Antigen Negative For Type A NEGATIVE Influenza Type B Antigen Negative For Type B NEGATIVE SARS-CoV-2, RNA, NAAT NEGATIVE SARS CoV-2 NEGATIVE Group A Streptococcus Rapid NEGATIVE NEGATIVE Test 05/21/25 03:40 Range/Units Immature Granulocyte % (Auto) 0.9 0-1 % Neutrophils (%) (Auto) 92.7 H 40.0-77.0 % Lymphocytes (%) (Auto) 1.9 L 21.0-51.0 % Monocytes (%) (Auto) 4.4 3.0-13.0 % Eosinophils (%) (Auto) 0.0 0.0-8.0 % Basophils (%) (Auto) 0.1 0.0-5.0 % Neutrophils # (Auto) 11.3 H 1.8-7.7 K/uL Lymphocytes # (Auto) 0.2 L 1.0-4.8 K/uL Monocytes # (Auto) 0.5 0.1-1.0 K/uL Eosinophils # (Auto) 0.00 0.00-0.70 K/uL Basophils # (Auto) 0.01 0.00-0.20 K/uL Absolute Immature Granulocyte (auto 0.11 0-1 K/uL Reticulocyte Count (auto) 4.47165 H 0.42-2.23 % Immature Reticulocyte Fraction 31.70 H 0.18-0.48 % Iron Level 13 L 65-175 mcg/dL Total Iron Binding Capacity 359 250-450 mcg/dL Percent Iron Saturation 3.6 L 30-44 % Ferritin 57 30-400 ng/mL Vitamin B12 Level 224 193-986 pg/mL DIAGNOSTICS / RADIOLOGY: [ ] PROBLEM LIST : Medical Problems: 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 Thank You for the consult and allowing us to participate in the care of this patient. ATTESTATION BY PHYSICIAN I have seen and examined the patient. I reviewed the documentation, medical decision making, and treatment plan as noted by the mid-level provider above. I agree with the findings and plan of care. ES PETERSEN MD, MICHELLE A [employer] CORNER MACHINE OPERATOR May 22, 2025 17:02
[2025-05-22] MEDS: PEG 3350/NA SULF,BICARB,CL/KCL 4000 ML SOLN PO STA ×2 (21:34→21:35)
--- NOTE | 2025-05-22 22:35 | NUR ---
SPOKE WITH THE [facility]IN[facility] GI DOCTOR, DR COLLIER, I SPOKE WITH DR COLLIER AND LET HIM KNOW ABOUT THE SITUATION OF THE GOLYTELY THAT HAD NOT BEEN GIVEN UP TO THIS POINT, THE NURSE FOR THE DAY SHIFT WAS SUPPOSED TO HAVE HIM START ON THE GOLYTELY BUT DID NOT GIVE IT TO HIM AT THE TIME IT WAS SUPPOSED TO BE ADMINISTERED. PER DR COLLIER, WE ARE GOING TO POSTPONE THE PROCEDURE UNTIL 05/24/25. FOR NOW PER DR COLLIER, KEEP PATIENT ON CLEAR LIQUIDS, AND THERE WILL BE A NEW SET OF ORDERS FOR TOMMOROW. THANK YOU.
--- NOTE | 2025-05-22 22:54 | NUR ---
PER PATIENT, DOES NOT WANT TO USE BIPAP TO SLEEP AT THIS MOMENT.
[2025-05-23] VITALS (16 sets, daily range): BP systolic 113–163; BP diastolic 46–57; PULSE 53–66; RESP 18–24; TEMP 97.4–98.9; O2SAT 95–99
[2025-05-23 04:16] LABS: NUCLEATED RED BLOOD CELLS 0.0 % (0.0-0.19); PLATELET COUNT (AUTO) 155.0 K/uL (130-400); RED BLOOD CELL COUNT(AUTO) 2.92 MIL/uL (4.50-6.20); RED CELL DISTRIBUTION WIDTH 14.8 % (11.0-15.5); WHITE BLOOD COUNT (AUTO) 11.1 K/uL (4.8-10.8)
[2025-05-23 04:36] LABS: CREATININE 0.5 mg/dL (0.5-1.3); GLOMERULAR FILTR. RATE CALC 106.0 mL/min (>90); GLUCOSE,RANDOM 95.0 mg/dL (70-105); PHOSPHORUS 2.5 mg/dL (2.5-4.9); SODIUM SERUM 129.0 mmol/L (136-145); UREA NITROGEN, BLOOD 14.0 mg/dL (7-18)
--- NOTE | 2025-05-23 10:02 | PN ---
GASTROENTEROLOGY PROGRESS NOTE Date of Visit: May 23, 2025 Time of Visit: 10:00 Events / Notes: No acute events overnight. EGD without evidence of bleeding. Plan for colon in am. Plan of care discussed. Review of Systems: CONSTITUTIONAL: No malaise or change in sensation of wellbeing. ENMT: No rhinorrhea, otorrhea, sinus pain, ear ache. CARDIOVASCULAR: No angina, palpitations, orthopnea or paroxysmal dyspnea. RESPIRATORY: No SOB. GASTROINTESTINAL: No abdominal pain, nausea, vomiting, diarrhea, hematemesis, melena or change in the patient's habitual bowel movements consistency/number. GENITOURINARY: No dysuria, hematuria or change in bladder continence. MUSCULOSKELETAL: No new muscle pain or decrease in muscular strength. No new joint swelling, redness or tenderness. SKIN: No new rash. Physical Exam: GEN: Awake, alert, oriented in person, time and place, and in no acute distress. HEENT: No sinus tenderness. Tympanic membranes were not examined. No rhinorrhea. Oral pharyngeal mucosa is pink, moist and within normal limits. Neck is supple with no cervical lymphadenopathy, thyromegaly or JVD. CHEST: Inspection, palpation and percussion of the chest were unremarkable. Lung auscultation revealed normal breath sounds bilaterally. CARDIAC: PMI is within normal limits. Heart sounds are regular. Normal S1, S2. No gallop or murmur. ABD: Soft, non-tender and not distended. No peritoneal signs on palpation. No organomegaly. Normal bowel sounds. EXT: No cyanosis or clubbing. No edema. SKIN: Intact. No rashes. JOINTS: No evidence of synovitis or acute arthritis. NEURO: Alert and oriented to name, place and person. Cranial nerve examination is unremarkable. No focal motor deficits. Normal speech. Gait is normal. Strength is normal. Vital Signs (last 8hr) Date Time Temp Pulse Resp B/P (MAP) Pulse Ox O2 Delivery O2 Flow Rate FiO2 05/23/25 07:00 97.7 60 18 133/57 98 Nasal Cannula 3.0 05/23/25 06:23 60 18 05/23/25 06:20 20 N/Cannula Low lpm 3.0 32 05/23/25 04:03 99.0 60 22 154/57 98 Nasal Cannula 2.0 Laboratory: [ ] Laboratory: Test 05/23/25 05:37 05/23/25 03:59 Range/Units Whole Blood Glucose 103 70-110 MG/DL White Blood Count 11.1 H 4.8-10.8 K/uL Red Blood Count 2.92 L 4.50-6.20 MIL/uL Hemoglobin 8.6 L 14.0-18.0 g/dL Hematocrit 26.4 L 42-54 % Mean Corpuscular Volume 90.4 79-99 fL Mean Corpuscular Hemoglobin 29.5 27.0-33.0 pg Mean Corpuscular Hemoglobin Concent 32.6 32.0-36.0 g/dL Red Cell Distribution Width 14.8 11.0-15.5 % Platelet Count 155 130-400 K/uL Mean Platelet Volume 9.0 7.5-10.5 fL Nucleated Red Blood Cells 0.0 0.0-0.19 % Sodium Level 129 L 136-145 mmol/L Potassium Level 3.7 3.5-5.1 mmol/L Chloride Level 96 L 101-111 mmol/L Carbon Dioxide Level 30 21-32 mmol/L Blood Urea Nitrogen 14 7-18 mg/dL Creatinine 0.5 0.5-1.3 mg/dL Glomerular Filtration Rate Calc 106 >90 mL/min Random Glucose 95 70-105 mg/dL Total Calcium 7.5 L 8.5-10.1 mg/dL Phosphorus Level 2.5 2.5-4.9 mg/dL Magnesium Level 2.00 1.80-2.40 mg/dL Current Medications Medications (Trade) Dose Ordered Sig/Sherman Route PRN Reason Start Time Stop Time Status Last Admin Dose Admin Acetaminophen (TYLenol 325MG TAB) 650 mg Q6H PRN PO FEVER/MILD PAIN LEVEL 1-3 05/20/25 05:00 06/19/25 04:59 05/21/25 10:29 650 MG Acetaminophen (TYLenol 650MG SUPPOSITORY) 650 mg Q6H PRN RC FEVER / MILD PAIN 1-3 IF NPO 05/20/25 05:00 06/19/25 04:59 Acetaminophen/ Hydrocodone Bitart (NORco 5/325MG) FOR MODERATE PAIN SC... Q6H PRN PO PAIN 4-10 05/20/25 05:00 05/20/25 07:47 DC Albuterol (DUOneb) 1 UDVIAL Q6H PRN IH SHORTNESS OF BREATH 05/20/25 05:00 06/19/25 04:59 05/20/25 15:03 1 UDVIAL Albuterol Sulfate (Proventil 0.083% 2.5mg/3ml) 2.5 mg [id number] PRN IH SHORTNESS OF BREATH 05/20/25 05:00 05/20/25 04:59 DC Atorvastatin Calcium (LIPItor 40MG) 40 mg DAILY PO 05/21/25 09:00 06/20/25 08:59 05/23/25 09:40 40 MG Budesonide (Pulmicort 0.5 Mg/2ml) 0.5 mg BIDRESP IH 05/20/25 18:00 06/19/25 17:59 05/23/25 06:20 0.5 MG Buspirone HCl (BUspar) 5 mg BID PO 05/20/25 21:00 06/19/25 20:59 05/23/25 09:41 5 MG Ferric Sodium Gluconate Complex 125 mg/Sodium Chloride 110 ml @ 110 mls/hr Q24H IV 05/21/25 10:00 05/23/25 10:59 05/22/25 09:56 110 MLS/HR Gabapentin (NEURontin 100 mg CAP) 100 mg BID PO 05/20/25 21:00 06/19/25 20:59 05/23/25 09:40 100 MG Hydralazine HCl (APRESOLine 20MG INJ) 10 mg Q6H PRN IV SBP GREATER THAN 160 05/20/25 05:00 06/19/25 04:59 Hydroxyzine HCl (ATArax 25MG TAB) 25 mg TID PRN PO ANXIETY 05/20/25 10:30 06/19/25 10:29 05/23/25 09:50 25 MG Insulin Human Regular (humuLIN R 100 UNIT/ML 3ML) INSULIN SLIDING SCAL... ACHS SQ 05/20/25 07:30 06/19/25 07:29 Ipratropium [place] (AtrovENT UD) 0.5 MG [id number] IH 05/20/25 12:00 06/19/25 11:59 05/23/25 06:20 0.5 MG Labetalol HCl (TRANdate 20MG SYG) 10 mg Q2H PRN IV SBP GREATER THAN 180 05/20/25 05:00 06/19/25 04:59 Losartan Potassium (CozAAR 50 mg TAB) 50 mg DAILY PO 05/21/25 09:00 06/20/25 08:59 05/23/25 09:40 50 MG Methylprednisolone Sodium Succinate (Solu-medROL 40MG) 40 mg Q8H IVP 05/20/25 10:30 06/19/25 10:29 05/23/25 09:40 40 MG Metoprolol Succinate (TopROL XL) 12.5 mg DAILY PO 05/21/25 09:00 05/20/25 11:15 DC Metoprolol Tartrate (loprESSOR) 12.5 mg BID PO 05/20/25 11:30 06/19/25 11:29 05/23/25 09:40 12.5 MG Metoprolol Tartrate (loprESSOR) 12.5 mg BID PO 05/20/25 21:00 05/20/25 10:25 DC Montelukast Sodium (SinguLAIR) 10 mg PM PO 05/20/25 21:00 06/19/25 20:59 05/22/25 21:34 10 MG Nicotine (Nicoderm) 21 mg Q24H TD 05/20/25 15:30 06/19/25 15:29 05/21/25 18:47 21 MG Ondansetron HCl (zoFRAN 4MG INJ) 4 mg Q6H PRN IVP NAUSEA/VOMITING 05/20/25 05:00 06/19/25 04:59 Pantoprazole Sodium (PROTonix 40MG INJ) 40 mg BID IVP 05/20/25 21:00 06/19/25 08:59 05/23/25 09:40 40 MG Pantoprazole Sodium (PROTonix 40MG INJ) 40 mg DAILY IVP 05/20/25 09:00 05/20/25 10:09 DC 05/20/25 09:37 40 MG Polyethylene Glycol (MIRalax 3350 17 GM POWD.PACK) 17 gm DAILY PO 05/20/25 09:00 06/19/25 08:59 05/23/25 09:40 17 GM Polyethylene Glycol/ Electrolytes (Golytely/Colyte Soln) 4,000 ml ONCE STAT PO 05/22/25 17:37 05/22/25 17:42 DC 05/22/25 21:34 4,000 ML Polyethylene Glycol/ Electrolytes (Golytely/Colyte Soln) 4,000 ml ONCE STAT PO 05/22/25 21:06 05/22/25 21:07 DC Tamsulosin HCl (FloMAX) 0.4 mg DAILY PO 05/21/25 09:00 06/20/25 08:59 05/23/25 09:41 0.4 MG Diagnostics / Radiology: [COPY/PASTE HERE IF NO REPORTS PLEASE DELETE SECTION] Assessment: Melena Acute blood loss anemia Elevated troponin CAD Respiratory failure CHF PVD Plan: Colonoscopy in am Continue GI prophylaxis Avoid NSAIDs Antireflux measures Monitor H&H and transfuse as needed Call with questions, concerns or change in clinical status Patient to follow-up at clinic post discharge Thank you for this consult [employer]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
--- NOTE | 2025-05-23 10:03 | PN ---
[facility] CARDIOLOGY PROGRESS NOTE Date Patient Seen: May 23, 2025 Time of Visit: 10:00 Interval History: [No acute events overnight. He underwent EGD yesterday , no evidence of active bleeding , recommendations are given to continue with colonoscopy , no telemetry events overnight ,m currently denies any cardiac symptoms or anginal equivalents] Physical Examination: GENERAL: [No acute distress.] HEAD: [Normal with no signs of head trauma.] EYES: [PERRLA, EOMI, conjunctiva and sclera normal.] ENT: [Hearing grossly intact, normal oropharynx.] NECK: [+ JVD. There is no tenderness, lymphadenopathy, or masses. No thyromegaly. Normal carotid upstrokes without bruits.] LUNGS: [Clear breath sounds bilaterally. No wheezes, or rhonchi.] HEART: [Normal rate and rhythm. Normal S1 and S2 without murmurs, gallop or rub.] VASC: [Peripheral pulses +2 bilaterally.] ABD: [Bowel sounds normal, soft, nontender, no masses, no organomegaly. No audible bruits.] : [Not examined] LYMPH: [No lymphadenopathy noted.] EXT: [+ edema.] SKIN: [No rashes or lesions noted.] NEURO: [Awake, alert, and oriented x3. No focal sensory or strength deficits noted.] Laboratory: [ ] Hematology Labs: Test 05/23/25 03:59 Range/Units White Blood Count 11.1 H 4.8-10.8 K/uL Red Blood Count 2.92 L 4.50-6.20 MIL/uL Hemoglobin 8.6 L 14.0-18.0 g/dL Hematocrit 26.4 L 42-54 % Mean Corpuscular Volume 90.4 79-99 fL Mean Corpuscular Hemoglobin 29.5 27.0-33.0 pg Mean Corpuscular Hemoglobin Concent 32.6 32.0-36.0 g/dL Red Cell Distribution Width 14.8 11.0-15.5 % Platelet Count 155 130-400 K/uL Mean Platelet Volume 9.0 7.5-10.5 fL Nucleated Red Blood Cells 0.0 0.0-0.19 % Chemistry Labs: Test 05/23/25 05:37 05/23/25 03:59 Range/Units Whole Blood Glucose 103 70-110 MG/DL Sodium Level 129 L 136-145 mmol/L Potassium Level 3.7 3.5-5.1 mmol/L Chloride Level 96 L 101-111 mmol/L Carbon Dioxide Level 30 21-32 mmol/L Blood Urea Nitrogen 14 7-18 mg/dL Creatinine 0.5 0.5-1.3 mg/dL Glomerular Filtration Rate Calc 106 >90 mL/min Random Glucose 95 70-105 mg/dL Total Calcium 7.5 L 8.5-10.1 mg/dL Phosphorus Level 2.5 2.5-4.9 mg/dL Magnesium Level 2.00 1.80-2.40 mg/dL Diagnostics / Radiology: [Copy/Paste Echos/Imaging Report here] Impression and Plan: [Chest pain Elevated troponin (1379) Anemia with hemoglobin on presentation of 6.3 hematocrit of 19.7. History of CAD, 2018 PTCA and stenting to a subtotal mid RCA 60-70% stenosis in the proximal to mid RCA in 20-30% stenosis in the mid LAD with evidence of 50% InStent restenosis and normal IFR April 2022. Inferior STEMI June 2019 GI bleed with gastritis and esophagitis May 2024 Biotronik permanent pacemaker implant April 2022, PAD COPD #Elevated Troponin -Trop 107--181--1379--2097--4485 downtrended to 3102 -74-year-old male presented for evaluation of severe chest pain. -He has a history of CAD and stent to the mid RCA in 2018 after an inferior STEMI. -BNP on admission 619 -Keep on telemetry , monitor / replaces electrolytes as needed -continue Clopidogrel 75 mg daily and aspirin 81 mg daily, heparin are contraindicated at the time due to low hemoglobin. -Echo LVEF 45-50% -at this time we will defer any invasive procedures until any active bleeding has been ruled out by the GI team #Anemia -Hb 6.3 on arrival -Current hemoglobin 8.5, GI is following, EGD yesterday with no evidence of acute bleeding -Recommendations were given to move forward with colonoscopy -Transfuse as needed to maintain hemoglobin above 7gr. GI evaluation is warranted Thank you for this consult cardiology will continue to follow along Kirk mireles MD] ATTESTATION BY PHYSICIAN I have seen and examined the patient, reviewed the above documentation, participated in medical decision making, made necessary modifications, and agree with the treatment plan as documented by my mid-level provider above. MD BRIAN Sams JAMES R MD May 23, 2025 10:03
--- NOTE | 2025-05-23 13:52 | PN ---
[facility] PROGRESS NOTE Date Patient Seen: May 23, 2025 Time of Visit: 13:49 Supervising Physician: Dr Vlad Pina Primary Care Physician: Dr. Mark Carver Outpatient Specialists: [ ] Inpatient Consults: Cardiology, Gastroenterology PROBLEM LIST: Acute on chronic hypoxic respiratory failure Acute NSTEMI Acute COPD Exacerbation Acute Anemia, rule out GI bleed, requiring PRBC transfusion Acute Hyponatremia DM type 2, with hyperglycemia LVEF is 45-50% per echo done 05/20/25 Hypertension, uncontrolled PVD s/p angioplasty, with bilateral stents to iliac and left SFA History of Aortic valve stenosis History of CAD with stent placement to RCA in 2019, pacemaker INTERVAL HISTORY: Patient was seen and examined, patient resting comfortably in bed actually s itting at the bedside talking with his . He is comfortable, reporting some mild discomfort to the dorsum of his left hand otherwise no complaints. No chest pain or shortness of breath Currently getting nebulizer treatments Patient's initial hemoglobin 6.9 he received a total of 2 units his hemoglobin this morning is 8.6, platelets are 155 Patient's troponins topped out at 4400, now downtrending He is not on any heparin due to suspected GI bleed. GI is planning possible colonoscopy Patient on Solu-Medrol 40 q.6 for his COPD exacerbation along with statin and nebulizer treatments PLAN Monitoring for signs of bleeding, trending hemoglobin Wound care for upper extremities X-ray pending of the left hand, we will follow Follow GI recommendations, pending colonoscopy Holding heparin SCDs Steroids for his COPD along with nebulizer treatments Wound care recommendations Total care time 40s for minutes, time excludes any procedures performed or educational time REVIEW OF SYSTEMS: 12 point ROS reviewed with patient. Pertinent positives mentioned above. Otherwise negative. PHYSICAL EXAM: GENERAL: awake, alert and oriented x 3 HEENT: EOMI, Sclera non icteric, moist mucosa NECK: Supple, no JVD, trachea midline LUNGS: Wheezing bilateral lobes HEART: Regular rate and rhythm. Normal S1 and S2, without murmurs ABD: Abdomen soft, nontender. Bowel sounds present EXT: left upper extremity and left lower extremity with edema NEURO: Alert and oriented to person, follows commands Vital Signs (last 8hr) Date Time Temp Pulse Resp B/P (MAP) Pulse Ox O2 Delivery O2 Flow Rate FiO2 05/23/25 11:13 63 18 05/23/25 11:12 20 N/Cannula Low lpm 3.0 32 05/23/25 11:00 97.3 53 20 134/51 94 Nasal Cannula 3.0 05/23/25 08:00 95 Room Air* 0 21 05/23/25 07:00 97.7 60 18 133/57 98 Nasal Cannula 3.0 05/23/25 06:23 60 18 05/23/25 06:20 20 N/Cannula Low lpm 3.0 32 LABS: Hematology Labs: Test 05/23/25 03:59 Range/Units White Blood Count 11.1 H 4.8-10.8 K/uL Red Blood Count 2.92 L 4.50-6.20 MIL/uL Hemoglobin 8.6 L 14.0-18.0 g/dL Hematocrit 26.4 L 42-54 % Mean Corpuscular Volume 90.4 79-99 fL Mean Corpuscular Hemoglobin 29.5 27.0-33.0 pg Mean Corpuscular Hemoglobin Concent 32.6 32.0-36.0 g/dL Red Cell Distribution Width 14.8 11.0-15.5 % Platelet Count 155 130-400 K/uL Mean Platelet Volume 9.0 7.5-10.5 fL Nucleated Red Blood Cells 0.0 0.0-0.19 % Chemistry Labs: Test 05/23/25 10:56 05/23/25 03:59 Range/Units Whole Blood Glucose 114 H 70-110 MG/DL Bedside Glucose Comment Notified Nurse Sodium Level 129 L 136-145 mmol/L Potassium Level 3.7 3.5-5.1 mmol/L Chloride Level 96 L 101-111 mmol/L Carbon Dioxide Level 30 21-32 mmol/L Blood Urea Nitrogen 14 7-18 mg/dL Creatinine 0.5 0.5-1.3 mg/dL Glomerular Filtration Rate Calc 106 >90 mL/min Random Glucose 95 70-105 mg/dL Total Calcium 7.5 L 8.5-10.1 mg/dL Phosphorus Level 2.5 2.5-4.9 mg/dL Magnesium Level 2.00 1.80-2.40 mg/dL DIAGNOSTICS / RADIOLOGY RESULTS: [ ] PLAN NEURO: Minimize central acting medications as possible. Fall Precautions. Well lighted room through the day and minimize interruptions through the night to prevent acute delirium. PULMONARY: Supplemental 02 as needed Titrate Fio2 to keep Spo2 > or = 90% DuoNebs and CPT as needed IS hourly while awake for pulmonary hygiene Out of bed to chair as tolerated VAP Bundle Vent/BIPAP Settings: [ ] Driving pressure: [ ] P Plat: [ ] Static C: [ ] Static R: [ ] P/F Ratio: [ ] CARDIOVASCULAR: Follow hemodynamics. Titrate vasopressor to keep MAP >65 or systolic blood pressure >95mmHg DIPS: [ ] LINES: [ ] GI & NUTRITION: Continue nutritional support Aspirations precautions Prokinetic agents and laxatives as needed KIDNEYS & ELECTROLYTES: Strict monitoring of intake and output Daily weights Avoid nephrotoxic agents Monitor electrolytes and replace as needed Goal urine output of 30mL/hr or 0.5mL/kg/hr Urine output: [ ] Fluid Balance: [ ] ENDOCRINE: Maintain blood glucose between 100-180 at all times. Insulin sliding scale for blood glucose management INFECTIOUS DISEASE: Trend temperature. Finn-culture if febrile. Micro: [ ] Antibiotics: [ ] HEMATOLOGY & COAGULATION: Monitor H&H. Keep Hgb > 7 Transfuse 1 unit of PRBC for Hgb < 7 Transfuse 1 pack of platelets of platelets < 20, 000 Watch for any signs and symptoms of bleeding SKIN: Pressure ulcer prevention per facility protocol Rehab: PT/OT Prophylaxis: GI: [ ] DVT: [ ] Code Status: Full Resuscitation Disposition: [ ] Case was discussed and seen with my supervising physician. The above plan was formulated and agreed upon. HOLLIE DENNISON PAC May 23, 2025 13:52
[2025-05-23] MEDS: PEG 3350/NA SULF,BICARB,CL/KCL 4000 ML SOLN PO ONE (16:15)
[2025-05-24] VITALS (24 sets, daily range): BP systolic 122–167; BP diastolic 41–71; PULSE 60–71; RESP 15–20; TEMP 97.3–98.3; O2SAT 98–100
--- NOTE | 2025-05-24 05:21 | HMCIMG ---
EXAM: CR Chest,1 View. CLINICAL HISTORY: Respiratory failure COMPARISON: Chest x-ray dated 05/20/2025. FINDINGS: Dual chamber cardiac pacemaker in situ with its leads overlying the right atrium and right ventricle. LUNGS: Ill-defined airspace opacities in the bilateral lower zones obscuring the mid segment of the bilateral domes of diaphragm. PLEURAL SPACES: No pneumothorax. Minimal left pleural effusion. MEDIASTINUM: Cardiac size and mediastinal contours within normal limits. BONES: No acute osseous abnormality. IMPRESSION: Bilateral lower zone airspace opacities, concerning for pneumonia. Interval new finding. Minimal left pleural effusion. /[place]
--- NOTE | 2025-05-24 05:32 | HMCIMG ---
EXAM: CR right Hand, 2 View. CLINICAL HISTORY: Pain COMPARISON: None provided. FINDINGS: BONES: No acute osseous pathology evident. Diffuse osteopenia. Sclerosis is noted at the middle phalanges of the fourth and fifth digits. JOINTS: No evidence of dislocation. The joint spaces demonstrate moderate osteoarthritic changes predominantly at the interphalangeal joints of all digits. SOFT TISSUES: Diffuse vascular calcifications. No radiopaque foreign body is seen. IMPRESSION: 1. No acute osseous injury. 2. Moderate osteoarthritic changes, predominantly at the interphalangeal joints. 3. Diffuse osteopenia. 4. Diffuse vascular calcifications. /[place]
--- NOTE | 2025-05-24 05:32 | HMCIMG ---
EXAM: CR right Hand, 2 View. CLINICAL HISTORY: Pain COMPARISON: None provided. FINDINGS: BONES: No acute fracture or aggressive appearing osseous lesion. Diffuse osteopenia. A few intact carpal fixation screws are noted. JOINTS: No evidence of dislocation. The joint spaces demonstrate mild to moderate osteoarthritic changes predominantly at the interphalangeal joints of all digits. SOFT TISSUES: Diffuse vascular calcifications. No radiopaque foreign body is seen. IMPRESSION: 1. No acute osseous injury. 2. 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 3. Diffuse osteopenia. 4. Diffuse vascular calcifications. /[place]
[2025-05-24 10:07] LABS: CREATININE 0.5 mg/dL (0.5-1.3); GLOMERULAR FILTR. RATE CALC 106.0 mL/min (>90); GLUCOSE,RANDOM 118.0 mg/dL (70-105); SODIUM SERUM 133.0 mmol/L (136-145); UREA NITROGEN, BLOOD 12.0 mg/dL (7-18)
[2025-05-24] MEDS: DOXYCYCLINE 100MG+NS 250ML 250 ML IV SCH (12:25)
[2025-05-24] MEDS ORDERED: LIDOCAINE PF 100MG/5ML (2%) SYRINGE 5ML ONE (13:23)
--- NOTE | 2025-05-24 14:02 | PN ---
[facility] PROGRESS NOTE Date Patient Seen: May 24, 2025 Time of Visit: 13:58 Supervising Physician: [Dr Christian Primary Care Physician: Dr. Mark Carver Outpatient Specialists: [ ] Inpatient Consults: Cardiology, Gastroenterology PROBLEM LIST: Acute on chronic hypoxic respiratory failure Acute NSTEMI Acute COPD Exacerbation Acute Anemia, rule out GI bleed, requiring PRBC transfusion - s/p EGD - results unremarkable 05/23/25 Acute Hyponatremia DM type 2, with hyperglycemia LVEF is 45-50% per echo done 05/20/25 Hypertension, uncontrolled PVD s/p angioplasty, with bilateral stents to iliac and left SFA History of Aortic valve stenosis History of CAD with stent placement to RCA in 2019, pacemaker INTERVAL HISTORY: 05/23 - Patient was seen and examined, patient resting comfortably in bed actually sitting at the bedside talking with his . He is comfortable, reporting some mild discomfort to the dorsum of his left hand otherwise no complaints. No chest pain or shortness of breath Currently getting nebulizer treatments Patient's initial hemoglobin 6.9 he received a total of 2 units his hemoglobin this morning is 8.6, platelets are 155 Patient's troponins topped out at 4400, now downtrending He is not on any heparin due to suspected GI bleed. GI is planning possible colonoscopy Patient on Solu-Medrol 40 q.6 for his COPD exacerbation along with statin and nebulizer treatments 05/24 - patient is seen sitting up at the side of the bed accompanied by his . Patient appears to be weak, deconditioned hypoxemic 2 L via nasal cannula. Patient denies chest discomfort, chest pain at this time. Patient denies hematemesis, hematochezia or melena at this time. Patient's hemoglobin has remained stable his most recent labs show an H&H of 8.6/24.4. Patient underwent an EGD yesterday and results were unremarkable. Patient is scheduled for a colonoscopy today. We will follow results. Patient's troponins max was 4400 and trending downward. No anticoagulation secondary to GI bleed. Cardiology is following and appreciate recommendations. Patient continues on Solu-Medrol for COPD exacerbation. We will DC Solu-Medrol at this time and start patient on prednisone. PLAN Supplemental oxygen as needed Wean off as tolerated Duo nebs as needed DC Solu-Medrol Start prednisone 40 mg daily x7 days Follow colonoscopy results Monitor H&H closely Monitor closely for signs and symptoms of bleeding Wound care for upper extremities Follow GI recommendations, pending colonoscopy today Holding heparin SCDs REVIEW OF SYSTEMS: 12 point ROS reviewed with patient. Pertinent positives mentioned above. Otherwise negative. PHYSICAL EXAM: GENERAL: awake, alert and oriented x 3 HEENT: EOMI, Sclera non icteric, moist mucosa NECK: Supple, no JVD, trachea midline LUNGS: Wheezing bilateral lobes HEART: Regular rate and rhythm. Normal S1 and S2, without murmurs ABD: Abdomen soft, nontender. Bowel sounds present EXT: left upper extremity and left lower extremity with edema NEURO: Alert and oriented to person, follows commands Vital Signs (last 8hr) Date Time Temp Pulse Resp B/P (MAP) Pulse Ox O2 Delivery O2 Flow Rate FiO2 05/24/25 12:38 97.5 60 16 149/70 100 Nasal Cannula 3.0 05/24/25 11:26 60 18 05/24/25 11:25 60 20 N/Cannula Low lpm 3.0 32 05/24/25 07:50 97.3 61 16 142/48 98 Nasal Cannula 3.0 05/24/25 07:00 63 20 N/Cannula Low lpm 3.0 32 05/24/25 07:00 61 18 LABS: Hematology Labs: Test 05/23/25 03:59 Range/Units White Blood Count 11.1 H 4.8-10.8 K/uL Red Blood Count 2.92 L 4.50-6.20 MIL/uL Hemoglobin 8.6 L 14.0-18.0 g/dL Hematocrit 26.4 L 42-54 % Mean Corpuscular Volume 90.4 79-99 fL Mean Corpuscular Hemoglobin 29.5 27.0-33.0 pg Mean Corpuscular Hemoglobin Concent 32.6 32.0-36.0 g/dL Red Cell Distribution Width 14.8 11.0-15.5 % Platelet Count 155 130-400 K/uL Mean Platelet Volume 9.0 7.5-10.5 fL Nucleated Red Blood Cells 0.0 0.0-0.19 % Chemistry Labs: Test 05/24/25 12:20 05/24/25 09:44 05/23/25 16:30 05/23/25 03:59 Range/Units Whole Blood Glucose 108 70-110 MG/DL Sodium Level 133 L 136-145 mmol/L Potassium Level 3.5 3.5-5.1 mmol/L Chloride Level 96 L 101-111 mmol/L Carbon Dioxide Level 34 H 21-32 mmol/L Blood Urea Nitrogen 12 7-18 mg/dL Creatinine 0.5 0.5-1.3 mg/dL Glomerular Filtration Rate Calc 106 >90 mL/min Random Glucose 118 H 70-105 mg/dL Total Calcium 7.9 L 8.5-10.1 mg/dL Bedside Glucose Comment Notified Nurse Phosphorus Level 2.5 2.5-4.9 mg/dL Magnesium Level 2.00 1.80-2.40 mg/dL DIAGNOSTICS / RADIOLOGY RESULTS: [ ] NEURO: Minimize central acting medications as possible. Maintain fall precautions, adequate lighting during the day PULMONARY: Supplemental 02 as needed. Maintain aspiration precautions at all times CARDIOVASCULAR: Follow hemodynamics. Vital signs per facility protocol GI & NUTRITION: Continue with nutritional support. Continue stool softeners and laxatives as needed. KIDNEYS & ELECTROLYTES: Strict monitoring of intake, output and overall fluid balance. Avoid nephrotoxic medications to the extent possible. Medications to be dosed according to renal function. Monitor electrolytes and replace as needed ENDOCRINE: Maintain blood glucose between 100-180 at all times. Hypoglycemia protocol in place INFECTIOUS DISEASE: Trend temperature, WBC and procalcitonin level Follow cultures, deescalate antibiotics as soon as possible. Panculture if new onset fever ONCOLOGY/HEMATOLOGY/COAGULATION: Monitor for s/s of bleeding Monitor hemoglobin, coagulation studies as needed SKIN: Pressure ulcer prevention per facility protocol Specialty mattress ORTHO/REHAB: Continue PT/OT Prophylaxis: Continue GI and DVT prophylaxis Code Status: Full Resuscitation Disposition: Home Once medically stable for discharge ATTESTATION BY PHYSICIAN I attest that I reviewed and discussed the case with the Physician Car Sweeper as well as agree with the Physician Car Sweeper's findings, plans of care, and documentation above. Nito Caldwell MD,RAI N SUPERVISOR MACHINE SETTER May 24, 2025 14:02
--- NOTE | 2025-05-24 14:54 | PN ---
[facility] CARDIOLOGY PROGRESS NOTE Date Patient Seen: May 24, 2025 Time of Visit: 14:52 Interval History: [No acute events overnight. Hemoglobin stable at 8.6 g, currently NPO pending colonoscopy today to rule out GI bleeding, no telemetry events noted., no cardiac symptoms or anginal equivalents Physical Examination: GENERAL: [No acute distress.] HEAD: [Normal with no signs of head trauma.] EYES: [PERRLA, EOMI, conjunctiva and sclera normal.] ENT: [Hearing grossly intact, normal oropharynx.] NECK: [+ JVD. There is no tenderness, lymphadenopathy, or masses. No thyromegaly. Normal carotid upstrokes without bruits.] LUNGS: [Clear breath sounds bilaterally. No wheezes, or rhonchi.] HEART: [Normal rate and rhythm. Normal S1 and S2 without murmurs, gallop or rub.] VASC: [Peripheral pulses +2 bilaterally.] ABD: [Bowel sounds normal, soft, nontender, no masses, no organomegaly. No audible bruits.] : [Not examined] LYMPH: [No lymphadenopathy noted.] EXT: [+ edema.] SKIN: [No rashes or lesions noted.] NEURO: [Awake, alert, and oriented x3. No focal sensory or strength deficits noted.] Laboratory: [ ] Hematology Labs: Test 05/23/25 03:59 Range/Units White Blood Count 11.1 H 4.8-10.8 K/uL Red Blood Count 2.92 L 4.50-6.20 MIL/uL Hemoglobin 8.6 L 14.0-18.0 g/dL Hematocrit 26.4 L 42-54 % Mean Corpuscular Volume 90.4 79-99 fL Mean Corpuscular Hemoglobin 29.5 27.0-33.0 pg Mean Corpuscular Hemoglobin Concent 32.6 32.0-36.0 g/dL Red Cell Distribution Width 14.8 11.0-15.5 % Platelet Count 155 130-400 K/uL Mean Platelet Volume 9.0 7.5-10.5 fL Nucleated Red Blood Cells 0.0 0.0-0.19 % Chemistry Labs: Test 05/24/25 12:20 05/24/25 09:44 05/23/25 16:30 05/23/25 03:59 Range/Units Whole Blood Glucose 108 70-110 MG/DL Sodium Level 133 L 136-145 mmol/L Potassium Level 3.5 3.5-5.1 mmol/L Chloride Level 96 L 101-111 mmol/L Carbon Dioxide Level 34 H 21-32 mmol/L Blood Urea Nitrogen 12 7-18 mg/dL Creatinine 0.5 0.5-1.3 mg/dL Glomerular Filtration Rate Calc 106 >90 mL/min Random Glucose 118 H 70-105 mg/dL Total Calcium 7.9 L 8.5-10.1 mg/dL Bedside Glucose Comment Notified Nurse Phosphorus Level 2.5 2.5-4.9 mg/dL Magnesium Level 2.00 1.80-2.40 mg/dL Diagnostics / Radiology: [Copy/Paste Echos/Imaging Report here] Impression and Plan: [Chest pain Elevated troponin (1379) Anemia with hemoglobin on presentation of 6.3 hematocrit of 19.7. History of CAD, 2018 PTCA and stenting to a subtotal mid RCA 60-70% stenosis in the proximal to mid RCA in 20-30% stenosis in the mid LAD with evidence of 50% InStent restenosis and normal IFR April 2022. Inferior STEMI June 2019 GI bleed with gastritis and esophagitis May 2024 Biotronik permanent pacemaker implant April 2022, PAD COPD #Elevated Troponin -Trop 107--181--1379--2097--4485 downtrended to 3102 -74-year-old male presented for evaluation of severe chest pain. -He has a history of CAD and stent to the mid RCA in 2018 after an inferior STEMI. -BNP on admission 619 -Keep on telemetry , monitor / replaces electrolytes as needed -continue Clopidogrel 75 mg daily and aspirin 81 mg daily, heparin are contraindicated at the time due to low hemoglobin. -Echo LVEF 45-50% -at this time we will defer any invasive procedures until any active bleeding has been ruled out by the GI team #Anemia -Hb 6.3 on arrival -Current hemoglobin 8.6, GI is following, EGD yesterday with no evidence of acute bleeding -Recommendations were given to move forward with colonoscopy -Transfuse as needed to maintain hemoglobin above 7gr. GI evaluation is warranted -patient currently NPO, pending colonoscopy today to rule out GI bleed Thank you for this consult cardiology will continue to follow along Kirk mireles MD] ATTESTATION BY PHYSICIAN I have seen and examined the patient, reviewed the above documentation, participated in medical decision making, made necessary modifications, and agree with the treatment plan as documented by my mid-level provider above. MD BRIAN Sams JAMES R MD May 24, 2025 14:54
--- NOTE | 2025-05-24 16:15 | NUR ---
PATIENT RETURNED FROM GI LAB. AAO X 3. NO C/O PAIN OR DISCOMFORT. VITAL SIGNS ARE STABLE.
[2025-05-25] VITALS (10 sets, daily range): BP systolic 137–149; BP diastolic 54–79; PULSE 60–69; RESP 18; TEMP 97.6–98.4; O2SAT 97–99
[2025-05-25] MEDS: DOXYCYCLINE 100MG+NS 250ML 250 ML IV SCH (02:12)
--- NOTE | 2025-05-25 07:37 | PN ---
PROBLEM LIST: 1. Severe GI bleeding with melena and severe anemia. 2. Chest pain in the setting of severe anemia with elevated troponins in the setting of hemoglobin of 6.3. 3. History of coronary artery disease with remote angioplasty and stenting of the RCA in 2018 with findings of in-stent restenosis in the mid LAD. 4. History of inferior wall myocardial infarction in 06/2019. 5. History of GI bleed with gastritis and esophagitis in 05/2024. 6. Conduction system disease, status post permanent pacemaker implants with a dual chamber device in 04/2022, Biotronik. 7. History of peripheral arterial disease. 8. COPD. 9. Active smoking history, counseled. 10. History of remote right hemispheric CVA. 11. History of alcohol abuse. This debilitated gentleman has been hospitalized because of melena. He was evaluated with multiple disciplines including Primary Care, GI, and Cardiology. The patient underwent a colonoscopy, which was remarkable with ischemic colitis. Biopsies were taken and the results are pending. The GI team recommended no nonsteroidal anti-inflammatory agents or aspirin. The patient had been previously on Eliquis presumably because of atrial fibrillation; however, this has been on hold. The patient has been advised outpatient followed by the GI team. On assessing the patient this morning, this is a frail, debilitated gentleman. He appears to be very ecchymotic in multiple areas. He does have significant ecchymosis and bruising in the left arm and hand. He has ulcerations on his toes highly consistent with significant peripheral vascular disease. The patient's vital signs have been stable. He is afebrile. His heart rate is in the 60s. Blood pressure is in the 130-145 systolic range. His saturation at 97%-98% nasal cannula at 2 L. The patient had some laboratory studies yesterday which revealed sodium of 133, potassium was 3.5 being managed per protocol. His chloride was 96. His CO2 is 34. BUN is 12, creatinine is 0.5 with a GFR of 106. The patient's random glucose was 118, calcium was low at 7.9. The white count on the was 11.1 and the H and H had been stable at 8.6 and 26.4, respectively. Platelet count was 155,000. The patient is currently maintained on prednisone for questionable reasons. He is on doxycycline and Rocephin. He is on tamsulosin. He is on Cozaar, atorvastatin, Singulair, gabapentin, BuSpar, pantoprazole, Pulmicort, Nicoderm patch, Atrovent, low-dose metoprolol, hydralazine, MiraLax, insulin, and additional p.r.n. medications. This gentleman's management is going to be quite challenging. He is clearly not a candidate for antiplatelet or anticoagulation therapy at this time in the face of severe anemia. 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 The patient does have documented coronary artery disease which may warrant additional assessment at a future time. In the meantime, I have recommended that we repeat the patient's labs to make sure that he is not becoming more anemic. I will also obtain arterial flow studies of the lower extremities and compare them to the prior studies. Duplex of the celiac trunk, SMA, and JOS will be performed to assess the possibility of a vascular etiology for ischemic colitis. Long-term prognosis is poor. TID: [id number] RECEIPT: [id number]
[2025-05-25 09:11] LABS: IMMATURE GRANULOCYTE ABSOLUTE 0.07 K/uL (0-1); NUCLEATED RED BLOOD CELLS 0.0 % (0.0-0.19); PLATELET COUNT (AUTO) 164 K/uL (130-400); RED BLOOD CELL COUNT(AUTO) 3.05 MIL/uL (4.50-6.20); RED CELL DISTRIBUTION WIDTH 15.2 % (11.0-15.5); WHITE BLOOD COUNT (AUTO) 12.2 K/uL (4.8-10.8)
[2025-05-25 09:26] LABS: CREATININE 0.6 mg/dL (0.5-1.3); GLOMERULAR FILTR. RATE CALC 101.0 mL/min (>90); GLUCOSE,RANDOM 91.0 mg/dL (70-105); SODIUM SERUM 134.0 mmol/L (136-145); UREA NITROGEN, BLOOD 16.0 mg/dL (7-18)
[2025-05-25] MEDS ORDERED: PoTASSium chloRIDE 20MEQ ER 20 MEQ ERTAB PO PRN (10:00)
[2025-05-25] MEDS ORDERED: MAGNESIUM 2GM PREMIX 50ML 50 ML IV PRN (10:00)
[2025-05-25] MEDS: PoTASSium chl 10% ELIXIR 20MEQ 20 MEQ/15 ML UDCUP PO PRN (10:11)
--- NOTE | 2025-05-25 10:33 | PN ---
[facility] PROGRESS NOTE Date Patient Seen: May 25, 2025 Time of Visit: 10:26 Supervising Physician: [ ]Dr Christian Primary Care Physician: Dr. Mark Carver Outpatient Specialists: [ ] Inpatient Consults: Cardiology, Gastroenterology PROBLEM LIST: Acute on chronic hypoxic respiratory failure Acute NSTEMI Acute on chronic COPD Exacerbation Acute Anemia, rule out GI bleed, requiring PRBC transfusion - s/p EGD - results unremarkable 05/23/25 - s/p colonoscopy (+) ischemic colitis 05/24/25 Acute Hyponatremia DM type 2, with hyperglycemia LVEF is 45-50% per echo done 05/20/25 Hypertension, uncontrolled PVD s/p angioplasty, with bilateral stents to iliac and left SFA History of Aortic valve stenosis History of CAD with stent placement to RCA in 2018, pacemaker INTERVAL HISTORY: 05/23 - Patient was seen and examined, patient resting comfortably in bed actually sitting at the bedside talking with his . He is comfortable, reporting some mild discomfort to the dorsum of his left hand otherwise no complaints. No chest pain or shortness of breath Currently getting nebulizer treatments Patient's initial hemoglobin 6.9 he received a total of 2 units his hemoglobin this morning is 8.6, platelets are 155 Patient's troponins topped out at 4400, now downtrending He is not on any heparin due to suspected GI bleed. GI is planning possible colonoscopy Patient on Solu-Medrol 40 q.6 for his COPD exacerbation along with statin and nebulizer treatments 05/24 - patient is seen sitting up at the side of the bed accompanied by his . Patient appears to be weak, deconditioned hypoxemic 2 L via nasal cannula. Patient denies chest discomfort, chest pain at this time. Patient denies hematemesis, hematochezia or melena at this time. Patient's hemoglobin has remained stable his most recent labs show an H&H of 8.6/24.4. Patient underwent an EGD yesterday and results were unremarkable. Patient is scheduled for a colonoscopy today. We will follow results. Patient's troponins max was 4400 and trending downward. No anticoagulation secondary to GI bleed. Cardiology is following and appreciate recommendations. Patient continues on Solu-Medrol for COPD exacerbation. We will DC Solu-Medrol at this time and start patient on prednisone. 05/25 - patient is seen and evaluated at the bedside. Patient is sitting up at the side of the bed continues to be very weak, debilitated, deconditioned and hypoxemic requiring 2 L via nasal cannula. Patient denies chest discomfort, chest pain or dyspnea at the time of my evaluation. Patient underwent a colonoscopy yesterday afternoon and results show ischemic colitis. Biopsies were taken and results are pending. Recommends no NSAIDs hold aspirin. Patient to follow up patient with GI in 1-2 weeks. Patient was re-evaluated by Cardiology and report management is going to be quite challenging given he is not a candidate for antiplatelet or anticoagulation therapy secondary to severe anemia. Is also poorly suited for any cardiac intervention at this time even though he has a recent non-STEMI. Vital signs are stable. Today's labs show H&H remained stable at 9.1/28.1. We will continue current treatment for now. Prognosis remains guarded. PLAN Supplemental oxygen as needed Wean off as tolerated Duo nebs as needed Continue prednisone 40 mg daily x7 days Monitor H&H closely Monitor closely for signs and symptoms of bleeding Wound care for upper extremities Follow GI recommendations Holding heparin SCDs Follow cardiology recs REVIEW OF SYSTEMS: 12 point ROS reviewed with patient. Pertinent positives mentioned above. Otherwise negative. PHYSICAL EXAM: GENERAL: awake, alert and oriented x 3 HEENT: EOMI, Sclera non icteric, moist mucosa NECK: Supple, no JVD, trachea midline LUNGS: Wheezing bilateral lobes HEART: Regular rate and rhythm. Normal S1 and S2, without murmurs ABD: Abdomen soft, nontender. Bowel sounds present EXT: left upper extremity and left lower extremity with edema NEURO: Alert and oriented to person, follows commands Vital Signs (last 8hr) Date Time Temp Pulse Resp B/P (MAP) Pulse Ox O2 Delivery O2 Flow Rate FiO2 05/25/25 07:55 98.2 60 18 149/56 99 Nasal Cannula 2.0 05/25/25 07:13 65 18 N/Cannula Low lpm 3.0 32 05/25/25 07:12 60 18 05/25/25 05:03 98.4 61 18 149/54 97 Nasal Cannula 2.0 LABS: Hematology Labs: Test 05/25/25 08:29 Range/Units White Blood Count 12.2 H 4.8-10.8 K/uL Red Blood Count 3.05 L 4.50-6.20 MIL/uL Hemoglobin 9.1 L 14.0-18.0 g/dL Hematocrit 28.1 L 42-54 % Mean Corpuscular Volume 92.1 79-99 fL Mean Corpuscular Hemoglobin 29.8 27.0-33.0 pg Mean Corpuscular Hemoglobin Concent 32.4 32.0-36.0 g/dL Red Cell Distribution Width 15.2 11.0-15.5 % Platelet Count 164 130-400 K/uL Mean Platelet Volume 9.6 7.5-10.5 fL Immature Granulocyte % (Auto) 0.6 0-1 % Neutrophils (%) (Auto) 88.8 H 40.0-77.0 % Lymphocytes (%) (Auto) 5.1 L 21.0-51.0 % Monocytes (%) (Auto) 5.3 3.0-13.0 % Eosinophils (%) (Auto) 0.1 0.0-8.0 % Basophils (%) (Auto) 0.1 0.0-5.0 % Neutrophils # (Auto) 10.8 H 1.8-7.7 K/uL Lymphocytes # (Auto) 0.6 L 1.0-4.8 K/uL Monocytes # (Auto) 0.6 0.1-1.0 K/uL Eosinophils # (Auto) 0.01 0.00-0.70 K/uL Basophils # (Auto) 0.01 0.00-0.20 K/uL Absolute Immature Granulocyte (auto 0.07 0-1 K/uL Nucleated Red Blood Cells 0.0 0.0-0.19 % Chemistry Labs: Test 05/25/25 08:29 05/25/25 05:52 05/23/25 16:30 Range/Units Sodium Level 134 L 136-145 mmol/L Potassium Level 3.8 3.5-5.1 mmol/L Chloride Level 98 L 101-111 mmol/L Carbon Dioxide Level 33 H 21-32 mmol/L Blood Urea Nitrogen 16 7-18 mg/dL Creatinine 0.6 0.5-1.3 mg/dL Glomerular Filtration Rate Calc 101 >90 mL/min Random Glucose 91 70-105 mg/dL Total Calcium 7.6 L 8.5-10.1 mg/dL Magnesium Level 2.00 1.80-2.40 mg/dL Whole Blood Glucose 104 70-110 MG/DL Bedside Glucose Comment Notified Nurse DIAGNOSTICS / RADIOLOGY RESULTS: [ ] NEURO: Minimize central acting medications as possible. Maintain fall precautions, adequate lighting during the day PULMONARY: Supplemental 02 as needed. Maintain aspiration precautions at all times CARDIOVASCULAR: Follow hemodynamics. Vital signs per facility protocol GI & NUTRITION: Continue with nutritional support. Continue stool softeners and laxatives as needed. KIDNEYS & ELECTROLYTES: Strict monitoring of intake, output and overall fluid balance. Avoid nephrotoxic medications to the extent possible. Medications to be dosed according to renal function. Monitor electrolytes and replace as needed ENDOCRINE: Maintain blood glucose between 100-180 at all times. Hypoglycemia protocol in place INFECTIOUS DISEASE: Trend temperature, WBC and procalcitonin level Follow cultures, deescalate antibiotics as soon as possible. Panculture if new onset fever ONCOLOGY/HEMATOLOGY/COAGULATION: Monitor for s/s of bleeding Monitor hemoglobin, coagulation studies as needed SKIN: Pressure ulcer prevention per facility protocol Specialty mattress ORTHO/REHAB: Continue PT/OT Prophylaxis: Continue GI and DVT prophylaxis Code Status: Full Resuscitation Disposition: Home Once medically stable for discharge ATTESTATION BY PHYSICIAN I attest that I reviewed and discussed the case with the Physician [employer] Customer Service as well as agree with the Physician [employer] Customer Service's findings, plans of care, and documentation above. Nito Caldwell MD, ECTOR N CASE LINER May 25, 2025 10:33
--- NOTE | 2025-05-25 16:24 | PN ---
GASTROENTEROLOGY PROGRESS NOTE Date of Visit: May 25, 2025 Time of Visit: 16:24 Events / Notes: No acute events overnight. EGD without evidence of bleeding. Colonoscopy revealing ischemic colitis. Plan of care discussed. Review of Systems: CONSTITUTIONAL: No malaise or change in sensation of wellbeing. ENMT: No rhinorrhea, otorrhea, sinus pain, ear ache. CARDIOVASCULAR: No angina, palpitations, orthopnea or paroxysmal dyspnea. RESPIRATORY: No SOB. GASTROINTESTINAL: No abdominal pain, nausea, vomiting, diarrhea, hematemesis, melena or change in the patient's habitual bowel movements consistency/number. GENITOURINARY: No dysuria, hematuria or change in bladder continence. MUSCULOSKELETAL: No new muscle pain or decrease in muscular strength. No new joint swelling, redness or tenderness. SKIN: No new rash. Physical Exam: GEN: Awake, alert, oriented in person, time and place, and in no acute distress. HEENT: No sinus tenderness. Tympanic membranes were not examined. No rhinorrhea. Oral pharyngeal mucosa is pink, moist and within normal limits. Neck is supple with no cervical lymphadenopathy, thyromegaly or JVD. CHEST: Inspection, palpation and percussion of the chest were unremarkable. Lung auscultation revealed normal breath sounds bilaterally. CARDIAC: PMI is within normal limits. Heart sounds are regular. Normal S1, S2. No gallop or murmur. ABD: Soft, non-tender and not distended. No peritoneal signs on palpation. No organomegaly. Normal bowel sounds. EXT: No cyanosis or clubbing. No edema. SKIN: Intact. No rashes. JOINTS: No evidence of synovitis or acute arthritis. NEURO: Alert and oriented to name, place and person. Cranial nerve examination is unremarkable. No focal motor deficits. Normal speech. Gait is normal. Strength is normal. Vital Signs (last 8hr) Date Time Temp Pulse Resp B/P (MAP) Pulse Ox O2 Delivery O2 Flow Rate FiO2 05/25/25 11:56 60 18 05/25/25 11:42 97.9 69 18 142/79 99 Nasal Cannula 2.0 05/25/25 09:20 97 Room Air* 0 21 Laboratory: [ ] Laboratory: Test 05/25/25 15:12 05/25/25 08:29 05/23/25 16:30 Range/Units Whole Blood Glucose 107 70-110 MG/DL White Blood Count 12.2 H 4.8-10.8 K/uL Red Blood Count 3.05 L 4.50-6.20 MIL/uL Hemoglobin 9.1 L 14.0-18.0 g/dL Hematocrit 28.1 L 42-54 % Mean Corpuscular Volume 92.1 79-99 fL Mean Corpuscular Hemoglobin 29.8 27.0-33.0 pg Mean Corpuscular Hemoglobin Concent 32.4 32.0-36.0 g/dL Red Cell Distribution Width 15.2 11.0-15.5 % Platelet Count 164 130-400 K/uL Mean Platelet Volume 9.6 7.5-10.5 fL Immature Granulocyte % (Auto) 0.6 0-1 % Neutrophils (%) (Auto) 88.8 H 40.0-77.0 % Lymphocytes (%) (Auto) 5.1 L 21.0-51.0 % Monocytes (%) (Auto) 5.3 3.0-13.0 % Eosinophils (%) (Auto) 0.1 0.0-8.0 % Basophils (%) (Auto) 0.1 0.0-5.0 % Neutrophils # (Auto) 10.8 H 1.8-7.7 K/uL Lymphocytes # (Auto) 0.6 L 1.0-4.8 K/uL Monocytes # (Auto) 0.6 0.1-1.0 K/uL Eosinophils # (Auto) 0.01 0.00-0.70 K/uL Basophils # (Auto) 0.01 0.00-0.20 K/uL Absolute Immature Granulocyte (auto 0.07 0-1 K/uL Nucleated Red Blood Cells 0.0 0.0-0.19 % Sodium Level 134 L 136-145 mmol/L Potassium Level 3.8 3.5-5.1 mmol/L Chloride Level 98 L 101-111 mmol/L Carbon Dioxide Level 33 H 21-32 mmol/L Blood Urea Nitrogen 16 7-18 mg/dL Creatinine 0.6 0.5-1.3 mg/dL Glomerular Filtration Rate Calc 101 >90 mL/min Random Glucose 91 70-105 mg/dL Total Calcium 7.6 L 8.5-10.1 mg/dL Magnesium Level 2.00 1.80-2.40 mg/dL Bedside Glucose Comment Notified Nurse Current Medications Medications (Trade) Dose Ordered Sig/Sherman Route PRN Reason Start Time Stop Time Status Last Admin Dose Admin Acetaminophen (TYLenol 325MG TAB) 650 mg Q6H PRN PO FEVER/MILD PAIN LEVEL 1-3 05/20/25 05:00 06/19/25 04:59 05/25/25 09:45 650 MG Acetaminophen (TYLenol 650MG SUPPOSITORY) 650 mg Q6H PRN RC FEVER / MILD PAIN 1-3 IF NPO 05/20/25 05:00 06/19/25 04:59 Acetaminophen/ Hydrocodone Bitart (NORco 5/325MG) FOR MODERATE PAIN SC... Q6H PRN PO PAIN 4-10 05/20/25 05:00 05/20/25 07:47 DC Albuterol (DUOneb) 1 UDVIAL Q6H PRN IH SHORTNESS OF BREATH 05/20/25 05:00 06/19/25 04:59 05/23/25 23:07 1 UDVIAL Albuterol Sulfate (Proventil 0.083% 2.5mg/3ml) 2.5 mg [id number] PRN IH SHORTNESS OF BREATH 05/20/25 05:00 05/20/25 04:59 DC Atorvastatin Calcium (LIPItor 40MG) 40 mg DAILY PO 05/21/25 09:00 06/20/25 08:59 05/25/25 09:29 40 MG Budesonide (Pulmicort 0.5 Mg/2ml) 0.5 mg BIDRESP IH 05/20/25 18:00 06/19/25 17:59 05/25/25 06:52 0.5 MG Buspirone HCl (BUspar) 5 mg BID PO 05/20/25 21:00 06/19/25 20:59 05/25/25 09:29 5 MG Ceftriaxone Sodium (Rocephin 2gm Inj) 2 gm Q24H IVPB 05/24/25 08:00 05/24/25 17:35 DC Ceftriaxone Sodium (Rocephin 2gm Inj) 2 gm Q24H IVPB 05/24/25 18:00 06/03/25 17:59 05/24/25 18:25 2 GM Doxycycline Hyclate 250 ml @ 125 mls/hr Q12H IV 05/24/25 08:00 05/24/25 17:36 DC 05/24/25 12:25 125 MLS/HR Doxycycline Hyclate 250 ml @ 125 mls/hr Q12H IV 05/25/25 02:00 06/04/25 01:59 05/25/25 13:34 125 MLS/HR Ferric Sodium Gluconate Complex 125 mg/Sodium Chloride 110 ml @ 110 mls/hr Q24H IV 05/21/25 10:00 05/23/25 10:59 DC 05/23/25 16:15 110 MLS/HR Gabapentin (NEURontin 100 mg CAP) 100 mg BID PO 05/20/25 21:00 06/19/25 20:59 05/25/25 09:29 100 MG Hydralazine HCl (APRESOLine 20MG INJ) 10 mg Q6H PRN IV SBP GREATER THAN 160 05/20/25 05:00 06/19/25 04:59 Hydroxyzine HCl (ATArax 25MG TAB) 25 mg TID PRN PO ANXIETY 05/20/25 10:30 06/19/25 10:29 05/25/25 10:11 25 MG Insulin Human Regular (humuLIN R 100 UNIT/ML 3ML) INSULIN SLIDING SCAL... ACHS SQ 05/20/25 07:30 06/19/25 07:29 05/24/25 20:45 4 UNIT Ipratropium [place] (AtrovENT UD) 0.5 MG [id number] IH 05/20/25 12:00 06/19/25 11:59 05/25/25 11:56 0.5 MG Labetalol HCl (TRANdate 20MG SYG) 10 mg Q2H PRN IV SBP GREATER THAN 180 05/20/25 05:00 06/19/25 04:59 Losartan Potassium (CozAAR 50 mg TAB) 50 mg DAILY PO 05/21/25 09:00 06/20/25 08:59 05/25/25 09:29 50 MG Magnesium Sulfate 50 ml @ 0 mls/hr PROTOCOL PRN IV MAGNESIUM PROTOCOL 05/25/25 10:00 06/24/25 09:59 Methylprednisolone Sodium Succinate (Solu-medROL 40MG) 40 mg Q8H IVP 05/20/25 10:30 05/24/25 14:04 DC 05/24/25 12:24 40 MG Metoprolol Succinate (TopROL XL) 12.5 mg DAILY PO 05/21/25 09:00 05/20/25 11:15 DC Metoprolol Tartrate (loprESSOR) 12.5 mg BID PO 05/20/25 11:30 06/19/25 11:29 05/25/25 09:29 12.5 MG Metoprolol Tartrate (loprESSOR) 12.5 mg BID PO 05/20/25 21:00 05/20/25 10:25 DC Montelukast Sodium (SinguLAIR) 10 mg PM PO 05/20/25 21:00 06/19/25 20:59 05/24/25 20:45 10 MG Nicotine (Nicoderm) 21 mg Q24H TD 05/20/25 15:30 06/19/25 15:29 05/25/25 15:40 21 MG Ondansetron HCl (zoFRAN 4MG INJ) 4 mg Q6H PRN IVP NAUSEA/VOMITING 05/20/25 05:00 06/19/25 04:59 05/23/25 20:32 4 MG Pantoprazole Sodium (PROTonix 40MG INJ) 40 mg BID IVP 05/20/25 21:00 06/19/25 08:59 05/25/25 09:29 40 MG Pantoprazole Sodium (PROTonix 40MG INJ) 40 mg DAILY IVP 05/20/25 09:00 05/20/25 10:09 DC 05/20/25 09:37 40 MG Polyethylene Glycol (MIRalax 3350 17 GM POWD.PACK) 17 gm DAILY PO 05/20/25 09:00 06/19/25 08:59 05/25/25 09:29 17 GM Polyethylene Glycol/ Electrolytes (Golytely/Colyte Soln) 4,000 ml ONCE STAT PO 05/22/25 17:37 05/22/25 17:42 DC 05/22/25 21:34 4,000 ML Polyethylene Glycol/ Electrolytes (Golytely/Colyte Soln) 4,000 ml ONCE STAT PO 05/22/25 21:06 05/22/25 21:07 DC Potassium Chloride 100 ml @ 100 mls/hr AD PRN IV POTASSIUM PROTOCOL 05/25/25 10:00 06/24/25 09:59 Potassium Chloride (K-Dur/Klor-Con 20meq) 20 meq AD PRN PO POTASSIUM PROTOCOL 05/25/25 10:00 06/24/25 09:59 Potassium Chloride (KCl 10% Elixir 20meq/15ml) 20 meq AD PRN PO POTASSIUM PROTOCOL 05/25/25 10:00 06/24/25 09:59 05/25/25 10:11 20 MEQ Prednisone (deltaSONE/ oraSONE 20MG TAB) 40 mg DAILYBKFST PO 05/25/25 08:00 06/01/25 07:59 05/25/25 09:29 40 MG Tamsulosin HCl (FloMAX) 0.4 mg DAILY PO 05/21/25 09:00 06/20/25 08:59 05/25/25 09:29 0.4 MG Diagnostics / Radiology: [COPY/PASTE HERE IF NO REPORTS PLEASE DELETE SECTION] Assessment: Melena Acute blood loss anemia Elevated troponin CAD Respiratory failure CHF PVD Plan: Continue GI prophylaxis Avoid NSAIDs Antireflux measures Monitor H&H and transfuse as needed Call with questions, concerns or change in clinical status Patient to follow-up at clinic post discharge Thank you for this consult [employer] May 25, 2025 16:24
--- NOTE | 2025-05-25 16:56 | PN ---
PROGRESS NOTE Date of Service: May 25, 2025 Time of Service: 16:55 SUBJECTIVE: [ ] REVIEW OF SYSTEMS CONSTITUTIONAL: Denies fever, chills, or fatigue. HEAD/FACE: No signs of trauma. EENT: Denies eye pain, blurred vision, double vision, or light sensitivity. RESPIRATORY: Denies shortness of breath, cough, wheezing CARDIOVASCULAR: Denies chest pain, palpitation, syncope GASTROINTESTINAL/ABDOMINAL: Denies abdominal pain, constipation, diarrhea, nausea or vomiting GENITOURINARY: Denies dysuria or hematuria. MUSCULOSKELETAL: Denies joint pain, tenderness, or trauma. INTEGUMENTARY: Denies rash or itchiness NEUROLOGICAL/PSYCH: Denies anxiety, depression, heat or cold intolerance. PHYSICAL EXAM EYES: Anicteric. Pupils equal and reactive. HENT: No oral thrush seen, moist Oral mucosa NECK: Supple, no JVD or thyromegaly. LUNGS: Good air entry. No rales, no rhonchi. CARDIOVASCULAR: S1, S2 regular. No murmur heard. ABDOMEN: Soft, non tender, bowel sounds present, no organomegaly CENTRAL NERVOUS SYSTEM: Awake, alert, oriented x 3. No focal deficits. SKIN: No rashes, no swelling. LYMPHATICS: No peripheral lymphadenopathy MUSCULOSKELETAL: No joint swelling, erythema or tenderness. EXTREMITIES: No cyanosis or clubbing BACK: No deformity, no pressure ulcer. GENITOURINARY: No dysuria or hematuria Vital Signs (last 8hr) Date Time Temp Pulse Resp B/P (MAP) Pulse Ox O2 Delivery O2 Flow Rate FiO2 05/25/25 11:56 60 18 05/25/25 11:42 97.9 69 18 142/79 99 Nasal Cannula 2.0 05/25/25 09:20 97 Room Air* 0 21 LABS: Laboratory: Test 05/25/25 15:12 05/25/25 08:29 Range/Units Whole Blood Glucose 107 70-110 MG/DL White Blood Count 12.2 H 4.8-10.8 K/uL Red Blood Count 3.05 L 4.50-6.20 MIL/uL Hemoglobin 9.1 L 14.0-18.0 g/dL Hematocrit 28.1 L 42-54 % Mean Corpuscular Volume 92.1 79-99 fL Mean Corpuscular Hemoglobin 29.8 27.0-33.0 pg Mean Corpuscular Hemoglobin Concent 32.4 32.0-36.0 g/dL Red Cell Distribution Width 15.2 11.0-15.5 % Platelet Count 164 130-400 K/uL Mean Platelet Volume 9.6 7.5-10.5 fL Immature Granulocyte % (Auto) 0.6 0-1 % Neutrophils (%) (Auto) 88.8 H 40.0-77.0 % Lymphocytes (%) (Auto) 5.1 L 21.0-51.0 % Monocytes (%) (Auto) 5.3 3.0-13.0 % Eosinophils (%) (Auto) 0.1 0.0-8.0 % Basophils (%) (Auto) 0.1 0.0-5.0 % Neutrophils # (Auto) 10.8 H 1.8-7.7 K/uL Lymphocytes # (Auto) 0.6 L 1.0-4.8 K/uL Monocytes # (Auto) 0.6 0.1-1.0 K/uL Eosinophils # (Auto) 0.01 0.00-0.70 K/uL Basophils # (Auto) 0.01 0.00-0.20 K/uL Absolute Immature Granulocyte (auto 0.07 0-1 K/uL Nucleated Red Blood Cells 0.0 0.0-0.19 % Sodium Level 134 L 136-145 mmol/L Potassium Level 3.8 3.5-5.1 mmol/L Chloride Level 98 L 101-111 mmol/L Carbon Dioxide Level 33 H 21-32 mmol/L Blood Urea Nitrogen 16 7-18 mg/dL Creatinine 0.6 0.5-1.3 mg/dL Glomerular Filtration Rate Calc 101 >90 mL/min Random Glucose 91 70-105 mg/dL Total Calcium 7.6 L 8.5-10.1 mg/dL Magnesium Level 2.00 1.80-2.40 mg/dL DIAGNOSTICS / RADIOLOGY: [ ] PROBLEM LIST : Medical Problems: 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 Thank You for the consult and allowing us to participate in the care of this patient. CAESAR WALKER [facility] May 25, 2025 16:56
[2025-05-26] VITALS (11 sets, daily range): BP systolic 109–161; BP diastolic 41–66; PULSE 60–67; RESP 16–20; TEMP 97.2–97.8; O2SAT 97
[2025-05-26 05:28] LABS: CREATININE 0.7 mg/dL (0.5-1.3); GLOMERULAR FILTR. RATE CALC 96.0 mL/min (>90); GLUCOSE,RANDOM 88.0 mg/dL (70-105); SODIUM SERUM 134.0 mmol/L (136-145); UREA NITROGEN, BLOOD 13.0 mg/dL (7-18)
--- NOTE | 2025-05-26 07:57 | HMCIMG ---
EXAMINATION: ULTRASOUND OF THE ABDOMEN WITH DUPLEX SCAN. CLINICAL HISTORY: Pain COMPARISON: None. TECHNIQUE: Real-time grayscale ultrasound images of the abdomen. In addition, color Doppler is medically necessary to perform in order to evaluate vascularity and blood flow. FINDINGS: Celiac artery: 484 cm/s. Superior mesenteric artery: 437 cm/s Aorta: 76 cm/s. Inferior mesenteric artery: Obscured by overlying bowel gas IMPRESSION: There is increased velocity with more than 70% stenosis in the celiac and superior mesenteric arteries. Recommend CT angiogram. /[place]
--- NOTE | 2025-05-26 08:15 | HMCIMG ---
BILATERAL LOWER EXTREMITY ARTERIAL DOPPLER Clinical Indication: Evaluation for peripheral arterial disease. Comparison: No prior studies available for comparison. Technique: Duplex Doppler ultrasonography of the bilateral lower extremity arteries was performed, including the common femoral, superficial femoral, popliteal, anterior tibial, posterior tibial, and dorsalis pedis arteries. Spectral waveforms and peak systolic velocities were obtained.Findings On the right side, the common femoral artery peak systolic velocity measures 172 cm/sec. The proximal superficial femoral artery demonstrates a peak systolic velocity of 585 cm/sec, while the mid and distal superficial femoral artery measure 108 cm/sec and 109 cm/sec, respectively. The proximal popliteal artery measures 55 cm/sec and the distal popliteal artery 84 cm/sec. The posterior tibial artery measures 45 cm/sec, the distal anterior tibial artery 93 cm/sec, and the dorsalis pedis artery 53 cm/sec. Flow is biphasic in the common femoral artery and throughout the superficial femoral artery. The distal popliteal artery also shows biphasic flow. Monophasic flow is noted in the proximal popliteal artery, the posterior tibial artery, distal anterior tibial artery, and dorsalis pedis artery. On the left side, the common femoral artery peak systolic velocity measures 286 cm/sec. The proximal, mid, and distal superficial femoral artery measure 88 cm/sec, 126 cm/sec, and 102 cm/sec, respectively. The proximal popliteal artery measures 96 cm/sec and the distal popliteal artery 81 cm/sec. The posterior tibial artery measures 20 cm/sec, the distal anterior tibial artery 83 cm/sec, and the dorsalis pedis artery 83 cm/sec. Flow is biphasic in the common femoral artery, the superficial femoral artery, and both proximal and distal popliteal arteries. Monophasic flow is present in the posterior tibial artery, distal anterior tibial artery, and dorsalis pedis artery.Impression * The right lower extremity demonstrates high-grade stenosis of the proximal superficial femoral artery with monophasic flow in the distal popliteal and tibial arteries, consistent with significant distal arterial obstruction. * The left lower extremity shows preserved femoral and popliteal artery flow with monophasic flow in the distal tibial and dorsalis pedis arteries, suggesting distal arterial compromise. * Biphasic flow in the common femoral and superficial femoral arteries bilaterally indicates maintained proximal arterial patency. [facility]
--- NOTE | 2025-05-26 09:20 | PN ---
[facility] PROGRESS NOTE Date Patient Seen: May 26, 2025 Time of Visit: 09:19 Supervising Physician: Dr. Nito Christian Primary Care Physician: Dr. Mark Carver Outpatient Specialists: [ ] Inpatient Consults: Cardiology, Gastroenterology PROBLEM LIST: Acute on chronic hypoxic respiratory failure Acute NSTEMI Acute on chronic COPD Exacerbation Acute Anemia, rule out GI bleed, requiring PRBC transfusion - s/p EGD - results unremarkable 05/23/25 - s/p colonoscopy (+) ischemic colitis 05/24/25 Acute Hyponatremia DM type 2, with hyperglycemia LVEF is 45-50% per echo done 05/20/25 Hypertension, uncontrolled PVD s/p angioplasty, with bilateral stents to iliac and left SFA History of Aortic valve stenosis History of CAD with stent placement to RCA in 2018, pacemaker INTERVAL HISTORY: 05/23 - Patient was seen and examined, patient resting comfortably in bed actually sitting at the bedside talking with his . He is comfortable, reporting some mild discomfort to the dorsum of his left hand otherwise no complaints. No chest pain or shortness of breath Currently getting nebulizer treatments Patient's initial hemoglobin 6.9 he received a total of 2 units his hemoglobin this morning is 8.6, platelets are 155 Patient's troponins topped out at 4400, now downtrending He is not on any heparin due to suspected GI bleed. GI is planning possible colonoscopy Patient on Solu-Medrol 40 q.6 for his COPD exacerbation along with statin and nebulizer treatments 05/24 - patient is seen sitting up at the side of the bed accompanied by his . Patient appears to be weak, deconditioned hypoxemic 2 L via nasal cannula. Patient denies chest discomfort, chest pain at this time. Patient denies hematemesis, hematochezia or melena at this time. Patient's hemoglobin has remained stable his most recent labs show an H&H of 8.6/24.4. Patient underwent an EGD yesterday and results were unremarkable. Patient is scheduled for a colonoscopy today. We will follow results. Patient's troponins max was 4400 and trending downward. No anticoagulation secondary to GI bleed. Cardiology is following and appreciate recommendations. Patient continues on Solu-Medrol for COPD exacerbation. We will DC Solu-Medrol at this time and start patient on prednisone. 05/25 - patient is seen and evaluated at the bedside. Patient is sitting up at the side of the bed continues to be very weak, debilitated, deconditioned and hypoxemic requiring 2 L via nasal cannula. Patient denies chest discomfort, chest pain or dyspnea at the time of my evaluation. Patient underwent a colonoscopy yesterday afternoon and results show ischemic colitis. Biopsies were taken and results are pending. Recommends no NSAIDs hold aspirin. Patient to follow up patient with GI in 1-2 weeks. Patient was re-evaluated by Cardiology and report management is going to be quite challenging given he is not a candidate for antiplatelet or anticoagulation therapy secondary to severe anemia. Is also poorly suited for any cardiac intervention at this time even though he has a recent non-STEMI. Vital signs are stable. Today's labs show H&H remained stable at 9.1/28.1. We will continue current treatment for now. Prognosis remains guarded. 05/26-examined and seen the patient while resting at the side of the bed sitting with his in a chair opposite for more the patient is sitting both friendly and conversant. Utilized patient's bedside nurse because patient and spouse are Tuvaluan-speaking only, KATHI was a eliana she is able to translate all the topics so a seamless conversation 1st discussing the patient's treatment plan, with vital signs, medications, and laboratory results reviewed. Discussed and reviewed with patient and spouse barriers to discharge we will be advancing the patient's diet, seeing how the patient tolerates it and the patient will be discharged on a new prescription medications and we will not be on any anticoagulation or blood thinners because of the relative bleeding that the patient is experiencing this hospitalization. Additionally, the patient has a Jain catheter in the patient we will have to have bladder training Jain catheter removed in the patient is able to void prior to discharge with an acceptable post residual void bladder volume within the hospital protocol. If not the patient will have to be discharged with a Jain catheter follow up with primary care and be referred to urologist for further treatment and management. Patient was received education and information on the discharge process. If able patient will be discharged home early this evening. PLAN Supplemental oxygen as needed Wean off as tolerated Duo nebs as needed Continue prednisone 40 mg daily x7 days Monitor H&H closely Monitor closely for signs and symptoms of bleeding Wound care for upper extremities Follow GI recommendations Holding heparin SCDs Follow cardiology recs REVIEW OF SYSTEMS: 12 point ROS reviewed with patient. Pertinent positives mentioned above. Otherwise negative. PHYSICAL EXAM: GENERAL: awake, alert and oriented x 3 HEENT: EOMI, Sclera non icteric, moist mucosa NECK: Supple, no JVD, trachea midline LUNGS: Wheezing bilateral lobes HEART: Regular rate and rhythm. Normal S1 and S2, without murmurs ABD: Abdomen soft, nontender. Bowel sounds present EXT: left upper extremity and left lower extremity with edema NEURO: Alert and oriented to person, follows commands Vital Signs (last 8hr) Date Time Temp Pulse Resp B/P (MAP) Pulse Ox O2 Delivery O2 Flow Rate FiO2 05/26/25 07:24 67 18 05/26/25 07:17 67 18 05/26/25 07:16 60 18 N/Cannula Low lpm 2.0 28 05/26/25 07:00 97.5 60 16 156/56 99 Nasal Cannula 2.0 05/26/25 04:00 97.9 60 18 161/52 97 Nasal Cannula 2.0 LABS: Hematology Labs: Test 05/25/25 08:29 Range/Units White Blood Count 12.2 H 4.8-10.8 K/uL Red Blood Count 3.05 L 4.50-6.20 MIL/uL Hemoglobin 9.1 L 14.0-18.0 g/dL Hematocrit 28.1 L 42-54 % Mean Corpuscular Volume 92.1 79-99 fL Mean Corpuscular Hemoglobin 29.8 27.0-33.0 pg Mean Corpuscular Hemoglobin Concent 32.4 32.0-36.0 g/dL Red Cell Distribution Width 15.2 11.0-15.5 % Platelet Count 164 130-400 K/uL Mean Platelet Volume 9.6 7.5-10.5 fL Immature Granulocyte % (Auto) 0.6 0-1 % Neutrophils (%) (Auto) 88.8 H 40.0-77.0 % Lymphocytes (%) (Auto) 5.1 L 21.0-51.0 % Monocytes (%) (Auto) 5.3 3.0-13.0 % Eosinophils (%) (Auto) 0.1 0.0-8.0 % Basophils (%) (Auto) 0.1 0.0-5.0 % Neutrophils # (Auto) 10.8 H 1.8-7.7 K/uL Lymphocytes # (Auto) 0.6 L 1.0-4.8 K/uL Monocytes # (Auto) 0.6 0.1-1.0 K/uL Eosinophils # (Auto) 0.01 0.00-0.70 K/uL Basophils # (Auto) 0.01 0.00-0.20 K/uL Absolute Immature Granulocyte (auto 0.07 0-1 K/uL Nucleated Red Blood Cells 0.0 0.0-0.19 % Chemistry Labs: Test 05/26/25 06:35 05/26/25 03:56 05/25/25 08:29 Range/Units Whole Blood Glucose 88 70-110 MG/DL Sodium Level 134 L 136-145 mmol/L Potassium Level 5.1 3.5-5.1 mmol/L Chloride Level 100 L 101-111 mmol/L Carbon Dioxide Level 32 21-32 mmol/L Blood Urea Nitrogen 13 7-18 mg/dL Creatinine 0.7 0.5-1.3 mg/dL Glomerular Filtration Rate Calc 96 >90 mL/min Random Glucose 88 70-105 mg/dL Total Calcium 7.6 L 8.5-10.1 mg/dL Magnesium Level 2.00 1.80-2.40 mg/dL DIAGNOSTICS / RADIOLOGY RESULTS: [ ] NEURO: Minimize central acting medications as possible. Maintain fall precautions, adequate lighting during the day PULMONARY: Supplemental 02 as needed. Maintain aspiration precautions at all times CARDIOVASCULAR: Follow hemodynamics. Vital signs per facility protocol GI & NUTRITION: Continue with nutritional support. Continue stool softeners and laxatives as needed. KIDNEYS & ELECTROLYTES: Strict monitoring of intake, output and overall fluid balance. Avoid nephrotoxic medications to the extent possible. Medications to be dosed according to renal function. Monitor electrolytes and replace as needed ENDOCRINE: Maintain blood glucose between 100-180 at all times. Hypoglycemia protocol in place INFECTIOUS DISEASE: Trend temperature, WBC and procalcitonin level Follow cultures, deescalate antibiotics as soon as possible. Panculture if new onset fever ONCOLOGY/HEMATOLOGY/COAGULATION: Monitor for s/s of bleeding Monitor hemoglobin, coagulation studies as needed SKIN: Pressure ulcer prevention per facility protocol Specialty mattress ORTHO/REHAB: Continue PT/OT Prophylaxis: Continue GI and DVT prophylaxis Code Status: Full Resuscitation Disposition: Home Once medically stable for discharge AMILCAR HORTA AGACNP May 26, 2025 09:20
--- NOTE | 2025-05-26 14:16 | PN ---
This is a 74-year-old male with a history of coronary artery disease status post PTCA/PCI of the mid RCA in the setting of inferior wall STEMI 07/02/2019 with a known 50% InStent restenosis of the distal most portion of the stent ([facility] 04/23/2022), peripheral arterial disease status post multiple interventions to bilateral lower extremities, sinus bradycardia status post dual-chamber pacemaker insertion 04/30/2022, paroxysmal atrial flutter hypertension, hyperlipidemia, chronic obstructive pulmonary disease and GI bleeding in the setting of gastritis/esophagitis in May 2024. He was admitted 05/20/2025 secondary to symptomatic anemia with a hemoglobin of 6.3 on admission s/p transfusion of PRBCs x2. He has been taking Eliquis 5 mg twice daily, aspirin 81 mg once daily and clopidogrel 75 mg once daily prior to admission. There was report of melena, and he underwent a GI workup to include EGD negative for acute bleeding from followed by colonoscopy revealing ischemic colitis. He was also found to have troponin elevation on admission with a trend as follows: 107 -- 181 -- 1379 -- 2097.5 -- 4485.9 -- 3102. He underwent echocardiogram 05/20/2025 which shows an ejection fraction of 45-50% with no regional wall motion abnormalities, moderately dilated left atrium, without pericardial effusion. Venous Dopplers of the left upper and lower extremities 05/20/2025 are negative for DVT. He underwent arterial Doppler bilateral lower extremities 05/25/2025 which shows high-grade stenosis of the proximal SFA with monophasic flow in the distal popliteal and tibial arteries consistent with significant distal arterial obstruction of the right lower extremity, and preserved for more and popliteal artery flow with monophasic flow in the distal tibial and dorsalis pedis arteries suggesting distal arterial compromise of the left lower extremity. He also underwent mesenteric ultrasound which showed increased velocity with more than 70% stenosis in the celiac and superior mesenteric arteries. He is currently in sinus rhythm with heart rates in the 60s. He has intermittent atrial pacing. White blood count 12.2, hemoglobin 9.8, hematocrit 28.1, platelets 164 (05/25/2025), creatinine 0.7, potassium 5.1. He is accompanied by his today. He reports swelling to his lower extremities, left greater than right which is a chronic issue. He states that he has had multiple procedures done to his legs. He is no longer able to walk. On exam, he is in no acute distress, regular rate and rhythm, lungs are clear to auscultation bilaterally, severe stasis dermatitis to bilateral lower extremities with 1+ edema to the left lower extremity, hammertoe deformity to the 2nd toe of the left foot. Assessment: 1. Symptomatic anemia status post transfusion of PRBCs x2. 2. Ischemic colitis. 3. 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 4. Elevated troponin in the setting of severe anemia, likely type 2 MN. 5. Coronary artery disease with a history of mid RCA stenting in the setting of inferior wall MN with known 50% InStent restenosis at the distal portion of the RCA stent. 6. Severe peripheral arterial disease involving the right distal popliteal and tibial arteries and left distal tibial and dorsalis pedis arteries. 7. Status post dual-chamber pacemaker insertion in April 2022. 8. Chronic obstructive pulmonary disease. 9. History of GI bleeding in May 2024. 10. Leukocytosis. Plan: Discussed with Dr. Leonard. 1. He was admitted with ischemic colitis and elevated troponin (type 2 MN) in the setting of symptomatic anemia with a hemoglobin of 6.3 on admission. He underwent mesenteric ultrasound which shows greater than 70% stenosis in the celiac and superior mesenteric arteries. He has known coronary artery disease was 50% InStent restenosis of his RCA stent. He has a has severe peripheral arterial disease status post multiple interventions to his lower extremities. 2. He may require angioplasty of the celiac and mesenteric arteries. Stenting would not be appropriate as he is currently not a candidate for antiplatelet therapy. 3. He will ultimately require clearance from GI to resume antiplatelet therapy; determination will likely take place as an outpatient. 4. Dr. Ang to review the mesenteric ultrasound and provide formal recommendations regarding possible intervention. 5. Otherwise continue medical therapy of coronary artery disease with atorvastatin 40 mg once daily , metoprolol 12.5 mg twice daily, losartan 50 mg once daily. 6. Leukocytosis likely secondary to use of prednisone. Vitals/Labs Vital Signs Date Time Temp Pulse Resp B/P (MAP) Pulse Ox O2 Delivery O2 Flow Rate FiO2 05/26/25 11:31 60 18 N/A Room Air 21 05/26/25 11:00 97.2 157/58 98 2.0 Laboratory Tests 05/26/25 03:56 ALYSON SAMAYOA May 26, 2025 14:16
--- NOTE | 2025-05-26 15:55 | NUR ---
PT'S HARE CATHETER WAS DISCONTINUED AND WILL AWAIT FOR PT TO VOID. PLAN TO DISCHARGE TODAY. PT WAS ADVISED OF NEED TO URINATE PRIOR TO POSSIBLE DISCHARGE
--- NOTE | 2025-05-26 16:24 | DS ---
[facility] DISCHARGE SUMMARY Date Patient Seen: May 26, 2025 Time of Visit: 16:24 Supervising Physician: Dr. Nito Christian Primary Care Physician: Dr. Mark Carver Outpatient Specialists: [ ] Inpatient Consults: Cardiology, Gastroenterology PROBLEM LIST: Acute on chronic hypoxic respiratory failure Acute NSTEMI Acute on chronic COPD Exacerbation Acute Anemia, rule out GI bleed, requiring PRBC transfusion - s/p EGD - results unremarkable 05/23/25 - s/p colonoscopy (+) ischemic colitis 05/24/25 Acute Hyponatremia DM type 2, with hyperglycemia LVEF is 45-50% per echo done 05/20/25 Hypertension, uncontrolled PVD s/p angioplasty, with bilateral stents to iliac and left SFA History of Aortic valve stenosis History of CAD with stent placement to RCA in 2019, pacemaker HOSPITAL COURSE: 05/24 - patient is seen sitting up at the side of the bed accompanied by his . Patient appears to be weak, deconditioned hypoxemic 2 L via nasal cannula. Patient denies chest discomfort, chest pain at this time. Patient denies hematemesis, hematochezia or melena at this time. Patient's hemoglobin has remained stable his most recent labs show an H&H of 8.6/24.4. Patient underwent an EGD yesterday and results were unremarkable. Patient is scheduled for a colonoscopy today. We will follow results. Patient's troponins max was 4400 and trending downward. No anticoagulation secondary to GI bleed. Cardiology is following and appreciate recommendations. Patient continues on Solu-Medrol for COPD exacerbation. We will DC Solu-Medrol at this time and start patient on prednisone. 05/25 - patient is seen and evaluated at the bedside. Patient is sitting up at the side of the bed continues to be very weak, debilitated, deconditioned and hypoxemic requiring 2 L via nasal cannula. Patient denies chest discomfort, chest pain or dyspnea at the time of my evaluation. Patient underwent a colonoscopy yesterday afternoon and results show ischemic colitis. Biopsies were taken and results are pending. Recommends no NSAIDs hold aspirin. Patient to follow up patient with GI in 1-2 weeks. Patient was re-evaluated by Cardiology and report management is going to be quite challenging given he is not a candidate for antiplatelet or anticoagulation therapy secondary to severe anemia. Is also poorly suited for any cardiac intervention at this time even though he has a recent non-STEMI. Vital signs are stable. Today's labs show H&H remained . 05/26-patient was seen and examined while resting at the side of the patient's bed with spouse present, Wolof-speaking only, utilized patient's bedside nurse to function as my packaging mechanic, patient is awake alert and oriented and in no acute distress. Constipation, diarrhea, fever, chills, chest pain, nauseousness, and diarrhea denied by patient. Patient has Jain catheter, patient will require bladder training any ability to void with a post residual void less than 300 so the patient will be able to be discharged home per hospital protocol without a Jain catheter. The patient is unable to achieve this goal patient will be discharged home with a Jain catheter and follow up with primary care provider. Patient's medications we will be adjusted per Cardiology recommendations patient's we will not be on any Plavix, aspirin, or Eliquis until following up with GI. New blood pressure medicine we will be prescribed to the patient and the patient will be on Protonix 40 mg p.o. b.i.d.. The patient's spouse accept this and we will try to reach the expectations of discharged today if not the patient will spend overnight and be discharged tomorrow in the morning. HPI (per admitting provider) This is a 74 year old male with a medical history including PAD, chronic respiratory failure on home O2, COPD, DM II, CHF, HTN, PVD s/p angioplasty with bilateral stents to iliac and left SFA, aortic valve stenosis, CAD with stent placement to RCA in 2019, pacemaker. He presented to ER with chest pain. As per EMS chest pain started at 100 a.m. At that time patient was given a nitro which alleviated the pain. In ED EKG sinus rhythm rate 77, ND 130, QRS 87, QT 340, supraventricular bigeminy. No ST elevation. Chest Xray shows No acute cardiopulmonary pathology is evident. WBC 7.4 Hgb 6.3/ Hct 19.7 Plt 273, BUN 19, Cr 0.9, Sodium 127, potassium 4.9. Troponin started at 107 now at 2097.5. Today, patient assessed and examined in bed. He is on 3 L of oxygen with appropriate oxygen saturation, not in acute respiratory distress, denies any headache, chest pain, abdominal pain, but complains of generalized body weakness. He received 1 units PRBC Hgb 8.2. Patient admits to smoking. Patient wheezing to bilateral lobes. Patient has edema to lower left extremity and left upper extremity. He has a wound to left hand which has ecchymosis and appears to be infected. He also has a wound that is covered with gauze to the left lower extremity. He is a poor historian. Patient does not know which medications he takes but has them in room in a bag. He states his daughter administer his medications. Per daughter patient is currently taking ASA 91 daily, Plavix 75 mg daily, and Eliquis 5mg bid. Home medications resumed except for ASA, Plavix, and Eliquis. Patient states he had dark stool, but he is on an iron supplement. Later in the day I was notified of patients respiratory status worsened with at bedside. Patient is respiratory distress with audible wheezing using accessory muscles complaining of anxiety. Patient placed on bipap 06/23, RR 16, Fi02 40%, solumedrol 60 mg IV stat, Lasix 40 mg IV x 1, stat ABG ordered. After bipap was placed, patient relaxed minimally, but then started with anxiety again Valium 5 mg IVP x 1 ordered. Patient is a high risk for cardio respiratory decompensation, explained this to and patient. Per and patient remains full code. If patient's conditions worsens, will transfer to ICU for precedex drip. The patient was treated for the following problems: ACTIVE PROBLEM LIST FOR THE HOSPITALIZATION: Acute on chronic hypoxic respiratory failure Acute NSTEMI Acute on chronic COPD Exacerbation Acute Anemia, rule out GI bleed, requiring PRBC transfusion - s/p EGD - results unremarkable 05/23/25 - s/p colonoscopy (+) ischemic colitis 05/24/25 Acute Hyponatremia DM type 2, with hyperglycemia LVEF is 45-50% per echo done 05/20/25 Hypertension, uncontrolled CHRONIC PROBLEM LIST dressed at PCP office: DM type 2, with hyperglycemia Hypertension PVD s/p angioplasty, with bilateral stents to iliac and left SFA History of Aortic valve stenosis History of CAD with stent placement to RCA in 2019, pacemaker [employer] FINDINGS/RECOMMENDATIONS: [ ] PROCEDURES: as mentioned above DISCHARGE MEDICATIONS: Protonix 40 mg p.o. b.i.d. 30 days, 60 tablets Metoprolol 12.5 mg p.o. b.i.d. 30 days, we will be 30 tablets 25 mg, which the patient will be instructed to split in half and take half in the morning and half in the evening for every day. Losartan potassium 50 mg p.o. daily, 30 days, 30 tablets. Atorvastatin 40 mg p.o. daily at time of sleep, 30 days, 30 tablets. Pt hemodynamically stable and afebrile at time of discharge. PCP notified of patients admission, hospital course and discharge. PHYSICAL EXAM: GENERAL: awake, alert and oriented x 3 HEENT: EOMI, Sclera non icteric, moist mucosa NECK: Supple, no JVD, trachea midline LUNGS: Wheezing bilateral lobes HEART: Regular rate and rhythm. Normal S1 and S2, without murmurs ABD: Abdomen soft, nontender. Bowel sounds present EXT: left upper extremity and left lower extremity with edema NEURO: Alert and oriented to person, follows commands FOLLOW-UP: Follow-up with PCP in 2-3 days RECOMMENDATIONS: See Discharge Instructions This case was seen and discussed with my supervising physician. More than 50 minutes spent on discharge process, including evaluation of the patient, discussion with nursing staff, medication reconciliation and follow-up appointments AMILCAR HORTA [facility] May 26, 2025 16:24
--- NOTE | 2025-05-26 21:00 | NUR ---
VOIDED 220 ML S/P DC OF HARE CATHETER NO DISTRESS NOTED WILL CONT TO MONITOR
--- NOTE | 2025-05-26 21:20 | NUR ---
DISCHARGE HOME ACCOMPANIED BY AND DAUGHTER
== END 2025-05-26 21:30 | disposition home or self-care (01) | DRG 393 ==
LOC: EDBD 03:35 → EDH 03:35 → EDHIP 04:32 → 2DH 06:00
PROVIDERS: ADMIT Internal Medicine Critical Care Medicine; ATTEND Internal Medicine Critical Care Medicine
PROC: 30233N1 Transfusion of Nonautologous Red Blood Cells into Peripheral Vein, Percutaneous Approach (ICD-10-PCS; principal; 2025-05-20)
PROC: 5A09357 Assistance with Respiratory Ventilation, Less than 24 Consecutive Hours, Continuous Positive Airway Pressure (ICD-10-PCS; 2025-05-20)
PROC: 5A09357 Assistance with Respiratory Ventilation, Less than 24 Consecutive Hours, Continuous Positive Airway Pressure (ICD-10-PCS; 2025-05-21)
PROC: 0DJ08ZZ Inspection of Upper Intestinal Tract, Via Natural or Artificial Opening Endoscopic (ICD-10-PCS; 2025-05-22)
PROC: 0DBH8ZX Excision of Cecum, Via Natural or Artificial Opening Endoscopic, Diagnostic (ICD-10-PCS; 2025-05-24)
DX: K55.9 Vascular disorder of intestine, unspecified (principal); I21.A1 Myocardial infarction type 2; J96.21 Acute and chronic respiratory failure with hypoxia; E87.1 Hypo-osmolality and hyponatremia; D62 Acute posthemorrhagic anemia; K92.2 Gastrointestinal hemorrhage, unspecified; I70.249 Atherosclerosis of native arteries of left leg with ulceration of unspecified site; J44.1 Chronic obstructive pulmonary disease with (acute) exacerbation; E11.65 Type 2 diabetes mellitus with hyperglycemia; I35.0 Nonrheumatic aortic (valve) stenosis; I10 Essential (primary) hypertension; Z99.81 Dependence on supplemental oxygen; E11.51 Type 2 diabetes mellitus with diabetic peripheral angiopathy without gangrene; I25.10 Atherosclerotic heart disease of native coronary artery without angina pectoris; E11.621 Type 2 diabetes mellitus with foot ulcer; E78.5 Hyperlipidemia, unspecified; F17.200 Nicotine dependence, unspecified, uncomplicated; I48.91 Unspecified atrial fibrillation; L97.529 Non-pressure chronic ulcer of other part of left foot with unspecified severity; F41.9 Anxiety disorder, unspecified; R54 Age-related physical debility; Z79.52 Long term (current) use of systemic steroids; I25.2 Old myocardial infarction; Z79.01 Long term (current) use of anticoagulants; Z79.02 Long term (current) use of antithrombotics/antiplatelets; Z79.82 Long term (current) use of aspirin; Z82.49 Family history of ischemic heart disease and other diseases of the circulatory system; Z86.73 Personal history of transient ischemic attack (TIA), and cerebral infarction without residual deficits; Z95.0 Presence of cardiac pacemaker; Z95.5 Presence of coronary angioplasty implant and graft; Z98.62 Peripheral vascular angioplasty status
CPT/HCPCS: 36415; 36430; 36600; 43235; 45380; 71045; 73120; 80048; 80076; 81003; 82550; 82607; 82728; 82803; 82948; 83036; 83605; 83735; 83880; 84100; 84145; 84484; 85018; 85025; 85027; 85610; 86850; 86900; 86901; 86923; 87635; 87804; 87880; 88305; 93005; 93308; 93356; 93925; 93971; 93975; 94640; 94660; 94664; 96374; 96375; 99285; A4606; G0378; J0696; J1815; J1938; J2003; J2270; J2405; J2470; J2704; J2916; J2919; J3360; J3490; J7030; P9016; A4215; A4222; A4223; A4620